=== PATIENT | female | born 1945 | race Caucasian/White ===

== ENCOUNTER → 2020-05-21 09:54 | Outpatient (REF) | payer MEDICARE, OTHER, SELFPAY ==
--- NOTE | 2020-05-21 10:00 | ECG_ITS ---
Hook-up date: 2020-05-21 10:37:00 Duration: 47:59:00 Test Indications: PALPITATIONS, PVC'S Medications: [id number] QRS complexes 182 Ventricular ectopics which represent <1 % of total QRS comp. 8 Supraventricular ectopics which represent <1 % of total QRS comp. * Paced QRS complexs which represent % of total QRS comp. VENTRICULAR ECTOPY 182 Isolated 0 Bigeminal Cycles 0 Couplets 0 Runs 0 Beats in Runs * Beats LONGEST at * BPM at :: -- * Beats FASTEST at * BPM at :: -- SUPRAVENTRICULAR ECTOPY 8 Isolated 0 Couplets 0 Runs 0 Beats in Runs * Beats LONGEST at * BPM at :: -- * Beats FASTEST at * BPM at :: -- HEART RATES 50 MIN at 02:17:39 2020-05-22 71 AVG 99 MAX at 13:52:23 2020-05-22 LONGEST RR 1.3600 secs at 01:26:09 2020-05-22 S-T LEVELS Channel 1 - 128 mm at 10:37:00 2020-05-21 - 128 mm at 10:37:00 2020-05-21 Channel 2 - 128 mm at 10:37:00 2020-05-21 - 128 mm at 10:37:00 2020-05-21 Channel 3 - 128 mm at 02:95:61 -- - 128 mm at 02:95:61 Basic rhythm Normal sinus rhythm No long pause or profound bradycardia Occasional Premature ventricular complexes One of the patient reported symptom of skipping correlated with isolated PVC Referred By: Hernan Barbosa Overread By: SAUL DAVISON MD
== END ==
LOC: HO.CARD 09:54
DX: I49.9 Cardiac arrhythmia, unspecified (principal); I10 Essential (primary) hypertension; I49.3 Ventricular premature depolarization
CPT/HCPCS: 93225; 93226

== ENCOUNTER 2020-06-05 08:57 | Outpatient (REF) | payer MEDICARE, OTHER, SELFPAY ==
[2020-06-05 10:10] LABS: Hematocrit 41.2 % (37-47); Hemoglobin 13.6 g/dl (12.0-16.0); Mean Corpuscular Hemoglobin 31.9 pg (27.0-33.0); Mean Corpuscular Volume 96.7 fL (80-98); Mean Platelet Volume 10.7 fL (9.4-12.3); Platelet Count 235 X10*3/uL (160-400); Red Blood Count 4.26 X10*6/uL (4.20-5.50); Red Cell Distribution Width 12.5 % (11.0-16.0); White Blood Count 7.2 X10*3/uL (4.8-10.8)
[2020-06-05 10:13] LABS: Estimated Average Glucose 97 mg/dL
[2020-06-05 10:46] LABS: Alanine Aminotransferase 18 U/L (0-31); Albumin Level 3.9 g/dL (3.5-5.0); Alkaline Phosphatase 93 U/L (39-117); Anion Gap 13 (12-20); Aspartate Amino Transferase 25 U/L (5-31); Bilirubin Direct 0.2 mg/dL (0.0-0.5); Bilirubin Total 0.4 mg/dL (0.0-1.0); Blood Urea Nitrogen 11 mg/dL (9-16); Calcium 8.9 mg/dL (8.4-10.2); Carbon Dioxide 29 mmol/L (22-29); Chloride 105 mmol/L (96-108); Cholesterol 146 mg/dL; Estimated Glomerular Filt Rate > 60; Glucose Fasting 100 mg/dL (60-99); HDL Cholesterol 50 mg/dL; LDL Cholesterol Calculated 73 mg/dl; Potassium 4.8 mmol/l (3.3-5.1); Sodium 142 mmol/L (135-145); Triglycerides 115 mg/dL
== END 2020-06-05 08:58 | disposition home or self-care (01) ==
LOC: HO.LAB 08:57
DX: I10 Essential (primary) hypertension (principal); E78.5 Hyperlipidemia, unspecified; R53.83 Other fatigue
CPT/HCPCS: 36415; 80053; 80061; 80076; 82248; 83036; 85027

== ENCOUNTER 2020-08-17 09:39 | Outpatient (REF) | payer MEDICARE, OTHER, SELFPAY ==
--- NOTE | 2020-08-17 09:48 | MM_ITS ---
EXAMINATION: MM SCREENING DIGITAL BREAST TOMOSYNTHESIS, BILATERAL CLINICAL INFORMATION: Screening. Asymptomatic. The lifetime risk of breast cancer based on the Tyrer-Cuzick Model is 1%. COMPARISON: Mammography: 08/12/2019, 09/27/2017, 07/28/2016 TECHNIQUE: Digital breast tomosynthesis is performed in both the craniocaudal and mediolateral oblique views along with computer-aided detection (CAD). Synthesized 2D images are generated from the tomosynthesis. FINDINGS: The breasts are almost entirely fatty (ACR BI-RADS breast composition Category a). There are no significant masses, abnormal calcifications, or other abnormalities. Background stromal densities are stable. There are bilateral vascular calcifications. The axilla and skin contours are unremarkable. No significant changes. MM/MM tomosynthesis screening BI IMPRESSION: No mammographic evidence of malignancy. ASSESSMENT: BI-RADS 1: Negative RECOMMENDATION: Routine annual mammography screening. This patient's information was entered into a reminder system with a target due date for their next mammogram.
== END 2020-08-17 09:40 | disposition home or self-care (01) ==
LOC: HO.MAMMO 09:39
DX: Z12.31 Encounter for screening mammogram for malignant neoplasm of breast (principal)
CPT/HCPCS: 77063; 77067

== ENCOUNTER 2020-09-09 08:14 | Outpatient (REF) | payer MEDICARE, OTHER, SELFPAY | END 2020-09-09 08:15 | disposition home or self-care (01) | LOC: HO.LAB 08:14 | PROVIDERS: Visit Provider Internal Medicine | DX: Z20.822 Contact with and (suspected) exposure to COVID-19 (principal) | CPT/HCPCS: 36415; C9803; U0003 ==

== ENCOUNTER 2020-10-06 10:21 | Outpatient (REF) | payer MEDICARE, OTHER, SELFPAY | END 2020-10-06 10:22 | disposition home or self-care (01) | LOC: HO.LAB 10:21 | PROVIDERS: Visit Provider Internal Medicine | DX: Z20.822 Contact with and (suspected) exposure to COVID-19 (principal) | CPT/HCPCS: 36415; C9803; U0003 ==

== ENCOUNTER 2020-10-06 11:04 | Outpatient (REF) | payer MEDICARE, OTHER, SELFPAY ==
[2020-10-06 12:28] LABS: Alanine Aminotransferase 11 U/L (0-31); Anion Gap 11 (12-20); Blood Urea Nitrogen 16 mg/dL (9-16); Carbon Dioxide 29 mmol/L (22-29); Chloride 106 mmol/L (96-108); Estimated Glomerular Filt Rate > 60; Potassium 4.7 mmol/L (3.3-5.1); Sodium 141 mmol/L (135-145)
== END 2020-10-06 11:05 | disposition home or self-care (01) ==
LOC: HO.LAB 11:04
PROVIDERS: PCP Family Medicine; Visit Provider Family Medicine
DX: I10 Essential (primary) hypertension (principal); E78.00 Pure hypercholesterolemia, unspecified; Z20.822 Contact with and (suspected) exposure to COVID-19; Z79.899 Other long term (current) drug therapy
CPT/HCPCS: 36415; 80051; 82550; 82565; 84460; 84520; C9803; U0003

== ENCOUNTER 2020-10-11 10:52 | Outpatient (REF) | payer MEDICARE, OTHER, SELFPAY | END 2020-10-11 10:53 | disposition home or self-care (01) | LOC: HO.LAB 10:52 | PROVIDERS: Visit Provider Internal Medicine | DX: Z20.822 Contact with and (suspected) exposure to COVID-19 (principal) | CPT/HCPCS: 36415; C9803; U0003; U0005 ==

== ENCOUNTER 2021-01-27 13:11 | Emergency (ER) | payer MEDICARE, OTHER, SELFPAY ==
--- NOTE | ~2021-01-27 | CT_ITS ---
EXAMINATION: CT HEAD AND CT CERVICAL SPINE WITHOUT CONTRAST CLINICAL INFORMATION: Status post fall with head injury. No LOC COMPARISON: None TECHNIQUE: 5 mm thin axial and reformatted 2 mm thin sagittal and coronal images of brain were obtained. Axial 3 mm thin and reformatted 2 mm thin sagittal and coronal images of cervical spine were obtained. DLP [id number]. FINDINGS: Brain: There is no acute intra-axial, extra-axial bleed, collection, mass or midline shift. No acute infarct in evolution. The lateral ventricles are symmetrical in size and configuration without enlargement. The valdovinos to white matter differentiation is maintained normal. The bone windows reveal no calvarial abnormality. Bilateral pattern nasal sinuses and mastoid air cells are well-aerated. There is moderate deviation nasal septum to the right Cervical spine: There is mild straightening of cervical lordosis. 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 Rest the vertebral alignment and vertebral heights are preserved. There is loss of C3-C4, C5-C6 disc heights with posterior spondylosis. The craniovertebral junction and the C2-C3 alignment is normal. There is no visible acute fracture, dislocation or subluxation seen. There is mild bilateral C3-C4 facet joint hypertrophy and arthropathy. Mild bilateral uncovertebral hypertrophic changes narrowing of neural foramina C5-C6 disc levels is noted. There is bilateral apical parenchymal and pleural thickening and scarring. The no abnormal neck mass or lymphadenopathy seen. Central tracheal airway is widely patent. The thyroid lobes are symmetrical and normal. Bilateral TM joints are intact. CT/CT cervical spine wo con IMPRESSION: No acute intracranial process seen. Mild straightening of cervical lordosis with congenital fusion C4 and C5 vertebra. There are degenerative disc changes C3-C4 and C4-C5 disc levels with ventral and posterior spondylosis. No acute fracture or dislocation seen. Mild degenerative changes.
--- NOTE | ~2021-01-27 | XR_ITS ---
EXAMINATION: CHEST, RIGHT HIP WITH PELVIS AND LUMBAR SPINE. CLINICAL INFORMATION: Status post fall with head injury. COMPARISON: None TECHNIQUE: Chest 2 views. AP pelvis and right hip 3 views. Lumbar spine 3 views. FINDINGS: CHEST: Both lungs are fairly well-expanded and clear. Heart size and pulmonary vascularity is normal. No gross bony abnormality seen. AP PELVIS AND RIGHT HIP: There is normal symmetry of bilateral SI joints and hip joints. No visible acute fracture, dislocation seen. There is no bony erosive changes. The soft tissues are normal. LUMBAR SPINE: There is normal lumbar lordosis. The vertebral heights and alignment is normal. There is loss of L4-L5 and L5-S1 disc heights there is moderate moderate ventral spondylosis seen on the right at L3-L4 and L5-S1 and on the left at L4-L5 disc levels. SI joints are normal. No visible acute fracture or lytic process seen. XR/XR chest 2V IMPRESSION: Unremarkable chest exam. Unremarkable AP pelvis and right hip exam. No acute fracture or dislocation lumbar spine. There is spondylosis throughout lumbar spine most prominent on the right at L3-L4 and L5-S1 and on the left at L4-L5 disc levels.
--- NOTE | ~2021-01-27 | XR_ITS ---
EXAMINATION: CHEST, RIGHT HIP WITH PELVIS AND LUMBAR SPINE. CLINICAL INFORMATION: Status post fall with head injury. COMPARISON: None TECHNIQUE: Chest 2 views. AP pelvis and right hip 3 views. Lumbar spine 3 views. FINDINGS: CHEST: Both lungs are fairly well-expanded and clear. Heart size and pulmonary vascularity is normal. No gross bony abnormality seen. AP PELVIS AND RIGHT HIP: There is normal symmetry of bilateral SI joints and hip joints. No visible acute fracture, dislocation seen. There is no bony erosive changes. The soft tissues are normal. LUMBAR SPINE: There is normal lumbar lordosis. The vertebral heights and alignment is normal. There is loss of L4-L5 and L5-S1 disc heights there is moderate moderate ventral spondylosis seen on the right at L3-L4 and L5-S1 and on the left at L4-L5 disc levels. SI joints are normal. No visible acute fracture or lytic process seen. XR/XR hip RT w PEL1V IMPRESSION: Unremarkable chest exam. Unremarkable AP pelvis and right hip exam. No acute fracture or dislocation lumbar spine. There is spondylosis throughout lumbar spine most prominent on the right at L3-L4 and L5-S1 and on the left at L4-L5 disc levels.
--- NOTE | ~2021-01-27 | XR_ITS ---
EXAMINATION: CHEST, RIGHT HIP WITH PELVIS AND LUMBAR SPINE. CLINICAL INFORMATION: Status post fall with head injury. COMPARISON: None TECHNIQUE: Chest 2 views. AP pelvis and right hip 3 views. Lumbar spine 3 views. FINDINGS: CHEST: Both lungs are fairly well-expanded and clear. Heart size and pulmonary vascularity is normal. No gross bony abnormality seen. AP PELVIS AND RIGHT HIP: There is normal symmetry of bilateral SI joints and hip joints. No visible acute fracture, dislocation seen. There is no bony erosive changes. The soft tissues are normal. LUMBAR SPINE: There is normal lumbar lordosis. The vertebral heights and alignment is normal. There is loss of L4-L5 and L5-S1 disc heights there is moderate moderate ventral spondylosis seen on the right at L3-L4 and L5-S1 and on the left at L4-L5 disc levels. SI joints are normal. No visible acute fracture or lytic process seen. XR/XR lumbar spine 4V min IMPRESSION: Unremarkable chest exam. Unremarkable AP pelvis and right hip exam. No acute fracture or dislocation lumbar spine. There is spondylosis throughout lumbar spine most prominent on the right at L3-L4 and L5-S1 and on the left at L4-L5 disc levels.
[2021-01-27 13:17] VITALS: BP 197/80; PULSE 66; RESP 20; TEMP 36.6; O2SAT 99; BMI 29.6
--- NOTE | 2021-01-27 13:22 | ECG_ITS ---
Test Reason : FALL Blood Pressure : / mmHG Vent. Rate : 059 BPM Atrial Rate : 059 BPM P-R Int : 194 ms QRS Dur : 100 ms QT Int : 414 ms P-R-T Axes : 068 019 053 degrees QTc Int : 409 ms Sinus bradycardia Otherwise normal ECG When compared with ECG of 17-MAY-2019 13:28, Premature ventricular complexes are no longer Present Referred By: Xuan Webb Electronically Signed By:GENESIS UGALDE
[2021-01-27 13:56] LABS: MANUAL DIFF FLAG NO
[2021-01-27 13:58] LABS: Basophils Percent Auto 0.5 % (0-2); Eosinophils Absolute Auto 0.1 X10*3/uL (0.0-0.4); Eosinophils Percent Auto 0.8 % (0-4); Hematocrit 35.7 % (37-47); Imm Gran Abs Auto 0.02 X10*3/uL (0.00-0.03); Imm Gran Pct Auto 0.3 % (0.0-0.4); Lymphocytes Absolute Auto 2.8 X10*3/uL (1.2-4.9); Lymphocytes Percent Auto 44.7 % (20-40); Mean Corpuscular HGB Conc 33.6 g/dl (31.0-35.0); Mean Corpuscular Hemoglobin 32.1 pg (27.0-33.0); Mean Corpuscular Volume 95.5 fL (80-98); Mean Platelet Volume 10.1 fL (9.4-12.3); Monocytes Absolute Auto 0.6 X10*3/uL (0.1-1.2); Monocytes Percent Auto 9.6 % (2-11); Neutrophils Absolute Auto 2.8 X10*3/uL (2.0-8.3); Neutrophils Percent Auto 44.1 % (45-73); Platelet Count 170 X10*3/uL (160-400); Red Blood Count 3.74 X10*6/uL (4.20-5.50); Red Cell Distribution Width 12.4 % (11.0-16.0); White Blood Count 6.3 X10*3/uL (4.8-10.8)
[2021-01-27 14:05] LABS: INTERNATIONAL NORM RATIO 1.1 (0.9-1.1); Prothrombin Time 12.9 SEC (10.8-13.0)
[2021-01-27 14:34] LABS: B Type Natriuretic Peptide 69 pg/mL (<100); Troponin-I High Sensitivity < 3.5 ng/L (<3.5-17.0)
--- NOTE | 2021-01-27 14:46 | ED_ITS ---
HPI - Fall General Chief Complaint: Fall Stated Complaint: FALL FROM STANDING,R HIP PAIN,HIT HEAD,NO THINNERS Time Seen by Provider: 01/27/21 13:22 Source: patient, family ( at bedside) and EMS Mode of arrival: EMS Limitations: no limitations History of Present Illness HPI Narrative: 75-year-old female with a past medical history of coronary artery disease, hypertension, hyperlipidemia and GERD presenting to the ED via EMS after mechanical fall with her at bedside. Patient and report that the patient went to get the phone around the table they had in the living room and she tripped on the leg of the table that they have in the living room and fell backwards hit her head although did not lose consciousness. It was witnessed by her . He explained to her that he could not help her up and that she should not try to get up on her own and that he would call EMS. At this time patient is complaining of Right sided head/forehead pain, neck pain, lower back and right hip pain. Denies any symptoms prior to the fall. Denies any other symptoms at this time complaints or concerns or injuries. MD complaint: fall Onset (ago): minute(s) ([employer]) Fall from: standing Fall witnessed: yes, by family Place fall occurred: home Loss of consciousness: none Prolonged down time: no Symptoms prior to fall: none Context: tripped/slipped Location of injury: head, neck and back Location of injury - extremities: right: lower leg (Right hip) Severity: mild Quality: aching Associated symptoms (after fall): denies Related Data Home Medications Medication Instructions Recorded Confirmed lorazepam 0.5 mg tablet 0.5 mg PO BID PRN 09/06/20 Previous Rx's Medication Instructions Recorded acetaminophen [Tylenol Extra 1,000 mg PO QID PRN #14 tab 01/27/21 Strength] tramadol 50 mg PO BID PRN #14 tab 01/27/21 Allergies Allergy/AdvReac Type Severity Reaction Status Date / Time penicillin G [Penicillin G] Allergy Mild RASH Verified 10/11/20 06:54 penicillin V Allergy Unknown RASH Verified 10/11/20 06:54 meperidine [From Demerol] AdvReac Mild ABDOMINAL Verified 10/11/20 06:54 CRAMPS Review of Systems Review of Systems: Constitutional : No changes in activity, No lethargy, No recent prior head injury, No agitation, No increased fussiness ENT/Mouth : No Ear Pain, No Nasal discharge/drainage Eyes: No Eye Pain, No Swelling, No Redness, No Foreign Body, No Vision Changes Cardiovascular : No Chest Pain, No SOB Respiratory : No Cough Gastrointestinal : No Nausea, No Vomiting, No abdominal Pain Genitourinary : No Dysuria, No Urinary Frequency, No Urinary Incontinence, No Urgency, No Flank Pain Musculoskeletal : Positive joint pain, positive neck pain/back pain/right hip pain, No neck stiffness Skin : No lacerations Neuro : No unsteady gait, No Paresthesias, No Loss of Consciousness, No altered mental status, No Headache Yes all other systems are reviewed and are negative [facility] Past Medical History Attestation statement: The following information was validated with the patient. Medical History Coronary artery disease GERD (gastroesophageal reflux disease) Hypercholesterolemia Hypertension Surgical History History of bladder suspension procedure History of section History of hysterectomy Hx of cholecystectomy Family History Family History Father Aneurysm Stroke Mother No problems noted. Maternal Aunt Ovarian cancer Maternal Aunt Uterine cancer Son Brain aneurysm Daughter In good health Social History Social History Advance Directives: Yes Advance Directives Information Provided: Yes Advance Directives on File: No Physical Exam Vital Signs: Vital Signs: Last Vital Signs Temp 97.9 F 01/27/21 13:17 Pulse 61 01/27/21 16:35 Resp 16 01/27/21 16:35 BP 175/55 H 01/27/21 16:35 Pulse Ox 100 01/27/21 16:35 Body Mass Index 29.6 Vital signs have been reviewed as normal and appeared to be correct. Blood pressure hypertensive at 197/80. Heart rate normal. Respiration rate normal. Temperature normal. Oxygen saturation normal. Appearance: Alert. Oriented X3. No acute distress. Head: Normal external exam. Normocephalic. Atraumatic. Able to rotate head bilaterally. Eyes: PERRLA. EOMI. No nystagmus noted. Conjunctiva and sclera normal. Eyelids normal. Corneal reflex normal. ENT: EAC normal. TM's Normal. Hearing normal. Pharynx normal. Uvula midline. tongue midline. Moist mucous membranes. No trismus noted. No drooling noted. No muffled voice noted. No nystagmus noted. Neck: Normal inspection. Neck supple. No adenopathy. Trachea midline. Thyroid Normal. No meningeal signs. No neck mass noted. C-collar is in place and patient does have mid cervical and bilateral para cervical musculature pain therefore unable to remove C-collar at this time. Although no obvious signs of trauma step-offs or deformities noted. No signs of infection. CVS: Normal heart rate and rhythm. Heart sound normal. No murmurs noted. Pulses normal throughout. Respiratory: No respiratory distress. Painless inspiration. Breath sounds normal. No wheezes/rales/rhonchi noted. Chest nontender. No accessory muscle usage noted or decreased air movement noted. Abdomen: Soft and nontender. Bowel sounds normal in all 4 quadrants. No distention noted. No organomegaly noted. No visible injury noted. Back: Patient with mild tenderness to palpation to right lower back/right hip in the posterior aspect. Patient has full range of motion of the right hip and of the lumbar spine. No obvious deformity or step-off noted. No signs of infection. No abrasions/lacerations. No CVA tenderness. Full range of motion noted. Patient is neuro intact bilateral and dyspnea on all 4 extremities. Reflexes intact bilateral and distant in all 4 extremities. Skin: Skin warm and dry. Normal skin color. Normal skin turgor. No rashes/lesions/lacerations noted. Extremities: No lower extremity edema. Extremities exhibit normal range of motion. Extremities nontender. Able to shrug shoulders bilaterally and keep up against resistance. Neuro: Oriented X 3. No motor deficit. No sensory deficit. Reflexes normal. Moving all extremities. No focal motor deficits. Cranial nerves II-XI intact bilaterally. Facial strength normal. Normal cognition. Speech normal. Strength 5/5 throughout. No pronator drift. No tremor noted. No fasciculations noted. No rigidity noted. Muscle tone normal throughout. No asterixis noted. Ruqlun-[id number]-[id number] test normal. Heel to nevarez test normal. Hand drop from overhead Misses face. NIHSS score 0. Course Course Course Narrative: 13:25pm - 75-year-old female presenting to the ED via EMS after mechanical fall with her at bedside. She tripped on the leg of her table in the living room hit her head although did not lose consciousness. No symptoms prior to the fall or after the fall. No pro down long time. Not on any blood thinners. Complaining of neck/back and right hip pain. On exam patient is alert and oriented x3. Not in any acute distress. No focal deficits are noted. NIHSS score 0. Patient mildly hypertensive at 197/80 otherwise all other vitals are within normal limits. Mild tenderness to palpation to mid cervical and bilateral paracervical musculature although no step-offs or deformities noted. Unable to remove C-collar at this time. Lungs clear to auscultation. CV RRR. Abdomen is soft nontender. Mild tenderness to palpation to right lower back/right hip on the posterior aspect. No signs of deformity or step-off noted. No signs of infection. Plan: Labs, EKG, CT scan of brain/cervical spine, chest x-ray, right hip and lumbar spine x-ray then re-evaluate. Reevaluation(s) Reevaluation #1: - CT scan of brain/cervical spine/chest x-ray/spine x-ray/right hip and pelvis x-ray all negative for any acute processes only revealed chronic changes. - EKG was within normal limits. - labs within normal limits no processes are noted. COVID/RSV/flu negative. - therefore at this time will DC home with symptomatic treatment instructions return if any new or worsening symptoms to follow up with primary care provider. Patient and at bedside understand and agree with this plan. Time: 16:49 MDM - Fall Medical Records Attestation: I reviewed the patient's medical records. Lab Data Attestation: I reviewed the patient's lab results. Result diagrams: 01/27/21 13:46 01/27/21 14:30 Labs: Lab Results 01/27/21 01/27/21 01/27/21 Range/Units 13:46 13:46 13:46 WBC 6.3 (4.8-10.8) X10*3/uL RBC 3.74 L (4.20-5.50) X10*6/uL Hgb 12.0 (12.0-16.0) g/dl Hct 35.7 L (37-47) % MCV 95.5 (80-98) fL MCH 32.1 (27.0-33.0) pg MCHC 33.6 (31.0-35.0) g/dl RDW 12.4 (11.0-16.0) % Plt Count 170 D (160-400) X10*3/uL MPV 10.1 (9.4-12.3) fL Immature Gran % (Auto) 0.3 (0.0-0.4) % Neut % (Auto) 44.1 L (45-73) % Lymph % (Auto) 44.7 H (20-40) % [place] % (Auto) 9.6 (2-11) % Eos % (Auto) 0.8 (0-4) % Baso % (Auto) 0.5 (0-2) % Lymph # (Auto) 2.8 (1.2-4.9) X10*3/uL [place] # (Auto) 0.6 (0.1-1.2) X10*3/uL Eos # (Auto) 0.1 (0.0-0.4) X10*3/uL Baso # (Auto) 0.0 (0.0-0.2) X10*3/uL Abs Immat Gran (auto) 0.02 (0.00-0.03) X10*3/uL Absolute Neuts (auto) 2.8 (2.0-8.3) X10*3/uL Absolute Nucleated RBC 0.000 (0.0-0.012) X10*3/uL Nucleated RBC % (auto) 0.0 (0.0-0.2) /100WBC PT 12.9 (10.8-13.0) SEC INR 1.1 (0.9-1.1) Sodium (135-145) mmol/L Potassium (3.3-5.1) mmol/L Chloride (96-108) mmol/L Carbon Dioxide (22-29) mmol/L Anion Gap (12-20) BUN (9-16) mg/dL Creatinine (0.5-1.4) mg/dL Estim Creat Clear Calc Estimated GFR Random Glucose (60-115) mg/dL Calcium (8.4-10.2) mg/dL Magnesium (1.6-2.6) mg/dL Total Bilirubin (0.0-1.0) mg/dL AST (5-31) U/L ALT (0-31) U/L Alkaline Phosphatase (39-117) U/L Troponin I High Sens < 3.5 (<3.5-17.0) ng/L B-Natriuretic Peptide 69 (<100) pg/mL Total Protein (6.5-8.0) g/dL Albumin (3.5-5.0) g/dL Coronavirus (PCR) (Negative) Influenza Type A (PCR) (Negative) Influenza Type B (PCR) (Negative) RSV RNA Qual (PCR) (Negative) 01/27/21 01/27/21 01/27/21 Range/Units 13:46 14:29 14:30 WBC (4.8-10.8) X10*3/uL RBC (4.20-5.50) X10*6/uL Hgb (12.0-16.0) g/dl Hct (37-47) % MCV (80-98) fL MCH (27.0-33.0) pg MCHC (31.0-35.0) g/dl RDW (11.0-16.0) % Plt Count (160-400) X10*3/uL MPV (9.4-12.3) fL Immature Gran % (Auto) (0.0-0.4) % Neut % (Auto) (45-73) % Lymph % (Auto) (20-40) % [place] % (Auto) (2-11) % Eos % (Auto) (0-4) % Baso % (Auto) (0-2) % Lymph # (Auto) (1.2-4.9) X10*3/uL [place] # (Auto) (0.1-1.2) X10*3/uL Eos # (Auto) (0.0-0.4) X10*3/uL Baso # (Auto) (0.0-0.2) X10*3/uL Abs Immat Gran (auto) (0.00-0.03) X10*3/uL Absolute Neuts (auto) (2.0-8.3) X10*3/uL Absolute Nucleated RBC (0.0-0.012) X10*3/uL Nucleated RBC % (auto) (0.0-0.2) /100WBC PT (10.8-13.0) SEC INR (0.9-1.1) Sodium 141 (135-145) mmol/L Potassium 4.1 (3.3-5.1) mmol/L Chloride 110 H (96-108) mmol/L Carbon Dioxide 23 (22-29) mmol/L Anion Gap 12 (12-20) BUN 11 (9-16) mg/dL Creatinine 0.74 (0.5-1.4) mg/dL Estim Creat Clear Calc 57.4 Estimated GFR > 60 Random Glucose 135 H (60-115) mg/dL Calcium 8.4 (8.4-10.2) mg/dL Magnesium 2.0 (1.6-2.6) mg/dL Total Bilirubin 0.3 (0.0-1.0) mg/dL AST 25 (5-31) U/L ALT 19 (0-31) U/L Alkaline Phosphatase 110 (39-117) U/L Troponin I High Sens (<3.5-17.0) ng/L B-Natriuretic Peptide Cancelled (<100) pg/mL Total Protein 6.3 L (6.5-8.0) g/dL Albumin 3.5 (3.5-5.0) g/dL Coronavirus (PCR) NEGATIVE (Negative) Influenza Type A (PCR) NEGATIVE (Negative) Influenza Type B (PCR) NEGATIVE (Negative) RSV RNA Qual (PCR) NEGATIVE (Negative) Imaging Data CT scan of brain/cervical spine: Attestation: I personally reviewed and interpreted this imaging study as follows: Radiologist's impression: FINDINGS: Brain: There is no acute intra-axial, extra-axial bleed, collection, mass or midline shift. No acute infarct in evolution. The lateral ventricles are symmetrical in size and configuration without enlargement. The valdovinos to white matter differentiation is maintained normal. The bone windows reveal no calvarial abnormality. Bilateral pattern nasal sinuses and mastoid air cells are well-aerated. There is moderate deviation nasal septum to the right Cervical spine: There is mild straightening of cervical lordosis. 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 Rest the vertebral alignment and vertebral heights are preserved. There is loss of C3-C4, C5-C6 disc heights with posterior spondylosis. The craniovertebral junction and the C2-C3 alignment is normal. There is no visible acute fracture, dislocation or subluxation seen. There is mild bilateral C3-C4 facet joint hypertrophy and arthropathy. Mild bilateral uncovertebral hypertrophic changes narrowing of neural foramina C5-C6 disc levels is noted. There is bilateral apical parenchymal and pleural thickening and scarring. The no abnormal neck mass or lymphadenopathy seen. Central tracheal airway is widely patent. The thyroid lobes are symmetrical and normal. Bilateral TM joints are intact. CT/CT cervical spine wo con IMPRESSION: No acute intracranial process seen. Mild straightening of cervical lordosis with congenital fusion C4 and C5 vertebra. There are degenerative disc changes C3-C4 and C4-C5 disc levels with ventral and posterior spondylosis. No acute fracture or dislocation seen. Mild degenerative changes. Chest x-ray/spine x-ray/right hip and pelvis x-ray: Attestation: I personally reviewed and interpreted this imaging study as follows: Radiologist's impression: FINDINGS: CHEST: Both lungs are fairly well-expanded and clear. Heart size and pulmonary vascularity is normal. No gross bony abnormality seen. AP PELVIS AND RIGHT HIP: There is normal symmetry of bilateral SI joints and hip joints. No visible acute fracture, dislocation seen. There is no bony erosive changes. The soft tissues are normal. LUMBAR SPINE: There is normal lumbar lordosis. The vertebral heights and alignment is normal. There is loss of L4-L5 and L5-S1 disc heights there is moderate moderate ventral spondylosis seen on the right at L3-L4 and L5-S1 and on the left at L4-L5 disc levels. SI joints are normal. No visible acute fracture or lytic process seen. XR/XR hip RT w PEL1V IMPRESSION: Unremarkable chest exam. Unremarkable AP pelvis and right hip exam. No acute fracture or dislocation lumbar spine. There is spondylosis throughout lumbar spine most prominent on the right at L3-L4 and L5-S1 and on the left at L4-L5 disc levels. ECG Data Attestation: I personally reviewed and interpreted this ECG as follows: ECG interpretation date: 01/27/21 ECG interpretation time: 14:13 Interpretation: Sinus bradycardia with ventricular rate of [address] interval normal QRS duration and a QT/QTC interval. No acute ischemic changes are noted. Similar when compared to prior EKG on 05/17/2019 Discharge Plan Discharge Clinical Impression: Fall, Head injury, Lumbar strain, Strain of right hip Patient Disposition: Home, Self-Care Instructions: Fall Prevention for Older Adults (ED), Head Injury (ED), Low Back Strain (ED) Prescriptions: New acetaminophen [Tylenol Extra Strength] 500 mg tablet 1,000 mg PO QID PRN (Reason: fever or pain) Qty: 14 RF: 0 tramadol 50 mg tablet 50 mg PO BID PRN (Reason: pain) Qty: 14 RF: 0 Referrals: Physician,Unknown [Primary Care Provider] - 2 days (your pcp) Print Language: Khmer
[2021-01-27 15:05] LABS: Alanine Aminotransferase 19 U/L (0-31); Albumin Level 3.5 g/dL (3.5-5.0); Alkaline Phosphatase 110 U/L (39-117); Anion Gap 12 (12-20); Aspartate Amino Transferase 25 U/L (5-31); Bilirubin Total 0.3 mg/dL (0.0-1.0); Blood Urea Nitrogen 11 mg/dL (9-16); Calcium 8.4 mg/dL (8.4-10.2); Carbon Dioxide 23 mmol/L (22-29); Chloride 110 mmol/L (96-108); Creatinine Clr Calc Pharmacy 57.4; Estimated Glomerular Filt Rate > 60; Glucose Random 135 mg/dL (60-115); Potassium 4.1 mmol/L (3.3-5.1); Sodium 141 mmol/L (135-145); Total Protein 6.3 g/dL (6.5-8.0)
[2021-01-27] MEDS: 0.9 % Sodium Chloride 1,000 ML 999 ML IVCONT (15:14)
[2021-01-27 15:15] LABS: Influenza A PCR NEGATIVE (Negative); Influenza B PCR NEGATIVE (Negative); Resp Syncy Virus RNA Qual PCR NEGATIVE (Negative); SARS COV2 PCR INHOUSE NEGATIVE (Negative)
[2021-01-27 16:35] VITALS: BP 175/55; PULSE 61; RESP 16; O2SAT 100
[2021-01-27 17:01] LABS: Glucose Urine UA NEG (NEG); Leukocyte Esterase Urine NEG (NEG); Nitrite Urine NEG (NEG); PH 6.5 (5.0-8.0); Specific Gravity - Urine <= 1.005 (1.005-1.025); Urine Blood NEG (NEG); Urine Ketones NEG (NEG); Urine Protein NEG (NEG-TRACE)
[2021-01-27 17:04] LABS: Appearance Urine HAZY; Color Urine YELLOW
== END 2021-01-27 17:55 | disposition home or self-care (01) ==
PROVIDERS: Physician Assistant Medical; Emergency Provider Emergency Medicine
DX: S39.012A Strain of muscle, fascia and tendon of lower back, initial encounter (principal); S76.011A Strain of muscle, fascia and tendon of right hip, initial encounter; S09.90XA Unspecified injury of head, initial encounter; I10 Essential (primary) hypertension; W01.0XXA Fall on same level from slipping, tripping and stumbling without subsequent striking against object, initial encounter; Y93.9 Activity, unspecified; Y92.008 Other place in unspecified non-institutional (private) residence as the place of occurrence of the external cause; Y99.9 Unspecified external cause status; Z20.822 Contact with and (suspected) exposure to COVID-19
CPT/HCPCS: 0241U; 36415; 70450; 71046; 72110; 72125; 73502; 80053; 81003; 83735; 83880; 84484; 85025; 85610; 93005; 96360; 99283; 99284

== ENCOUNTER 2021-03-25 10:23 | Outpatient (REF) | payer MEDICARE, OTHER, SELFPAY ==
[2021-03-25 11:23] LABS: Alanine Aminotransferase 21 U/L (0-31); Anion Gap 14 (12-20); Blood Urea Nitrogen 11 mg/dL (9-16); Carbon Dioxide 26 mmol/L (22-29); Chloride 107 mmol/L (96-108); Estimated Glomerular Filt Rate > 60; Potassium 4.8 mmol/L (3.3-5.1); Sodium 142 mmol/L (135-145)
== END 2021-03-25 10:24 | disposition home or self-care (01) ==
LOC: HO.LAB 10:23
PROVIDERS: PCP Family Medicine; Visit Provider Family Medicine
DX: I10 Essential (primary) hypertension (principal); E78.00 Pure hypercholesterolemia, unspecified; Z79.899 Other long term (current) drug therapy
CPT/HCPCS: 36415; 80051; 82550; 82565; 84460; 84520

== ENCOUNTER 2021-06-10 14:46 | Outpatient (REF) | payer MEDICARE, OTHER, SELFPAY ==
[2021-06-10 16:34] LABS: Appearance Urine CLEAR; Color Urine STRAW; Glucose Urine UA NEG (NEG); Leukocyte Esterase Urine NEG (NEG); Nitrite Urine NEG (NEG); Specific Gravity - Urine <= 1.005 (1.005-1.025); Urine Blood NEG (NEG); Urine Ketones NEG (NEG); Urine Protein NEG (NEG-TRACE)
== END 2021-06-10 14:47 | disposition home or self-care (01) ==
LOC: HO.LAB 14:46
PROVIDERS: PCP Family Medicine; Visit Provider Family Medicine
DX: N39.0 Urinary tract infection, site not specified (principal); R35.0 Frequency of micturition
CPT/HCPCS: 81003; 87086

== ENCOUNTER 2021-06-22 15:17 | Outpatient (REF) | payer MEDICARE, OTHER, SELFPAY | END 2021-06-22 15:18 | disposition home or self-care (01) | LOC: HO.LAB 15:17 | PROVIDERS: Visit Provider Internal Medicine | DX: Z20.822 Contact with and (suspected) exposure to COVID-19 (principal) | CPT/HCPCS: C9803; U0003; U0005 ==

== ENCOUNTER 2021-07-13 13:24 | Outpatient (REF) | payer MEDICARE, OTHER, SELFPAY ==
[2021-07-13 14:51] LABS: Anion Gap 9 (12-20); Blood Urea Nitrogen 9 mg/dL (9-16); Carbon Dioxide 30 mmol/L (22-29); Chloride 103 mmol/L (96-108); Estimated Glomerular Filt Rate > 60; Potassium 4.5 mmol/L (3.3-5.1); Sodium 137 mmol/L (135-145)
== END 2021-07-13 13:25 | disposition home or self-care (01) ==
LOC: HO.LAB 13:24
PROVIDERS: PCP Family Medicine; Visit Provider Family Medicine
DX: I10 Essential (primary) hypertension (principal)
CPT/HCPCS: 36415; 80051; 82565; 84520

== ENCOUNTER 2021-12-09 11:25 | Outpatient (REF) | payer MEDICARE, OTHER, SELFPAY ==
--- NOTE | ~2021-12-09 | MM_ITS ---
EXAMINATION: MM SCREENING DIGITAL BREAST TOMOSYNTHESIS, BILATERAL CLINICAL INFORMATION: Screening. Asymptomatic. The lifetime risk of breast cancer based on the Tyrer-Cuzick Model is 1%. COMPARISON: Mammography: 08/17/2020, 08/12/2019, 07/27/2018 TECHNIQUE: Digital breast tomosynthesis is performed in both the craniocaudal and mediolateral oblique views along with computer-aided detection (CAD). Synthesized 2D images are generated from the tomosynthesis. FINDINGS: There are scattered areas of fibroglandular density (ACR BI-RADS breast composition Category b). There are no significant masses, abnormal calcifications, or other abnormalities. Parenchymal pattern is similar to prior studies. No significant changes. MM/MM tomosynthesis screening BI IMPRESSION: No mammographic evidence of malignancy. ASSESSMENT: BI-RADS 1: Negative RECOMMENDATION: Routine annual mammography screening. This patient's information was entered into a reminder system with a target due date for their next mammogram.
== END 2021-12-09 11:26 | disposition home or self-care (01) ==
LOC: HO.MAMMO 11:25
PROVIDERS: PCP Family Medicine; Visit Provider Family Medicine
DX: Z12.31 Encounter for screening mammogram for malignant neoplasm of breast (principal)
CPT/HCPCS: 77063; 77067

== ENCOUNTER 2022-01-02 12:56 | Inpatient (IN) | payer MEDICARE, OTHER, SELFPAY ==
[2022-01-02] VITALS (10 sets, daily range): BP systolic 113–221; BP diastolic 46–104; PULSE 59–80; RESP 11–17; TEMP 36.6–36.8; O2SAT 95–99; BMI 32.1
--- NOTE | ~2022-01-02 | US_ITS ---
EXAMINATION: ULTRASOUND RENAL WITH DOPPLER CLINICAL INFORMATION: Resistant hypertension COMPARISON: CT abdomen pelvis on 03/26/2020 TECHNIQUE: Real-time grayscale, color Doppler, and duplex Doppler evaluation of the kidneys and renal vasculature was performed. FINDINGS: RENAL MEASUREMENTS: Right: 7.8 x 3.8 x 4.4 cm (Sag x AP x TV) Left: 10.1 x 4.9 x 4.3 cm (Sag x AP x TV) The renal parenchyma appears normal. No hydronephrosis or nephrolithiasis. DOPPLER INTERROGATION: Aorta: 87.1 cm/sec Right Main Renal Artery: Proximal: 181 cm/sec Mid: 294 cm/sec Distal: 80.5 cm/sec Left Main Renal Artery: Not visualized Renal-Aortic Ratio (RAR): Right: 3.4 Left: N/A US/US renal doppler IMPRESSION: 1. Elevated velocities in the right mid renal artery suggesting stenosis. 2. Left renal artery was not visualized. Recommend MRA of the abdomen for further evaluation.
--- NOTE | ~2022-01-02 | MR_ITS ---
EXAMINATION: MR ANGIOGRAPHY ABDOMEN WITHOUT AND WITH CONTRAST CLINICAL INFORMATION: Renal artery stenosis COMPARISON: Ultrasound 01/04/2022, CT abdomen and pelvis 10/25/2019 TECHNIQUE: Multiplanar multisequence MR angiography of the abdomen for prior to and following the uneventful intravenous administration of 20 mL Gadavist. FINDINGS: Lung bases are unremarkable. Partially visualized heart is normal in signal. The liver is normal in size and overall signal characteristics on limited sequences. There is intrahepatic duct dilation as well as prominent dilation of the common duct up to 2 cm in diameter which is similar to the previous studies. The gallbladder is surgically absent. The spleen is unremarkable. The pancreas is normal signal characteristics and there is no pancreatic duct dilation. The adrenal glands are unremarkable. There are small bilateral simple renal cysts with high signal intensity on T2-weighted images. The aorta is normal in caliber and the visualized bowel is normal in overall signal. No intraperitoneal fluid is identified. Muscular skeletal structures are normal in signal. On angiographic images, the aorta is normal in caliber. There is no abnormal wall thickening. No evidence of dissection or other acute aortic syndrome. 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 The superior mesenteric artery is patent from its origin. There is a single renal artery to each kidney. The right renal artery is slightly diminutive. On oblique reformatted images, there is possible moderate stenosis of the midportion of the vessel (see river image). There is no evidence of stenosis of the left renal artery. There is normal postcontrast enhancement of the renal veins. MR/MR angio abdomen wo/w con IMPRESSION: There is at least a probable moderate stenosis at the midportion of the right renal artery. Catheter-based angiography could be considered if clinically warranted. Simple renal cysts. Redemonstration of dilated common duct and central intrahepatic ducts.
--- NOTE | ~2022-01-02 | CT_ITS ---
EXAMINATION: CT HEAD WITHOUT CONTRAST CLINICAL INFORMATION: Hypertensive crisis COMPARISON: 01/27/2021 TECHNIQUE: Contiguous axial imaging was performed from the skull base to vertex without intravenous administration of contrast. This CT examination was performed using dose optimization techniques as appropriate, variously including the following: *Automated exposure control *Adjustment of mA and/or kV according to patient size (this includes techniques or standardized protocols for targeted exams where dose is matched to indication/reason for exam; i.e. extremities or head) *Use of iterative reconstruction technique DLP: 629 mGy-cm FINDINGS: Sulci and ventricles unremarkable. No intra or extra-axial fluid collection or hemorrhage, mass or mass effect. Small punctate dural calcifications are noted. Calvarium intact. CT/CT head/brain wo con IMPRESSION: No acute intracranial pathology.
--- NOTE | 2022-01-02 13:22 | ECG_ITS ---
Test Reason : HYPERTENSION Blood Pressure : / mmHG Vent. Rate : 066 BPM Atrial Rate : 066 BPM P-R Int : 174 ms QRS Dur : 098 ms QT Int : 386 ms P-R-T Axes : 051 018 056 degrees QTc Int : 404 ms Normal sinus rhythm Cannot rule out Anterior infarct , age undetermined Abnormal ECG When compared with ECG of 27-JAN-2021 14:13, No significant change was found Referred By: Luiz Hawthorne Electronically Signed By:Abhishek Castro
[2022-01-02] MEDS: cloNIDine HCL 0.2 MG TABLET PO (13:35)
[2022-01-02 13:52] LABS: MANUAL DIFF FLAG NO
[2022-01-02 13:54] LABS: Basophils Percent Auto 0.3 % (0-2); Eosinophils Absolute Auto 0.1 X10*3/uL (0.0-0.4); Eosinophils Percent Auto 0.9 % (0-4); Hematocrit 38.8 % (37.0-47.0); Hemoglobin 13.2 g/dl (12.0-16.0); Imm Gran Abs Auto 0.01 X10*3/uL (0.00-0.03); Imm Gran Pct Auto 0.1 % (0.0-0.4); Lymphocytes Absolute Auto 2.5 X10*3/uL (1.2-4.9); Lymphocytes Percent Auto 36.2 % (20-40); Mean Corpuscular Volume 94.2 fL (80.0-98.0); Mean Platelet Volume 9.3 fL (9.4-12.3); Monocytes Absolute Auto 0.9 X10*3/uL (0.1-1.2); Monocytes Percent Auto 13.3 % (2-11); Neutrophils Absolute Auto 3.4 x10*3/uL (2.0-8.3); Neutrophils Percent Auto 49.2 % (45-73); Platelet Count 217 X10*3/uL (160-400); Red Blood Count 4.12 X10*6/uL (4.20-5.50); White Blood Count 6.9 X10*3/uL (4.8-10.8)
[2022-01-02 14:02] LABS: Prothrombin Time 11.1 SEC (9.9-13.0)
[2022-01-02 14:12] LABS: B Type Natriuretic Peptide 80 pg/mL (<100); Troponin-I High Sensitivity 3.8 ng/L (<3.5-17.0)
[2022-01-02 14:16] LABS: Alanine Aminotransferase 18 U/L (0-31); Albumin Level 3.9 g/dL (3.5-5.0); Alkaline Phosphatase 87 U/L (39-117); Anion Gap 13 (12-20); Aspartate Amino Transferase 24 U/L (5-31); Bilirubin Total 0.3 mg/dL (0.0-1.0); Blood Urea Nitrogen 10 mg/dL (9-16); Calcium 8.8 mg/dL (8.4-10.2); Carbon Dioxide 24 mmol/L (22-29); Chloride 98 mmol/L (96-108); Creatinine Clr Calc Pharmacy 50.1; Estimated Glomerular Filt Rate > 60; Glucose Random 121 mg/dL (60-115); Potassium 4.6 mmol/L (3.3-5.1); Sodium 130 mmol/L (135-145); Total Protein 7.2 g/dL (6.5-8.0)
--- NOTE | 2022-01-02 15:06 | ED_ITS ---
HPI - General Adult General Chief complaint: General Medical Stated complaint: DIZZY,HIGH BP 192/99 PER EMS Time Seen by Provider: 01/02/22 14:05 Source: patient Mode of arrival: ambulatory Limitations: no limitations History of Present Illness HPI narrative: 76-year-old female brought with past medical history of high blood pressure, coronary artery disease, GERD, and high cholesterol presents to ED for dizziness and elevated blood pressure. Patient states since 08:00 having dizziness described as weakness. patient denies slurred speech, facial droop, loss of vision, or paralysis of extremities. Patient states he thinks he is compliant with her blood pressure medication. EMS found patient's blood pressure to be elevated.. Related Data Home Medications Medication Instructions Recorded Confirmed lorazepam 0.5 mg tablet 0.5 mg PO BID PRN 09/06/20 Previous Rx's Medication Instructions Recorded acetaminophen 500 mg tablet 1,000 mg PO QID PRN #14 tab 01/27/21 (Tylenol Extra Strength) tramadol 50 mg tablet 50 mg PO BID PRN #14 tab 01/27/21 Allergies Allergy/AdvReac Type Severity Reaction Status Date / Time penicillin G [Penicillin G] Allergy Mild RASH Verified 10/11/20 06:54 penicillin V Allergy Unknown RASH Verified 10/11/20 06:54 meperidine [From Demerol] AdvReac Mild ABDOMINAL Verified 10/11/20 06:54 CRAMPS Review of Systems Review of Systems: Dizziness. Elevated blood pressure Yes all other systems are reviewed and are negative [facility] Past Medical History Medical History Coronary artery disease GERD (gastroesophageal reflux disease) Hypercholesterolemia Hypertension Surgical History History of bladder suspension procedure History of section History of hysterectomy Hx of cholecystectomy Family History Family History Father Aneurysm Stroke Mother No problems noted. Maternal Aunt Ovarian cancer Maternal Aunt Uterine cancer Son Brain aneurysm Daughter In good health Social History Social History Alcohol intake: never Patient Tobacco Use Status: Never used Tobacco Use of substances other than those prescribed or required for medical reasons: No Advance Directives: Yes Advance Directives Information Provided: No Advance Directives on File: No Physical Exam ED Vital Signs: Vital Signs - 24 hr 01/02/22 13:14 01/02/22 14:54 01/02/22 15:29 Temperature 98 F 98.3 F Pulse Rate 73 72 Respiratory Rate 17 16 Blood Pressure 221/85 H 178/76 H 152/46 H Pulse Oximetry 95 97 01/02/22 16:37 01/02/22 18:16 Temperature 98.2 F Pulse Rate 63 59 Respiratory Rate 14 15 Blood Pressure 113/47 L 149/54 H Pulse Oximetry 97 BMI result Body Mass Index 32.1 Const General: cooperative, healthy appearing, comfortable, no acute distress, well developed, alert, awake and Physically active Orientation/consciousness: patient oriented x3 HENMT Head: Yes normal to inspection, Yes No palpable skull fracture present, Yes normocephalic, Yes atraumatic and No abrasion Eyes General: appearance normal, both eyes and all related structures Neck Neck: Yes normal visual inspection, Yes full ROM, Yes no lymphadenopathy, Yes no meningeal signs, Yes trachea midline, Yes supple, No anterior neck swelling and No tender Chest Chest palpation & inspection: normal inspection of the chest and normal palpation of entire chest wall Resp Effort & Inspection: normal respiratory effort and able to speak in complete sentences Auscultation: clear to auscultation bilaterally Cardio Jugular venous distension: no JVD Heart sounds: S1 normal heart sound present and S2 normal heart sound present GI Inspection: Yes normal to inspection and No abdominal wall ecchymosis Palpation (GI): Soft to palpation, not firm, nontender, no guarding and not rigid General: No CVA tenderness and Yes no CVA tenderness Back/Spine/Pelvis Back: no CVA tenderness, No CVA tenderness and No back tenderness Skin General skin exam: no rashes or lesions noted and elasticity normal Neuro General: patient oriented x3, gait normal, no meningeal signs and CN's II-XI intact bilaterally Cranial nerves: Yes CN's II-XII intact bilaterally Extrem General: Yes normal to inspection and Yes full ROM Psych Appearance: grossly normal, well kempt and not disheveled NIH Stroke Scale Internal: Initial- Upon Arrival Level of Consciousness: Alert Level of Consciousness Questions: Answers both questions correctly Level of Consciousness Commands: Performs both tasks correctly Best Gaze: Normal Visual: No visual loss Facial Palsy: Normal Motor Arm (Right): No drift Motor Arm (Left): No drift Motor Leg (Right): No drift Motor Leg (Left): No drift Limb Ataxia: Absent Sensory: Normal Best Language: No aphasia Dysarthia: Normal Extinction and Inattention: No abnormality Score: 0 Course Course Course Narrative: patient hypertensive. Negative for any neuro deficits. Will check EKG and cardiac enzymes to make sure there is no cardiac attack due to high blood pressure. Will check chemistry for kidney function. Will also check for head CT scan to make sure there is no brain bleed or stroke. NIH score 0. came to bedside and states maybe patient missed some doses of her high blood pressure medication which has happened before in the past. Reevaluation(s) Reevaluation #1: patient negative for any neuro deficits. Patient walked to the bathroom with aid of medical staff. Negative for any abnormal gait. Head CT scan normal. Cervical spine CT scan normal. Initial EKG negative for STEMI. waiting for repeat troponin. Blood pressure improving with clonidine. Time: 13:43 Reevaluation #2: 2nd troponin came back elevated and positive. Repeat EKG shows no new changes. Case discussed with Dr. Castro with cardiology who states patient does not need heparin and is not ACS. He recommends patient should observed with repeat tropoins and control blood pressures. Patient to be admitted for Hypertensive emergency Time: 18:54 Medical Decision Making [facility] Narrative Medical decision making narrative: hypertensive emergency Lab Data Result diagrams: 01/02/22 13:43 01/02/22 13:43 Labs: Lab Results 01/02/22 01/02/22 01/02/22 Range/Units 13:43 13:43 13:43 WBC 6.9 (4.8-10.8) X10*3/uL RBC 4.12 L (4.20-5.50) X10*6/uL Hgb 13.2 (12.0-16.0) g/dl Hct 38.8 (37.0-47.0) % MCV 94.2 (80.0-98.0) fL MCH 32.0 (27.0-33.0) pg MCHC 34.0 (31.0-35.0) g/dl RDW 12.0 (11.0-16.0) % Plt Count 217 (160-400) X10*3/uL MPV 9.3 L (9.4-12.3) fL Immature Gran % (Auto) 0.1 (0.0-0.4) % Neut % (Auto) 49.2 (45-73) % Lymph % (Auto) 36.2 (20-40) % [place] % (Auto) 13.3 H (2-11) % Eos % (Auto) 0.9 (0-4) % Baso % (Auto) 0.3 (0-2) % Lymph # (Auto) 2.5 (1.2-4.9) X10*3/uL [place] # (Auto) 0.9 (0.1-1.2) X10*3/uL Eos # (Auto) 0.1 (0.0-0.4) X10*3/uL Baso # (Auto) 0.0 (0.0-0.2) X10*3/uL Abs Immat Gran (auto) 0.01 (0.00-0.03) X10*3/uL Absolute Neuts (auto) 3.4 (2.0-8.3) x10*3/uL Absolute Nucleated RBC 0.000 (0.0-0.012) X10*3/uL Nucleated RBC % (auto) 0.0 (0.0-0.2) /100WBC PT (9.9-13.0) SEC INR (0.9-1.1) APTT (24.1-38.0) SEC Sodium 130 L (135-145) mmol/L Potassium 4.6 (3.3-5.1) mmol/L Chloride 98 (96-108) mmol/L Carbon Dioxide 24 (22-29) mmol/L Anion Gap 13 (12-20) BUN 10 (9-16) mg/dL Creatinine 0.87 (0.5-1.4) mg/dL Estim Creat Clear Calc 50.1 Estimated GFR > 60 Random Glucose 121 H (60-115) mg/dL Calcium 8.8 (8.4-10.2) mg/dL Total Bilirubin 0.3 (0.0-1.0) mg/dL AST 24 (5-31) U/L ALT 18 (0-31) U/L Alkaline Phosphatase 87 D (39-117) U/L Troponin I High Sens 3.8 (<3.5-17.0) ng/L B-Natriuretic Peptide 80 (<100) pg/mL Total Protein 7.2 (6.5-8.0) g/dL Albumin 3.9 (3.5-5.0) g/dL 01/02/22 01/02/22 Range/Units 13:43 16:46 WBC (4.8-10.8) X10*3/uL RBC (4.20-5.50) X10*6/uL Hgb (12.0-16.0) g/dl Hct (37.0-47.0) % MCV (80.0-98.0) fL MCH (27.0-33.0) pg MCHC (31.0-35.0) g/dl RDW (11.0-16.0) % Plt Count (160-400) X10*3/uL MPV (9.4-12.3) fL Immature Gran % (Auto) (0.0-0.4) % Neut % (Auto) (45-73) % Lymph % (Auto) (20-40) % [place] % (Auto) (2-11) % Eos % (Auto) (0-4) % Baso % (Auto) (0-2) % Lymph # (Auto) (1.2-4.9) X10*3/uL [place] # (Auto) (0.1-1.2) X10*3/uL Eos # (Auto) (0.0-0.4) X10*3/uL Baso # (Auto) (0.0-0.2) X10*3/uL Abs Immat Gran (auto) (0.00-0.03) X10*3/uL Absolute Neuts (auto) (2.0-8.3) x10*3/uL Absolute Nucleated RBC (0.0-0.012) X10*3/uL Nucleated RBC % (auto) (0.0-0.2) /100WBC PT 11.1 (9.9-13.0) SEC INR 1.0 (0.9-1.1) APTT 32.0 (24.1-38.0) SEC Sodium (135-145) mmol/L Potassium (3.3-5.1) mmol/L Chloride (96-108) mmol/L Carbon Dioxide (22-29) mmol/L Anion Gap (12-20) BUN (9-16) mg/dL Creatinine (0.5-1.4) mg/dL Estim Creat Clear Calc Estimated GFR Random Glucose (60-115) mg/dL Calcium (8.4-10.2) mg/dL Total Bilirubin (0.0-1.0) mg/dL AST (5-31) U/L ALT (0-31) U/L Alkaline Phosphatase (39-117) U/L Troponin I High Sens 26.3 H D (<3.5-17.0) ng/L B-Natriuretic Peptide (<100) pg/mL Total Protein (6.5-8.0) g/dL Albumin (3.5-5.0) g/dL ECG Data Interpretation: EK normal sinus rhythm. Ventricular rate 66. Peer interval 174 pr QRS 98. QTC 404. Negative STEMI EKG 2: normal sinus rhythm. Ventricular rate 60. Pr interval 190. QRS 92 pr QTC 404. Negative STEMI Discharge Plan Discharge Clinical Impression: Hypertensive emergency Patient Disposition: Admitted As Inpatient
--- NOTE | 2022-01-02 16:42 | PC.NURSE ---
Luiz CASPER made aware of patients blood pressure trends.
[2022-01-02 17:14] LABS: Troponin-I High Sensitivity 26.3 ng/L (<3.5-17.0)
--- NOTE | 2022-01-02 17:52 | ECG_ITS ---
Test Reason : WEAKNESS Blood Pressure : / mmHG Vent. Rate : 060 BPM Atrial Rate : 060 BPM P-R Int : 190 ms QRS Dur : 092 ms QT Int : 404 ms P-R-T Axes : 045 013 041 degrees QTc Int : 404 ms Normal sinus rhythm Cannot rule out Anterior infarct (cited on or before 02-JAN-2022) Abnormal ECG When compared with ECG of 02-JAN-2022 13:40, No significant change was found Referred By: Luiz Hawthorne Electronically Signed By:Abhishek Castro
--- NOTE | 2022-01-02 19:08 | PM.IMHP ---
History of Present Illness Date of Service: 01/02/22 Chief Complaint: Dizziness 76-year-old female with a past medical history of hypertension, hyperlipidemia, CAD, GERD, trigeminal neurology presented to the hospital with a chief complaint of dizziness. Patient reports that she has been feeling generally weak all day and later noted to have dizzy/ lightheaded; denies any falls or trauma. Denies any room spinning. Denies any chest pain or palpitations. Subsequently called in EMS; when EMS arrived patient was noted to have elevated blood pressure; Denies any GI symptoms. Denies any recent travel or sick contacts. Review of all other systems is negative except mentioned above ER course: Per ER team patient on presentation noted to have nonfocal neurological examination; NIH stroke scale was 0; CT head showed no acute findings; EKG was nonischemic; initial troponin was 3 follow-up troponin elevated to 26; discussed with cardiology who suggested admission to the hospital for observation; did not recommend heparin drip. Patient received clonidine with blood pressure improved from 10/02 systolic to 113 followed by blood pressure elevated to 149 systolic. [facility] Medical History Coronary artery disease GERD (gastroesophageal reflux disease) Hypercholesterolemia Hypertension Family History Father Aneurysm Stroke Mother No problems noted. Maternal Aunt Ovarian cancer Maternal Aunt Uterine cancer Son Brain aneurysm Daughter In good health Surgical History History of bladder suspension procedure History of section History of hysterectomy Hx of cholecystectomy Social History Alcohol intake: never Patient Tobacco Use Status: Never used Tobacco Use of substances other than those prescribed or required for medical reasons: No Advance Directives: Yes Advance Directives Information Provided: No Advance Directives on File: No Meds Allergies Allergy/AdvReac Type Severity Reaction Status Date / Time penicillin G [Penicillin G] Allergy Mild RASH Verified 10/11/20 06:54 penicillin V Allergy Unknown RASH Verified 10/11/20 06:54 meperidine [From Demerol] AdvReac Mild ABDOMINAL Verified 10/11/20 06:54 CRAMPS Home Medications Medication Instructions Recorded Confirmed Last Taken Type lorazepam 0.5 mg tablet 0.5 mg PO BID PRN 09/06/20 Unknown History carbamazepine 200 mg tablet 1 tab PO BID 01/02/22 01/02/22 Unknown History cetirizine 10 mg tablet 1 tab PO DAILY 01/02/22 01/02/22 Unknown History citalopram 10 mg tablet 1 tab PO DAILY 01/02/22 01/02/22 Unknown History cyclobenzaprine 10 mg tablet 1 tab PO DAILY PRN 01/02/22 Unknown History ergocalciferol (vitamin D2) 1,250 1 cap PO QWEEK 01/02/22 Unknown History mcg (50,000 unit) capsule fluticasone propionate 50 INTRANASAL 01/02/22 Unknown History mcg/actuation nasal spray,suspension latanoprost 0.005 % eye drops 1 drp OPHTHALMIC (EYE) QPM 01/02/22 Unknown History lisinopril 20 mg tablet 1 tab PO DAILY 01/02/22 Unknown History metoprolol succinate 50 mg 1 tab PO DAILY 01/02/22 Unknown History tablet,extended release 24 hr omeprazole 20 mg capsule,delayed 1 cap PO DAILY 01/02/22 Unknown History release oxybutynin chloride 10 mg 1 tab PO DAILY 01/02/22 Unknown History tablet,extended release 24 hr rosuvastatin 40 mg tablet 1 tab PO BEDTIME 01/02/22 Unknown History spironolactone 50 mg tablet 1 tab PO DAILY 01/02/22 Unknown History Physical Exam Vital Signs and Narrative: Vital Signs: Last Vital Signs Temp 98.2 F 01/02/22 18:16 Pulse 59 01/02/22 18:16 Resp 15 01/02/22 18:16 BP 149/54 H 01/02/22 18:16 Pulse Ox 97 01/02/22 16:37 BMI result Body Mass Index 32.1 Gen: Appears be in no acute distress HEENT: NCAT, Moist mucosa. Pulmonary: Vesicular breath sounds, fair air entry CVS: Normal S1-S2 Abdomen: BS+, Soft, Nontender Extremities: Warm well perfused Neuro: Alert and awake. grossly nonfocal Results Labs CBC and Chem 7: 01/02/22 13:43 01/02/22 13:43 Labs: Laboratory Results - last 24 hr 01/02/22 01/02/22 01/02/22 13:43 13:43 13:43 MCV 94.2 MCH 32.0 MCHC 34.0 RDW 12.0 Plt Count 217 MPV 9.3 L Immature Gran % (Auto) 0.1 Neut % (Auto) 49.2 Lymph % (Auto) 36.2 [place] % (Auto) 13.3 H Eos % (Auto) 0.9 Baso % (Auto) 0.3 Lymph # (Auto) 2.5 [place] # (Auto) 0.9 Eos # (Auto) 0.1 Baso # (Auto) 0.0 Abs Immat Gran (auto) 0.01 Absolute Neuts (auto) 3.4 Absolute Nucleated RBC 0.000 Nucleated RBC % (auto) 0.0 PT INR APTT Anion Gap 13 Estim Creat Clear Calc 50.1 Estimated GFR > 60 Random Glucose 121 H Calcium 8.8 Total Bilirubin 0.3 AST 24 ALT 18 Alkaline Phosphatase 87 D Troponin I High Sens 3.8 B-Natriuretic Peptide 80 Total Protein 7.2 Albumin 3.9 01/02/22 01/02/22 13:43 16:46 MCV MCH MCHC RDW Plt Count MPV Immature Gran % (Auto) Neut % (Auto) Lymph % (Auto) [place] % (Auto) Eos % (Auto) Baso % (Auto) Lymph # (Auto) [place] # (Auto) Eos # (Auto) Baso # (Auto) Abs Immat Gran (auto) Absolute Neuts (auto) Absolute Nucleated RBC Nucleated RBC % (auto) PT 11.1 INR 1.0 APTT 32.0 Anion Gap Estim Creat Clear Calc Estimated GFR Random Glucose Calcium Total Bilirubin AST ALT Alkaline Phosphatase Troponin I High Sens 26.3 H D B-Natriuretic Peptide Total Protein Albumin Imaging Radiologist's Impressions: Impressions Head CT 01/02/22 14:30 IMPRESSION: No acute intracranial pathology. Assessment and Plan Plan 76-year-old female with a past medical history of hypertension, hyperlipidemia, CAD, GERD presented to the hospital with a chief complaint of dizziness. Dizziness: CT head showed no acute findings. Grossly nonfocal examination. Fall precautions. PT /OT eventually. Elevated troponins: Patient denies any chest pain. EKG nonischemic. Monitor telemetry. patient does report that she has some cardiac dysrhythmia but not sure of the type -current EKG is normal sinus . Cardiology notified - no heparin drip recommended. Echocardiogram. will give the patient on aspirin. 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
[2022-01-02 20:00] LABS: Influenza A Negative (Negative); Influenza B2 Negative (Negative)
[2022-01-02 20:03] LABS: COVID-19 Test Negative (Negative); IDNOW Serial# 55D5AD1C
[2022-01-02] MEDS: 0.9 % Sodium Chloride 1,000 ML 50 ML IVCONT (20:06)
[2022-01-02] MEDS: Heparin Sodium,Porcine 5,000 UNIT/ML VIAL 5000 UNIT SUBCUT (20:08)
--- NOTE | 2022-01-02 20:09 | PHA.MEDREC ---
Pharmacy Consult ? Medication Reconciliation Pharmacy has completed the medication reconciliation. Pt recently went to neurologist and had carbamazepine increased from 200mg bid to 200mg qam, and 400mg qpm. Because she cannot afford the medication, she has been doing 1 qam and 1.5 qpm. No longer on oxybutynin Thanks Kane
[2022-01-02] MEDS: Labetalol HCL 100 MG/20 ML VIAL 10 MG IVPUSH (21:18)
[2022-01-03] VITALS (8 sets, daily range): BP systolic 154–227; BP diastolic 56–81; PULSE 53–75; RESP 12–18; TEMP 36.2–36.7; O2SAT 95–99
[2022-01-03] MEDS: carBAMazepine 200 MG TABLET 300 MG PO ×2 (03:18→20:36)
[2022-01-03] MEDS: Heparin Sodium,Porcine 5,000 UNIT/ML VIAL 5000 UNIT SUBCUT ×3 (03:22→20:32)
[2022-01-03 05:06] LABS: Basophils Percent Auto 0.3 % (0-2); Eosinophils Percent Auto 0.3 % (0-4); Hematocrit 37.1 % (37.0-47.0); Hemoglobin 12.4 g/dl (12.0-16.0); Imm Gran Abs Auto 0.03 X10*3/uL (0.00-0.03); Imm Gran Pct Auto 0.3 % (0.0-0.4); Lymphocytes Absolute Auto 2.1 X10*3/uL (1.2-4.9); Lymphocytes Percent Auto 24.1 % (20-40); MANUAL DIFF FLAG NO; Mean Corpuscular HGB Conc 33.4 g/dl (31.0-35.0); Mean Corpuscular Hemoglobin 31.4 pg (27.0-33.0); Mean Corpuscular Volume 93.9 fL (80.0-98.0); Mean Platelet Volume 9.7 fL (9.4-12.3); Monocytes Percent Auto 11.4 % (2-11); Neutrophils Absolute Auto 5.6 x10*3/uL (2.0-8.3); Neutrophils Percent Auto 63.6 % (45-73); Platelet Count 205 X10*3/uL (160-400); Red Blood Count 3.95 X10*6/uL (4.20-5.50); Red Cell Distribution Width 11.9 % (11.0-16.0); White Blood Count 8.8 X10*3/uL (4.8-10.8)
[2022-01-03 05:36] LABS: Anion Gap 12 (12-20); Blood Urea Nitrogen 8 mg/dL (9-16); Calcium 8.9 mg/dL (8.4-10.2); Carbon Dioxide 25 mmol/L (22-29); Chloride 100 mmol/L (96-108); Creatinine Clr Calc Pharmacy 55.1; Estimated Glomerular Filt Rate > 60; Glucose Random 109 mg/dL (60-115); Potassium 5.1 mmol/L (3.3-5.1); Sodium 132 mmol/L (135-145)
[2022-01-03] MEDS: Omeprazole 20 MG CAPSULE.DR PO (06:07)
--- NOTE | 2022-01-03 07:00 | CA_ITS ---
Transthoracic Echocardiogram Patient (Last, First, Middle): Tia Adair R Gender: Female Date of : 1945 Age: 76 Procedure Date: 01/03/2022 Procedure Type: Transthoracic Echocardiogram Location: ER Height: 154.94 cm Weight: 77.11 kg BSA: 1.76 m2 Heart Rate: bpm BP: 206 / 81 mmHg [employer] Supervisor: VH/TO Referring MD: Steve Barrios MD Symptoms: high troponins Study Quality: Fair Conclusions: - Normal left ventricular size and systolic function. There is mildly increased left ventricular wall thickness. The visually estimated ejection fraction is between 65-70%. - Normal right ventricular cavity size and systolic function. Findings Left Ventricle Normal left ventricular size and systolic function. There is mildly increased left ventricular wall thickness. The visually estimated ejection fraction is between 65-70%. There is no evidence of regional wall motion abnormalities. Diastolic function is indeterminate on the basis of available data. Spectral Doppler is indicative of an impaired relaxation filling pattern. E/E prime ratio is between 8 and 15 consistent with indeterminate filling pressures. Right Ventricle Normal right ventricular cavity size and systolic function. Atria Both atria are normal in size. Aortic Valve Normal aortic valve structure and function. There is no aortic valve stenosis. There is trace (trivial) aortic valve regurgitation. Mitral Valve Normal mitral valve structure and function. There is no mitral valve regurgitation. There is no mitral valve stenosis. Pulmonic Valve The pulmonic valve is likely normal. Tricuspid Valve Normal tricuspid valve structure and function. There is no tricuspid valve regurgitation. Tricuspid regurgitation envelope is inadequate for calculation of right ventricular systolic pressure. Normal right atrial pressure. Great Vessels All visible segments of the aorta are normal in size. The visualized portions of the pulmonary artery and branches are normal. Venous The inferior vena cava is normal in size and collapses greater than 50% with inspiration. Pericardium/Pleural There is no evidence of pericardial effusion. Measurements 2D Linear Measurements IVSd: 1.05 0.6-0.9/0.6-1.0 cm LVIDd: 4.26 3.9-5.3/4.2-5.9 cm LVIDd Index: 2.42 2.4-3.2/2.2-3.1 cm/m2 LVIDs: 2.89 2.0-3.6 cm LVPWd: 1.02 0.7-1.1 cm LA Diam: 3.20 2.7-3.8/3.0-4.0 cm LAIDs Index: 1.82 1.5-2.3 cm/m2 LV Mass: 183.38 67-162/88-224 g LV Mass Index: 104.19 43-95/49-115 g/m2 LVOT Diam: 2.10 3.0+(-)1.3 cm 2D Systolic Function EF 4C: 61.80 >55% EF 2C: 64.20 >55% EF BiP: 63.10 >55% Mitral Valve MV Pk E: 0.73 MV PK A: 0.83 MV Decel Time: 183.00 E/A: 0.90 E'Lateral: 8.38 E'Medial: 7.40 E/E' Med: 9.90 E/E' Lat: 8.70 PHT: 54.00 MVA PHT: 4.07 Decel [place]: 4.00 Aortic Valve AoV Pk Raghav: 1.40 AoV Mn Raghav: 0.92 AoV VTI: 0.34 AoV Pk Grad: 8.00 Aov Mn Grad: 4.00 SUSHANT Cont.VTI: 2.29 LVOT LVOT Pk Raghav: 0.95 LVOT Mn Raghav: 0.60 LVOT VTI: 0.22 LVOT Pk Grad: 4.00 LVOT Mn Grad: 2.00 LVOT Diam: 2.10 LVOT Area: 3.46 Diastolic Function MV Pk E: 0.73 MV Pk A: 0.83 E/A: 0.90 E'Medial: 7.40 E/E' Med: 9.90 E' Laterial: 8.38 E/E' Lat: 8.70 Right Ventricle TAPSE (mm): 25.60 TVS' Raghav: 10.90 Great Vessels Aorta Sinus of Valsalva: 3.16 2.0-3.5 cm Ao Asc: 2.60 2.1-3.4 cm Updated in Other Vendor System with Status of Final Abhishek Castro MD electronically signed on 01/03/2022 4:14:17 PM with status of Final
[2022-01-03] MEDS: Aspirin Enteric Coated 81 MG TABLET.DR PO (08:53)
[2022-01-03] MEDS: Metoprolol Succinate ER 50 MG TAB.ER.24H PO (08:53)
[2022-01-03] MEDS: Spironolactone 25 MG TABLET 50 MG PO (08:54)
--- NOTE | 2022-01-03 10:01 | MHC.CM.PN ---
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 Home no services is the goal for dc and CM has initiated and will follow for dc planning. HENRI addressed verbally with Patient and the original will be given to Patient and a copy has been placed on the chart.Patient's Llvkelpi-hn-Cbo/Prerna is the HCP. Patient received Covid vax x3and PCP is Dr. Rich Deng.
[2022-01-03] MEDS: carBAMazepine 200 MG TABLET PO (10:41)
[2022-01-03] MEDS: Escitalopram Oxalate 5 MG TABLET PO (10:44)
--- NOTE | 2022-01-03 12:16 | PC.NURSE ---
Pt is A&Ox4, LCA, denies any dizziness at this time. NSR on monitor. Ambulates with stand by assist and is steady. Pt states she does have a mild R sided eye and brain pain which she has been seeing a neurologist for, pt states she was given a new DX for it, but cannot remember the name at this time. Per family, Bakari marshall appears puffy to them, made aware. Pt medicated as per [facility] orders, awaiting bed assignment. Call villatoro within reach, will continue to monitor.
--- NOTE | 2022-01-03 14:13 | HO.PM.IMPN ---
Subjective Subjective Date of Service: 01/03/22 Interval History: Patient feeling better complaining of mild lightheadedness and weakness, had 1 loose stool this am, ambulated to bathroom , denies dizziness, no chest pain, no shortness of breath, no URI symptoms, no cough, no shortness of breath, and no new medications, except for baby aspirin recently started. Review of Systems [employer] no headache, no dizziness CVS no chest pain respiratory no cough, no URI sxs Review of Systems: Yes all other systems are reviewed and are negative Physical Exam Vital Signs: Vital Signs: Last Vital Signs Temp 98.0 F 01/03/22 12:33 Pulse 61 01/03/22 12:33 Resp 12 01/03/22 12:33 BP 199/69 H 01/03/22 12:33 Pulse Ox 97 01/03/22 12:33 BMI result Body Mass Index 32.1 Const: Other: General awake alert x3,no acute distress. Neck supple no JVD. CVS regular rate rhythm, Respiratory lungs clear to auscultation, no respiratory distress, no wheeze, no rhonchi. Gastrointestinal abdomen soft, nontender, bowel sounds audible Extremities no edema. Neuro nonfocal Skin no rash psych appropriate affect Objective Data Active Medications Acetaminophen (Acetaminophen 325 Mg Tablet) 650 mg PO Q6H PRN PRN Reason: Pain, Mild (Pain Scale 1-3) Artificial Tears (Artificial Tears 15 Ml Drops) 1 drop EYE-BOTH TID PRN PRN Reason: Dry Eyes Aspirin (Aspirin Enteric Coated 81 Mg Tablet.) 81 mg PO DAILY [facility] Last Admin: 01/03/22 08:53 Dose: 81 mg Documented by: DINO Atorvastatin Calcium (Atorvastatin Calcium 80 Mg Tablet) 80 mg PO BEDTIME [facility] Carbamazepine (Carbamazepine 200 Mg Tablet) 200 mg PO DAILY [facility] Last Admin: 01/03/22 10:41 Dose: 200 mg Documented by: DINO Carbamazepine (Carbamazepine 200 Mg Tablet) 300 mg PO BEDTIME [facility] Last Admin: 01/03/22 03:18 Dose: 300 mg Documented by: DANIEL Cyclobenzaprine HCl (Cyclobenzaprine Hcl 10 Mg Tablet) 10 mg PO DAILY PRN PRN Reason: Spasms Ergocalciferol (Ergocalciferol (Vitamin D2) 1,250 Mcg Capsule) 1,250 mcg PO [facility] Escitalopram Oxalate (Escitalopram Oxalate 5 Mg Tablet) 5 mg PO DAILY@1200 [facility] Last Admin: 01/03/22 10:44 Dose: 5 mg Documented by: DINO Heparin Sodium (Porcine) (Heparin Sodium,Porcine 5,000 Unit/Ml Vial) 5,000 unit SUBCUT Q8H [facility] Last Admin: 01/03/22 10:41 Dose: 5,000 unit Documented by: DINO Latanoprost (Latanoprost 0.005 % Ophth Melanie 2.5 Ml Drops) 1 drop EYE-BOTH BEDTIME [facility] Lisinopril (Lisinopril 20 Mg Tablet) 20 mg PO BEDTIME [facility]; Protocol Loratadine (Loratadine 10 Mg Tablet) 10 mg PO DAILY PRN PRN Reason: Allergic Symptoms Lorazepam (Lorazepam 0.5 Mg Tablet) 0.5 mg PO BID PRN PRN Reason: Anxiety Melatonin (Melatonin 3 Mg Tablet) 6 mg PO BEDTIME PRN PRN Reason: Insomnia Metoprolol Succinate (Metoprolol Succinate Er 50 Mg Tab.Er.24h) 50 mg PO DAILY [facility]; Protocol Last Admin: 01/03/22 08:53 Dose: 50 mg Documented by: DINO Nitroglycerin (Nitroglycerin 0.4 Mg Tab.Subl) 0.4 mg SUBLINGUAL Q5MX3 PRN PRN Reason: Chest Pain Omeprazole (Omeprazole 20 Mg Capsule.Dr) 20 mg PO 0630 [facility] Last Admin: 01/03/22 06:07 Dose: 20 mg Documented by: DANIEL Senna (Sennosides 8.6 Mg Tablet) 17.2 mg PO BEDTIME PRN PRN Reason: Constipation Sodium Chloride (0.9 % Sodium Chloride Flush 3 Ml Syringe) 3 ml IVFLUSH QSHIFT [facility] Last Admin: 01/03/22 08:51 Dose: Not Given Documented by: DINO Non-Admin Reason: IV Running Spironolactone (Spironolactone 25 Mg Tablet) 50 mg PO DAILY [facility]; Protocol Last Admin: 01/03/22 08:54 Dose: 50 mg Documented by: DINO Labs CBC & Chem 7: 01/03/22 04:15 01/03/22 04:15 Labs: Laboratory Results - last 24 hr 05/01/02/22 01/02/22 13:43 16:46 19:38 MCV MCH MCHC RDW Plt Count MPV Immature Gran % (Auto) Neut % (Auto) Lymph % (Auto) [place] % (Auto) Eos % (Auto) Baso % (Auto) Lymph # (Auto) [place] # (Auto) Eos # (Auto) Baso # (Auto) Abs Immat Gran (auto) Absolute Neuts (auto) Absolute Nucleated RBC Nucleated RBC % (auto) Anion Gap 13 Estim Creat Clear Calc 50.1 Estimated GFR > 60 Random Glucose 121 H Calcium 8.8 Total Bilirubin 0.3 AST 24 ALT 18 Alkaline Phosphatase 87 D Troponin I High Sens 26.3 H D Total Protein 7.2 Albumin 3.9 COVID-19 (JAYE) COVID-19 [facility] Com Influenza Type A (JACK) Negative Influenza Type B (JACK) Negative Influenza A & B Note See Note 01/02/22 01/03/22 01/03/22 19:39 04:15 04:15 MCV 93.9 MCH 31.4 MCHC 33.4 RDW 11.9 Plt Count 205 MPV 9.7 Immature Gran % (Auto) 0.3 Neut % (Auto) 63.6 Lymph % (Auto) 24.1 [place] % (Auto) 11.4 H Eos % (Auto) 0.3 Baso % (Auto) 0.3 Lymph # (Auto) 2.1 [place] # (Auto) 1.0 Eos # (Auto) 0.0 Baso # (Auto) 0.0 Abs Immat Gran (auto) 0.03 Absolute Neuts (auto) 5.6 Absolute Nucleated RBC 0.000 Nucleated RBC % (auto) 0.0 Anion Gap 12 Estim Creat Clear Calc 55.1 Estimated GFR > 60 Random Glucose 109 Calcium 8.9 Total Bilirubin AST ALT Alkaline Phosphatase Troponin I High Sens Total Protein Albumin COVID-19 (JAYE) Negative COVID-19 Clin Com See Note Influenza Type A (JACK) Influenza Type B (JACK) Influenza A & B Note Assessment and Plan (1) Hypertensive emergency: Status: Acute (2) GERD (gastroesophageal reflux disease): Status: Acute (3) Hypercholesterolemia: Status: Acute (4) Hypertension: Status: Acute (5) Coronary artery disease: Status: Acute Plan 76-year-old female with a past medical history of hypertension, hyperlipidemia, CAD, GERD presented to the hospital with a chief complaint of dizziness.? hypertensive emergency with symptoms of lightheadedness blood pressure improved in the emergency room with use of labetalol, home medications including Toprol-XL 50 mg, Aldactone 50 mg and Zestril 20 mg continue ,patient noted to have high blood pressure this afternoon will add Norvasc [address] head showed no acute findings normal neuro examination, follow clinical course. Elevated troponins: Patient denies any chest pain.? EKG nonischemic. likely related to elevated blood pressure repeat troponin, continue aspirin statin and metoprolol, follow ? Echocardiogram.? await cardiology input Hyperlipidemia:? Continue statin ?history of trigeminal neurology: no acute pain on carbamazepine, will check Tegretol level due to hyponatremia and lightheadedness DVT prophylaxis:? Subcu heparin Code status:? Full code patient will need continued inpatient hospitalization due to persistent elevated blood pressure requiring medication adjustment, elevated troponin requiring further cardiac workup Quality Stroke Does the patient have a stroke diagnosis?: No VTE Prior VTE?: No VTE Risk Level:: Medical - moderate - high VTE Device Contraindication: Treatment Not Indicated VTE Drug Contraindication: N/A - Med Ordered
[2022-01-03 15:17] LABS: Troponin-I High Sensitivity 51.7 ng/L (<3.5-17.0)
--- NOTE | 2022-01-03 15:47 | PM.CNCAR ---
History of Present Illness History of Present Illness Date of Service: 01/03/22 Requesting physician: Karley Noble Chief complaint: Hypertensive urgency Narrative: 76-year-old female with background history of hypertension, hyperlipidemia, coronary artery disease, gastroesophageal reflux disease and trigeminal neuralgias presenting with dizziness and lightheadedness. She was noted to have significantly elevated blood pressure in the ER and was admitted for further care. Denies any chest discomfort or any other neurological issues. She was given amlodipine. She was also given a dose of clonidine and IV labetalol. High sensitivity troponin levels are 3, 26 and 52. EKG is not showing any specific changes. She currently has no complaints. She is obviously anxious that her blood pressure is elevated. She has an isolated systolic pattern of hypertension. [facility] Past Medical History Medical History Coronary artery disease GERD (gastroesophageal reflux disease) Hypercholesterolemia Hypertension Family History Family History Father Aneurysm Stroke Mother No problems noted. Maternal Aunt Ovarian cancer Maternal Aunt Uterine cancer Son Brain aneurysm Daughter In good health Surgical History Surgical History History of bladder suspension procedure History of section History of hysterectomy Hx of cholecystectomy Social History Social History Alcohol intake: never Patient Tobacco Use Status: Never used Tobacco Use of substances other than those prescribed or required for medical reasons: No Advance Directives: Yes Advance Directives Information Provided: No Advance Directives on File: No service: No Current occupational status: retired [employer] Allergies Allergy/AdvReac Type Severity Reaction Status Date / Time penicillin G [Penicillin G] Allergy Mild RASH Verified 10/11/20 06:54 penicillin V Allergy Unknown RASH Verified 10/11/20 06:54 meperidine [From Demerol] AdvReac Mild ABDOMINAL Verified 10/11/20 06:54 CRAMPS Active Medications: Current Medications Acetaminophen (Acetaminophen 325 Mg Tablet) 650 mg PO Q6H PRN PRN Reason: Pain, Mild (Pain Scale 1-3) Amlodipine Besylate (Amlodipine Besylate 5 Mg Tablet) 5 mg PO DAILY [facility]; Protocol Artificial Tears (Artificial Tears 15 Ml Drops) 1 drop EYE-BOTH TID PRN PRN Reason: Dry Eyes Aspirin (Aspirin Enteric Coated 81 Mg Tablet.) 81 mg PO DAILY [facility] Last Admin: 01/03/22 08:53 Dose: 81 mg Documented by: Atorvastatin Calcium (Atorvastatin Calcium 80 Mg Tablet) 80 mg PO BEDTIME [facility] Carbamazepine (Carbamazepine 200 Mg Tablet) 200 mg PO DAILY [facility] Last Admin: 01/03/22 10:41 Dose: 200 mg Documented by: Carbamazepine (Carbamazepine 200 Mg Tablet) 300 mg PO BEDTIME [facility] Last Admin: 01/03/22 03:18 Dose: 300 mg Documented by: Cyclobenzaprine HCl (Cyclobenzaprine Hcl 10 Mg Tablet) 10 mg PO DAILY PRN PRN Reason: Spasms Ergocalciferol (Ergocalciferol (Vitamin D2) 1,250 Mcg Capsule) 1,250 mcg PO [place] [facility] Escitalopram Oxalate (Escitalopram Oxalate 5 Mg Tablet) 5 mg PO DAILY@1200 [facility] Last Admin: 01/03/22 10:44 Dose: 5 mg Documented by: Heparin Sodium (Porcine) (Heparin Sodium,Porcine 5,000 Unit/Ml Vial) 5,000 unit SUBCUT Q8H [facility] Last Admin: 01/03/22 10:41 Dose: 5,000 unit Documented by: Latanoprost (Latanoprost 0.005 % Ophth Melanie 2.5 Ml Drops) 1 drop EYE-BOTH BEDTIME [facility] Lisinopril (Lisinopril 20 Mg Tablet) 20 mg PO BEDTIME [facility]; Protocol Loratadine (Loratadine 10 Mg Tablet) 10 mg PO DAILY PRN PRN Reason: Allergic Symptoms Lorazepam (Lorazepam 0.5 Mg Tablet) 0.5 mg PO BID PRN PRN Reason: Anxiety Melatonin (Melatonin 3 Mg Tablet) 6 mg PO BEDTIME PRN PRN Reason: Insomnia Metoprolol Succinate (Metoprolol Succinate Er 50 Mg Tab.Er.24h) 50 mg PO DAILY [facility]; Protocol Last Admin: 01/03/22 08:53 Dose: 50 mg Documented by: Nitroglycerin (Nitroglycerin 0.4 Mg Tab.Subl) 0.4 mg SUBLINGUAL Q5MX3 PRN PRN Reason: Chest Pain Omeprazole (Omeprazole 20 Mg Capsule.) 20 mg PO 0630 [facility] Last Admin: 01/03/22 06:07 Dose: 20 mg Documented by: Senna (Sennosides 8.6 Mg Tablet) 17.2 mg PO BEDTIME PRN PRN Reason: Constipation Sodium Chloride (0.9 % Sodium Chloride Flush 3 Ml Syringe) 3 ml IVFLUSH QSHIFT [facility] Last Admin: 01/03/22 08:51 Dose: Not Given Documented by: Spironolactone (Spironolactone 25 Mg Tablet) 50 mg PO DAILY [facility]; Protocol Last Admin: 01/03/22 08:54 Dose: 50 mg Documented by: Home Medications Medication Instructions Recorded Confirmed Last Taken Type lorazepam 0.5 mg tablet 0.5 mg PO BID PRN 09/06/20 01/02/22 Unknown History carbamazepine 200 mg tablet 200 mg PO DAILY 01/02/22 01/02/22 01/02/22 History carbamazepine 200 mg tablet 300 mg PO BEDTIME 01/02/22 01/02/22 01/01/22 History cetirizine 10 mg tablet 1 tab PO DAILY PRN 01/02/22 01/02/22 Unknown History citalopram 10 mg tablet 1 tab PO DAILY@1200 01/02/22 01/02/22 01/02/22 History cyclobenzaprine 10 mg tablet 1 tab PO DAILY PRN 01/02/22 01/02/22 Unknown History ergocalciferol (vitamin D2) 1,250 1 cap PO [place] 01/02/22 01/02/22 01/01/22 History mcg (50,000 unit) capsule latanoprost 0.005 % eye drops 1 drp OPHTHALMIC (EYE) BEDTIME 01/02/22 01/02/22 01/01/22 History lisinopril 20 mg tablet 1 tab PO BEDTIME 01/02/22 01/02/22 01/01/22 History metoprolol succinate 50 mg 1 tab PO DAILY 01/02/22 01/02/22 01/02/22 History tablet,extended release 24 hr omeprazole 20 mg capsule,delayed 1 cap PO DAILY 01/02/22 01/02/22 01/02/22 History release polyvinyl alcohol 1.4 % eye drops 1 drp OPHTHALMIC (EYE) TID PRN 01/02/22 01/02/22 01/02/22 History (Artificial Tears (polyvinyl alcohol)) rosuvastatin 40 mg tablet 1 tab PO BEDTIME 01/02/22 01/02/22 01/01/22 History spironolactone 50 mg tablet 1 tab PO DAILY 01/02/22 01/02/22 01/02/22 History Physical Exam Vital Signs: Vital Signs: Last Vital Signs Temp 98.0 F 01/03/22 12:33 Pulse 61 01/03/22 12:33 Resp 12 01/03/22 12:33 BP 205/81 H 01/03/22 14:20 Pulse Ox 97 01/03/22 12:33 BMI result Body Mass Index 32.1 GENERAL APPEARANCE: in no acute distress, pleasant. NECK: no carotid bruit, no jugular venous distention. SKIN: no suspicious lesions, warm and dry. HEART: no murmurs, regular rate and rhythm. LUNGS: clear to auscultation bilaterally. ABDOMEN: soft, nontender. EXTREMITIES: no edema. PERIPHERAL PULSES: equal. NEUROLOGIC: No gross deficits, AAO X 3 Objective Labs and Meds Result diagrams: 01/03/22 04:15 01/03/22 04:15 Lab results: Laboratory Results - last 24 hr 01/02/22 01/02/22 01/02/22 16:46 19:38 19:39 WBC RBC Hgb Hct MCV MCH MCHC RDW Plt Count MPV Immature Gran % (Auto) Neut % (Auto) Lymph % (Auto) [place] % (Auto) Eos % (Auto) Baso % (Auto) Lymph # (Auto) [place] # (Auto) Eos # (Auto) Baso # (Auto) Abs Immat Gran (auto) Absolute Neuts (auto) Absolute Nucleated RBC Nucleated RBC % (auto) Sodium Potassium Chloride Carbon Dioxide Anion Gap BUN Creatinine Estim Creat Clear Calc Estimated GFR Random Glucose Calcium Troponin I High Sens 26.3 H D COVID-19 (JAYE) Negative COVID-19 Clin Com See Note Influenza Type A (JACK) Negative Influenza Type B (JACK) Negative Influenza A & B Note See Note 01/03/22 01/03/22 01/03/22 04:15 04:15 14:31 WBC 8.8 RBC 3.95 L Hgb 12.4 Hct 37.1 MCV 93.9 MCH 31.4 MCHC 33.4 RDW 11.9 Plt Count 205 MPV 9.7 Immature Gran % (Auto) 0.3 Neut % (Auto) 63.6 Lymph % (Auto) 24.1 [place] % (Auto) 11.4 H Eos % (Auto) 0.3 Baso % (Auto) 0.3 Lymph # (Auto) 2.1 [place] # (Auto) 1.0 Eos # (Auto) 0.0 Baso # (Auto) 0.0 Abs Immat Gran (auto) 0.03 Absolute Neuts (auto) 5.6 Absolute Nucleated RBC 0.000 Nucleated RBC % (auto) 0.0 Sodium 132 L Potassium 5.1 Chloride 100 Carbon Dioxide 25 Anion Gap 12 BUN 8 L Creatinine 0.79 Estim Creat Clear Calc 55.1 Estimated GFR > 60 Random Glucose 109 Calcium 8.9 Troponin I High Sens 51.7 H* D COVID-19 (JYAE) COVID-19 Clin Com Influenza Type A (JACK) Influenza Type B (JACK) Influenza A & B Note Assessment and Plan (1) Hypertension: Status: Acute (2) Elevated troponin: Status: Acute Plan 76-year-old female who is presenting with dizziness and lightheadedness. She is noted to have significant hypertension. She is denying chest discomfort shortness of breath. Clinically not in heart failure. Was given amlodipine 5 mg. I am adding hydrochlorothiazide 25 mg once a day. With isolated systolic hypertension thiazide diuretics work quite well. Continue same medications otherwise. She has mildly abnormal high sensory troponin levels. I think this is due to type 2 NV from significantly elevated blood pressures. We will review the echocardiogram for wall motion abnormality or any cardiomyopathy. No indication for heparin drip. Thank you for allowing me to participate in the care of your patient. Please feel free to contact me if you have any questions. Procedures Date of Service Date of Service: 01/03/22
[2022-01-03 15:57] LABS: Carbamazepine Tegretol 7.3 mcg/mL (5.0-12.0)
[2022-01-03] MEDS: amLODIPine Besylate 5 MG TABLET PO (16:03)
[2022-01-03] MEDS: hydroCHLOROthiazide 25 MG TABLET PO (17:41)
[2022-01-03] MEDS: lisinopriL 20 MG TABLET PO (20:35)
[2022-01-03] MEDS: Atorvastatin Calcium 80 MG TABLET PO (20:36)
[2022-01-03] MEDS: Melatonin 3 MG TABLET 6 MG PO (20:42)
[2022-01-04] MEDS: Omeprazole 20 MG CAPSULE.DR PO (05:24)
[2022-01-04] MEDS: Heparin Sodium,Porcine 5,000 UNIT/ML VIAL 5000 UNIT SUBCUT ×2 (05:25→20:02)
[2022-01-04 05:28] VITALS: BP 136/55; PULSE 71; O2SAT 95
[2022-01-04 08:26] VITALS: BP 146/60; PULSE 68; RESP 12; O2SAT 96
[2022-01-04] MEDS: Spironolactone 25 MG TABLET 50 MG PO (08:31)
[2022-01-04] MEDS: hydroCHLOROthiazide 25 MG TABLET PO (08:31)
[2022-01-04] MEDS: amLODIPine Besylate 5 MG TABLET PO (08:31)
[2022-01-04] MEDS: Aspirin Enteric Coated 81 MG TABLET.DR PO (08:31)
[2022-01-04] MEDS: Metoprolol Succinate ER 50 MG TAB.ER.24H PO (08:31)
[2022-01-04] MEDS: 0.9 % Sodium Chloride Flush 3 ML SYRINGE IVFLUSH (08:31)
[2022-01-04] MEDS: carBAMazepine 200 MG TABLET PO (08:31)
--- NOTE | 2022-01-04 10:24 | PM.PNCARD ---
Subjective Subjective Date of Service: 01/04/22 Interval history: Complaining of ear ache and right sided facial discomfort. Has h/o sinus issues. BP improving somewhat. Physical Exam Vital Signs: Last Vital Signs Temp 98.1 F 01/03/22 20:35 Pulse 68 01/04/22 08:26 Resp 12 01/04/22 08:26 BP 146/60 H 01/04/22 08:26 Pulse Ox 96 01/04/22 08:26 BMI result Body Mass Index 32.1 GENERAL APPEARANCE: in no acute distress, pleasant. NECK: no carotid bruit, no jugular venous distention. SKIN: no suspicious lesions, warm and dry. HEART: no murmurs, regular rate and rhythm. LUNGS: clear to auscultation bilaterally. ABDOMEN: soft, nontender. EXTREMITIES: no edema. PERIPHERAL PULSES: equal. NEUROLOGIC: No gross deficits, AAO X 3 Objective Labs and Meds Result diagrams: 01/03/22 04:15 01/03/22 04:15 Lab results: Laboratory Results - last 24 hr 01/03/22 01/03/22 14:31 14:31 Troponin I High Sens 51.7 H* D Carbamazepine 7.3 Progress Note: A&P Assessment and plan (1) Hypertension: Status: Acute Plan 76 female with hypertension and dizziness. BP is improving. Would continue same meds today. If BP elevated then would titrate the amlodipine. No richards in bringing BP down as she has no signs of hypertensive emergency. Echo reviewed and discussed with patient. We will follow along. Time Spent With Patient Time: Total time spent is greater than 50% in coordination of care (as documented) at patient's floor/unit and/or counseling patient: Progress Note: Quality Stroke Does the patient have a stroke diagnosis?: No Procedures Date of Service Date of Service: 01/04/22
[2022-01-04] MEDS: ondansetron HCL 4 MG/2 ML VIAL IVPUSH (11:36)
[2022-01-04] MEDS: Escitalopram Oxalate 5 MG TABLET PO (11:36)
[2022-01-04] MEDS: Azithromycin 500 MG in 0.9 % Sodium Chloride 250 ML 125 MG IV (11:36)
[2022-01-04 11:46] VITALS: BP 168/60; PULSE 68; RESP 12; O2SAT 95
--- NOTE | 2022-01-04 13:30 | P.PNIM_ITS ---
Subjective Subjective Date of Service: 01/04/22 Interval History: Vomited after breakfast complaining of lightheadedness mostly with ambulation also complaining of indigestion, right-sided facial and ear pressure, admit it feels like sinus infection, denies fever chills blood pressure improved this morning, denies chest pain, no palpitation, no headache, no weakness. Review of Systems GI no nausea no vomiting skin no rash no urinary urgency/no frequency Review of Systems: Yes all other systems are reviewed and are negative Physical Exam Vital Signs: Vital Signs: Last Vital Signs Temp 98.1 F 01/03/22 20:35 Pulse 68 01/04/22 11:46 Resp 12 01/04/22 11:46 BP 168/60 H 01/04/22 11:46 Pulse Ox 95 01/04/22 11:46 BMI result Body Mass Index 32.1 Const: Other: General? awake alert x3,no acute distress.? Face mild right facial swelling and tenderness to palpation over right maxillary sinus Neck supple no JVD. CVS? regular rate rhythm, Respiratory lungs clear to auscultation, no respiratory distress, no wheeze, no rhonchi. Gastrointestinal abdomen soft, nontender, bowel sounds audible Extremities no edema. Neuro nonfocal ?psych appropriate affect Objective Data Active Medications Acetaminophen (Acetaminophen 325 Mg Tablet) 650 mg PO Q6H PRN PRN Reason: Pain, Mild (Pain Scale 1-3) Amlodipine Besylate (Amlodipine Besylate 5 Mg Tablet) 5 mg PO DAILY [facility]; Protocol Last Admin: 01/04/22 08:31 Dose: 5 mg Documented by: DINO Artificial Tears (Artificial Tears 15 Ml Drops) 1 drop EYE-BOTH TID PRN PRN Reason: Dry Eyes Aspirin (Aspirin Enteric Coated 81 Mg Tablet.) 81 mg PO DAILY [facility] Last Admin: 01/04/22 08:31 Dose: 81 mg Documented by: DINO Atorvastatin Calcium (Atorvastatin Calcium 80 Mg Tablet) 80 mg PO BEDTIME [facility] Last Admin: 01/03/22 20:36 Dose: 80 mg Documented by: CARLOS ALBERTO Carbamazepine (Carbamazepine 200 Mg Tablet) 200 mg PO DAILY [facility] Last Admin: 01/04/22 08:31 Dose: 200 mg Documented by: DINO Carbamazepine (Carbamazepine 200 Mg Tablet) 300 mg PO BEDTIME [facility] Last Admin: 01/03/22 20:36 Dose: 300 mg Documented by: CARLOS ALBERTO Cyclobenzaprine HCl (Cyclobenzaprine Hcl 10 Mg Tablet) 10 mg PO DAILY PRN PRN Reason: Spasms Ergocalciferol (Ergocalciferol (Vitamin D2) 1,250 Mcg Capsule) 1,250 mcg PO [place] [facility] Escitalopram Oxalate (Escitalopram Oxalate 5 Mg Tablet) 5 mg PO DAILY@1200 [facility] Last Admin: 01/04/22 11:36 Dose: 5 mg Documented by: DINO Heparin Sodium (Porcine) (Heparin Sodium,Porcine 5,000 Unit/Ml Vial) 5,000 unit SUBCUT Q8H [facility] Last Admin: 01/04/22 05:25 Dose: 5,000 unit Documented by: CARLOS ALBERTO Hydrochlorothiazide (Hydrochlorothiazide 25 Mg Tablet) 25 mg PO DAILY [facility]; Protocol Last Admin: 01/04/22 08:31 Dose: 25 mg Documented by: DINO Azithromycin 500 mg/ Sodium (Chloride) 250 mls @ 125 mls/hr IV ONCE ONE Stop: 01/04/22 13:59 Last Admin: 01/04/22 11:36 Dose: 125 mls/hr Documented by: DINO Latanoprost (Latanoprost 0.005 % Ophth Melanie 2.5 Ml Drops) 1 drop EYE-BOTH BEDTIME [facility] Last Admin: 01/03/22 23:42 Dose: Not Given Documented by: CARLOS ALBERTO Non-Admin Reason: Patient Refused Lisinopril (Lisinopril 20 Mg Tablet) 20 mg PO BEDTIME [facility]; Protocol Last Admin: 01/03/22 20:35 Dose: 20 mg Documented by: CARLOS ALBERTO Loratadine (Loratadine 10 Mg Tablet) 10 mg PO DAILY PRN PRN Reason: Allergic Symptoms Lorazepam (Lorazepam 0.5 Mg Tablet) 0.5 mg PO BID PRN PRN Reason: Anxiety Melatonin (Melatonin 3 Mg Tablet) 6 mg PO BEDTIME PRN PRN Reason: Insomnia Last Admin: 01/03/22 20:42 Dose: 6 mg Documented by: CARLOS ALBERTO Metoprolol Succinate (Metoprolol Succinate Er 50 Mg Tab.Er.24h) 50 mg PO DAILY [facility]; Protocol Last Admin: 01/04/22 08:31 Dose: 50 mg Documented by: DINO Nitroglycerin (Nitroglycerin 0.4 Mg Tab.Subl) 0.4 mg SUBLINGUAL Q5MX3 PRN PRN Reason: Chest Pain Omeprazole (Omeprazole 20 Mg Capsule.Dr) 20 mg PO 0630 [facility] Last Admin: 01/04/22 05:24 Dose: 20 mg Documented by: CARLOS ALBERTO Ondansetron HCl (Ondansetron Hcl 4 Mg/2 Ml Vial) 4 mg IVPUSH Q8H PRN PRN Reason: Nausea Last Admin: 01/04/22 11:36 Dose: 4 mg Documented by: DINO Senna (Sennosides 8.6 Mg Tablet) 17.2 mg PO BEDTIME PRN PRN Reason: Constipation Sodium Chloride (0.9 % Sodium Chloride Flush 3 Ml Syringe) 3 ml IVFLUSH QSHIFT [facility] Last Admin: 01/04/22 08:31 Dose: 3 ml Documented by: DINO Spironolactone (Spironolactone 25 Mg Tablet) 50 mg PO DAILY [facility]; Protocol Last Admin: 01/04/22 08:31 Dose: 50 mg Documented by: DINO Labs CBC & Chem 7: 01/03/22 04:15 01/03/22 04:15 Labs: Laboratory Results - last 24 hr 01/03/22 01/03/22 14:31 14:31 Troponin I High Sens 51.7 H* D Carbamazepine 7.3 Assessment and Plan (1) Hypertensive emergency: Status: Acute (2) GERD (gastroesophageal reflux disease): Status: Acute (3) Hypercholesterolemia: Status: Acute (4) Hypertension: Status: Acute (5) Coronary artery disease: Status: Acute Plan 76-year-old female with a past medical history of hypertension, hyperlipidemia, CAD, GERD presented to the hospital with a chief complaint of dizziness.? hypertensive emergency with symptoms of lightheadedness Blood pressure improved this morning with addition of Norvasc 5 mg and hydrochlorothiazide 25 mg and has been continued on home medications including Toprol-XL 50 mg, Aldactone 50 mg and Zestril 20 mg BP trending up again this afternoon, case discussed Cardiology they recommend to continue current treatment and follow BP closely Will obtain renal Doppler study to rule out renal artery stenosis due to r esistant blood pressure CT head showed no acute findings normal neuro examination, follow clinical course. Elevated troponins: Patient denies any chest pain.? EKG nonischemic. likely related to elevated blood pressure Echo showed normal EF 65-70% and no regional wall motion abnormality, continue aspirin statin and metoprolol, seen by Cardiology no acute coronary syndrome Hyperlipidemia:? Continue statin ?history of trigeminal neurology: no acute pain on carbamazepine, normal Tegretol level Acute maxillary sinusitis will place on IV antibiotic due to nausea and vomiting transition to by mouth antibiotic DVT prophylaxis:? Subcu heparin Code status:? Full code patient will need continued inpatient hospitalization due to persistent elevated blood pressure with associated nausea lightheadedness requiring 4 workup for cause of resistant hypertension and medication adjustment, Quality Stroke Does the patient have a stroke diagnosis?: No VTE Prior VTE?: No VTE Risk Level:: Medical - moderate - high VTE Device Contraindication: Treatment Not Indicated VTE Drug Contraindication: N/A - Med Ordered
[2022-01-04 16:00] VITALS: BP 147/72; PULSE 69; RESP 17; TEMP 36.9; O2SAT 94
[2022-01-04 20:00] VITALS: BP 139/89; PULSE 87; RESP 18; TEMP 36.9; O2SAT 96
[2022-01-04] MEDS: Artificial Tears 15 ML DROPS 1 DROP EYE-BOTH (20:01)
[2022-01-04] MEDS: Atorvastatin Calcium 80 MG TABLET PO (20:02)
[2022-01-04] MEDS: lisinopriL 20 MG TABLET PO (20:02)
[2022-01-04] MEDS: Latanoprost 0.005 % Ophth Sol 2.5 ML DROPS 1 DROP EYE-BOTH (20:02)
[2022-01-04] MEDS: carBAMazepine 200 MG TABLET 300 MG PO (20:02)
--- NOTE | 2022-01-04 21:40 | PC.NURSE ---
Addendum entered by Sherin Kennedy 01/05/22 00:30: report given to CHITO Lopez Original Note: report received from CHITO Penny. pt is alert and oriented. resting in bed. no signs of acute distress notice. breathing equally unlabored
[2022-01-05] VITALS (7 sets, daily range): BP systolic 120–175; BP diastolic 58–77; PULSE 69–73; RESP 16–20; TEMP 36.2–36.8; O2SAT 94–100; BMI 31.4
[2022-01-05] MEDS: Heparin Sodium,Porcine 5,000 UNIT/ML VIAL 5000 UNIT SUBCUT ×3 (03:58→20:48)
[2022-01-05] MEDS: LORazepam 0.5 MG TABLET PO (06:43)
[2022-01-05] MEDS: Omeprazole 20 MG CAPSULE.DR PO (06:43)
[2022-01-05] MEDS: hydroCHLOROthiazide 25 MG TABLET PO (08:19)
[2022-01-05] MEDS: Spironolactone 25 MG TABLET 50 MG PO (08:19)
[2022-01-05] MEDS: Aspirin Enteric Coated 81 MG TABLET.DR PO (08:20)
[2022-01-05] MEDS: carBAMazepine 200 MG TABLET PO (08:20)
[2022-01-05] MEDS: Metoprolol Succinate ER 50 MG TAB.ER.24H PO (08:20)
[2022-01-05] MEDS: amLODIPine Besylate 5 MG TABLET PO (08:20)
[2022-01-05] MEDS: 0.9 % Sodium Chloride Flush 3 ML SYRINGE IVFLUSH ×3 (08:21→20:49)
[2022-01-05] MEDS: Escitalopram Oxalate 5 MG TABLET PO (12:31)
--- NOTE | 2022-01-05 14:50 | P.PNIM_ITS ---
Subjective Subjective Date of Service: 01/05/22 Interval History: Offers no acute complaints denies headache, no dizziness, denies chest pain, no palpitation, blood pressure better controlled in last is 2 days, with few high blood pressure readings. Review of Systems Review of Systems: Yes all other systems are reviewed and are negative Physical Exam Vital Signs: Vital Signs: Last Vital Signs Temp 97.2 F 01/05/22 11:05 Pulse 71 01/05/22 11:05 Resp 17 01/05/22 11:05 BP 120/58 L 01/05/22 11:05 Pulse Ox 98 01/05/22 11:05 BMI result Body Mass Index 31.4 Const: Other: General? awake alert x3,no acute distress.? Face right facial swelling and tenderness resolved Neck supple no JVD. CVS? regular rate rhythm, Respiratory lungs clear to auscultation, no respiratory distress, no wheeze, no rhonchi. Gastrointestinal abdomen soft, nontender, bowel sounds audible Extremities no edema. Neuro nonfocal psych appropriate affect Objective Data Active Medications Acetaminophen (Acetaminophen 325 Mg Tablet) 650 mg PO Q6H PRN PRN Reason: Pain, Mild (Pain Scale 1-3) Amlodipine Besylate (Amlodipine Besylate 5 Mg Tablet) 5 mg PO DAILY [facility]; Protoc ol Last Admin: 01/05/22 08:20 Dose: 5 mg Documented by: JOSE M Artificial Tears (Artificial Tears 15 Ml Drops) 1 drop EYE-BOTH TID PRN PRN Reason: Dry Eyes Last Admin: 01/04/22 20:01 Dose: 1 drop Documented by: CARLOS ALBERTO Aspirin (Aspirin Enteric Coated 81 Mg Tablet.) 81 mg PO DAILY [facility] Last Admin: 01/05/22 08:20 Dose: 81 mg Documented by: JOSE M Atorvastatin Calcium (Atorvastatin Calcium 80 Mg Tablet) 80 mg PO BEDTIME [facility] Last Admin: 01/04/22 20:02 Dose: 80 mg Documented by: CARLOS ALBERTO Carbamazepine (Carbamazepine 200 Mg Tablet) 200 mg PO DAILY [facility] Last Admin: 01/05/22 08:20 Dose: 200 mg Documented by: JOSE M Carbamazepine (Carbamazepine 200 Mg Tablet) 300 mg PO BEDTIME [facility] Last Admin: 01/04/22 20:02 Dose: 300 mg Documented by: CARLOS ALBERTO Cyclobenzaprine HCl (Cyclobenzaprine Hcl 10 Mg Tablet) 10 mg PO DAILY PRN PRN Reason: Spasms Ergocalciferol (Ergocalciferol (Vitamin D2) 1,250 Mcg Capsule) 1,250 mcg PO [place] [facility] Escitalopram Oxalate (Escitalopram Oxalate 5 Mg Tablet) 5 mg PO DAILY@1200 [facility] Last Admin: 01/05/22 12:31 Dose: 5 mg Documented by: JOSE M Fluticasone Propionate (Fluticasone Propionate Nasal 16 Gm [place]) 1 spray NOSTRIL-B DAILY [facility] Last Admin: 01/05/22 08:23 Dose: Not Given Documented by: JOSE M Non-Admin Reason: Med Not Available Heparin Sodium (Porcine) (Heparin Sodium,Porcine 5,000 Unit/Ml Vial) 5,000 unit SUBCUT Q8H [facility] Last Admin: 01/05/22 12:31 Dose: 5,000 unit Documented by: JOSE M Hydrochlorothiazide (Hydrochlorothiazide 25 Mg Tablet) 25 mg PO DAILY [facility]; Protocol Last Admin: 01/05/22 08:19 Dose: 25 mg Documented by: JOSE M Latanoprost (Latanoprost 0.005 % Ophth Melanie 2.5 Ml Drops) 1 drop EYE-BOTH BEDTIME [facility] Last Admin: 01/04/22 20:02 Dose: 1 drop Documented by: CARLOS ALBERTO Lisinopril (Lisinopril 20 Mg Tablet) 20 mg PO BEDTIME [facility]; Protocol Last Admin: 01/04/22 20:02 Dose: 20 mg Documented by: CARLOS ALBERTO Loratadine (Loratadine 10 Mg Tablet) 10 mg PO DAILY PRN PRN Reason: Allergic Symptoms Lorazepam (Lorazepam 0.5 Mg Tablet) 0.5 mg PO BID PRN PRN Reason: Anxiety Last Admin: 01/05/22 06:43 Dose: 0.5 mg Documented by: JADE Melatonin (Melatonin 3 Mg Tablet) 6 mg PO BEDTIME PRN PRN Reason: Insomnia Last Admin: 01/03/22 20:42 Dose: 6 mg Documented by: CARLOS ALBERTO Metoprolol Succinate (Metoprolol Succinate Er 50 Mg Tab.Er.24h) 50 mg PO DAILY [facility]; Protocol Last Admin: 01/05/22 08:20 Dose: 50 mg Documented by: JOSE M Nitroglycerin (Nitroglycerin 0.4 Mg Tab.Subl) 0.4 mg SUBLINGUAL Q5MX3 PRN PRN Reason: Chest Pain Omeprazole (Omeprazole 20 Mg Edvin.) 20 mg PO 0630 [facility] Last Admin: 01/05/22 06:43 Dose: 20 mg Documented by: JADE Ondansetron HCl (Ondansetron Hcl 4 Mg/2 Ml Vial) 4 mg IVPUSH Q8H PRN PRN Reason: Nausea Last Admin: 01/04/22 11:36 Dose: 4 mg Documented by: LOVELY-ANISH Senna (Sennosides 8.6 Mg Tablet) 17.2 mg PO BEDTIME PRN PRN Reason: Constipation Sodium Chloride (0.9 % Sodium Chloride Flush 3 Ml Syringe) 3 ml IVFLUSH QSHIFT [facility] Last Admin: 01/05/22 08:21 Dose: 3 ml Documented by: JOSE M Spironolactone (Spironolactone 25 Mg Tablet) 50 mg PO DAILY [facility]; Protocol Last Admin: 01/05/22 08:19 Dose: 50 mg Documented by: JOSE M Labs CBC & Chem 7: 01/03/22 04:15 01/03/22 04:15 Assessment and Plan (1) Hypertensive emergency: Status: Acute (2) GERD (gastroesophageal reflux disease): Status: Acute (3) Hypercholesterolemia: Status: Acute (4) Hypertension: Status: Acute (5) Coronary artery disease: Status: Acute Plan 76-year-old female with a past medical history of hypertension, hyperlipidemia, CAD, GERD presented to the hospital with a chief complaint of dizziness.? hypertensive emergency with symptoms of lightheadedness/nausea Blood pressure improved , few high blood pressure reading this morning, lightheadedness resolved, no further bout of nausea vomiting On 5 blood pressure medications Norvasc 5 mg and hydrochlorothiazide 25 mg added to home medications Toprol-XL 50 mg, Aldactone 50 mg and Zestril 20 mg suggestive of resistant hypertension renal Doppler study showed right mid renal artery stenosis and non visualization of left renal artery Obtained vascular surgery evaluation Dr. Sutherland recommended MRA abdomen Continue current antihypertensive follow MRI abdomen report Elevated troponins: Patient denies any chest pain.? EKG nonischemic. likely related to elevated blood pressure Echo showed normal EF 65-70% and no regional wall motion abnormality, continue aspirin statin and metoprolol, seen by Cardiology no acute coronary syndrome Hyperlipidemia:? Continue statin ?history of trigeminal neurology: no acute pain on carbamazepine, normal Tegretol level Acute maxillary sinusitis on iv antibiotic, facial swelling redness improved , transition to by mouth antibiotics since nausea vomiting resolved. DVT prophylaxis:? Subcu heparin Code status:? Full code patient will need continued inpatient hospitalization due to resistant blood pressure diagnosed to have renal artery stenosis need further imaging studies awaiting MRA abdomen and vascular surgery evaluation. Quality Stroke Does the patient have a stroke diagnosis?: No VTE Prior VTE?: No VTE Risk Level:: Medical - moderate - high VTE Device Contraindication: Treatment Not Indicated VTE Drug Contraindication: N/A - Med Ordered
--- NOTE | 2022-01-05 15:33 | P.PNCA_ITS ---
Subjective Subjective Date of Service: 01/05/22 Principal diagnosis: HTN Interval history: Seem at 1110. Today she reports feeling well. She denies any dizziness, li ghtheadedness, sob, chest pains, palptitations. Slept well. Sister and daughter at bedside. Echo report reviewed with them. BP elevated at 150/69 this am. Review of Systems Review of Systems as above Yes all other systems are reviewed and are negative Physical Exam Vital Signs: Last Vital Signs Temp 97.9 F 01/05/22 15:05 Pulse 72 01/05/22 15:05 Resp 16 01/05/22 15:05 BP 136/64 01/05/22 15:05 Pulse Ox 100 01/05/22 15:05 BMI result Body Mass Index 31.4 Const General: cooperative, no acute distress, alert and awake Orientation/consciousness: patient oriented x3 Neck Neck: Yes normal visual inspection Resp Effort & Inspection: normal respiratory effort, able to speak in complete sentences and not labored Auscultation: clear to auscultation bilaterally, no rhonchi and no wheezes Cardio Rate: regular rate Rhythm: regular rhythm Heart sounds: S1 normal heart sound present and S2 normal heart sound present Peripheral pulses: Peripheral pulses 2+ throughout GI Inspection: Yes normal to inspection Neuro General: patient oriented x3 Extrem General: Yes normal to inspection and No edema Objective Labs and Meds Result diagrams: 01/03/22 04:15 01/03/22 04:15 Imaging Radiologist's impression: Impressions Renal Ultrasound 01/04/22 18:26 IMPRESSION: 1. Elevated velocities in the right mid renal artery suggesting stenosis. 2. Left renal artery was not visualized. Recommend MRA of the abdomen for further evaluation. Progress Note: A&P Assessment and plan (1) Hypertension: Status: Acute Assessment and Plan: hx of HTN. Admit with dizziness and lightheadedness. Found to have elevated BP and mild rise in troponins. BP this admit up to 203/82. She was started on hydrochlorothiazide 25 mg daily and amlodipine 5 mg daily. She was continued on her usual metoprolol XL, Aldactone, lisinopril. Her blood pressure has improved during the admission however is elevated at times, this a.m. 150/69, this afternoon 136/64. Renal artery ultrasound was done showing elevated velocities in the right mid renal artery suggesting stenosis, left renal artery not visualized. Hospitalist has placed consult for Vascular surgery. She is on aspirin and high-dose rosuvastatin. Last known LDL was 73. If blood pressure becomes elevated again can increase amlodipine up to 10 mg daily. Continue other meds. Labs done 01/03/2022 show potassium 5.1, creatinine 0.79. We will sign off currently and follow if recalled. On discharge we can arrange for outpatient cardiology follow-up if warranted. (2) Elevated troponin: Status: Acute Assessment and Plan: Mild rise in troponins early this admission up to a high of 51.7. No reports of chest discomfort. EKG showed sinus rhythm with no ischemia. Echocardiogram done 01/02 shows EF 65-70%, no regional wall motion abnormality. Elevated troponins felt to be related to demand from hypertension. Reviewed this with her and she states understanding. Time Spent With Patient Time: Total time spent is greater than 50% in coordination of care (as documented) at patient's floor/unit and/or counseling patient: 22 Progress Note: Quality Stroke Does the patient have a stroke diagnosis?: No Procedures Date of Service Date of Service: 01/05/22
[2022-01-05] MEDS: Azithromycin 250 MG TABLET PO (17:20)
[2022-01-05] MEDS: carBAMazepine 200 MG TABLET 300 MG PO (20:48)
[2022-01-05] MEDS: Atorvastatin Calcium 80 MG TABLET PO (20:48)
[2022-01-05] MEDS: lisinopriL 20 MG TABLET PO (20:48)
[2022-01-05] MEDS: polyethylene glycoL 3350 17 GM POWD.PACK PO (20:49)
[2022-01-06 03:13] VITALS: BP 128/68; PULSE 61; RESP 20; TEMP 36.8; O2SAT 96
[2022-01-06] MEDS: Heparin Sodium,Porcine 5,000 UNIT/ML VIAL 5000 UNIT SUBCUT ×3 (03:26→21:37)
[2022-01-06] MEDS: Omeprazole 20 MG CAPSULE.DR PO (05:57)
[2022-01-06 07:30] VITALS: BP 170/62; PULSE 63; RESP 17; TEMP 36.4; O2SAT 96
[2022-01-06] MEDS: Aspirin Enteric Coated 81 MG TABLET.DR PO (10:45)
[2022-01-06] MEDS: carBAMazepine 200 MG TABLET PO (10:45)
[2022-01-06] MEDS: hydroCHLOROthiazide 25 MG TABLET PO (10:45)
[2022-01-06] MEDS: Spironolactone 25 MG TABLET 50 MG PO (10:46)
[2022-01-06] MEDS: amLODIPine Besylate 5 MG TABLET PO (10:46)
[2022-01-06] MEDS: Metoprolol Succinate ER 50 MG TAB.ER.24H PO (10:46)
--- NOTE | 2022-01-06 10:51 | PM.CNGS ---
History of Present Illness Consult details Consult date: 01/06/22 Reason for consult: other ( renal artery stenosis) Narrative: 76-year-old female who presented to the emergency room with uncontrolled hypertension. She knee Tatmu presented with dizziness. Upon workup she was found to have labile blood pressure and has been requiring 5 antihypertensive medications. Subsequent workup on renal artery ultrasound demonstrated renal artery stenosis and unclear findings. She now presents to us for vascular evaluation. Review of Systems Review of Systems: Yes all other systems are reviewed and are negative Constitutional: Constitutional: Reports no additional constitutional complaints ENT: Reports Normal hearing present Cardiovascular: Cardiovascular: Denies chest pain, Denies chest pain at rest, Denies chest pain with activity and Denies pedal edema Respiratory: Respiratory: Denies cough Gastrointestinal: Gastrointestinal: Denies abdominal pain Musculoskeletal: Musculoskeletal: Denies abnormal gait, Denies muscle cramps and Denies radiating pain into limb Integumentary/Breasts: Skin/Breast: Denies skin ulcer and Denies wounds Neurologic: Reports Normal hearing present and Denies abnormal gait Psychiatric: Psychiatric: Reports no additional psychiatric complaints [facility] Past Medical History Medical History Coronary artery disease GERD (gastroesophageal reflux disease) Hypercholesterolemia Hypertension Family History Family History Father Aneurysm Stroke Mother No problems noted. Maternal Aunt Ovarian cancer Maternal Aunt Uterine cancer Son Brain aneurysm Daughter In good health Surgical History Surgical History History of bladder suspension procedure History of section History of hysterectomy Hx of cholecystectomy Social History Social History Household Members: None Housing: House Do you presently have visiting nurse or other home services: No Alcohol intake: never Patient Tobacco Use Status: Never used Tobacco service: No Current occupational status: retired [employer] Allergies Allergy/AdvReac Type Severity Reaction Status Date / Time penicillin G [Penicillin G] Allergy Mild RASH Verified 10/11/20 06:54 penicillin V Allergy Unknown RASH Verified 10/11/20 06:54 meperidine [From Demerol] AdvReac Mild ABDOMINAL Verified 10/11/20 06:54 CRAMPS Active Medications: Current Medications Acetaminophen (Acetaminophen 325 Mg Tablet) 650 mg PO Q6H PRN PRN Reason: Pain, Mild (Pain Scale 1-3) Amlodipine Besylate (Amlodipine Besylate 5 Mg Tablet) 5 mg PO DAILY [facility]; Protocol Last Admin: 01/05/22 08:20 Dose: 5 mg Documented by: Artificial Tears (Artificial Tears 15 Ml Drops) 1 drop EYE-BOTH TID PRN PRN Reason: Dry Eyes Last Admin: 01/04/22 20:01 Dose: 1 drop Documented by: Aspirin (Aspirin Enteric Coated 81 Mg Tablet.Dr) 81 mg PO DAILY [facility] Last Admin: 01/05/22 08:20 Dose: 81 mg Documented by: Atorvastatin Calcium (Atorvastatin Calcium 80 Mg Tablet) 80 mg PO BEDTIME [facility] Last Admin: 01/05/22 20:48 Dose: 80 mg Documented by: Azithromycin (Azithromycin 250 Mg Tablet) 250 mg PO Q24H [facility] Last Admin: 01/05/22 17:20 Dose: 250 mg Documented by: Carbamazepine (Carbamazepine 200 Mg Tablet) 200 mg PO DAILY [facility] Last Admin: 01/05/22 08:20 Dose: 200 mg Documented by: Carbamazepine (Carbamazepine 200 Mg Tablet) 300 mg PO BEDTIME [facility] Last Admin: 01/05/22 20:48 Dose: 300 mg Documented by: Cyclobenzaprine HCl (Cyclobenzaprine Hcl 10 Mg Tablet) 10 mg PO DAILY PRN PRN Reason: Spasms Ergocalciferol (Ergocalciferol (Vitamin D2) 1,250 Mcg Capsule) 1,250 mcg PO [place] [facility] Escitalopram Oxalate (Escitalopram Oxalate 5 Mg Tablet) 5 mg PO DAILY@1200 [facility] Last Admin: 01/05/22 12:31 Dose: 5 mg Documented by: Fluticasone Propionate (Fluticasone Propionate Nasal 16 Gm [place]) 1 spray NOSTRIL-B DAILY [facility] Last Admin: 01/05/22 08:23 Dose: Not Given Documented by: Heparin Sodium (Porcine) (Heparin Sodium,Porcine 5,000 Unit/Ml Vial) 5,000 unit SUBCUT Q8H [facility] Last Admin: 01/06/22 03:26 Dose: 5,000 unit Documented by: Hydrochlorothiazide (Hydrochlorothiazide 25 Mg Tablet) 25 mg PO DAILY [facility]; Protocol Last Admin: 01/05/22 08:19 Dose: 25 mg Documented by: Latanoprost (Latanoprost 0.005 % Ophth Melanie 2.5 Ml Drops) 1 drop EYE-BOTH BEDTIME [facility] Last Admin: 01/05/22 21:00 Dose: Not Given Documented by: Lisinopril (Lisinopril 20 Mg Tablet) 20 mg PO BEDTIME [facility]; Protocol Last Admin: 01/05/22 20:48 Dose: 20 mg Documented by: Loratadine (Loratadine 10 Mg Tablet) 10 mg PO DAILY PRN PRN Reason: Allergic Symptoms Lorazepam (Lorazepam 0.5 Mg Tablet) 0.5 mg PO BID PRN PRN Reason: Anxiety Last Admin: 01/05/22 06:43 Dose: 0.5 mg Documented by: Melatonin (Melatonin 3 Mg Tablet) 6 mg PO BEDTIME PRN PRN Reason: Insomnia Last Admin: 01/03/22 20:42 Dose: 6 mg Documented by: Metoprolol Succinate (Metoprolol Succinate Er 50 Mg Tab.Er.24h) 50 mg PO DAILY [facility]; Protocol Last Admin: 01/05/22 08:20 Dose: 50 mg Documented by: Nitroglycerin (Nitroglycerin 0.4 Mg Tab.Subl) 0.4 mg SUBLINGUAL Q5MX3 PRN PRN Reason: Chest Pain Omeprazole (Omeprazole 20 Mg Capsule.Dr) 20 mg PO 0630 [facility] Last Admin: 01/06/22 05:57 Dose: 20 mg Documented by: Ondansetron HCl (Ondansetron Hcl 4 Mg/2 Ml Vial) 4 mg IVPUSH Q8H PRN PRN Reason: Nausea Last Admin: 01/04/22 11:36 Dose: 4 mg Documented by: Polyethylene Glycol (Polyethylene Glycol 3350 17 Gm Powd.Pack) 17 gm PO BEDTIME [facility] Last Admin: 01/05/22 20:49 Dose: 17 gm Documented by: Senna (Sennosides 8.6 Mg Tablet) 17.2 mg PO BEDTIME PRN PRN Reason: Constipation Sodium Chloride (0.9 % Sodium Chloride Flush 3 Ml Syringe) 3 ml IVFLUSH QSHIFT [facility] Last Admin: 01/05/22 20:49 Dose: 3 ml Documented by: Spironolactone (Spironolactone 25 Mg Tablet) 50 mg PO DAILY [facility]; Protocol Last Admin: 01/05/22 08:19 Dose: 50 mg Documented by: Home Medications Medication Instructions Recorded Confirmed Last Taken Type lorazepam 0.5 mg tablet 0.5 mg PO BID PRN 09/06/20 01/02/22 Unknown History carbamazepine 200 mg tablet 200 mg PO DAILY 01/02/22 01/02/22 01/02/22 History carbamazepine 200 mg tablet 300 mg PO BEDTIME 01/02/22 01/02/22 01/01/22 History cetirizine 10 mg tablet 1 tab PO DAILY PRN 01/02/22 01/02/22 Unknown History citalopram 10 mg tablet 1 tab PO DAILY@1200 01/02/22 01/02/22 01/02/22 History cyclobenzaprine 10 mg tablet 1 tab PO DAILY PRN 01/02/22 01/02/22 Unknown History ergocalciferol (vitamin D2) 1,250 1 cap PO [place] 01/02/22 01/02/22 01/01/22 History mcg (50,000 unit) capsule latanoprost 0.005 % eye drops 1 drp OPHTHALMIC (EYE) BEDTIME 01/02/22 01/02/22 01/01/22 History lisinopril 20 mg tablet 1 tab PO BEDTIME 01/02/22 01/02/22 01/01/22 History metoprolol succinate 50 mg 1 tab PO DAILY 01/02/22 01/02/22 01/02/22 History tablet,extended release 24 hr omeprazole 20 mg capsule,delayed 1 cap PO DAILY 01/02/22 01/02/22 01/02/22 History release polyvinyl alcohol 1.4 % eye drops 1 drp OPHTHALMIC (EYE) TID PRN 01/02/22 01/02/22 01/02/22 History (Artificial Tears (polyvinyl alcohol)) rosuvastatin 40 mg tablet 1 tab PO BEDTIME 01/02/22 01/02/22 01/01/22 History spironolactone 50 mg tablet 1 tab PO DAILY 01/02/22 01/02/22 01/02/22 History Physical Exam Vital Signs: Vital Signs: Last Vital Signs Temp 97.6 F 01/06/22 07:30 Pulse 63 01/06/22 07:30 Resp 17 01/06/22 07:30 BP 170/62 H 01/06/22 07:30 Pulse Ox 96 01/06/22 07:30 BMI result Body Mass Index 31.4 Const: General: cooperative, healthy appearing and comfortable Orientation/consciousness: oriented to person, oriented to place and oriented to time HEENT: Head: Yes normal to inspection Neck: Neck: Yes normal visual inspection Carotids: no bruits Chest: Chest palpation & inspection: normal inspection of the chest Resp: Effort & Inspection: normal respiratory effort and able to speak in complete sentences Auscultation: clear to auscultation bilaterally, no crackles, no rales, no rhonchi and no wheezes Cardio: Rate: regular rate Rhythm: regular rhythm Heart sounds: S1 normal heart sound present and S2 normal heart sound present Bruits: no carotid bruits Peripheral pulses: Peripheral pulses 2+ throughout GI: Inspection: Yes normal to inspection Skin: Wounds: no wounds Hair: normal Neuro: General: oriented to person, oriented to place and oriented to time Cranial nerves: Yes CN's II-XII intact bilaterally and Yes Normal hearing present Cognition (Neuro): normal cognition Motor exam (neuro): 5/5 motor strength present throughout Extrem: Other: venous exam: No significant superficial varicosities or spider telangiectasias, minimal edema General: No clubbing, No cyanosis and No edema Psych: Appearance: grossly normal Mental Status: mental status grossly normal Speech and movement: Normal speech and movement present Results Labs Result diagrams: 01/03/22 04:15 01/03/22 04:15 Labs: All other labs normal. Imaging Additional studies: Renal artery ultrasound written report and images were reviewed. Assessment and Plan (1) Renal artery stenosis: Status: Acute Plan in short patient has renal artery stenosis. It is unclear the degree of stenosis and there is nonvisualization of 1 vessel on ultrasound. Ideally we would like to get a CTA but due to the contrast shortage we have elected to obtain an MRA. Once we obtain results of that she may be a candidate for endovascular intervention as she is currently being maintained on Norvasc, metoprolol, Zestril and Aldactone. we will await results of MRA and follow the patient with you. I did discuss this with the patient and the pathophysiology of this with the patient as well. I did leave a business card for the patient. Procedures Date of Service Date of Service: 01/06/22
[2022-01-06 11:45] VITALS: BP 126/64; PULSE 67; RESP 20; TEMP 36.7; O2SAT 100
--- NOTE | 2022-01-06 12:59 | MHC.CM.PN ---
Home no services is the goal and CM will follow for possible need to adjust the dc plan.
[2022-01-06] MEDS: Escitalopram Oxalate 5 MG TABLET PO (13:28)
--- NOTE | 2022-01-06 15:22 | HO.PM.IMPN ---
Subjective Subjective Date of Service: 01/06/22 Interval History: Is anxious about diagnosis of renal artery stenosis and upcoming imaging studies including abdominal MRA, otherwise denies headache lightheadedness or dizziness, no acute overnight events, few high blood pressure reading otherwise mostly in normal range. Review of Systems [employer] no headache no dizziness CVS no chest pain, no palpitation Respiratory no cough, no shortness of breath Review of Systems: Yes all other systems are reviewed and are negative Physical Exam Vital Signs: Vital Signs: Last Vital Signs Temp 98.0 F 01/06/22 11:45 Pulse 67 01/06/22 11:45 Resp 20 01/06/22 11:45 BP 126/64 01/06/22 11:45 Pulse Ox 100 01/06/22 11:45 BMI result Body Mass Index 31.4 Const: Other: General? awake vance rt x3,no acute dis tress.? Neck suppl e no JVD. CVS? reg ular rate rhythm, Respiratory lungs clear to auscultat ion, no respirator y distress, no whe usman, no rhonchi. G astrointestinal ab domen soft, nonten jemal, bowel sounds audible Extremitie s no edema. Neuro nonfocal psych garrett ropriate affect Objective Data Active Medications Acetaminophen (Acetaminophen 325 Mg Tablet) 650 mg PO Q6H PRN PRN Reason: Pain, Mild (Pain Scale 1-3) Amlodipine Besylate (Amlodipine Besylate 5 Mg Tablet) 5 mg PO DAILY [facility]; Protocol Last Admin: 01/06/22 10:46 Dose: 5 mg Documented by: WANG Artificial Tears (Artificial Tears 15 Ml Drops) 1 drop EYE-BOTH TID PRN PRN Reason: Dry Eyes Last Admin: 01/04/22 20:01 Dose: 1 drop Documented by: CARLOS ALBERTO Aspirin (Aspirin Enteric Coated 81 Mg Tablet.) 81 mg PO DAILY [facility] Last Admin: 01/06/22 10:45 Dose: 81 mg Documented by: WANG Atorvastatin Calcium (Atorvastatin Calcium 80 Mg Tablet) 80 mg PO BEDTIME [facility] Last Admin: 01/05/22 20:48 Dose: 80 mg Documented by: BRIANEN Azithromycin (Azithromycin 250 Mg Tablet) 250 mg PO Q24H [facility] Last Admin: 01/05/22 17:20 Dose: 250 mg Documented by: SALUD Carbamazepine (Carbamazepine 200 Mg Tablet) 200 mg PO DAILY [facility] Last Admin: 01/06/22 10:45 Dose: 200 mg Documented by: WANG Carbamazepine (Carbamazepine 200 Mg Tablet) 300 mg PO BEDTIME [facility] Last Admin: 01/05/22 20:48 Dose: 300 mg Documented by: BRIANNE Cyclobenzaprine HCl (Cyclobenzaprine Hcl 10 Mg Tablet) 10 mg PO DAILY PRN PRN Reason: Spasms Ergocalciferol (Ergocalciferol (Vitamin D2) 1,250 Mcg Capsule) 1,250 mcg PO [place] [facility] Escitalopram Oxalate (Escitalopram Oxalate 5 Mg Tablet) 5 mg PO DAILY@1200 [facility] Last Admin: 01/06/22 13:28 Dose: 5 mg Documented by: WANG Fluticasone Propionate (Fluticasone Propionate Nasal 16 Gm [place]) 1 spray NOSTRIL-B DAILY [facility] Last Admin: 01/06/22 13:05 Dose: Not Given Documented by: WANG Non-Admin Reason: pt refused Heparin Sodium (Porcine) (Heparin Sodium,Porcine 5,000 Unit/Ml Vial) 5,000 unit SUBCUT Q8H [facility] Last Admin: 01/06/22 10:46 Dose: 5,000 unit Documented by: WANG Hydrochlorothiazide (Hydrochlorothiazide 25 Mg Tablet) 25 mg PO DAILY [facility]; Protocol Last Admin: 01/06/22 10:45 Dose: 25 mg Documented by: WANG Latanoprost (Latanoprost 0.005 % Ophth Melanie 2.5 Ml Drops) 1 drop EYE-BOTH BEDTIME [facility] Last Admin: 01/05/22 21:00 Dose: Not Given Documented by: BRIANNE Non-Admin Reason: Med Not Available Lisinopril (Lisinopril 20 Mg Tablet) 20 mg PO BEDTIME [facility]; Protocol Last Admin: 01/05/22 20:48 Dose: 20 mg Documented by: BRIANNE Loratadine (Loratadine 10 Mg Tablet) 10 mg PO DAILY PRN PRN Reason: Allergic Symptoms Lorazepam (Lorazepam 0.5 Mg Tablet) 0.5 mg PO BID PRN PRN Reason: Anxiety Last Admin: 01/05/22 06:43 Dose: 0.5 mg Documented by: JADE Melatonin (Melatonin 3 Mg Tablet) 6 mg PO BEDTIME PRN PRN Reason: Insomnia Last Admin: 01/03/22 20:42 Dose: 6 mg Documented by: CARLOS ALBERTO Metoprolol Succinate (Metoprolol Succinate Er 50 Mg Tab.Er.24h) 50 mg PO DAILY [facility]; Protocol Last Admin: 01/06/22 10:46 Dose: 50 mg Documented by: WANG Nitroglycerin (Nitroglycerin 0.4 Mg Tab.Subl) 0.4 mg SUBLINGUAL Q5MX3 PRN PRN Reason: Chest Pain Omeprazole (Omeprazole 20 Mg Capsule.Dr) 20 mg PO 0630 [facility] Last Admin: 01/06/22 05:57 Dose: 20 mg Documented by: COLTON Ondansetron HCl (Ondansetron Hcl 4 Mg/2 Ml Vial) 4 mg IVPUSH Q8H PRN PRN Reason: Nausea Last Admin: 01/04/22 11:36 Dose: 4 mg Documented by: DINO Polyethylene Glycol (Polyethylene Glycol 3350 17 Gm Powd.Pack) 17 gm PO BEDTIME [facility] Last Admin: 01/05/22 20:49 Dose: 17 gm Documented by: AWAUMOC Senna (Sennosides 8.6 Mg Tablet) 17.2 mg PO BEDTIME PRN PRN Reason: Constipation Sodium Chloride (0.9 % Sodium Chloride Flush 3 Ml Syringe) 3 ml IVFLUSH QSHIFT [facility] Last Admin: 01/06/22 13:04 Dose: Not Given Documented by: WANG Non-Admin Reason: assessed Spironolactone (Spironolactone 25 Mg Tablet) 50 mg PO DAILY [facility]; Protocol Last Admin: 01/06/22 10:46 Dose: 50 mg Documented by: WANG Labs CBC & Chem 7: 01/03/22 04:15 01/03/22 04:15 Assessment and Plan (1) Hypertensive emergency: Status: Acute (2) GERD (gastroesophageal reflux disease): Status: Acute (3) Hypercholesterolemia: Status: Acute (4) Hypertension: Status: Acute (5) Coronary artery disease: Status: Acute Plan 76-year-old female with a past medical history of hypertension, hyperlipidemia, CAD, GERD presented to the hospital with a chief complaint of dizziness.? Hypertensive emergency lightheadedness/nausea resolved Blood pressure improved , few high blood pressure reading On 5 blood pressure medications Norvasc 5 mg and hydrochlorothiazide 25 mg added to home medications Toprol-XL 50 mg, Aldactone 50 mg and Zestril 20 mg suggestive of resistant hypertension renal Doppler study showed right mid renal artery stenosis and non visualization of left renal artery Spoke with Dr. Sutherland , MRA abdomen pending he will review the films and will provide further recommendation Continue current antihypertensive Elevated troponins: Patient denies any chest pain.? EKG nonischemic. likely related to elevated blood pressure Echo showed normal EF 65-70% and no regional wall motion abnormality, continue aspirin, statin and metoprolol, seen by Cardiology no acute coronary syndrome Hyperlipidemia:? Continue statin ?history of trigeminal neurology: no acute pain on carbamazepine, normal Tegretol level Acute maxillary sinusitis on iv antibiotic, facial swelling redness improved , continue oral antibiotics DVT prophylaxis:? Subcu heparin Code status:? Full code patient will need continued inpatient hospitalization due to resistant blood pressure diagnosed to have renal artery stenosis need further imaging studies awaiting MRA abdomen and vascular surgery evaluation. Quality Stroke Does the patient have a stroke diagnosis?: No VTE Prior VTE?: No VTE Risk Level:: Medical - moderate - high VTE Device Contraindication: Treatment Not Indicated VTE Drug Contraindication: N/A - Med Ordered
[2022-01-06 15:29] VITALS: BP 132/61; PULSE 63; RESP 18; TEMP 36.7; O2SAT 96
[2022-01-06] MEDS: Azithromycin 250 MG TABLET PO (16:11)
[2022-01-06] MEDS: 0.9 % Sodium Chloride Flush 3 ML SYRINGE IVFLUSH ×2 (16:17→21:37)
--- NOTE | 2022-01-06 17:41 | PC.NURSE ---
no acute complications this shift. MRI completed. pt has visitors at bedside. safety and fall precautions maintained. call villatoro within reach. pt repo'd in bed.
[2022-01-06 19:20] VITALS: BP 159/66; PULSE 69; RESP 18; TEMP 36.7; O2SAT 95
[2022-01-06] MEDS: Atorvastatin Calcium 80 MG TABLET PO (21:36)
[2022-01-06] MEDS: lisinopriL 20 MG TABLET PO (21:36)
[2022-01-06] MEDS: carBAMazepine 200 MG TABLET 300 MG PO (21:36)
[2022-01-06] MEDS: Latanoprost 0.005 % Ophth Sol 2.5 ML DROPS 1 DROP EYE-BOTH (21:37)
[2022-01-06] MEDS: polyethylene glycoL 3350 17 GM POWD.PACK PO (21:39)
[2022-01-06 23:18] VITALS: BP 171/59; PULSE 56; RESP 18; TEMP 37.1; O2SAT 96
[2022-01-07 03:48] VITALS: BP 147/62; PULSE 58; RESP 16; TEMP 36.4; O2SAT 98
[2022-01-07] MEDS: Heparin Sodium,Porcine 5,000 UNIT/ML VIAL 5000 UNIT SUBCUT ×3 (03:51→21:37)
[2022-01-07] MEDS: Omeprazole 20 MG CAPSULE.DR PO (06:20)
[2022-01-07 07:34] VITALS: BP 125/72; PULSE 60; RESP 16; TEMP 36.4; O2SAT 96
[2022-01-07] MEDS: 0.9 % Sodium Chloride Flush 3 ML SYRINGE IVFLUSH ×2 (09:16→15:48)
[2022-01-07] MEDS: Metoprolol Succinate ER 50 MG TAB.ER.24H PO (09:18)
[2022-01-07] MEDS: Aspirin Enteric Coated 81 MG TABLET.DR PO (09:18)
[2022-01-07] MEDS: Spironolactone 25 MG TABLET 50 MG PO (09:18)
[2022-01-07] MEDS: amLODIPine Besylate 5 MG TABLET PO (09:18)
[2022-01-07] MEDS: carBAMazepine 200 MG TABLET PO (09:18)
[2022-01-07] MEDS: Fluticasone Propionate Nasal 16 GM SPRAY 1 SPRAY NOSTRIL-B (09:18)
[2022-01-07] MEDS: hydroCHLOROthiazide 25 MG TABLET PO (09:18)
[2022-01-07 12:00] VITALS: BP 131/63; PULSE 67; RESP 16; TEMP 36.6; O2SAT 95
[2022-01-07] MEDS: Escitalopram Oxalate 5 MG TABLET PO (12:10)
[2022-01-07 15:01] VITALS: BP 120/57; PULSE 65; RESP 17; TEMP 36.7; O2SAT 96
--- NOTE | 2022-01-07 15:42 | HO.PM.IMPN ---
Subjective Subjective Date of Service: 01/07/22 Interval History: Being followed for right renal artery stenosis and uncontrolled blood pressure, offers no acute complaints, no chest pain, no palpitation no headache, no dizziness no GI symptoms, no acute events overnight. Review of Systems Review of Systems: Yes all other systems are reviewed and are negative Physical Exam Vital Signs: Vital Signs: Last Vital Signs Temp 98.1 F 01/07/22 15:01 Pulse 65 01/07/22 15:01 Resp 17 01/07/22 15:01 BP 120/57 L 01/07/22 15:01 Pulse Ox 96 01/07/22 15:01 BMI result Body Mass Index 31.4 Const: Other: General? awake alert x3,no acute distress.? Neck supple no JVD. CVS? regular rate rhythm, Respiratory lungs clear to auscultation, no respiratory distress, no wheeze, no rhonchi. Gastrointestinal abdomen soft, nontender, bowel sounds audible Extremities no edema. Neuro nonfocal psych appropriate affect Objective Data Active Medications Acetaminophen (Acetaminophen 325 Mg Tablet) 650 mg PO Q6H PRN PRN Reason: Pain, Mild (Pain Scale 1-3) Amlodipine Besylate (Amlodipine Besylate 5 Mg Tablet) 5 mg PO DAILY [facility]; Protocol Last Admin: 01/07/22 09:18 Dose: 5 mg Documented by: KERMIT Artificial Tears (Artificial Tears 15 Ml Drops) 1 drop EYE-BOTH TID PRN PRN Reason: Dry Eyes Last Admin: 01/04/22 20:01 Dose: 1 drop Documented by: CARLOS ALBERTO Aspirin (Aspirin Enteric Coated 81 Mg Tablet.) 81 mg PO DAILY [facility] Last Admin: 01/07/22 09:18 Dose: 81 mg Documented by: KERMIT Atorvastatin Calcium (Atorvastatin Calcium 80 Mg Tablet) 80 mg PO BEDTIME [facility] Last Admin: 01/06/22 21:36 Dose: 80 mg Documented by: BRIANNE Azithromycin (Azithromycin 250 Mg Tablet) 250 mg PO Q24H [facility] Last Admin: 01/06/22 16:11 Dose: 250 mg Documented by: ZAY Carbamazepine (Carbamazepine 200 Mg Tablet) 200 mg PO DAILY [facility] Last Admin: 01/07/22 09:18 Dose: 200 mg Documented by: KERMIT Carbamazepine (Carbamazepine 200 Mg Tablet) 300 mg PO BEDTIME [facility] Last Admin: 01/06/22 21:36 Dose: 300 mg Documented by: BRIANNE Cyclobenzaprine HCl (Cyclobenzaprine Hcl 10 Mg Tablet) 10 mg PO DAILY PRN PRN Reason: Spasms Ergocalciferol (Ergocalciferol (Vitamin D2) 1,250 Mcg Capsule) 1,250 mcg PO IRELAND [facility] Escitalopram Oxalate (Escitalopram Oxalate 5 Mg Tablet) 5 mg PO DAILY@1200 [facility] Last Admin: 01/07/22 12:10 Dose: 5 mg Documented by: KERMIT Fluticasone Propionate (Fluticasone Propionate Nasal 16 Gm [place]) 1 spray NOSTRIL-B DAILY [facility] Last Admin: 01/07/22 09:18 Dose: 1 spray Documented by: KERMIT Heparin Sodium (Porcine) (Heparin Sodium,Porcine 5,000 Unit/Ml Vial) 5,000 unit SUBCUT Q8H [facility] Last Admin: 01/07/22 12:10 Dose: 5,000 unit Documented by: KERMIT Hydrochlorothiazide (Hydrochlorothiazide 25 Mg Tablet) 25 mg PO DAILY [facility]; Protocol Last Admin: 01/07/22 09:18 Dose: 25 mg Documented by: KERMIT Latanoprost (Latanoprost 0.005 % Ophth Melanie 2.5 Ml Drops) 1 drop EYE-BOTH BEDTIME [facility] Last Admin: 01/06/22 21:37 Dose: 1 drop Documented by: BRIANNE Lisinopril (Lisinopril 20 Mg Tablet) 20 mg PO BEDTIME [facility]; Protocol Last Admin: 01/06/22 21:36 Dose: 20 mg Documented by: BRIANNE Loratadine (Loratadine 10 Mg Tablet) 10 mg PO DAILY PRN PRN Reason: Allergic Symptoms Lorazepam (Lorazepam 0.5 Mg Tablet) 0.5 mg PO BID PRN PRN Reason: Anxiety Last Admin: 01/05/22 06:43 Dose: 0.5 mg Documented by: JADE Melatonin (Melatonin 3 Mg Tablet) 6 mg PO BEDTIME PRN PRN Reason: Insomnia Last Admin: 01/03/22 20:42 Dose: 6 mg Documented by: CARLOS ALBERTO Metoprolol Succinate (Metoprolol Succinate Er 50 Mg Tab.Er.24h) 50 mg PO DAILY [facility]; Protocol Last Admin: 01/07/22 09:18 Dose: 50 mg Documented by: KERMIT Nitroglycerin (Nitroglycerin 0.4 Mg Tab.Subl) 0.4 mg SUBLINGUAL Q5MX3 PRN PRN Reason: Chest Pain Omeprazole (Omeprazole 20 Mg Capsule.Dr) 20 mg PO 0630 [facility] Last Admin: 01/07/22 06:20 Dose: 20 mg Documented by: BRIANNE Ondansetron HCl (Ondansetron Hcl 4 Mg/2 Ml Vial) 4 mg IVPUSH Q8H PRN PRN Reason: Nausea Last Admin: 01/04/22 11:36 Dose: 4 mg Documented by: LOVELY-RAMOANH Polyethylene Glycol (Polyethylene Glycol 3350 17 Gm Powd.Pack) 17 gm PO BEDTIME [facility] Last Admin: 01/06/22 21:39 Dose: 17 gm Documented by: BRIANNE Senna (Sennosides 8.6 Mg Tablet) 17.2 mg PO BEDTIME PRN PRN Reason: Constipation Sodium Chloride (0.9 % Sodium Chloride Flush 3 Ml Syringe) 3 ml IVFLUSH QSHIFT [facility] Last Admin: 01/07/22 09:16 Dose: 3 ml Documented by: KERMIT Spironolactone (Spironolactone 25 Mg Tablet) 50 mg PO DAILY [facility]; Protocol Last Admin: 01/07/22 09:18 Dose: 50 mg Documented by: KERMIT Labs CBC & Chem 7: 01/03/22 04:15 01/03/22 04:15 Assessment and Plan (1) Hypertensive emergency: Status: Acute (2) GERD (gastroesophageal reflux disease): Status: Acute (3) Hypercholesterolemia: Status: Acute (4) Hypertension: Status: Acute (5) Coronary artery disease: Status: Acute Plan 76-year-old female with a past medical history of hypertension, hyperlipidemia, CAD, GERD presented to the hospital with a chief complaint of dizziness.? Hypertensive emergency No recurrent symptoms of lightheadedness/nausea no, no headache Blood pressure improved , few high blood pressure reading On 5 blood pressure medications Norvasc 5 mg and hydrochlorothiazide 25 mg added to home medications Toprol-XL 50 mg, Aldactone 50 mg and Zestril 20 mg suggestive of resistant hypertension renal Doppler study showed right mid renal artery stenosis and non visualization of left renal artery MRA abdomen showed probable moderate stenosis at the midportion of the right renal artery. Catheter-based angiography could be considered if clinically warranted, normal left renal artery. Await input from Dr. Sutherland. Elevated troponins: Patient denies any chest pain.? EKG nonischemic. likely related to elevated blood pressure Echo showed normal EF 65-70% and no regional wall motion abnormality, continue aspirin, statin and metoprolol, seen by Cardiology no acute coronary syndrome Hyperlipidemia:? Continue statin ?history of trigeminal neurology: no acute pain on carbamazepine, normal Tegretol level Acute maxillary sinusitis facial swelling redness improved , continue oral antibiotics DVT prophylaxis:? Subcu heparin Code status:? Full code patient will need continued inpatient hospitalization due to resistant blood pressure diagnosed to have right renal artery stenosis , waiting for vascular surgery input. Quality Stroke Does the patient have a stroke diagnosis?: No VTE Prior VTE?: No VTE Risk Level:: Medical - moderate - high VTE Device Contraindication: Treatment Not Indicated VTE Drug Contraindication: N/A - Med Ordered
[2022-01-07] MEDS: Azithromycin 250 MG TABLET PO (15:46)
[2022-01-07] MEDS: ondansetron HCL 4 MG/2 ML VIAL IVPUSH (17:56)
[2022-01-07 18:45] VITALS: BP 149/67; PULSE 72; RESP 17; TEMP 37; O2SAT 95
[2022-01-07] MEDS: Atorvastatin Calcium 80 MG TABLET PO (21:35)
[2022-01-07] MEDS: carBAMazepine 200 MG TABLET 300 MG PO (21:35)
[2022-01-07] MEDS: lisinopriL 20 MG TABLET PO (21:35)
[2022-01-07] MEDS: polyethylene glycoL 3350 17 GM POWD.PACK PO (21:36)
[2022-01-07] MEDS: Latanoprost 0.005 % Ophth Sol 2.5 ML DROPS 1 DROP EYE-BOTH (21:37)
[2022-01-07 23:35] VITALS: BP 133/64; PULSE 57; RESP 20; TEMP 36.5; O2SAT 93
[2022-01-08] MEDS: 0.9 % Sodium Chloride Flush 3 ML SYRINGE IVFLUSH
[2022-01-08 03:27] VITALS: BP 141/63; PULSE 58; RESP 18; TEMP 35.9; O2SAT 96
[2022-01-08] MEDS: Heparin Sodium,Porcine 5,000 UNIT/ML VIAL 5000 UNIT SUBCUT (03:40)
[2022-01-08] MEDS: Omeprazole 20 MG CAPSULE.DR PO (06:16)
[2022-01-08 07:20] VITALS: BP 149/63; PULSE 59; RESP 16; TEMP 36.4; O2SAT 98
[2022-01-08] MEDS: Spironolactone 25 MG TABLET 50 MG PO (08:06)
[2022-01-08] MEDS: Ergocalciferol (Vitamin D2) 1,250 MCG CAPSULE 1250 MCG PO (08:06)
[2022-01-08] MEDS: carBAMazepine 200 MG TABLET PO (08:06)
[2022-01-08] MEDS: hydroCHLOROthiazide 25 MG TABLET PO (08:06)
[2022-01-08] MEDS: Aspirin Enteric Coated 81 MG TABLET.DR PO (08:06)
[2022-01-08] MEDS: amLODIPine Besylate 5 MG TABLET PO (08:07)
--- NOTE | 2022-01-08 11:16 | P.DS_ITS ---
DS: Providers Provider Date of Service: 01/08/22 Date of admission: 01/02/22 19:06 Primary care physician: Rich Deng MD Consults: 01/02/22 19:21 Consult to Cardiology Routine Consulting Provider: Abhishek Castro Reason for consultation: high troponins 01/05/22 14:39 Consult to Vascular Surgery Routine Consulting Provider: Everton Sutherland Reason for consultation: Right renal artery stenosis Has provider been notified: No DS: Diagnosis Discharge Diagnosis (1) Hypertensive emergency: Status: Acute (2) GERD (gastroesophageal reflux disease): Status: Acute (3) Hypercholesterolemia: Status: Acute (4) Hypertension: Status: Acute (5) Coronary artery disease: Status: Acute DS: Summary Hospital Course Hospital Course: History of presenting illness Chief Complaint: ? Dizziness 76-year-old female with a past medical history of hypertension, hyperlipidemia, CAD, GERD, trigeminal neurology presented to the hospital with a chief complaint of dizziness.? Patient reports that she has been feeling generally weak all day and later noted to have dizzy/ lightheaded; denies any falls or trauma.? Denies any room spinning.? Denies any chest pain or palpitations.? Subsequently called in EMS; when EMS arrived patient was noted to have elevated blood pressure; Denies any GI symptoms.? Denies any recent travel or sick contacts.? Review of all other systems is negative except mentioned above ER course: Per ER team patient on presentation noted to have nonfocal neurological examination; NIH stroke scale was 0; CT head showed no acute findings; EKG was nonischemic; initial troponin was 3 follow-up troponin elevated to 26; discussed with cardiology who suggested admission to the hospital for observation; did not recommend heparin drip.? Patient received clonidine with blood pressure improved from 10/02 systolic to 113 followed by blood pressure elevated to 149 systolic. Hospital course 76-year-old female with a past medical history of hypertension, hyperlipidemia, CAD, GERD presented to the hospital with a chief complaint of dizziness diagnosed to have significantly elevated blood pressures admitted with a diagnosis of hypertensive emergency. ?Hypertensive emergency?patient noted to have lightheadedness dizziness nausea and vomiting she was continued on her home medications Toprol-XL 50 mg, Aldactone 50 mg and Zestril 20 mg and started on Norvasc 5 mg and hydrochlorothiazide 25 mg with better blood pressure control still with intermittent high blood pressure reading, due to resistant blood pressure renal Doppler study was obtained that showed right mid renal artery stenosis and non visualization of left renal artery, therefore vascular surgical consult was obtained Dr. Sutherland recommended MRA abdomen that showed right mid renal artery stenosis and normal left renal artery, Dr. Sutherland recommend outpatient follow-up, patient was also evaluated by Dr. Castro from Cardiology he recommend to continue current antihypertensive medications and he will follow patient for further medication adjustment, at present patient is asymptomatic with no recurrent episodes of lightheadedness dizziness nausea or vomiting, she is tolerating diet therefore being discharged home with VNA services. ? ?Elevated troponins: Patient on admission noted to have elevated troponin likely related to elevated blood pressure EKG was nonischemic.?Echo showed normal EF 65-70% and no regional wall motion abnormality, continue aspirin, statin and metoprolol, seen by Cardiology no acute coronary syndrome ?Hyperlipidemia:? Continue? statin ?history of trigeminal neurology: no acute pain on carbamazepine, normal Tegret ol level ?Acute maxillary sinusitis? facial swelling redness improved , finish course of azithromycin . ? Time Spent with Patient Time attestation: Total time spent providing and/or coordinating discharge services: Discharge coordination time: Greater than 30 minutes Quality: Safe Use of Opioids Does Pt have an Active Cancer Diagnosis on the Problem List?: No Quality: Stroke Does the patient have a stroke diagnosis?: No Physical Exam Vital Signs: Vital Signs: Last Vital Signs Temp 97.6 F 01/08/22 07:20 Pulse 59 01/08/22 07:20 Resp 16 01/08/22 07:20 BP 149/63 H 01/08/22 07:20 Pulse Ox 98 01/08/22 07:20 BMI result Body Mass Index 31.4 Const: Other: General? awake alert x3,no acute distress.? Neck supple no JVD. CVS? regular rate rhythm, Respiratory lungs clear to auscultation, no respiratory distress, no wheeze, no rhonchi. Gastrointestinal abdomen soft, nontender, bowel sounds audible Extremities no edema. Neuro nonfocal psych appropriate affect Discharge Plan Discharge Patient Disposition: Home Health Service Discharge Diagnosis: Hypertensive emergency Renal artery stenosis Elevated troponin Maxillary sinusitis Referrals: Rich Deng MD [Primary Care Provider] - 1 Week Discharge Medications: New amlodipine 5 mg Tablet 5 mg PO DAILY Qty: 30 0RF Protocol: Hold for SBP< HOLD for SBP < : 90 hydrochlorothiazide 25 mg Tablet 25 mg PO DAILY Qty: 30 0RF Protocol: Hold for SBP< HOLD for SBP < : 90 Continued lorazepam 0.5 mg tablet 0.5 mg PO BID PRN (Reason: Anxiety) 0RF cyclobenzaprine 10 mg tablet 1 tab PO DAILY PRN (Reason: Spasms) 0RF latanoprost 0.005 % drops 1 drp ophthalmic (eye) BEDTIME 0RF cetirizine 10 mg tablet 1 tab PO DAILY PRN (Reason: Allergic Symptoms) 0RF metoprolol succinate 50 mg tablet extended release 24 hr 1 tab PO DAILY 0RF citalopram 10 mg tablet 1 tab PO DAILY@1200 0RF lisinopril 20 mg tablet 1 tab PO BEDTIME 0RF carbamazepine 200 mg tablet 300 mg PO BEDTIME 0RF omeprazole 20 mg capsule,delayed release(DR/EC) 1 cap PO DAILY 0RF ergocalciferol (vitamin D2) 1,250 mcg (50,000 unit) capsule 1 cap PO IRELAND 0RF spironolactone 50 mg tablet 1 tab PO DAILY 0RF rosuvastatin 40 mg tablet 1 tab PO BEDTIME 0RF polyvinyl alcohol [Artificial Tears (polyvin alc)] 1.4 % Drops 1 drp OPHTHALMIC (EYE) TID PRN (Reason: Dry Eyes) 0RF carbamazepine 200 mg tablet 200 mg PO DAILY 0RF Discharge Orders: Discharge Order (Routine); Ordered 01/08/22 Ordered By: Karley Noble Diet: low fat, low cholesterol Activity on Discharge: As tolerated Stand Alone Forms: Patient Portal Discharge page Care Plan Goals: Elevated blood pressures, you have been started on 2 new medication Norvasc 5 mg daily and hydrochlorothiazide 25 mg daily continue all home medication as before You finished course of antibiotic for sinusitis Health Concerns: Take all home medications as before Plan of Treatment: Outpatient follow-up with Dr. Everton Sutherland from vascular surgery next week for renal artery stenosis call doctor if do not hear from him in next few days Outpatient follow-up with Dr. Castro from Cardiology for blood pressure medication adjustment in next 1-2 weeks call doctor to make appointment Assessment: As per discharge summary Patient Instructions: Hypertensive Crisis (ED)
--- NOTE | 2022-01-09 14:22 | MHC.CM.PN ---
POST DC NOTE: PT DISCHARGED YESTERDAY WITH ORDERS FOR NEW [facility] HAS ACCEPTED REFERRAL AND WILL INITIATE SERVICES ON 01/11/22 PT HAS BEEN INFORMED VIA T/C
== END 2022-01-08 12:30 | disposition home health service (06) | DRG 305 ==
LOC: HO.ED 22:21 → HO.EDOVER 01-03 07:14 → HO.IMC 01-07 14:03
PROVIDERS: Physician Assistant; Admitting Provider Hospitalist; Emergency Provider Emergency Medicine; PCP Family Medicine; Visit Provider Hospitalist
DX: I16.1 Hypertensive emergency (principal); E87.1 Hypo-osmolality and hyponatremia; K21.9 Gastro-esophageal reflux disease without esophagitis; I10 Essential (primary) hypertension; J01.00 Acute maxillary sinusitis, unspecified; I70.1 Atherosclerosis of renal artery; E78.5 Hyperlipidemia, unspecified; I25.10 Atherosclerotic heart disease of native coronary artery without angina pectoris; Z20.822 Contact with and (suspected) exposure to COVID-19; Z88.0 Allergy status to penicillin; Z88.8 Allergy status to other drugs, medicaments and biological substances; Z79.51 Long term (current) use of inhaled steroids; Z79.899 Other long term (current) drug therapy
CPT/HCPCS: 36415; 70450; 74185; 80048; 80053; 80156; 83880; 84484; 85025; 85610; 85730; 87502; 87635; 93005; 93306; 93975; 96374; 99219; 99283; 99284; 99285; A9585; J0456; J2405

== ENCOUNTER → 2022-01-10 09:35 | Outpatient (BNVA) | payer MEDICARE, OTHER, SELFPAY | PROVIDERS: PCP Family Medicine; Visit Provider Surgery Vascular Surgery | DX: Z13.89 Encounter for screening for other disorder (principal) ==

== ENCOUNTER 2022-01-11 07:35 | Day surgery (SDC) | payer MEDICARE, OTHER, SELFPAY ==
[2022-01-11] VITALS (9 sets, daily range): BP systolic 127–156; BP diastolic 52–77; PULSE 60–72; RESP 16–18; TEMP 36.3–36.5; O2SAT 96–99; BMI 32.1
--- NOTE | 2022-01-11 08:53 | PC.NURSE ---
md wongu of patients high sensitivity trop result.
--- NOTE | 2022-01-11 10:26 | P.OP_ITS ---
Operative Note Operative Note Date of Service: 01/11/22 Narrative: Angiogram report from [facility] Preoperative diagnosis: Renal artery stenosis Postoperative diagnosis: Same Procedure: 1. Ultrasound-guided rightcommon femoral access 2. Aortogram 3. Selective right renal artery angiogram 4. Selective left renal artery angiogram Surgeon:Everton Sutherland M.D., FACS, RPVI Benefits Coordinator:None Anesthesia: Local with moderate conscious sedation. Total intraservice moderate sedation time was 25 minutes. I monitored the patient's level of consciousness and physiologic status continuously throughout the procedure. Specimens:none Drains:none Estimated blood loss: Less than 10 ml Implant: None Indications: Pleasant 76-year-old female who was seen in the hospital with uncontrolled hypertension. She is being maintained on 5 antihypertensive medications at the current time. She had ultrasound and MRA which was concerning for renal artery stenosis. She now presents for endovascular intervention The patient has signed the informed consent after reviewing risks, complications, benefits, and alternatives previously discussed with the patient. The patient was given the opportunity to ask any additional questions or voice any concerns. All questions were answered to the patient's satisfaction. Procedure in detail: Patient was brought to the angiography suite prior to which a time-out was called for patient identification and site verification. Bilateral groins were prepped and draped in the standard surgical fashion. Under ultrasound guidance rightcommon femoral was punctured with micro puncture needle and wire. Subsequently a precision 5 [place] sheath was then placed. Bentson wire was advanced to the level of the aorta. 5 [place] Flush catheter was brought up and parked at the level of the renal arteries. Aortogram was then undertaken. We then used the Flush catheter with a Glidewire to select out the right renal artery. We did the similar on the left side and we selected out the left renal artery as well. Her directed angiograms were undertaken. No focal stenosis was noted. Catheter wire sheath was removed. Direct pressure was held for 10 minutes. Patient tolerated the procedure well. Interpretation of films: 1. Ultrasound demonstrates appropriate femoral puncture. Image of which was saved. 2. Aortogram demonstrates appropriate caliber aorta. Minimal disease. 3. Iliac images demonstrate no significant disease 4. Right renal artery single artery with no significant disease 5. Left renal artery single artery with no significant disease Conclusion: 1. Successful diagnostic angiogram with no significant renal disease noted. 2. Anticoagulation status: Continue current regiment of medications with no changes This note is constructed using voice recognition software. While every effort has been made to ensure accuracy, registered dietetic technician errors may have been included. Thank you for allowing me to participate in the care of your patient. Yours sincerely, Everton Sutherland MD, FACS, R.P.V.I.
== END 2022-01-11 14:16 | disposition home or self-care (01) ==
PROVIDERS: PCP Family Medicine; Visit Provider Surgery Vascular Surgery
DX: I70.1 Atherosclerosis of renal artery (principal); I10 Essential (primary) hypertension; I25.10 Atherosclerotic heart disease of native coronary artery without angina pectoris; E78.00 Pure hypercholesterolemia, unspecified; K21.9 Gastro-esophageal reflux disease without esophagitis; Z88.0 Allergy status to penicillin; Z79.82 Long term (current) use of aspirin; Z79.899 Other long term (current) drug therapy
CPT/HCPCS: 36252; 76937; 99152; 99153; C1725; C1760; C1769; C1887; C1894; J2250; J3010; Q9967

== ENCOUNTER → 2022-01-19 10:09 | Outpatient (BNVA) | payer MEDICARE, OTHER, SELFPAY | PROVIDERS: Visit Provider Internal Medicine Cardiovascular Disease | DX: R06.00 Dyspnea, unspecified (principal); I10 Essential (primary) hypertension | CPT/HCPCS: 99212 ==

== ENCOUNTER → 2022-01-31 10:25 | Outpatient (BNVA) | payer MEDICARE, OTHER, SELFPAY | PROVIDERS: PCP Family Medicine; Visit Provider Surgery Vascular Surgery | DX: I10 Essential (primary) hypertension (principal) | CPT/HCPCS: 99212 ==

== ENCOUNTER 2022-02-02 11:39 | Emergency (ER) | payer MEDICARE, OTHER, SELFPAY ==
[2022-02-02] VITALS (10 sets, daily range): BP systolic 147–200; BP diastolic 57–82; PULSE 63–110; RESP 12–63; TEMP 36.7; O2SAT 98–99; BMI 32.3
--- NOTE | ~2022-02-02 | XR_ITS ---
EXAMINATION: XR CHEST CLINICAL INFORMATION: Hypertension and cough COMPARISON: 01/27/2021 TECHNIQUE: Frontal view of the chest was obtained. FINDINGS: No significant abnormality is noted involving the heart, lungs, mediastinum, bony thorax or soft tissues. XR/XR chest 1V IMPRESSION: Unremarkable examination.
--- NOTE | 2022-02-02 12:24 | ECG_ITS ---
Test Reason : cp Blood Pressure : / mmHG Vent. Rate : 064 BPM Atrial Rate : 064 BPM P-R Int : 190 ms QRS Dur : 094 ms QT Int : 386 ms P-R-T Axes : 063 021 048 degrees QTc Int : 398 ms Normal sinus rhythm Normal ECG When compared with ECG of 02-JAN-2022 18:02, No significant change was found Referred By: Kathleen Zuñiga Electronically Signed By:SAUL DAVISON MD
--- NOTE | 2022-02-02 13:00 | ED.CHESTPAIN ---
HPI - Chest Pain General Chief Complaint: Chest Pain Stated Complaint: CP SINCE LAST SUNDAY, HIGH BP TODAY PER [facility] Time Seen by Provider: 02/02/22 12:24 Source: patient Mode of arrival: EMS History of Present Illness HPI narrative: 76-year-old female with increasing stress at home states that she has been having intermittent problems with blood pressure control the been associated with chest pressure, but denies any diaphoresis/nausea/shortness of breath and states that this morning the pain radiated from her left arm into her chest and she is currently asymptomatic. She states that she has taken all her medications today. Related Data Home Medications Medication Instructions Recorded Confirmed lorazepam 0.5 mg tablet 0.5 mg PO BID PRN Anxiety 09/06/20 01/19/22 latanoprost 0.005 % eye drops 1 drp ophthalmic (eye) BEDTIME 01/02/22 01/19/22 polyvinyl alcohol 1.4 % eye drops 1 drp ophthalmic (eye) TID PRN Dry 01/02/22 01/19/22 (Artificial Tears (polyvinyl Eyes alcohol)) carbamazepine 200 mg tablet See Rx Instructions PO BEDTIME 01/19/22 01/19/22 cetirizine 10 mg tablet 10 mg PO DAILY PRN Allergic 01/19/22 01/19/22 Symptoms citalopram 10 mg tablet 10 mg PO DAILY@1200 01/19/22 01/19/22 cyclobenzaprine 10 mg tablet 10 mg PO DAILY PRN Spasms 01/19/22 01/19/22 ergocalciferol (vitamin D2) 1,250 1,250 mcg PO IRELAND 01/19/22 01/19/22 mcg (50,000 unit) capsule fluticasone propionate 50 1 spray intranasal DAILY PRN 01/19/22 01/19/22 mcg/actuation nasal spray,suspension lisinopril 20 mg tablet 20 mg PO BEDTIME 01/19/22 01/19/22 metoprolol succinate 50 mg 50 mg PO DAILY 01/19/22 01/19/22 tablet,extended release 24 hr omeprazole 20 mg capsule,delayed 20 mg PO DAILY 01/19/22 01/19/22 release rosuvastatin 40 mg tablet 40 mg PO BEDTIME 01/19/22 01/19/22 spironolactone 50 mg tablet 50 mg PO DAILY 01/19/22 01/19/22 Previous Rx's Medication Instructions Recorded blood pressure monitor #1 ea 01/19/22 Allergies Allergy/AdvReac Type Severity Reaction Status Date / Time penicillin G [Penicillin G] Allergy Mild RASH Verified 01/31/22 10:31 penicillin V Allergy Unknown RASH Verified 01/31/22 10:31 meperidine [From Demerol] AdvReac Mild ABDOMINAL Verified 01/31/22 10:31 CRAMPS Review of Systems Review of Systems: Pertinent positives and negatives as stated in HPI 10 point review of systems is otherwise negative. PMFSH Past Medical History Source: nursing notes reviewed Medical History Coronary artery disease GERD (gastroesophageal reflux disease) Hypercholesterolemia Hypertension Surgical History History of bladder suspension procedure History of section History of hysterectomy Hx of cholecystectomy Family History Family History Father Aneurysm Stroke Mother No problems noted. Maternal Aunt Ovarian cancer Maternal Aunt Uterine cancer Son Brain aneurysm Daughter In good health Social History Social History Household Members: None Housing: House Do you presently have visiting nurse or other home services: No Alcohol intake: current Alcohol intake frequency: holidays/special occasions only Alcohol type: wine Patient Tobacco Use Status: Never used Tobacco Use of substances other than those prescribed or required for medical reasons: No Advance Directives: No Advance Directives Information Provided: No service: No Current occupational status: retired Physical Exam Vital Signs: Vital Signs: Last Vital Signs Temp 98.1 F 02/02/22 12:17 Pulse 68 02/02/22 16:38 Resp 18 02/02/22 14:40 BP 193/68 H 02/02/22 16:38 Pulse Ox 98 02/02/22 14:01 O2 Del Method 02/02/22 14:01 BMI result Body Mass Index 32.3 VITAL SIGNS: Reviewed. GENERAL: Well developed, well nourished, in no acute distress. HEAD: Normocephalic/atraumatic EYES: PERRLA, EOMI, patient has noted exotropia at baseline EARS: Ext canals without abnormality OROPHARYNX: no oral lesions noted, posterior pharynx clear LUNGS: Normal breath sounds. No adventitious sounds or accessory muscle use. SpO2<98> CARDIOVASCULAR: Regular rate and rhythm without noted murmurs, no JVD or lower extremity edema. ABDOMEN: Soft, non-tender, non-distended with bowel sounds. MUSCULOSKELETAL: No tenderness, deformities, or effusions noted on gross inspection. EXTREMITIES: No cyanosis, clubbing or edema. SKIN: Inspection of the skin reveals no rashes NEUROLOGIC: Alert and oriented x 4. Course Course Course Narrative: 76-year-old female with history and clinical presentation likely associated with patient's underlying stress but will rule out infection, cardiopulmonary etiology. Review of all investigations otherwise negative for acute findings, blood pressure has improved after receiving supplemental dose labetalol, repeating the troponin to ensure incremental rise but otherwise patient has been chest pain free. Suspect that this is primarily secondary to patient's home stressors. I did provide the patient with an additional dose Norvasc 10 mg and she needs fall with primary care provider for further management of her blood pressure. MDM - Chest Pain Lab Data Result diagrams: 02/02/22 13:56 02/02/22 13:57 Labs: Lab Results 02/02/22 02/02/22 02/02/22 Range/Units 13:56 13:56 13:57 WBC 8.1 (4.8-10.8) X10*3/uL RBC 4.03 L (4.20-5.50) X10*6/uL Hgb 12.9 (12.0-16.0) g/dl Hct 37.7 (37.0-47.0) % MCV 93.5 (80.0-98.0) fL MCH 32.0 (27.0-33.0) pg MCHC 34.2 (31.0-35.0) g/dl RDW 12.1 (11.0-16.0) % Plt Count 206 (160-400) X10*3/uL MPV 8.9 L (9.4-12.3) fL Immature Gran % (Auto) 0.5 H (0.0-0.4) % Neut % (Auto) 58.4 (45-73) % Lymph % (Auto) 28.3 (20-40) % [place] % (Auto) 11.8 H (2-11) % Eos % (Auto) 0.6 (0-4) % Baso % (Auto) 0.4 (0-2) % Lymph # (Auto) 2.3 (1.2-4.9) X10*3/uL [place] # (Auto) 1.0 (0.1-1.2) X10*3/uL Eos # (Auto) 0.1 (0.0-0.4) X10*3/uL Baso # (Auto) 0.0 (0.0-0.2) X10*3/uL Abs Immat Gran (auto) 0.04 H (0.00-0.03) X10*3/uL Absolute Neuts (auto) 4.7 (2.0-8.3) x10*3/uL Absolute Nucleated RBC 0.000 (0.0-0.012) X10*3/uL Nucleated RBC % (auto) 0.0 (0.0-0.2) /100WBC PT 11.5 (9.9-13.0) SEC INR 1.0 (0.9-1.1) Sodium (135-145) mmol/L Potassium (3.3-5.1) mmol/L Chloride (96-108) mmol/L Carbon Dioxide (22-29) mmol/L Anion Gap (12-20) BUN (9-16) mg/dL Creatinine (0.5-1.4) mg/dL Estim Creat Clear Calc Estimated GFR Random Glucose (60-115) mg/dL Calcium (8.4-10.2) mg/dL Total Bilirubin (0.0-1.0) mg/dL AST (5-31) U/L ALT (0-31) U/L Alkaline Phosphatase (39-117) U/L Troponin I High Sens < 3.5 D (<3.5-17.0) ng/L B-Natriuretic Peptide (<100) pg/mL Total Protein (6.5-8.0) g/dL Albumin (3.5-5.0) g/dL Urine Color Urine Appearance Urine pH (5.0-8.0) Ur Specific [place] (1.005-1.025) Urine Protein (NEG-TRACE) MG/DL Urine Glucose (UA) (NEG) MG/DL Urine Ketones (NEG) MG/DL Urine Blood (NEG) Urine Nitrite (NEG) Ur Leukocyte Esterase (NEG) 02/02/22 02/02/22 02/02/22 Range/Units 13:57 13:57 14:39 WBC (4.8-10.8) X10*3/uL RBC (4.20-5.50) X10*6/uL Hgb (12.0-16.0) g/dl Hct (37.0-47.0) % MCV (80.0-98.0) fL MCH (27.0-33.0) pg MCHC (31.0-35.0) g/dl RDW (11.0-16.0) % Plt Count (160-400) X10*3/uL MPV (9.4-12.3) fL Immature Gran % (Auto) (0.0-0.4) % Neut % (Auto) (45-73) % Lymph % (Auto) (20-40) % [place] % (Auto) (2-11) % Eos % (Auto) (0-4) % Baso % (Auto) (0-2) % Lymph # (Auto) (1.2-4.9) X10*3/uL [place] # (Auto) (0.1-1.2) X10*3/uL Eos # (Auto) (0.0-0.4) X10*3/uL Baso # (Auto) (0.0-0.2) X10*3/uL Abs Immat Gran (auto) (0.00-0.03) X10*3/uL Absolute Neuts (auto) (2.0-8.3) x10*3/uL Absolute Nucleated RBC (0.0-0.012) X10*3/uL Nucleated RBC % (auto) (0.0-0.2) /100WBC PT (9.9-13.0) SEC INR (0.9-1.1) Sodium 134 L (135-145) mmol/L Potassium 5.0 (3.3-5.1) mmol/L Chloride 99 (96-108) mmol/L Carbon Dioxide 28 (22-29) mmol/L Anion Gap 12 (12-20) BUN 13 D (9-16) mg/dL Creatinine 0.82 (0.5-1.4) mg/dL Estim Creat Clear Calc 53.3 Estimated GFR > 60 Random Glucose 99 (60-115) mg/dL Calcium 9.0 (8.4-10.2) mg/dL Total Bilirubin 0.3 (0.0-1.0) mg/dL AST 22 (5-31) U/L ALT 18 (0-31) U/L Alkaline Phosphatase 88 (39-117) U/L Troponin I High Sens (<3.5-17.0) ng/L B-Natriuretic Peptide 63 (<100) pg/mL Total Protein 7.3 (6.5-8.0) g/dL Albumin 4.1 (3.5-5.0) g/dL Urine Color YELLOW Urine Appearance CLEAR Urine pH 6.5 (5.0-8.0) Ur Specific [place] 1.010 (1.005-1.025) Urine Protein NEG (NEG-TRACE) MG/DL Urine Glucose (UA) NEG (NEG) MG/DL Urine Ketones NEG (NEG) MG/DL Urine Blood NEG (NEG) Urine Nitrite NEG (NEG) Ur Leukocyte Esterase NEG (NEG) ECG Data ECG #1: Attestation: I personally reviewed and interpreted this ECG as follows: Prior ECG tracings: available for review Interpretation: Normal sinus rhythm, HR-64, no STEMI, NH/QRS/QTC is within normal limits. Discharge Plan Discharge Clinical Impression: Atypical chest pain, Hypertension Patient Disposition: Home, Self-Care Instructions: Hypertension (ED), DASH Eating Plan (ED) Additional Instructions: 1. Resume all home medications as prescribed. 2. Recommend that you follow-up with your primary care provider for re-evaluation of your blood pressure and adjustment your medications. Return to the ER for worsening symptoms. Prescriptions: No Action lorazepam 0.5 mg tablet 0.5 mg PO BID PRN (Reason: Anxiety) (DME) blood pressure monitor Kit See Rx Instructions .Route Qty: 1 0RF Rx Instructions: As directed latanoprost 0.005 % drops 1 drp ophthalmic (eye) BEDTIME polyvinyl alcohol [Artificial Tears (polyvin alc)] 1.4 % Drops 1 drp OPHTHALMIC (EYE) TID PRN (Reason: Dry Eyes) carbamazepine 200 mg tablet See Rx Instructions PO BEDTIME Rx Instructions: TAKE 1 TABLET IN THE AM, 1 1/2 TABLETS AT BEDTIME cetirizine 10 mg tablet 10 mg PO DAILY PRN (Reason: Allergic Symptoms) citalopram 10 mg tablet 10 mg PO DAILY@1200 cyclobenzaprine 10 mg tablet 10 mg PO DAILY PRN (Reason: Spasms) ergocalciferol (vitamin D2) 1,250 mcg (50,000 unit) capsule 1,250 mcg PO IRELAND lisinopril 20 mg tablet 20 mg PO BEDTIME metoprolol succinate 50 mg tablet extended release 24 hr 50 mg PO DAILY omeprazole 20 mg capsule,delayed release(DR/EC) 20 mg PO DAILY rosuvastatin 40 mg tablet 40 mg PO BEDTIME spironolactone 50 mg tablet 50 mg PO DAILY fluticasone propionate 50 mcg/actuation spray,suspension 1 spray intranasal DAILY PRN Referrals: Rich Deng MD [Primary Care Provider] -
[2022-02-02 14:02] LABS: MANUAL DIFF FLAG NO
[2022-02-02 14:10] LABS: Basophils Percent Auto 0.4 % (0-2); Eosinophils Absolute Auto 0.1 X10*3/uL (0.0-0.4); Eosinophils Percent Auto 0.6 % (0-4); Hematocrit 37.7 % (37.0-47.0); Hemoglobin 12.9 g/dl (12.0-16.0); Imm Gran Abs Auto 0.04 X10*3/uL (0.00-0.03); Imm Gran Pct Auto 0.5 % (0.0-0.4); Lymphocytes Absolute Auto 2.3 X10*3/uL (1.2-4.9); Lymphocytes Percent Auto 28.3 % (20-40); Mean Corpuscular HGB Conc 34.2 g/dl (31.0-35.0); Mean Corpuscular Volume 93.5 fL (80.0-98.0); Mean Platelet Volume 8.9 fL (9.4-12.3); Monocytes Percent Auto 11.8 % (2-11); Neutrophils Absolute Auto 4.7 x10*3/uL (2.0-8.3); Neutrophils Percent Auto 58.4 % (45-73); Platelet Count 206 X10*3/uL (160-400); Red Blood Count 4.03 X10*6/uL (4.20-5.50); Red Cell Distribution Width 12.1 % (11.0-16.0); White Blood Count 8.1 X10*3/uL (4.8-10.8)
[2022-02-02 14:11] LABS: Prothrombin Time 11.5 SEC (9.9-13.0)
[2022-02-02 14:20] LABS: Alanine Aminotransferase 18 U/L (0-31); Albumin Level 4.1 g/dL (3.5-5.0); Alkaline Phosphatase 88 U/L (39-117); Anion Gap 12 (12-20); Aspartate Amino Transferase 22 U/L (5-31); Bilirubin Total 0.3 mg/dL (0.0-1.0); Blood Urea Nitrogen 13 mg/dL (9-16); Carbon Dioxide 28 mmol/L (22-29); Chloride 99 mmol/L (96-108); Creatinine Clr Calc Pharmacy 53.3; Estimated Glomerular Filt Rate > 60; Glucose Random 99 mg/dL (60-115); Sodium 134 mmol/L (135-145); Total Protein 7.3 g/dL (6.5-8.0)
[2022-02-02 14:23] LABS: Troponin-I High Sensitivity < 3.5 ng/L (<3.5-17.0)
[2022-02-02 14:23] LABS: B Type Natriuretic Peptide 63 pg/mL (<100)
[2022-02-02 14:48] LABS: Appearance Urine CLEAR; Color Urine YELLOW; Glucose Urine UA NEG (NEG); Leukocyte Esterase Urine NEG (NEG); Nitrite Urine NEG (NEG); PH 6.5 (5.0-8.0); Urine Blood NEG (NEG); Urine Ketones NEG (NEG); Urine Protein NEG (NEG-TRACE)
[2022-02-02] MEDS: amLODIPine Besylate 10 MG TABLET PO (17:02)
[2022-02-02 17:07] LABS: Troponin-I High Sensitivity 3.8 ng/L (<3.5-17.0)
== END 2022-02-02 18:20 | disposition home or self-care (01) ==
PROVIDERS: Student in an Organized Health Care Education/Training Program; Emergency Provider Emergency Medicine; PCP Family Medicine
DX: R07.89 Other chest pain (principal); I10 Essential (primary) hypertension
CPT/HCPCS: 36415; 71045; 80053; 81003; 83880; 84484; 85025; 85610; 93005; 96374; 99285

== ENCOUNTER → 2022-02-14 08:04 | Outpatient (REF) | payer MEDICARE, OTHER, SELFPAY ==
--- NOTE | ~2022-02-14 | NM_ITS ---
Lexiscan Myocardial perfusion study Indication: Shortness of breath, hypertension, assess for coronary disease and ischemia Technique: The patient was brought in for a Lexiscan perfusion study on 02/15/2022 and was injected 0.4 mg of Lexiscan intravenously. Within a minute of this injection 30 mCi of sestamibi was given intravenously. Images were obtained using the SPECT gamma camera interlaced with the gating device. Images were obtained in supine position. Resting perfusion study was performed on 02/14/2022. Patient was administered 30 mCi of sestamibi intravenously at rest. Images were then obtained in supine position. Images were processed with the software and compared side to side in short axis, horizontal long axis and vertical long axis views. Total DLP 162mGy-cm. Findings: Raw acquisition reviewed. Arms by the patient's side. The stress perfusion study showed diminished tracer uptake in the distal part of lateral as well as the inferolateral wall. There is improvement with CT attenuation correction and hence suggestive of diaphragmatic attenuation artifact. The gated study shows normal LV systolic function with calculated LVEF of 70%. LV cavity is normal in size. The gated study shows normal wall thickening and contraction of segments. Resting study shows diminished tracer uptake in the distal part of inferolateral wall. There is improvement with CT attenuation correction suggestive of diaphragmatic attenuation artifact. Gating at rest reveals normal wall motion with ejection fraction at 63%. The findings are consistent with no reversible defects. Fixed inferolateral defect likely from diaphragmatic attenuation artifact. NM/NM cardiolite stress test Impression: 1. Myocardial perfusion imaging study shows no clear evidence of any ischemia or infarction. Likely normal myocardial perfusion. 2. Gated LVEF is 70% during stress and 60% during rest. 3. Transient ischemic dilatation not present. EKG component of the test reported separately.
--- NOTE | 2022-02-14 08:10 | CA_ITS ---
Acquisition Time: 2022-02-15 08:04:48 Total Exercise Time: 00:05:35 Test Indications: Dyspnea ELEVATED TROP Medications: SEE H Protocol: TANI Max HR: 116 BPM 81% of Pred: 142 BPM Max BP: 188/048 mmHG Max Work Load: 4.9 METS Exercise stress test with exercise 5 min 35 sec of Tani stage 1, achieving 81% of MPHR, with report of fatigue, mild sob and request to stop. She was assisted back to the recliner and once breathing improved, testing changed to pharmacological stress test with Lexiscan injection, without anginal symptoms, with isolated PVC, with normotensive response to injection, with nondiagnostic EKG for ischemia. In recovery she reported lightheadedness and was treated with Aminophylline 75 mg IVP to reverse Lexiscan with resolution of symptom. Nuclear images pending. Test reviewed with Dr Castro. Referred By: Abhishek Castro Overread By: ESTELA PADILLA
== END ==
LOC: HO.CARD 08:04
PROVIDERS: Visit Provider Internal Medicine Cardiovascular Disease
DX: R06.00 Dyspnea, unspecified (principal); R77.8 Other specified abnormalities of plasma proteins
CPT/HCPCS: 78452; 93017; A9500; J0280; J2785

== ENCOUNTER → 2022-04-24 10:23 | Outpatient (BNVA) | payer MEDICARE, OTHER, SELFPAY | PROVIDERS: PCP Family Medicine; Referring Provider Family Medicine; Visit Provider Internal Medicine Cardiovascular Disease | DX: R06.00 Dyspnea, unspecified (principal); I10 Essential (primary) hypertension | CPT/HCPCS: 99212 ==

== ENCOUNTER 2022-05-10 19:44 | Emergency (ER) | payer MEDICARE, OTHER, SELFPAY ==
--- NOTE | ~2022-05-10 | XR_ITS ---
EXAMINATION: XR CHEST CLINICAL INFORMATION: Palpitations and hypertension COMPARISON: None TECHNIQUE: Frontal view of the chest was obtained. FINDINGS: No significant abnormality is noted involving the heart, lungs, mediastinum, bony thorax or soft tissues. Some right midlung atelectasis is present. XR/XR chest 1V IMPRESSION: Unremarkable examination.
--- NOTE | 2022-05-10 20:17 | ECG_ITS ---
Test Reason : HYPERTENTION Blood Pressure : / mmHG Vent. Rate : 059 BPM Atrial Rate : 059 BPM P-R Int : 172 ms QRS Dur : 096 ms QT Int : 412 ms P-R-T Axes : 049 013 039 degrees QTc Int : 407 ms Sinus bradycardia Otherwise normal ECG When compared with ECG of 02-FEB-2022 12:41, No significant change was found Referred By: Generic ED Physician Electronically Signed By:GET DERAS
[2022-05-10 20:18] VITALS: BP 174/71; PULSE 59; RESP 14; TEMP 36.6; O2SAT 97
[2022-05-10 20:22] VITALS: BP 174/71; BP 210/90; PULSE 60; RESP 18; TEMP 37; O2SAT 97; BMI 29.7
--- NOTE | 2022-05-10 20:24 | ED.CHESTPAIN ---
HPI - Chest Pain General Chief Complaint: Chest Pain Stated Complaint: cp/hypertension Time Seen by Provider: 05/10/22 20:24 Source: patient Mode of arrival: EMS Limitations: no limitations History of Present Illness HPI narrative: Patient history of hypertension, TRIPLETT negative stress test in 01/19/2022 blood via EMS for anxiety and midsternal chest pain. Patient was at home with other family are going patient was stressed out and started having anxiety with midsternal chest tightness feeling symptom that in the past. Patient has a nuclear stress test on 02/01 which was negative denies any significant shortness of breath. Patient check her blood pressure at that time was 02:20 systolic got more worried about it that is why came to the ER on arrival patient's blood pressure 174/70 pulse rate 59 beats per minute Related Data Home Medications Medication Instructions Recorded Confirmed lorazepam 0.5 mg tablet 0.5 mg PO BID PRN Anxiety 09/06/20 01/19/22 latanoprost 0.005 % eye drops 1 drp ophthalmic (eye) BEDTIME 01/02/22 01/19/22 polyvinyl alcohol 1.4 % eye drops 1 drp ophthalmic (eye) TID PRN Dry 01/02/22 01/19/22 (Artificial Tears (polyvinyl Eyes alcohol)) carbamazepine 200 mg tablet See Rx Instructions PO BEDTIME 01/19/22 04/24/22 cetirizine 10 mg tablet 10 mg PO DAILY PRN Allergic 01/19/22 04/24/22 Symptoms cyclobenzaprine 10 mg tablet 10 mg PO DAILY PRN Spasms 01/19/22 04/24/22 ergocalciferol (vitamin D2) 1,250 1,250 mcg PO IRELAND 01/19/22 01/19/22 mcg (50,000 unit) capsule fluticasone propionate 50 1 spray intranasal DAILY PRN 01/19/22 01/19/22 mcg/actuation nasal spray,suspension lisinopril 20 mg tablet 20 mg PO BEDTIME 01/19/22 01/19/22 metoprolol succinate 50 mg 50 mg PO DAILY 01/19/22 01/19/22 tablet,extended release 24 hr omeprazole 20 mg capsule,delayed 20 mg PO DAILY 01/19/22 01/19/22 release rosuvastatin 40 mg tablet 40 mg PO BEDTIME 01/19/22 01/19/22 spironolactone 50 mg tablet 50 mg PO DAILY 01/19/22 01/19/22 citalopram 10 mg tablet 20 mg PO DAILY@1200 04/24/22 04/24/22 hydrochlorothiazide 25 mg tablet 25 mg PO DAILY 04/24/22 04/24/22 Previous Rx's Medication Instructions Recorded blood pressure monitor #1 ea 01/19/22 Allergies Allergy/AdvReac Type Severity Reaction Status Date / Time penicillin G [Penicillin G] Allergy Mild RASH Verified 04/24/22 10:25 penicillin V Allergy Unknown RASH Verified 04/24/22 10:25 hydromorphone [From Dilaudid] Allergy Unknown Verified 05/10/22 20:25 meperidine [From Demerol] AdvReac Mild ABDOMINAL Verified 04/24/22 10:25 CRAMPS Review of Systems Review of Systems: Yes all other systems are reviewed and are negative [facility] Past Medical History Medical History Coronary artery disease GERD (gastroesophageal reflux disease) Hypercholesterolemia Hypertension Surgical History History of bladder suspension procedure History of section History of hysterectomy Hx of cholecystectomy Family History Family History Father Aneurysm Stroke Mother No problems noted. Maternal Aunt Ovarian cancer Maternal Aunt Uterine cancer Son Brain aneurysm Daughter In good health Social History Social History Household Members: None Housing: House Do you presently have visiting nurse or other home services: No Alcohol intake: current Alcohol intake frequency: holidays/special occasions only Alcohol type: wine Patient Tobacco Use Status: Never used Tobacco Advance Directives: Yes Advance Directives Information Provided: No Advance Directives on File: No service: No Current occupational status: retired Physical Exam Vital Signs: Vital Signs: Last Vital Signs Temp 97.9 F 05/10/22 22:36 Pulse 57 05/10/22 23:00 Resp 14 05/10/22 22:36 BP 148/69 H 05/10/22 23:00 Pulse Ox 97 05/10/22 22:36 O2 Del Method 05/10/22 22:36 BMI result Body Mass Index 29.7 Appearance: Alert. Oriented X3. No acute distress. Anxious Eyes: PERRLA, No Nystagmus ENT: Pharynx normal. Oral Mucosa moist Neck: Normal inspection. Neck supple. CVS: Normal heart rate and rhythm. Pulses normal. Respiratory: No respiratory distress. Equal air entry bilateral, no wheezing/rales/rhonchi. midsternal tender to touch Abdomen: Soft and nontender. Bowel sounds are present, no mass palpable, no CVA tenderness Skin: Skin warm and dry. Normal skin color. Normal skin turgor. Extremities: No lower extremity edema. No calf tenderness Neuro: Oriented X 3. No motor deficit. No sensory deficit. MDM - Chest Pain MDM Narrative Medical decision making narrative: Atypical chest pain recent nuclear stress test negative EKG without any ischemic changes high sensitive troponin negative discharge patient home at this time patient denied any chest pain Medical Records Data Attestation: I reviewed the patient's medical records. Lab Data Attestation: I reviewed the patient's lab results. Result diagrams: 05/10/22 20:35 05/10/22 20:35 Labs: Lab Results 05/10/22 05/10/22 05/10/22 Range/Units 20:35 20:35 20:35 WBC 9.2 (4.8-10.8) X10*3/uL RBC 3.67 L (4.20-5.50) X10*6/uL Hgb 11.9 L (12.0-16.0) g/dl Hct 34.7 L (37.0-47.0) % MCV 94.6 (80.0-98.0) fL MCH 32.4 (27.0-33.0) pg MCHC 34.3 (31.0-35.0) g/dl RDW 12.5 (11.0-16.0) % Plt Count 198 (160-400) X10*3/uL MPV 9.4 (9.4-12.3) fL Immature Gran % (Auto) 0.3 (0.0-0.4) % Neut % (Auto) 59.7 (45-73) % Lymph % (Auto) 26.5 (20-40) % [place] % (Auto) 12.4 H (2-11) % Eos % (Auto) 0.8 (0-4) % Baso % (Auto) 0.3 (0-2) % Lymph # (Auto) 2.4 (1.2-4.9) X10*3/uL [place] # (Auto) 1.1 (0.1-1.2) X10*3/uL Eos # (Auto) 0.1 (0.0-0.4) X10*3/uL Baso # (Auto) 0.0 (0.0-0.2) X10*3/uL Abs Immat Gran (auto) 0.03 (0.00-0.03) X10*3/uL Absolute Neuts (auto) 5.5 (2.0-8.3) x10*3/uL Absolute Nucleated RBC 0.000 (0.0-0.012) X10*3/uL Nucleated RBC % (auto) 0.0 (0.0-0.2) /100WBC Sodium 133 L (135-145) mmol/L Potassium 4.5 (3.3-5.1) mmol/L Chloride 100 (96-108) mmol/L Carbon Dioxide 21 L (22-29) mmol/L Anion Gap 17 (12-20) BUN 14 (9-16) mg/dL Creatinine 0.78 (0.5-1.4) mg/dL Estim Creat Clear Calc 57.1 Estimated GFR > 60 Random Glucose 94 (60-115) mg/dL Calcium 8.5 (8.4-10.2) mg/dL Troponin I High Sens < 3.5 (<3.5-17.0) ng/L COVID-19 (JAYE) (Negative) COVID-19 Clin Com 05/10/22 Range/Units 20:36 WBC (4.8-10.8) X10*3/uL RBC (4.20-5.50) X10*6/uL Hgb (12.0-16.0) g/dl Hct (37.0-47.0) % MCV (80.0-98.0) fL MCH (27.0-33.0) pg MCHC (31.0-35.0) g/dl RDW (11.0-16.0) % Plt Count (160-400) X10*3/uL MPV (9.4-12.3) fL Immature Gran % (Auto) (0.0-0.4) % Neut % (Auto) (45-73) % Lymph % (Auto) (20-40) % [place] % (Auto) (2-11) % Eos % (Auto) (0-4) % Baso % (Auto) (0-2) % Lymph # (Auto) (1.2-4.9) X10*3/uL [place] # (Auto) (0.1-1.2) X10*3/uL Eos # (Auto) (0.0-0.4) X10*3/uL Baso # (Auto) (0.0-0.2) X10*3/uL Abs Immat Gran (auto) (0.00-0.03) X10*3/uL Absolute Neuts (auto) (2.0-8.3) x10*3/uL Absolute Nucleated RBC (0.0-0.012) X10*3/uL Nucleated RBC % (auto) (0.0-0.2) /100WBC Sodium (135-145) mmol/L Potassium (3.3-5.1) mmol/L Chloride (96-108) mmol/L Carbon Dioxide (22-29) mmol/L Anion Gap (12-20) BUN (9-16) mg/dL Creatinine (0.5-1.4) mg/dL Estim Creat Clear Calc Estimated GFR Random Glucose (60-115) mg/dL Calcium (8.4-10.2) mg/dL Troponin I High Sens (<3.5-17.0) ng/L COVID-19 (JAYE) Negative (Negative) COVID-19 Clin Com See Note ECG Data ECG #1: Attestation: I personally reviewed and interpreted this ECG as follows: Interpretation: Sinus bradycardia heart rate 59 beats per minute normal interval normal axis no acute ST-T no acute ischemia Discharge Plan Discharge Clinical Impression: Essential hypertension, Chest pain, Anxiety Patient Disposition: Home, Self-Care Instructions: Chest Pain (DC), Generalized Anxiety Disorder (ED), Hypertension (ED) Additional Instructions: Rest at home Continue medications Follow-up with your PCP/fiscal assistant Prescriptions: No Action lorazepam 0.5 mg tablet 0.5 mg PO BID PRN (Reason: Anxiety) (DME) blood pressure monitor Kit See Rx Instructions .Route Qty: 1 0RF Rx Instructions: As directed latanoprost 0.005 % drops 1 drp ophthalmic (eye) BEDTIME polyvinyl alcohol [Artificial Tears (polyvin alc)] 1.4 % Drops 1 drp OPHTHALMIC (EYE) TID PRN (Reason: Dry Eyes) carbamazepine 200 mg tablet See Rx Instructions PO BEDTIME Rx Instructions: TAKE 1 TABLET IN THE AM, 1 1/2 TABLETS AT BEDTIME cetirizine 10 mg tablet 10 mg PO DAILY PRN (Reason: Allergic Symptoms) cyclobenzaprine 10 mg tablet 10 mg PO DAILY PRN (Reason: Spasms) ergocalciferol (vitamin D2) 1,250 mcg (50,000 unit) capsule 1,250 mcg PO IRELAND lisinopril 20 mg tablet 20 mg PO BEDTIME metoprolol succinate 50 mg tablet extended release 24 hr 50 mg PO DAILY omeprazole 20 mg capsule,delayed release(DR/EC) 20 mg PO DAILY rosuvastatin 40 mg tablet 40 mg PO BEDTIME spironolactone 50 mg tablet 50 mg PO DAILY citalopram 10 mg tablet 20 mg PO DAILY@1200 hydrochlorothiazide 25 mg tablet 25 mg PO DAILY fluticasone propionate 50 mcg/actuation spray,suspension 1 spray intranasal DAILY PRN Interventions: ED Discharge Assessment Last Done: 05/11/22 00:25 Discharge Date/Time: 05/11/22 00:26
--- OUTSIDE RECORDS SUMMARY | 2022-05-10 20:33 | XMS_ITS | Continuity of Care Document ---
:1945 Author Organization [facility] Address [address] [place] [phone]- Care Team Providers Name Role Phone Hernan Barbosa MD Primary Care Physician Encounter [facility] Date(s): 06/16/20 - 10/13/20 [facility] [address] [place] [phone]- Attending Physician: Jey Jean MD Admitting Physician: Jey Jean MD Referring Physician: Hernan Barbosa MD Allergies, Adverse Reactions, Alerts Substance Reaction Severity Status ciprofloxacin Active penicillins Active Demerol Dust allergy Active Seasonal allergy Ciprofloxacin Dust Active Demerol HCl Active Medications aspirin 81 mg oral tablet 1 tablet = 81 mg, By Mouth, Daily, # 30 tablet, 0 Refills, Maintenance, Tablet Start Date: 08/27/13 Status: Orderedcarbamazepine 200 mg oral capsule, extended release 1 capsule = 200 mg, By Mouth, 2 times a day, # 60 capsule, 0 Refills, Maintenance, 09/27/20 9:26:00 EST, CR Capsule, Partial fill upon patient request if the prescription is for a schedule II opioid drug. Start Date: 09/27/20 Status: Orderedcetirizine 10 mg oral tablet 1 tablet = 10 mg, By Mouth, Daily, # 30 tablet, 0 Refills, Maintenance, 09/27/20 9:30:00 EST, Tablet, Partial fill upon patient request if the prescription is for a schedule II opioid drug. Start Date: 09/27/20 Status: Orderedcyclobenzaprine 10 mg oral tablet 10 mg, 1, tablet, By Mouth, 3 times a day, Refills 0, Maintenance, 09/27/20 9:30:00 EST, Partial fill upon patient request if the prescription is for a schedule II opioid drug. Start Date: 09/27/20 Status: OrderedEstrace Vaginal Cream 0.01 mg/g See Instructions, Vaginally Daily at bedtime, # 42 Gm, 11 Refills, Maintenance, 10/04/15 15:28:56, Vaginally Daily at bedtime Start Date: 10/04/15 Status: Orderedestradiol 1 mg oral tablet 1 tablet = 1 mg, By Mouth, Daily, # 30 tablet, 9 Refills, Maintenance, 10/04/15 15:29:08, 1 tablet By Mouth Daily Start Date: 10/04/15 Status: Orderedlatanoprost 0.005% ophthalmic solution 1 drops, Eyes, Both, Daily at bedtime, # 3 mL, 0 Refills, Maintenance, 09/27/20 9:28:00 EST, Ophth Solution, Partial fill upon patient request if the prescription is for a schedule II opioid drug. Start Date: 09/27/20 Status: Orderedlisinopril 20 mg oral tablet 20 mg, 1, tablet, By Mouth, Daily, # 30 tablet, Refills 0, Maintenance, 09/27/20 9:27:00 EST, Partial fill upon patient request if the prescription is for a schedule II opioid drug. Start Date: 09/27/20 Status: Orderedlorazepam 0.5 mg oral tablet 1 tablet = 0.5 mg, By Mouth, Daily at bedtime, 0 Refills, Maintenance, Tablet Start Date: 08/27/13 Status: Orderedmetoprolol 50 mg oral tablet, extended release 50 mg, 1, tablet, By Mouth, Daily, # 90 tablet, Refills 3, Tot. Refills 3, Maintenance, 09/27/20 12:10:00 EST, Route to Pharmacy Electronically, [facility]/pharmacy #[id number], 155.4, cm, 09/27/20 9:25:00 EST, Height Start Date: 09/27/20 Status: OrderedNitrostat 0.4 mg sublingual tablet 1 tablet = 0.4 mg, Sublingual, Every 5 minutes, PRN for chest pain, # 100 tablet, 0 Refills, Maintenance, Tablet Start Date: 08/27/13 Status: Orderedomeprazole 20 mg oral delayed release tablet 1 tablet = 20 mg, By Mouth, 2 times a day, # 120 tablet, 0 Refills, Maintenance, EC Tablet Start Date: 08/27/13 Status: OrderedPravastatin By Mouth, Daily at bedtime, 0 Refills, Maintenance, 07/01/14 16:23:07 Start Date: 07/01/14 Status: Orderedrosuvastatin 40 mg oral capsule 1 capsule = 40 mg, By Mouth, Daily, # 30 capsule, 0 Refills, Maintenance, 09/27/20 9:29:00 EST, Capsule, Partial fill upon patient request if the prescription is for a schedule II opioid drug. Start Date: 09/27/20 Status: Orderedspironolactone 50 mg oral tablet 1 tablet = 50 mg, By Mouth, Daily, # 30 tablet, 0 Refills, Maintenance, 09/27/20 9:27:00 EST, Tablet, Partial fill upon patient request if the prescription is for a schedule II opioid drug. Start Date: 09/27/20 Status: OrderedSystane 10 mL, Eyes, Both, Daily, 0 Refills, Maintenance, 09/27/20 9:31:00 EST, Partial fill upon patient request if the prescription is for a schedule II opioid drug. Start Date: 09/27/20 Status: OrderedVitamin D 03708 iu oral capsule 1, capsule, By Mouth, Every week, # 4 capsule, Refills 0, Maintenance, 09/27/20 9:29:00 EST, Partialfill upon patient request if the prescription is for a schedule II opioid drug. Start Date: 09/27/20 Status: Ordered Social History Social History Type Response Smoking Status Former smoker; Tobacco user in household: Yes entered on: 10/04/15 Sex
--- OUTSIDE RECORDS SUMMARY | 2022-05-10 20:33 | XMS_ITS | Continuity of Care Document ---
:1945 Author Organization [facility] Address [address] [place] [address], [address] [place] [id number]- Care Team Providers Name Role Phone Rich Deng MD Primary Care Physician Encounter [facility] [place] [facility] Date(s): 10/21/21 - 11/20/21 [facility] [address] [place] [address], [address] [place] [address] Attending Physician: Lawrence Bishop Admitting Physician: AdmtrLawrence Referring Physician: Admtr, Ar8 Allergies, Adverse Reactions, Alerts Substance Reaction Severity Status ciprofloxacin Active penicillins Active Alphagan Active Demerol Dust allergy Active Seasonal allergy Ciprofloxacin Demerol HCl Active Dust Active Medications aspirin 81 mg oral tablet [...] 09/27/20 12:10:00 EST, Route to Pharmacy Electronically, [facility]/pharmacy #[id number], 155.4, cm, 09/27/20 9:25:00 EST, Height Start Date: 09/27/20 Status: OrderedMetoprolol Succinate ER 50 mg oral tablet, extended release 1 tablet, By Mouth, Daily, # 90 tablet, 3 Refills, [facility] ST[facility] [id number], 155.4, cm, 07/20/21 8:18:00 EST,Height, 73.5, kg, 07/20/21 8:18:00 EST, Dry Weight Start Date: 08/26/21 Status: OrderedNitrostat 0.4 mg sublingual tablet 1 tablet = 0.4 mg, Sublingual, Every 5 minutes, PRN for chest pain, # 100 tablet, 0 Refills, Maintenance, Tablet Start Date: 08/27/13 Status: Orderedomeprazole 20 mg oral delayed release tablet 1 tablet = 20 mg, By Mouth, 2 times a day, # 120 tablet, 0 Refills, Maintenance, EC Tablet Start Date: 08/27/13 Status: Orderedoxybutynin 10 mg/24 hr oral tablet, extended release 1 tablet = 10 mg, By Mouth, Daily, # 30 tablet, 4 Refills, Maintenance, 09/21/21 10:29:00 EST, ER Tablet, [facility]/pharmacy #[id number], Partial fill upon patient request if the prescription is for a schedule II opioid drug., 155.4, cm, 07/20/21 8:18:00 EST, Hei... Start Date: 09/21/21 Status: OrderedPravastatin By Mouth, Daily at bedtime, [...] drug. Start Date: 09/27/20 Status: OrderedVitamin D 26884 iu oral capsule 1, capsule, By Mouth, Every week, # 4 capsule, Refills 0, Maintenance, 09/27/20 9:29:00 EST, Partialfill upon patient request if the prescription is for a schedule II opioid drug. Start Date: 09/27/20 Status: Ordered Problem List Condition Effective Dates Status Health Status Informant Anxiety(Confirmed) Active CKD (chronic kidney disease) stage 3, Active GFR 30-59 ml/min(Confirmed) Headaches, cluster(Confirmed) Active Ovarian cyst(Confirmed) Active Depression(Confirmed) Active GERD (gastroesophageal reflux Active disease)(Confirmed) Hyperlipidemia(Confirmed) Active Hypertension(Confirmed) Active Near syncope(Confirmed) Active Obese class I(Confirmed) Active PTSD (post-traumatic stress Active disorder)(Confirmed) Social History Social History Type Response Smoking Status Former smoker; Tobacco user in household: Yes entered on: 10/04/15 Sex
--- OUTSIDE RECORDS SUMMARY | 2022-05-10 20:33 | XMS_ITS | Continuity of Care Document ---
:1945 Author Organization [facility] Address [address] [place] [address], [address] [place] [phone]- Care Team Providers Name Role Phone Ish ABDI, Rich Leon Primary Care Physician [id number] Date(s): 07/20/21 - 10/19/21 [facility] [address] [place] [address], [address] [place] [id number] Attending Physician: Carole Colon MD Admitting Physician: Carole Colon MD Referring Physician: Rich Deng MD Allergies, Adverse Reactions, Alerts Substance Reaction [...] 09/27/20 12:10:00 EST, Route to Pharmacy Electronically, [facility]/pharmacy #[id number], 155.4, cm, 09/27/20 9:25:00 EST, Height Start Date: 09/27/20 Status: OrderedMetoprolol Succinate ER 50 mg oral tablet, extended release 1 tablet, By Mouth, Daily, # 90 tablet, 3 Refills, [facility] [id number], 155.4, cm, 07/20/21 8:18:00 EST,Height, 73.5, kg, [...] Refills, Maintenance, 09/21/21 10:29:00 EST, ER Tablet, [facility]/pharmacy #[id number], Partial fill upon patient request if [...] drug. Start Date: 09/27/20 Status: OrderedVitamin D 60381 iu oral capsule 1, capsule, By Mouth, [...]
--- OUTSIDE RECORDS SUMMARY | 2022-05-10 20:33 | XMS_ITS | Continuity of Care Document ---
:1945 Author Organization [facility] Address [address] [place] [address]- Care Team Providers Name Role Phone Hernan Barbosa MD Primary Care Physician Encounter [facility] [place] Date(s): 09/27/20 - 10/27/20 [facility] [address] [place] [phone]- Attending Physician: Lawrence Bishop Admitting Physician: Lawrence Bishop Referring Physician: Lawrence Bishop Referring Physician: Marielena Melton Allergies, Adverse Reactions, Alerts Substance Reaction Severity [...] 09/27/20 12:10:00 EST, Route to Pharmacy Electronically, [facility]/pharmacy #[id number], 155.4, cm, 09/27/20 9:25:00 EST, [...] drug. Start Date: 09/27/20 Status: OrderedVitamin D 30355 iu oral capsule 1, capsule, By Mouth, Every week, # 4 capsule, Refills 0, Maintenance, 09/27/20 9:29:00 EST, Partialfill upon patient request if the prescription is for a schedule II opioid drug. Start Date: 09/27/20 Status: Ordered Social History Social History Type Response Smoking Status Former smoker; Tobacco user in household: Yes entered on: 10/04/15 Sex
[2022-05-10 20:41] LABS: MANUAL DIFF FLAG NO
[2022-05-10 20:45] LABS: Basophils Percent Auto 0.3 % (0-2); Eosinophils Absolute Auto 0.1 X10*3/uL (0.0-0.4); Eosinophils Percent Auto 0.8 % (0-4); Hematocrit 34.7 % (37.0-47.0); Hemoglobin 11.9 g/dl (12.0-16.0); Imm Gran Abs Auto 0.03 X10*3/uL (0.00-0.03); Imm Gran Pct Auto 0.3 % (0.0-0.4); Lymphocytes Absolute Auto 2.4 X10*3/uL (1.2-4.9); Lymphocytes Percent Auto 26.5 % (20-40); Mean Corpuscular HGB Conc 34.3 g/dl (31.0-35.0); Mean Corpuscular Hemoglobin 32.4 pg (27.0-33.0); Mean Corpuscular Volume 94.6 fL (80.0-98.0); Mean Platelet Volume 9.4 fL (9.4-12.3); Monocytes Absolute Auto 1.1 X10*3/uL (0.1-1.2); Monocytes Percent Auto 12.4 % (2-11); Neutrophils Absolute Auto 5.5 x10*3/uL (2.0-8.3); Neutrophils Percent Auto 59.7 % (45-73); Platelet Count 198 X10*3/uL (160-400); Red Blood Count 3.67 X10*6/uL (4.20-5.50); Red Cell Distribution Width 12.5 % (11.0-16.0); White Blood Count 9.2 X10*3/uL (4.8-10.8)
[2022-05-10 20:57] LABS: Anion Gap 17 (12-20); Blood Urea Nitrogen 14 mg/dL (9-16); Calcium 8.5 mg/dL (8.4-10.2); Carbon Dioxide 21 mmol/L (22-29); Chloride 100 mmol/L (96-108); Creatinine Clr Calc Pharmacy 57.1; Estimated Glomerular Filt Rate > 60; Glucose Random 94 mg/dL (60-115); Potassium 4.5 mmol/L (3.3-5.1); Sodium 133 mmol/L (135-145)
[2022-05-10 21:00] LABS: COVID-19 Test Negative (Negative)
[2022-05-10] MEDS: lisinopriL 20 MG TABLET PO (21:02)
[2022-05-10] MEDS: LORazepam 1 MG TABLET PO (21:02)
[2022-05-10 21:03] VITALS: BP 148/55; PULSE 63
[2022-05-10 21:04] LABS: Troponin-I High Sensitivity < 3.5 ng/L (<3.5-17.0)
[2022-05-10 22:36] VITALS: BP 171/64; PULSE 52; RESP 14; TEMP 36.6; O2SAT 97
[2022-05-10 23:00] VITALS: BP 148/69; PULSE 57
== END 2022-05-11 00:26 | disposition home or self-care (01) ==
PROVIDERS: Emergency Provider Internal Medicine; PCP Family Medicine
DX: R07.9 Chest pain, unspecified (principal); I10 Essential (primary) hypertension; F41.9 Anxiety disorder, unspecified; Z20.822 Contact with and (suspected) exposure to COVID-19; E78.00 Pure hypercholesterolemia, unspecified; Z79.899 Other long term (current) drug therapy; Z79.02 Long term (current) use of antithrombotics/antiplatelets
CPT/HCPCS: 71045; 80048; 84484; 85025; 87635; 93005; 99283

== ENCOUNTER 2022-06-18 12:55 | Emergency (ER) | payer MEDICARE, OTHER, SELFPAY ==
--- NOTE | ~2022-06-18 | XR_ITS ---
EXAMINATION: XR CHEST CLINICAL INFORMATION: Shortness of breath COMPARISON: Chest x-ray 05/10/2022 TECHNIQUE: 2 views of the chest were obtained. FINDINGS: No airspace consolidation. No pleural effusion or pneumothorax. Normal cardiomediastinal silhouette. No evidence of pulmonary edema. No acute osseous injury. XR/XR chest 2V IMPRESSION: No acute pulmonary process.
[2022-06-18 13:18] VITALS: BP 122/78; BP 172/65; PULSE 59; PULSE 64; RESP 12; TEMP 36.8; O2SAT 95; O2SAT 98; BMI 33.0
--- NOTE | 2022-06-18 13:40 | ECG_ITS ---
Test Reason : Shortness of breath Blood Pressure : / mmHG Vent. Rate : 056 BPM Atrial Rate : 056 BPM P-R Int : 208 ms QRS Dur : 096 ms QT Int : 426 ms P-R-T Axes : 056 008 034 degrees QTc Int : 411 ms Sinus bradycardia Nonspecific ST abnormality Septal leads Left axis deviation Abnormal ECG When compared with ECG of 10-MAY-2022 20:22, No significant change was found Referred By: Susie Adams Electronically Signed By:ESTEPHANIE BIRCH MD
--- NOTE | 2022-06-18 13:40 | ED.GENADULT ---
HPI - General Adult General Chief complaint: Dyspnea Stated complaint: SOB 95% RA,DIZZY PER EMS Time Seen by Provider: 06/18/22 13:34 Source: patient and family () Mode of arrival: ambulatory Limitations: no limitations History of Present Illness HPI narrative: Patient is a 77 year old assigned female at with a history of hypertension presenting to the emergency department today with sinus pain and cough. Patient states that for months she has had a slight cough and green snot coming out of her nose with sinus pain. Patient denies any current dizziness, lightheadedness, abdominal pain, nausea, vomiting, fever, chills, blurry vision, double vision, loss of vision, chest pain, difficulty breathing, shortness of breath, back pain, night sweats, pain with urination, increased urinary frequency, increased urinary urgency, blood in her urine or stool, syncope or a near syncopal episode, recent trauma or falls, bowel incontinence, bladder incontinence, bowel retention, bladder retention, or any other complaints at this time. Onset (ago): month(s) Radiation: non-radiation Severity: mild Severity scale (1-10): 3 Relieving factors: none Exacerbating factors: none Associated symptoms: cough Treatments prior to arrival: none Related Data Home Medications Medication Instructions Recorded Confirmed lorazepam 0.5 mg tablet 0.5 mg PO BID PRN Anxiety 09/06/20 01/19/22 latanoprost 0.005 % eye drops 1 drp ophthalmic (eye) BEDTIME 01/02/22 01/19/22 polyvinyl alcohol 1.4 % eye drops 1 drp ophthalmic (eye) TID PRN Dry 01/02/22 01/19/22 (Artificial Tears (polyvinyl Eyes alcohol)) carbamazepine 200 mg tablet See Rx Instructions PO BEDTIME 01/19/22 04/24/22 cetirizine 10 mg tablet 10 mg PO DAILY PRN Allergic 01/19/22 04/24/22 Symptoms cyclobenzaprine 10 mg tablet 10 mg PO DAILY PRN Spasms 01/19/22 04/24/22 ergocalciferol (vitamin D2) 1,250 1,250 mcg PO IRELAND 01/19/22 01/19/22 mcg (50,000 unit) capsule fluticasone propionate 50 1 spray intranasal DAILY PRN 01/19/22 01/19/22 mcg/actuation nasal spray,suspension lisinopril 20 mg tablet 20 mg PO BEDTIME 01/19/22 01/19/22 metoprolol succinate 50 mg 50 mg PO DAILY 01/19/22 01/19/22 tablet,extended release 24 hr omeprazole 20 mg capsule,delayed 20 mg PO DAILY 01/19/22 01/19/22 release rosuvastatin 40 mg tablet 40 mg PO BEDTIME 01/19/22 01/19/22 spironolactone 50 mg tablet 50 mg PO DAILY 01/19/22 01/19/22 citalopram 10 mg tablet 20 mg PO DAILY@1200 04/24/22 04/24/22 hydrochlorothiazide 25 mg tablet 25 mg PO DAILY 04/24/22 04/24/22 Previous Rx's Medication Instructions Recorded blood pressure monitor #1 ea 01/19/22 doxycycline hyclate 100 mg tablet 100 mg PO BID 7 days #14 tabs 06/18/22 prednisone 20 mg tablet 20 mg PO DAILY 12 days #26 tabs 06/18/22 Allergies Allergy/AdvReac Type Severity Reaction Status Date / Time penicillin G [Penicillin G] Allergy Mild RASH Verified 04/24/22 10:25 penicillin V Allergy Unknown RASH Verified 04/24/22 10:25 hydromorphone [From Dilaudid] Allergy Unknown Verified 05/10/22 20:25 meperidine [From Demerol] AdvReac Mild ABDOMINAL Verified 04/24/22 10:25 CRAMPS Review of Systems Constitutional: Constitutional: Reports no additional constitutional complaints, Denies chills, Denies fever(s) and Denies night sweats Eyes: Eyes: Reports no additional eye complaints, Denies blurry vision, Denies change in vision, Denies diplopia, Denies eye discharge, Denies loss of vision and Denies eye pain ENT: Denies dizziness and Reports sinus pressure Cardiovascular: Cardiovascular: Reports no additional cardiovascular complaints, Denies chest pain, Denies lightheadedness, Denies Loss of Consciousness and Denies dyspnea Respiratory: Respiratory: Reports no additional respiratory complaints, Reports cough and Denies dyspnea Gastrointestinal: Gastrointestinal: Reports no additional gastrointestinal complaints, Denies abdominal pain, Denies melena, Denies hematochezia, Denies change in bowel habits and Denies change in stool character Genitourinary: Genitourinary: Denies hematuria, Denies urinary frequency, Denies dysuria, Denies urinary incontinence, Denies urinary hesitancy and Denies urinary urgency Musculoskeletal: Musculoskeletal: Reports no additional musculoskeletal complaints, Denies numbness and Denies tingling Neurologic: Denies dizziness, Denies loss of vision, Denies numbness and Denies tingling Psychiatric: Psychiatric: Reports no additional psychiatric complaints Endocrine: Endocrine: Reports no additional endocrine complaints Hematologic/Lymphatic: Hematologic/Lymphatic: Reports no additional hematologic/lymphatic complaints Allergic/Immunologic: Allergic/Immunologic: Reports no additional allergic/immunologic complaints PMFSH Past Medical History Attestation statement: The following information was validated with the patient. Source: old records reviewed Medical History Coronary artery disease GERD (gastroesophageal reflux disease) Hypercholesterolemia Hypertension Surgical History History of bladder suspension procedure History of section History of hysterectomy Hx of cholecystectomy Family History Family History Father Aneurysm Stroke Mother No problems noted. Maternal Aunt Ovarian cancer Maternal Aunt Uterine cancer Son Brain aneurysm Daughter In good health Social History Social History Household Members: None Housing: House Do you presently have visiting nurse or other home services: No Alcohol intake: current Alcohol intake frequency: a few times a month Alcohol type: wine Patient Tobacco Use Status: Never used Tobacco Smoked in Last 30 Days: No Use of substances other than those prescribed or required for medical reasons: No Advance Directives: Yes Advance Directives Information Provided: Yes Advance Directives on File: No service: No Current occupational status: retired Physical Exam ED Vital Signs: Vital Signs - 24 hr 06/18/22 13:18 06/18/22 14:14 06/18/22 16:00 Temperature 98.3 F 98.2 F Pulse Rate 59 61 57 Respiratory Rate 12 18 16 Blood Pressure 172/65 H 146/60 H 151/56 H Pulse Oximetry 98 97 98 Oxygen Delivery Method Room Air Room Air Room Air BMI result Body Mass Index 33.0 Const General: cooperative, no acute distress, alert and awake Nutritional Appearance: well nourished Orientation/consciousness: patient oriented x3 Limitations: no limitations HENMT Head: Yes normal to inspection and Yes atraumatic Ears: hearing grossly normal bilaterally and external ears normal General nose exam: Normal external nose present, no nasal discharge noted and no epistaxis Face and sinus: Yes normal facial exam, No abrasion, No laceration and Yes sinus tenderness Mouth: Normal oral and palatal mucosa present, no drooling and no muffled voice Eyes General: appearance normal, both eyes and all related structures Periorbital: periorbital findings normal Eyelids: Yes eyelids normal Conjunctivae: conjunctivae normal Pupils: Equal, round and reactive pupils present EOM: EOMs intact bilaterally Neck Neck: Yes normal visual inspection, Yes full ROM and Yes no lymphadenopathy Chest Chest palpation & inspection: normal inspection of the chest Resp Effort & Inspection: normal respiratory effort and able to speak in complete sentences Auscultation: clear to auscultation bilaterally Cardio Rate: regular rate Rhythm: regular rhythm GI Inspection: Yes normal to inspection Neuro General: patient oriented x3 and moves all extremities Cranial nerves: Yes Equal, round and reactive pupils present Cognition (Neuro): normal cognition Motor exam (neuro): 5/5 motor strength present throughout Sensory Exam: Normal double simultaneous stimulation for sensation Coordination: [id number] test normal Extrem General: Yes normal to inspection, Yes full ROM and Yes capillary refill normal Psych Appearance: grossly normal Mental Status: mental status grossly normal Affect: normal affect Attitude: cooperative Thought process: Normal thought process present Thought content: Normal thought content present Insight: Good insight present (Psych) Medical Decision Making MDM Narrative Medical decision making narrative: Patient is a 77 year old assigned female at with a history of hypertension presenting to the emergency department today with a cough and sinus pressure. Patient's physical exam showed sinus pain but was otherwise unremarkable. Patient's blood work showed decreased sodium but was otherwise unremarkable. Patient's EKG was unremarkable. Patient's chest x-ray showed no acute process. Patient's clinical presentation is most consistent with mild hyponatremia and acute sinusitis. I explained my physical exam findings as well as all test results to the patient and the patient's . I answered all questions asked by the patient and the patient's . Patient received 1L of NS while in the department. I stressed the importance of the patient taking her medication as prescribed. I stressed the importance of the patient following up with her primary care provider. I stressed the importance of the patient returning to the emergency department immediately if her symptoms were to worsen or if she were to develop any dizziness, shortness of breath, difficulty breathing, chest pain, blurry vision, loss of vision, nausea, vomiting, abdominal pain, fever, chills, back pain, or any other complaints. Patient and the patient's verbalized agreement and understanding with this treatment plan and discharge. Medical Records Medical records reviewed: Yes I reviewed the patient's medical records. Lab Data Lab results reviewed: Yes I reviewed the patient's lab results. Result diagrams: 06/18/22 14:29 06/18/22 14:07 Labs: Lab Results 06/18/22 06/18/22 06/18/22 Range/Units 14:07 14:07 14:07 WBC (4.8-10.8) X10*3/uL RBC (4.20-5.50) X10*6/uL Hgb (12.0-16.0) g/dl Hct (37.0-47.0) % MCV (80.0-98.0) fL MCH (27.0-33.0) pg MCHC (31.0-35.0) g/dl RDW (11.0-16.0) % Plt Count (160-400) X10*3/uL MPV (9.4-12.3) fL Immature Gran % (Auto) (0.0-0.4) % Neut % (Auto) (45-73) % Lymph % (Auto) (20-40) % [place] % (Auto) (2-11) % Eos % (Auto) (0-4) % Baso % (Auto) (0-2) % Lymph # (Auto) (1.2-4.9) X10*3/uL [place] # (Auto) (0.1-1.2) X10*3/uL Eos # (Auto) (0.0-0.4) X10*3/uL Baso # (Auto) (0.0-0.2) X10*3/uL Abs Immat Gran (auto) (0.00-0.03) X10*3/uL Absolute Neuts (auto) (2.0-8.3) x10*3/uL Absolute Nucleated RBC (0.0-0.012) X10*3/uL Nucleated RBC % (auto) (0.0-0.2) /100WBC Sodium 127 L (135-145) mmol/L Potassium 5.0 (3.3-5.1) mmol/L Chloride 94 L (96-108) mmol/L Carbon Dioxide 22 (22-29) mmol/L Anion Gap 16 (12-20) BUN 9 (9-16) mg/dL Creatinine 0.80 (0.5-1.4) mg/dL Estim Creat Clear Calc 54.3 Estimated GFR > 60 Random Glucose 94 (60-115) mg/dL Calcium 8.8 (8.4-10.2) mg/dL Magnesium 2.0 (1.6-2.6) mg/dL Total Bilirubin 0.4 (0.0-1.0) mg/dL AST 23 (5-31) U/L ALT 16 (0-31) U/L Alkaline Phosphatase 80 (39-117) U/L Troponin I High Sens < 3.5 (<3.5-17.0) ng/L Total Protein 7.1 (6.5-8.0) g/dL Albumin 3.9 (3.5-5.0) g/dL Urine Color Urine Appearance Urine pH (5.0-9.0) Ur Specific [place] (1.005-1.025) Urine Protein (Neg-Trace) mg/dL Urine Glucose (UA) (Negative) mg/dL Urine Ketones (Negative) mg/dL Urine Blood (Negative) Urine Nitrite (Negative) Ur Leukocyte Esterase (Negative) Urine RBC (0-2) /HPF Urine WBC (0-5) /HPF Ur Squamous Epith Cells (0-2) /HPF Urine Bacteria (None Seen) Hyaline Casts (0-2) /LPF Influenza Type A (PCR) NEGATIVE (Negative) Influenza Type B (PCR) NEGATIVE (Negative) RSV RNA Qual (PCR) NEGATIVE (Negative) SARS-CoV-2 RNA (RT-PCR) NEGATIVE (Negative) 06/18/22 06/18/22 Range/Units 14:29 15:13 WBC 10.3 (4.8-10.8) X10*3/uL RBC 3.81 L (4.20-5.50) X10*6/uL Hgb 12.2 (12.0-16.0) g/dl Hct 35.6 L (37.0-47.0) % MCV 93.4 (80.0-98.0) fL MCH 32.0 (27.0-33.0) pg MCHC 34.3 (31.0-35.0) g/dl RDW 12.0 (11.0-16.0) % Plt Count 197 (160-400) X10*3/uL MPV 9.1 L (9.4-12.3) fL Immature Gran % (Auto) 0.5 H (0.0-0.4) % Neut % (Auto) 66.9 (45-73) % Lymph % (Auto) 21.5 (20-40) % [place] % (Auto) 10.5 (2-11) % Eos % (Auto) 0.3 (0-4) % Baso % (Auto) 0.3 (0-2) % Lymph # (Auto) 2.2 (1.2-4.9) X10*3/uL [place] # (Auto) 1.1 (0.1-1.2) X10*3/uL Eos # (Auto) 0.0 (0.0-0.4) X10*3/uL Baso # (Auto) 0.0 (0.0-0.2) X10*3/uL Abs Immat Gran (auto) 0.05 H (0.00-0.03) X10*3/uL Absolute Neuts (auto) 6.9 (2.0-8.3) x10*3/uL Absolute Nucleated RBC 0.000 (0.0-0.012) X10*3/uL Nucleated RBC % (auto) 0.0 (0.0-0.2) /100WBC Sodium (135-145) mmol/L Potassium (3.3-5.1) mmol/L Chloride (96-108) mmol/L Carbon Dioxide (22-29) mmol/L Anion Gap (12-20) BUN (9-16) mg/dL Creatinine (0.5-1.4) mg/dL Estim Creat Clear Calc Estimated GFR Random Glucose (60-115) mg/dL Calcium (8.4-10.2) mg/dL Magnesium (1.6-2.6) mg/dL Total Bilirubin (0.0-1.0) mg/dL AST (5-31) U/L ALT (0-31) U/L Alkaline Phosphatase (39-117) U/L Troponin I High Sens (<3.5-17.0) ng/L Total Protein (6.5-8.0) g/dL Albumin (3.5-5.0) g/dL Urine Color Yellow Urine Appearance Clear Urine pH 7.5 (5.0-9.0) Ur Specific [place] 1.010 (1.005-1.025) Urine Protein Negative (Neg-Trace) mg/dL Urine Glucose (UA) Negative (Negative) mg/dL Urine Ketones Negative (Negative) mg/dL Urine Blood Negative (Negative) Urine Nitrite Negative (Negative) Ur Leukocyte Esterase Trace H (Negative) Urine RBC 0-2 (0-2) /HPF Urine WBC 0-5 (0-5) /HPF Ur Squamous Epith Cells 0-2 (0-2) /HPF Urine Bacteria None Seen (None Seen) Hyaline Casts 0-2 (0-2) /LPF Influenza Type A (PCR) (Negative) Influenza Type B (PCR) (Negative) RSV RNA Qual (PCR) (Negative) SARS-CoV-2 RNA (RT-PCR) (Negative) Imaging Data Chest x-ray: Attestation: I personally reviewed and interpreted this imaging study as follows: My impression: No acute process. Radiologist's impression: EXAMINATION: XR CHEST CLINICAL INFORMATION: Shortness of breath COMPARISON: Chest x-ray 05/10/2022 TECHNIQUE: 2 views of the chest were obtained. FINDINGS: No airspace consolidation. No pleural effusion or pneumothorax. Normal cardiomediastinal silhouette. No evidence of pulmonary edema. No acute osseous injury. XR/XR chest 2V IMPRESSION: No acute pulmonary process. Dictated By: Jose Crandall Signed By: Electronically signed by Jose?Raz 06/18/22 3104 ECG Data Attestation: I personally reviewed and interpreted this ECG as follows: Prior ECG tracings: available for review Interpretation: Vent. Rate: 056 BPM ? ? Atrial Rate: 056 BPM P-R Int: 208 ms? QRS Dur: 096 ms QT Int: 426 ms ? ? ? P-R-T Axes: 056 008 034 degrees QTc Int: 411 ms ? Sinus bradycardia Otherwise normal ECG When compared with ECG of 10-MAY-2022 20:22, No significant change was found DD/ 1412 Discharge Plan Discharge Clinical Impression: Acute hyponatremia, Sinusitis Patient Disposition: Home, Self-Care Instructions: Sinusitis (ED), Hyponatremia (ED) Additional Instructions: Follow up with your primary care provider. Return to the emergency department immediately if your symptoms worsen or if you develop any dizziness, shortness of breath, difficulty breathing, chest pain, blurry vision, loss of vision, nausea, vomiting, abdominal pain, fever, chills, back pain, or any other complaints. Prescriptions: New prednisone 20 mg tablet 20 mg PO DAILY 12 Days Qty: 26 0RF Rx Instructions: Take 3 tablets for 5 days THEN; Take 2 tablets for 4 days THEN; Take 1 tablet for 3 days doxycycline hyclate 100 mg tablet 100 mg PO BID 7 Days Qty: 14 0RF No Action lorazepam 0.5 mg tablet 0.5 mg PO BID PRN (Reason: Anxiety) (DME) blood pressure monitor Kit See Rx Instructions .Route Qty: 1 0RF Rx Instructions: As directed latanoprost 0.005 % drops 1 drp ophthalmic (eye) BEDTIME polyvinyl alcohol [Artificial Tears (polyvin alc)] 1.4 % Drops 1 drp OPHTHALMIC (EYE) TID PRN (Reason: Dry Eyes) carbamazepine 200 mg tablet See Rx Instructions PO BEDTIME Rx Instructions: TAKE 1 TABLET IN THE AM, 1 1/2 TABLETS AT BEDTIME cetirizine 10 mg tablet 10 mg PO DAILY PRN (Reason: Allergic Symptoms) cyclobenzaprine 10 mg tablet 10 mg PO DAILY PRN (Reason: Spasms) ergocalciferol (vitamin D2) 1,250 mcg (50,000 unit) capsule 1,250 mcg PO IRELAND lisinopril 20 mg tablet 20 mg PO BEDTIME metoprolol succinate 50 mg tablet extended release 24 hr 50 mg PO DAILY omeprazole 20 mg capsule,delayed release(DR/EC) 20 mg PO DAILY rosuvastatin 40 mg tablet 40 mg PO BEDTIME spironolactone 50 mg tablet 50 mg PO DAILY citalopram 10 mg tablet 20 mg PO DAILY@1200 hydrochlorothiazide 25 mg tablet 25 mg PO DAILY fluticasone propionate 50 mcg/actuation spray,suspension 1 spray intranasal DAILY PRN Referrals: Rich Deng MD [Primary Care Provider] - Interventions: ED Discharge Assessment Last Done: 06/18/22 18:28 Discharge Date/Time: 06/18/22 18:35 Print Language: Serbian
[2022-06-18 14:14] VITALS: BP 146/60; PULSE 61; RESP 18; O2SAT 97
[2022-06-18 14:34] LABS: Basophils Percent Auto 0.3 % (0-2); Eosinophils Percent Auto 0.3 % (0-4); Hematocrit 35.6 % (37.0-47.0); Hemoglobin 12.2 g/dl (12.0-16.0); Imm Gran Abs Auto 0.05 X10*3/uL (0.00-0.03); Imm Gran Pct Auto 0.5 % (0.0-0.4); Lymphocytes Absolute Auto 2.2 X10*3/uL (1.2-4.9); Lymphocytes Percent Auto 21.5 % (20-40); Mean Corpuscular HGB Conc 34.3 g/dl (31.0-35.0); Mean Corpuscular Volume 93.4 fL (80.0-98.0); Mean Platelet Volume 9.1 fL (9.4-12.3); Monocytes Absolute Auto 1.1 X10*3/uL (0.1-1.2); Monocytes Percent Auto 10.5 % (2-11); Neutrophils Absolute Auto 6.9 x10*3/uL (2.0-8.3); Neutrophils Percent Auto 66.9 % (45-73); Platelet Count 197 X10*3/uL (160-400); Red Blood Count 3.81 X10*6/uL (4.20-5.50); White Blood Count 10.3 X10*3/uL (4.8-10.8)
[2022-06-18 14:37] LABS: Alanine Aminotransferase 16 U/L (0-31); Albumin Level 3.9 g/dL (3.5-5.0); Alkaline Phosphatase 80 U/L (39-117); Anion Gap 16 (12-20); Aspartate Amino Transferase 23 U/L (5-31); Bilirubin Total 0.4 mg/dL (0.0-1.0); Blood Urea Nitrogen 9 mg/dL (9-16); Calcium 8.8 mg/dL (8.4-10.2); Carbon Dioxide 22 mmol/L (22-29); Chloride 94 mmol/L (96-108); Creatinine Clr Calc Pharmacy 54.3; Estimated Glomerular Filt Rate > 60; Glucose Random 94 mg/dL (60-115); Sodium 127 mmol/L (135-145); Total Protein 7.1 g/dL (6.5-8.0); Troponin-I High Sensitivity < 3.5 ng/L (<3.5-17.0)
[2022-06-18 14:50] LABS: Influenza A PCR NEGATIVE (Negative); Influenza B PCR NEGATIVE (Negative); Resp Syncy Virus RNA Qual PCR NEGATIVE (Negative); SARS COV2 PCR INHOUSE NEGATIVE (Negative)
[2022-06-18 15:20] LABS: Appearance Urine Clear; Color Urine Yellow; Glucose Urine UA Negative (Negative); Leukocyte Esterase Urine Trace (Negative); Nitrite Urine Negative (Negative); PH 7.5 (5.0-9.0); UMIC TRIGGER UACC YES; Urine Blood Negative (Negative); Urine Ketones Negative (Negative); Urine Protein Negative (Neg-Trace)
[2022-06-18 15:50] LABS: Bacteria Urine None Seen (None Seen); Hyaline Casts Urine 0-2 /LPF (0-2); RBC Urine 0-2 /HPF (0-2); Squamous Epithelial Cell Urine 0-2 /HPF (0-2); WBC Urine 0-5 /HPF (0-5)
[2022-06-18 16:00] VITALS: BP 151/56; PULSE 57; RESP 16; TEMP 36.8; O2SAT 98
[2022-06-18] MEDS: 0.9 % Sodium Chloride 1,000 ML 999 ML IV (16:04)
== END 2022-06-18 18:35 | disposition home or self-care (01) ==
PROVIDERS: Physician Assistant Medical; Emergency Provider Emergency Medicine; PCP Family Medicine
DX: E87.1 Hypo-osmolality and hyponatremia (principal); R06.02 Shortness of breath; R42 Dizziness and giddiness; J01.90 Acute sinusitis, unspecified; Z20.822 Contact with and (suspected) exposure to COVID-19; Z79.899 Other long term (current) drug therapy
CPT/HCPCS: 0241U; 36415; 71046; 80053; 81001; 83735; 84484; 85025; 93005; 99285

== ENCOUNTER 2022-10-17 10:32 | Outpatient (REF) | payer MEDICARE, OTHER, SELFPAY ==
--- NOTE | ~2022-10-17 | XR_ITS ---
EXAMINATION: XR CHEST CLINICAL INFORMATION: Bronchitis, cough and wheezing. COMPARISON: 06/18/2022 chest radiographs. TECHNIQUE: 2 views of the chest were obtained. FINDINGS: No significant abnormality is noted involving the heart, lungs, mediastinum, bony thorax or soft tissues. XR/XR chest 2V IMPRESSION: No acute cardiopulmonary process.
== END 2022-10-17 10:33 | disposition home or self-care (01) ==
LOC: HO.XRAY 10:32
PROVIDERS: PCP Family Medicine; Visit Provider Family Medicine
DX: J40 Bronchitis, not specified as acute or chronic (principal); R05.9 Cough, unspecified; R06.2 Wheezing
CPT/HCPCS: 71046

== ENCOUNTER 2022-11-16 15:21 | Outpatient (REF) | payer MEDICARE, OTHER, SELFPAY ==
[2022-11-16 16:13] LABS: Alanine Aminotransferase 12 U/L (0-31); Anion Gap 13 (12-20); Aspartate Amino Transferase 21 U/L (5-31); Blood Urea Nitrogen 11 mg/dL (9-16); Carbon Dioxide 27 mmol/L (22-29); Chloride 104 mmol/L (96-108); Estimated Glomerular Filt Rate > 60; Potassium 4.6 mmol/L (3.3-5.1); Sodium 139 mmol/L (135-145)
[2022-11-16 16:20] LABS: Carbamazepine Tegretol 10.3 mcg/mL (5.0-12.0)
== END 2022-11-16 15:22 | disposition home or self-care (01) ==
LOC: HO.LAB 15:21
PROVIDERS: PCP Family Medicine; Visit Provider Family Medicine
DX: I10 Essential (primary) hypertension (principal); E78.00 Pure hypercholesterolemia, unspecified; Z79.899 Other long term (current) drug therapy
CPT/HCPCS: 36415; 80051; 80156; 82550; 82565; 84450; 84460; 84520

== ENCOUNTER 2023-04-09 14:24 | Outpatient (REF) | payer MEDICARE, OTHER, SELFPAY ==
--- NOTE | ~2023-04-09 | MM_ITS ---
EXAMINATION: MM SCREENING DIGITAL BREAST TOMOSYNTHESIS, BILATERAL CLINICAL INFORMATION: Screening. Asymptomatic. COMPARISON: Mammography: 12/09/2021, 08/17/2020, 08/12/2019, 07/27/2018 TECHNIQUE: Digital breast tomosynthesis is performed in both the craniocaudal and mediolateral oblique views along with computer-aided detection (CAD). Synthesized 2D images are generated from the tomosynthesis. FINDINGS: There are scattered areas of fibroglandular density (ACR BI-RADS breast composition Category b). There are benign vascular calcifications bilaterally. There are no suspicious masses, suspicious grouped calcifications, or areas of architectural distortion. The parenchymal pattern is stable from prior exams. Stable skin lesion inferior left breast. MM/MM tomosynthesis screening BI IMPRESSION: No mammographic evidence of malignancy. No changes from prior exams. ASSESSMENT: BI-RADS BI-RADS 2 - Benign Findings RECOMMENDATION: Routine annual mammography screening. 1 year F/U This examination should not preclude the clinical evaluation of a suspicious palpable abnormality. This patient's information was entered into a reminder system with a target due date for their next mammogram.
== END 2023-04-09 14:25 | disposition home or self-care (01) ==
LOC: HO.MAMMO 14:24
PROVIDERS: PCP Family Medicine; Visit Provider Family Medicine
DX: Z12.31 Encounter for screening mammogram for malignant neoplasm of breast (principal)
CPT/HCPCS: 77063; 77067

== ENCOUNTER → 2023-04-09 14:30 | Outpatient (BNV) | payer MEDICARE, OTHER, SELFPAY | PROVIDERS: PCP Family Medicine; Visit Provider Radiology Diagnostic Radiology | DX: Z12.31 Encounter for screening mammogram for malignant neoplasm of breast (principal) | CPT/HCPCS: 77063; 77067 ==

== ENCOUNTER 2023-05-01 09:56 | Outpatient (REF) | payer MEDICARE, OTHER, SELFPAY ==
[2023-05-01 11:05] LABS: Appearance Urine Clear; Color Urine Yellow; Glucose Urine UA Negative (Negative); Leukocyte Esterase Urine Negative (Negative); Nitrite Urine Negative (Negative); Urine Blood Negative (Negative); Urine Ketones Negative (Negative); Urine Protein Negative (Neg-Trace)
== END 2023-05-01 09:57 | disposition home or self-care (01) ==
LOC: HO.LAB 09:56
PROVIDERS: PCP Family Medicine; Visit Provider Family Medicine
DX: R30.0 Dysuria (principal)
CPT/HCPCS: 81003; 87086

== ENCOUNTER 2023-06-20 15:10 | Outpatient (REF) | payer MEDICARE, OTHER, SELFPAY ==
[2023-06-20 16:48] LABS: Alanine Aminotransferase 9 U/L (0-31); Anion Gap 9 (12-20); Aspartate Amino Transferase 18 U/L (5-31); Blood Urea Nitrogen 11 mg/dL (9-16); Carbon Dioxide 28 mmol/L (22-29); Chloride 108 mmol/L (96-108); Estimated Glomerular Filt Rate > 60; Potassium 4.6 mmol/L (3.3-5.1); Sodium 140 mmol/L (135-145)
[2023-06-20 16:56] LABS: Appearance Urine Clear; Color Urine Yellow; Glucose Urine UA Negative (Negative); Leukocyte Esterase Urine Negative (Negative); Nitrite Urine Negative (Negative); Urine Blood Negative (Negative); Urine Ketones Negative (Negative); Urine Protein Negative (Neg-Trace)
[2023-06-20 16:56] LABS: Carbamazepine Tegretol 9.8 mcg/mL (5.0-12.0)
== END 2023-06-20 15:11 | disposition home or self-care (01) ==
LOC: HO.LAB 15:10
PROVIDERS: PCP Family Medicine; Visit Provider Family Medicine
DX: I10 Essential (primary) hypertension (principal); E78.00 Pure hypercholesterolemia, unspecified; Z79.899 Other long term (current) drug therapy
CPT/HCPCS: 36415; 80051; 80156; 81003; 82550; 82565; 84450; 84460; 84520; 87086

== ENCOUNTER 2023-11-14 10:58 | Outpatient (AMB) | payer MEDICARE, OTHER, SELFPAY ==
[2023-11-14 11:07] VITALS: BP 130/60; PULSE 65; BMI 32.6
--- NOTE | 2023-11-14 11:07 | A.OFFVIS_ITS ---
Intake Vital Signs 11/14/23 11:07 Height 5 ft 1 in Weight 172 lb 6.424 oz BMI 32.6 BP 130/60 Blood Pressure Location Lt brachial Position Sitting Pulse 65 Intake Visit Reasons: FU last seen 01/19/22 Intake Note: pt states that she its doing fine, shes also a little stress from coming to the office today. 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 Accompanied by: Significant Other Allergies penicillin G [Penicillin G] Allergy (Mild, Verified 04/24/22 10:25) RASH penicillin V Allergy (Unknown, Verified 04/24/22 10:25) RASH hydromorphone [From Dilaudid] Allergy (Verified 05/10/22 20:25) Unknown meperidine [From Demerol] Adverse Reaction (Mild, Verified 04/24/22 10:25) ABDOMINAL CRAMPS Medication List - Last Reconciled 11/14/23 by Abhishek Castro MD blood pressure monitor As directed carbamazepine TAKE 1 TABLET IN THE AM, 1 1/2 TABLETS AT BEDTIME cetirizine 10 mg PO DAILY PRN citalopram 20 mg PO DAILY@1200 cyclobenzaprine 10 mg PO DAILY PRN doxycycline hyclate 100 mg PO BID 7 days ergocalciferol (vitamin D2) 1,250 mcg PO IRELAND fluticasone propionate 50 mcg/actuation 1 spray intranasal DAILY PRN hydrochlorothiazide 25 mg PO DAILY latanoprost 0.005% 1 drp ophthalmic (eye) BEDTIME lisinopril 20 mg PO BEDTIME lorazepam 0.5 mg PO BID PRN metoprolol succinate ER 50 mg PO DAILY omeprazole 20 mg PO DAILY polyvinyl alcohol 1.4% (Artificial Tears (polyvinyl alcohol)) 1 drp ophthalmic (eye) TID PRN rosuvastatin 40 mg PO BEDTIME spironolactone 50 mg PO DAILY HPI HPI Comments History of Present Illness Details 78-year-old female who is here for follo w-up. She was seen in the hospital which presented with elevated blood pressures and dizziness. She also had mildly abnormal troponin levels. She was thought to have type 2 injury due to high blood pressure. Her blood pressure medications were adjusted. Because she was on multiple medications she had a renal ultrasound which raise concern for renal artery stenosis. She was referred to Dr. Sutherland with vascular surgery underwent angiography which did not show any significant renal artery stenosis. She underwent Lexiscan which did not show any perfusion defects. She is back for follow-up. Her blood pressure has been high when she comes in the office. She was given a blood pressure monitor and she brought blood pressure readings from home which are normal. She is saying she is quite a nxious when she comes for doctor visits and maybe that is why her blood pressure is elevated in the office. She is denying any other issues right now. No chest pain or shortness of breath. 11/14/23: She returns for follow-up. Blo od pressure is well controlled. She has been experiencing some tingling and numbness in her thumb index finger and middle finger on the left hand. She has been dropping things out of this had also. She said she has been using this hand more frequently because the right hand had injury and she was recovering from that and had to do dishes etc. from left hand. [facility] Medical History Coronary artery disease GERD (gastroesophageal reflux disease) Hypercholesterolemia Hypertension Surgical History History of hysterectomy Hx of cholecystectomy History of bladder suspension procedure History of section Family History Father Aneurysm Stroke Mother No problems noted. Maternal Aunt Ovarian cancer Maternal Aunt Uterine cancer Son Brain aneurysm Daughter In good health Social History Household Members: None Housing: House Do you presently have visiting nurse or other home services: No Alcohol intake: current Alcohol intake frequency: a few times a month Alcohol type: wine Patient Tobacco Use Status: Never used Tobacco service: No Current occupational status: retired Review of Systems Const Denies chills, Denies fatigue, Denies fever(s), Denies frequent falls, Denies weakness, Denies weight gain and Denies weight loss ENT Denies dizziness Card Denies chest pain, Denies leg edema, Denies lightheadedness, Denies palpitations, Denies dyspnea and Denies dyspnea on exertion Resp Denies cough, Denies dyspnea and Denies dyspnea on exertion GI Denies hematochezia Musc Denies abnormal gait, Denies muscle weakness, Denies numbness, Denies radiating pain into limb and Denies tingling Neuro Denies abnormal gait, Denies dizziness, Denies frequent falls, Denies numbness, Denies tingling and Denies weakness Endo Denies fatigue and Denies palpitations Physical Exam Vital Signs: Last Vital Signs Pulse 65 11/14/23 11:07 BP 130/60 11/14/23 11:07 BMI result Body Mass Index 32.6 GENERAL APPEARANCE: in no acute distress, pleasant. NECK: no carotid bruit, no jugular venous distention. SKIN: no suspicious lesions, warm and dry. HEART: no murmurs, regular rate and rhythm. LUNGS: clear to auscultation bilaterally. ABDOMEN: soft, nontender. EXTREMITIES: no edema. PERIPHERAL PULSES: equal. NEUROLOGIC: No gross deficits, AAO X 3 Office Procedures EKG Details: Sinus rhythm 65 beats per minute, normal axis, low voltage, poor R-wave progression, QTC 413 milliseconds. [id number], Complete Assessment & Plan Assessment & Plan (1) Essential hypertension: Comment: 01/11/2022 - renal artery angiogram negative Code(s): I10 - Essential (primary) hypertension Plan Very pleasant 78-year-old female who is here for follow-up. She has background history of hypertension. Blood pressure is well controlled currently. She had a Lexiscan in the past which was normal. She is complaining of some tingling and numbness in her left hand thumb index and middle finger. Symptoms are suggestive of carpal tunnel syndrome. I have advised her to wear a wrist brace and discuss with her hand surgeon who she has seen before at [facility]. Follow-up with us in 1 year. Thank you for allowing me to participate in the care of your patient. Please feel free to contact me if you have any questions. Coding Level of Care Code Est Pt Level 4 (26210) Diagnoses Essential hypertension I10 CPT Codes EKG - CPT: 50498-[id number], Complete ([id number])
== END 2023-11-14 13:46 | disposition home or self-care (01) ==
PROVIDERS: PCP Family Medicine; Visit Provider Internal Medicine Cardiovascular Disease
DX: I10 Essential (primary) hypertension (principal)
CPT/HCPCS: 93010; 99214

== ENCOUNTER → 2023-11-14 10:58 | Outpatient (BNVA) | payer MEDICARE, OTHER, SELFPAY | PROVIDERS: PCP Family Medicine; Visit Provider Internal Medicine Cardiovascular Disease | DX: I10 Essential (primary) hypertension (principal) | CPT/HCPCS: 93005; 99212 ==

== ENCOUNTER 2023-12-14 14:19 | Outpatient (REF) | payer MEDICARE, OTHER, SELFPAY ==
--- NOTE | 2023-12-14 14:24 | EMG_ITS ---
Chief complaint: Left 1st to 3rd digits numbness Reason for referral: Evaluate for Carpal Tunnel Syndrome Referred by: Dr. Deng Procedure done: Left upper extremity NCS/EMG Precautions and/or limitations: None The limb temperature was monitored continuously and remained between 32-36 degrees C during the performance of the NCS. Nerve Conduction Studies Anti Sensory Summary Table ?Stim Site NR Onset (ms) Norm Onset (ms) Peak (ms) Norm Peak (ms) O-P Amp (?V) Norm O-P Amp Site1 Site2 Delta-0 (ms) Dist (cm) Raghav (m/s) Norm Raghav (m/s) Left Median Anti Sensory (2nd Digit) Wrist NR <3.6 >10 Wrist 2nd Digit 14.0 Left Radial Anti Sensory (Thumb) Forearm ? 2.0 2.4 <3.1 3.9 Forearm Thumb 2.0 0.0 Left Ulnar Anti Sensory (5th Digit) Wrist ? 2.4 3.2 <3.7 18.1 >15.0 Wrist 5th Digit 2.4 14.0 58 Motor Summary Table ?Stim Site NR Onset (ms) Norm Onset (ms) O-P Amp (mV) Norm O-P Amp iAmp (mV) Amp (1st) (%) Site1 Site2 Delta-0 (ms) Dist (cm) Raghav (m/s) Norm Raghav (m/s) Left Median Motor (Abd Poll Brev) Wrist NR <3.9 >4.5 Elbow Wrist 0.0 >45 Elbow NR Left Ulnar Motor (Abd Dig Minimi) Wrist ? 2.7 <3.0 6.2 >5 7.1 100.0 B Elbow Wrist 3.1 17.0 55 >45 B Elbow ? 5.8 6.6 7.6 106.5 A Elbow B Elbow 1.3 10.0 77 >45 A Elbow ? 7.1 5.2 6.1 83.9 EMG ?Side Muscle Nerve Root Ins Act Fibs Psw Amp Dur Poly Recrt Int Pat Comment Left 1stDorInt Ulnar C8-T1 Nml Nml Nml Nml Nml 0 Nml Complete Left FlexCarRad Median C6-7 Nml Nml Nml Nml Nml 0 Nml Complete Left Biceps Musculocut C5-6 Nml Nml Nml Nml Nml 0 Nml Complete Left Triceps Radial C6-7-8 Nml Nml Nml Nml Nml 0 Nml Complete Left Deltoid Axillary C5-6 Nml Nml Nml Nml Nml 0 Nml Complete FINDINGS: Left median motor nerve showed no response. Left median sensory nerve showed no response. All other nerves tested were within normal. Concentric needle EMG was performed in selected muscles of the left upper extremity. Study delete did not reveal signs of electric abnormalities as shown in the table below. IMPRESSION: 1. This is an abnormal study. 2. There is electrodiagnostic evidence for left severe median neuropathy at the wrist, consistent with carpal tunnel syndrome. 3. There is no electrodiagnostic evidence for ulnar neuropathy, brachial plexopathy, or cervical radiculopathy. Thank you for your kind referral. Zeenat Teixeira MD, MAKENZIE Board Certified, [place] [employer] and Rehabilitation (ABPMR) Board Certified, [place] Board of Electrodiagnostic Medicine (ABEM) CODIN [address] MTDD
== END 2023-12-14 14:20 | disposition home or self-care (01) ==
LOC: HO.NEURO 14:19
PROVIDERS: PCP Family Medicine; Visit Provider Family Medicine
DX: R20.2 Paresthesia of skin (principal)
CPT/HCPCS: 95886; 95909

== ENCOUNTER → 2023-12-14 14:24 | Outpatient (BNV) | payer MEDICARE, OTHER, SELFPAY | PROVIDERS: PCP Family Medicine; Visit Provider Physical Medicine & Rehabilitation | DX: G56.02 Carpal tunnel syndrome, left upper limb (principal) | CPT/HCPCS: 95886; 95909 ==

== ENCOUNTER 2024-01-26 10:18 | Outpatient (REF) | payer MEDICARE, OTHER, SELFPAY ==
[2024-01-26 11:25] LABS: Carbamazepine Tegretol 9.2 mcg/mL (5.0-12.0)
[2024-01-26 11:28] LABS: Alanine Aminotransferase 12 U/L (0-31); Anion Gap 12 (12-20); Aspartate Amino Transferase 19 U/L (5-31); Blood Urea Nitrogen 11 mg/dL (9-16); Carbon Dioxide 24 mmol/L (22-29); Chloride 110 mmol/L (96-108); Cholesterol 141 mg/dL (<200); Estimated Glomerular Filt Rate > 60; Glucose Fasting 103 mg/dL (60-99); HDL Cholesterol 55 mg/dL (>40); LDL Cholesterol Calculated 70 mg/dL (<100); Potassium 4.5 mmol/L (3.3-5.1); Sodium 141 mmol/L (135-145); Triglycerides 81 mg/dL (<150)
== END 2024-01-26 10:19 | disposition home or self-care (01) ==
LOC: HO.LAB 10:18
PROVIDERS: PCP Family Medicine; Visit Provider Family Medicine
DX: I10 Essential (primary) hypertension (principal); E78.00 Pure hypercholesterolemia, unspecified
CPT/HCPCS: 36415; 80051; 80061; 80156; 82550; 82565; 82947; 84450; 84460; 84520

== ENCOUNTER 2024-02-29 10:06 | Emergency (ER) | payer MEDICARE, OTHER, SELFPAY ==
[2024-02-29 10:17] VITALS: BP 163/51; PULSE 57; RESP 17; TEMP 36.9; O2SAT 96; BMI 31.2
[2024-02-29 10:23] VITALS: BP 204/65; PULSE 63; RESP 20; TEMP 36.8; O2SAT 96
[2024-02-29 10:37] LABS: MANUAL DIFF FLAG NO
[2024-02-29 10:38] LABS: Basophils Percent Auto 0.4 % (0-2); Eosinophils Percent Auto 0.6 % (0-4); Hematocrit 37.1 % (37.0-47.0); Hemoglobin 13.1 g/dl (12.0-16.0); Imm Gran Abs Auto 0.01 X10*3/uL (0.00-0.03); Imm Gran Pct Auto 0.1 % (0.0-0.4); Lymphocytes Absolute Auto 2.1 X10*3/uL (1.2-4.9); Lymphocytes Percent Auto 29.9 % (20-40); Mean Corpuscular HGB Conc 35.3 g/dl (31.0-35.0); Mean Corpuscular Hemoglobin 33.8 pg (27.0-33.0); Mean Corpuscular Volume 95.6 fL (80.0-98.0); Mean Platelet Volume 9.8 fL (9.4-12.3); Monocytes Absolute Auto 0.8 X10*3/uL (0.1-1.2); Monocytes Percent Auto 11.6 % (2-11); Neutrophils Absolute Auto 4.1 x10*3/uL (2.0-8.3); Neutrophils Percent Auto 57.4 % (45-73); Platelet Count 171 X10*3/uL (160-400); Red Blood Count 3.88 X10*6/uL (4.20-5.50); Red Cell Distribution Width 12.6 % (11.0-16.0); White Blood Count 7.1 X10*3/uL (4.8-10.8)
--- NOTE | 2024-02-29 10:38 | ED.PSYCH ---
HPI - Psych General Chief Complaint: Psychiatric Symptoms Stated Complaint: SI WITH PLAN Time Seen by Provider: 02/29/24 10:17 Source: patient Mode of arrival: EMS History of Present Illness ED Provider: Dr Zuñiga HPI Narrative: 78-year-old female who is brought in by EMS and states that she does not want to live anymore, she just wants to , she is very sad because of all the fighting by her family, she said that they are very upset with her because she is allowing her grandkids to stay with her. She is very tearful during this discussion. She feels that everyone is trying to throw her away. She does have a significant other that she is concerned will leave her now that she has been feeling like this and is coming into the emergency room. Related Data Home Medications ?Medication ?Instructions ?Recorded ?Confirmed lorazepam 0.5 mg tablet 0.5 mg PO BID PRN Anxiety 09/06/20 11/14/23 latanoprost 0.005 % eye drops 1 drp ophthalmic (eye) BEDTIME 01/02/22 11/14/23 polyvinyl alcohol 1.4 % eye drops 1 drp ophthalmic (eye) TID PRN Dry 01/02/22 11/14/23 (Artificial Tears (polyvinyl Eyes alcohol)) carbamazepine 200 mg tablet See Rx Instructions PO BEDTIME 01/19/22 11/14/23 cetirizine 10 mg tablet 10 mg PO DAILY PRN Allergic 01/19/22 11/14/23 Symptoms cyclobenzaprine 10 mg tablet 10 mg PO DAILY PRN Spasms 01/19/22 11/14/23 ergocalciferol (vitamin D2) 1,250 1,250 mcg PO IRELAND 01/19/22 11/14/23 mcg (50,000 unit) capsule fluticasone propionate 50 1 spray intranasal DAILY PRN 01/19/22 11/14/23 mcg/actuation nasal spray,suspension lisinopril 20 mg tablet 20 mg PO BEDTIME 01/19/22 11/14/23 metoprolol succinate 50 mg 50 mg PO DAILY 01/19/22 11/14/23 tablet,extended release 24 hr omeprazole 20 mg capsule,delayed 20 mg PO DAILY 01/19/22 11/14/23 release rosuvastatin 40 mg tablet 40 mg PO BEDTIME 01/19/22 11/14/23 spironolactone 50 mg tablet 50 mg PO DAILY 01/19/22 11/14/23 citalopram 10 mg tablet 20 mg PO DAILY@1200 04/24/22 11/14/23 hydrochlorothiazide 25 mg tablet 25 mg PO DAILY 04/24/22 11/14/23 Previous Rx's ?Medication ?Instructions ?Recorded blood pressure monitor #1 ea 01/19/22 doxycycline hyclate 100 mg tablet 100 mg PO BID 7 days #14 tabs 06/18/22 Allergies Allergy/AdvReac Type Severity Reaction Status Date / Time penicillin G [Penicillin G] Allergy Mild RASH Verified 02/29/24 11:01 penicillin V Allergy Unknown RASH Verified 02/29/24 11:01 hydromorphone [From Dilaudid] Allergy Unknown Verified 02/29/24 11:01 meperidine [From Demerol] AdvReac Mild ABDOMINAL Verified 02/29/24 11:01 CRAMPS Review of Systems Review of Systems: Pertinent positives and negatives as stated in [place] Past Medical History Source: nursing notes reviewed Medical History GERD (gastroesophageal reflux disease) Hypercholesterolemia Hypertension Coronary artery disease Surgical History History of hysterectomy Hx of cholecystectomy History of bladder suspension procedure History of section Family History Family History Father Aneurysm Stroke Mother No problems noted. Maternal Aunt Ovarian cancer Maternal Aunt Uterine cancer Son Brain aneurysm Daughter In good health Social History Social History Household Members: None Housing: House Do you presently have visiting nurse or other home services: No Unable to assess alcohol history related to: Unknown Alcohol intake: current Alcohol intake frequency: a few times a month Alcohol type: wine Patient Tobacco Use Status: Never used Tobacco Smoked in Last 30 Days: No Use of substances other than those prescribed or required for medical reasons: No Advance Directives: No Advance Directives Information Provided: No Do you have a plan to hurt others: No Plan service: No Current occupational status: retired Physical Exam Vital Signs: Vital Signs: Last Vital Signs Temp 98.2 F 02/29/24 10:23 Pulse 63 02/29/24 10:23 Resp 20 02/29/24 10:23 BP 204/65 H 02/29/24 10:23 Pulse Ox 96 02/29/24 10:23 O2 Del Method Room Air 02/29/24 10:23 BMI result Body Mass Index 31.2 VITAL SIGNS: Reviewed. GENERAL: Well developed, well nourished, in no acute distress. HEAD: Normocephalic/atraumatic EYES: PERRLA, EOMI EARS: Ext canals without abnormality NOSE: Nares patent bilateral OROPHARYNX: no oral lesions noted, posterior pharynx clear NECK: Supple, no adenopathy LUNGS: Normal breath sounds. No adventitious sounds or accessory muscle use. SpO2<96> CARDIOVASCULAR: Regular rate and rhythm without noted murmurs, no JVD or lower extremity edema. ABDOMEN: Soft, non-tender, non-distended with bowel sounds. MUSCULOSKELETAL: No tenderness, deformities, or effusions noted on gross inspection. EXTREMITIES: No cyanosis, clubbing or edema. SKIN: Inspection of the skin reveals no rashes NEUROLOGIC: Alert and oriented x 4. Strength and sensation to light touch were grossly intact x 4, cranial nerves 2-12 are grossly intact. PSYCH: Depressed affect, tearful Medical Decision Making Medical Decision Making [facility] Narrative: 78-year-old female with history and clinical presentation consistent with depression, SI will medically clear and then ask crisis team to evaluate. I reviewed interpreted all investigations and hematologic indices are negative for leukocytosis/anemia/thrombocytopenia. Chemistry indices are negative for LAINEY/electrolyte or liver enzyme derangements. Urinalysis is negative for UTI or hematuria and toxicology is negative for salicylate/acetaminophen/alcohol or any other illicit substance this. Patient is otherwise cleared for further evaluation by the crisis team. Patient placed in physician observation because the patient needed more time for evaluation by crisis. At the time observation was started the patient's vital signs were stable, patient is alert and oriented, neuro: Nonfocal, CV RRR, lungs clear Differential Diagnosis Differential Diagnoses: The differential diagnosis associated with the presentation includes Please see the discussion above Admission/Observation Consideration of admission/observation: Escalation of care including admission/observation considered Please see the discussion above Consult Healthcare Provider Management of the patient was discussed with: Instructional Design Technologist Please see the discussion above Lab Data [facility] Lab Attestation statement: I reviewed the patient's lab results. Please see the discussion above 02/29/24 10:33 02/29/24 10:33 Labs: Lab Results 02/29/24 02/29/24 Range/Units 10:33 11:21 WBC 7.1 (4.8-10.8) X10*3/uL RBC 3.88 L (4.20-5.50) X10*6/uL Hgb 13.1 (12.0-16.0) g/dl Hct 37.1 (37.0-47.0) % MCV 95.6 (80.0-98.0) fL MCH 33.8 H (27.0-33.0) pg MCHC 35.3 H (31.0-35.0) g/dl RDW 12.6 (11.0-16.0) % Plt Count 171 (160-400) X10*3/uL MPV 9.8 (9.4-12.3) fL Immature Gran % (Auto) 0.1 (0.0-0.4) % Neut % (Auto) 57.4 (45-73) % Lymph % (Auto) 29.9 (20-40) % [place] % (Auto) 11.6 H (2-11) % Eos % (Auto) 0.6 (0-4) % Baso % (Auto) 0.4 (0-2) % Lymph # (Auto) 2.1 (1.2-4.9) X10*3/uL [place] # (Auto) 0.8 (0.1-1.2) X10*3/uL Eos # (Auto) 0.0 (0.0-0.4) X10*3/uL Baso # (Auto) 0.0 (0.0-0.2) X10*3/uL Abs Immat Gran (auto) 0.01 (0.00-0.03) X10*3/uL Absolute Neuts (auto) 4.1 (2.0-8.3) x10*3/uL Absolute Nucleated RBC 0.000 (0.0-0.012) X10*3/uL Nucleated RBC % (auto) 0.0 (0.0-0.2) /100WBC Sodium 138 (135-145) mmol/L Potassium 4.3 (3.3-5.1) mmol/L Chloride 105 (96-108) mmol/L Carbon Dioxide 21 L (22-29) mmol/L Anion Gap 16 (12-20) BUN 9 (9-16) mg/dL Creatinine 0.89 (0.5-1.4) mg/dL Estim Creat Clear Calc 46.6 Estimated GFR > 60 Random Glucose 106 (60-115) mg/dL Calcium 9.3 (8.4-10.2) mg/dL Total Bilirubin 0.5 (0.0-1.0) mg/dL AST 22 (5-31) U/L ALT 11 (0-31) U/L Alkaline Phosphatase 78 (39-117) U/L Total Protein 7.3 (6.5-8.0) g/dL Albumin 4.1 (3.5-5.0) g/dL Urine Color Yellow Urine Appearance Clear Urine pH 7.0 (5.0-9.0) Ur Specific [place] 1.010 (1.005-1.025) Urine Protein Negative (Neg-Trace) mg/dL Urine Glucose (UA) Negative (Negative) mg/dL Urine Ketones Negative (Negative) mg/dL Urine Blood Negative (Negative) Urine Nitrite Negative (Negative) Ur Leukocyte Esterase Negative (Negative) Salicylates < 5.0 L (15-30) mg/dL Urine Opiates Screen Not Detected (Not Detect) Ur Buprenorphine Scrn Not Detected (Not Detect) ng/mL Ur Oxycodone Screen Not Detected (Not Detect) ng/mL Urine Methadone Screen Not Detected (Not Detect) ng/mL Urine Fentanyl Screen Not Detected (Not Detect) Acetaminophen < 3 (<30) mcg/mL Ur Barbiturates Screen Not Detected (Not Detect) Ur Phencyclidine Scrn Not Detected (Not Detect) Ur Amphetamines Screen Not Detected (Not Detect) U Benzodiazepines Scrn Not Detected (Not Detect) Urine Cocaine Screen Not Detected (Not Detect) U Marijuana (THC) Screen Not Detected (Not Detect) Ethyl Alcohol < 10 mg/dL External Record Review External record reviewed: Outpatient record and Prior outpatient labs Chronic Conditions Patient?s care impacted by: Hypertension Critical Care Time Critical Care Time Critical Care Time: Yes Total Critical Care Time: 30 Attestation: I personally attest to this time spent taking care of the patient. Discharge Plan Discharge Clinical Impression: Suicidal ideation Patient Disposition: Still a Patient Prescriptions: No Action lorazepam 0.5 mg tablet 0.5 mg PO BID PRN (Reason: Anxiety) (DME) blood pressure monitor Kit See Rx Instructions .Route Qty: 1 0RF Rx Instructions: As directed latanoprost 0.005 % drops 1 drp ophthalmic (eye) BEDTIME polyvinyl alcohol [Artificial Tears (polyvin alc)] 1.4 % Drops 1 drp OPHTHALMIC (EYE) TID PRN (Reason: Dry Eyes) carbamazepine 200 mg tablet See Rx Instructions PO BEDTIME Rx Instructions: TAKE 1 TABLET IN THE AM, 1 1/2 TABLETS AT BEDTIME cetirizine 10 mg tablet 10 mg PO DAILY PRN (Reason: Allergic Symptoms) cyclobenzaprine 10 mg tablet 10 mg PO DAILY PRN (Reason: Spasms) ergocalciferol (vitamin D2) 1,250 mcg (50,000 unit) capsule 1,250 mcg PO IRELAND lisinopril 20 mg tablet 20 mg PO BEDTIME metoprolol succinate 50 mg tablet extended release 24 hr 50 mg PO DAILY omeprazole 20 mg capsule,delayed release(DR/EC) 20 mg PO DAILY rosuvastatin 40 mg tablet 40 mg PO BEDTIME spironolactone 50 mg tablet 50 mg PO DAILY citalopram 10 mg tablet 20 mg PO DAILY@1200 doxycycline hyclate 100 mg tablet 100 mg PO BID 7 Days Qty: 14 0RF hydrochlorothiazide 25 mg tablet 25 mg PO DAILY fluticasone propionate 50 mcg/actuation spray,suspension 1 spray intranasal DAILY PRN Interventions: [place]-Suicide Risk Severity Scale Last Done: 02/29/24 10:23 Print Language: Nigerian
[2024-02-29 11:23] LABS: Acetaminophen LAB < 3 mcg/mL (<30); Salicylate < 5.0 mg/dL (15-30)
[2024-02-29 11:26] LABS: Anion Gap 16 (12-20); Blood Urea Nitrogen 9 mg/dL (9-16); Carbon Dioxide 21 mmol/L (22-29); Chloride 105 mmol/L (96-108); Creatinine Clr Calc Pharmacy 46.6; Estimated Glomerular Filt Rate > 60; Potassium 4.3 mmol/L (3.3-5.1); Sodium 138 mmol/L (135-145)
[2024-02-29 11:27] LABS: Appearance Urine Clear; Color Urine Yellow; Glucose Urine UA Negative (Negative); Leukocyte Esterase Urine Negative (Negative); Nitrite Urine Negative (Negative); Urine Blood Negative (Negative); Urine Ketones Negative (Negative); Urine Protein Negative (Neg-Trace)
[2024-02-29 11:27] LABS: Alanine Aminotransferase 11 U/L (0-31); Albumin Level 4.1 g/dL (3.5-5.0); Alkaline Phosphatase 78 U/L (39-117); Aspartate Amino Transferase 22 U/L (5-31); Bilirubin Total 0.5 mg/dL (0.0-1.0); Calcium 9.3 mg/dL (8.4-10.2); Ethanol < 10 mg/dL; Glucose Random 106 mg/dL (60-115); Total Protein 7.3 g/dL (6.5-8.0)
[2024-02-29 11:47] LABS: Amphetamine Screen Urine Not Detected (Not Detect); Barbiturates, Urine Not Detected (Not Detect); Benzodiazepines Screen Urine Not Detected (Not Detect); Buprenorphine Scr Not Detected (Not Detect); Cannabinoid Screen Urine Not Detected (Not Detect); Cocaine Screen Urine Not Detected (Not Detect); Fentanyl, urine Not Detected (Not Detect); Methadone Screen, Urine Not Detected (Not Detect); Opiate Screen Urine Not Detected (Not Detect); Oxycodone Screen Urine Not Detected (Not Detect); Phencyclidine Screen Urine Not Detected (Not Detect)
--- NOTE | 2024-02-29 12:58 | PC.NURSE ---
Tia comes to the ED from home today, very tearful, reporting that she wants to go back home. she reports that she feels as though her family does not love her and she does not feel there is a reason to live. She was initially reporting SI but currently denies any SI/HI. Patient is calm and cooperative, her Kerwin is at bedside, as well as inpatient care manager rn Jaison
--- NOTE | 2024-02-29 13:58 | ECG_ITS ---
Test Reason : PROLONG QT Blood Pressure : / mmHG Vent. Rate : 049 BPM Atrial Rate : 049 BPM P-R Int : 200 ms QRS Dur : 096 ms QT Int : 430 ms P-R-T Axes : 065 018 043 degrees QTc Int : 388 ms Sinus bradycardia Otherwise normal ECG When compared with ECG of 18-JUN-2022 14:12, No significant change was found Referred By: Kathleen Zuñiga Electronically Signed By:SAUL DAVISON MD
[2024-02-29 14:51] VITALS: BP 159/56; PULSE 51; RESP 17; TEMP 36.3; O2SAT 99
--- NOTE | 2024-02-29 19:05 | PC.NURSE ---
patient appears to remain resting periodically oob ad antoinette, appears in no acute distress.
[2024-02-29 20:25] VITALS: BP 142/60; PULSE 55; RESP 16; TEMP 36.4; O2SAT 98
[2024-02-29] MEDS: carBAMazepine 200 MG TABLET PO (20:29)
[2024-02-29] MEDS: amLODIPine Besylate 5 MG TABLET PO (20:29)
[2024-02-29] MEDS: Atorvastatin Calcium 80 MG TABLET PO (20:29)
[2024-02-29] MEDS: lisinopriL 20 MG TABLET PO (20:29)
--- NOTE | 2024-02-29 20:44 | MHC.CARE ---
RAD Team conducted a [place] bed search for this pt. No beds were available and bed search is exhausted for tonight. Assessment was faxed to [facility].
[2024-03-01 06:06] VITALS: BP 140/57; PULSE 61; RESP 16; TEMP 36.3; O2SAT 96
--- NOTE | 2024-03-01 07:00 | PC.NURSE ---
Assumed care of patient at 0645. Patient is laying quietly in their bed. No signs of distress, breathing is even and unlabored.
[2024-03-01] MEDS: Spironolactone 25 MG TABLET 50 MG PO (08:56)
[2024-03-01] MEDS: Metoprolol Succinate ER 50 MG TAB.ER.24H PO (08:56)
[2024-03-01] MEDS: carBAMazepine 200 MG TABLET PO ×2 (08:56→15:17)
[2024-03-01] MEDS: Escitalopram Oxalate 20 MG TABLET PO (13:12)
[2024-03-01 15:33] VITALS: BP 140/57; PULSE 61; RESP 16; TEMP 36.3; O2SAT 96
--- NOTE | 2024-03-01 18:27 | MHC.CARE ---
Referred pt to [facility] for [facility] services- confirmed referral. Elder at risk report filed against granddaughter
== END 2024-03-01 15:44 | disposition home or self-care (01) ==
PROVIDERS: Emergency Provider Student in an Organized Health Care Education/Training Program; PCP Family Medicine
DX: R45.851 Suicidal ideations (principal); I10 Essential (primary) hypertension; E78.00 Pure hypercholesterolemia, unspecified; Z79.899 Other long term (current) drug therapy; Z79.01 Long term (current) use of anticoagulants
CPT/HCPCS: 36415; 80053; 80143; 80179; 80307; 81003; 85025; 93005; 99285; S9485

== ENCOUNTER → 2024-02-29 13:58 | Outpatient (BNV) | payer MEDICARE, OTHER, SELFPAY | PROVIDERS: Emergency Provider Student in an Organized Health Care Education/Training Program; PCP Family Medicine; Visit Provider Internal Medicine Cardiovascular Disease | DX: R00.1 Bradycardia, unspecified (principal) | CPT/HCPCS: 93010 ==

== ENCOUNTER 2024-04-10 14:18 | Outpatient (REF) | payer MEDICARE, OTHER, SELFPAY ==
--- NOTE | ~2024-04-10 | MM_ITS ---
EXAMINATION: MM SCREENING DIGITAL BREAST TOMOSYNTHESIS, BILATERAL CLINICAL INFORMATION: Screening. Asymptomatic. COMPARISON: Mammography: Comparison is made with available priors TECHNIQUE: Digital breast tomosynthesis is performed in both the craniocaudal and mediolateral oblique views along with computer-aided detection (CAD). Synthesized 2D images are generated from the tomosynthesis. FINDINGS: There are scattered areas of fibroglandular density (ACR BI-RADS breast composition Category b). There are no significant masses, abnormal calcifications, or other abnormalities. MM/MM tomosynthesis screening BI IMPRESSION: No mammographic evidence of malignancy. ASSESSMENT: BI-RADS BI-RADS 1 - Negative RECOMMENDATION: Routine annual mammography screening. 1 year F/U This examination should not preclude the clinical evaluation of a suspicious palpable abnormality. This patient's information was entered into a reminder system with a target due date for their next mammogram. Electronically signed by: Meera Walker DO 05/02/2024 09:52 PM EDT
== END 2024-04-10 14:19 | disposition home or self-care (01) ==
LOC: HO.MAMMO 14:18
PROVIDERS: PCP Family Medicine; Visit Provider Family Medicine
DX: Z12.31 Encounter for screening mammogram for malignant neoplasm of breast (principal)
CPT/HCPCS: 77063; 77067

== ENCOUNTER → 2024-04-10 14:45 | Outpatient (BNV) | payer MEDICARE, OTHER, SELFPAY | PROVIDERS: PCP Family Medicine; Visit Provider Internal Medicine | DX: Z12.31 Encounter for screening mammogram for malignant neoplasm of breast (principal) | CPT/HCPCS: 77063; 77067 ==

== ENCOUNTER 2024-05-23 11:41 | Outpatient (REF) | payer MEDICARE, OTHER, SELFPAY ==
[2024-05-23 13:37] LABS: Appearance Urine Clear; Color Urine Yellow; Glucose Urine UA Negative (Negative); Leukocyte Esterase Urine Negative (Negative); Nitrite Urine Negative (Negative); PH 6.5 (5.0-9.0); Urine Blood Negative (Negative); Urine Ketones Negative (Negative); Urine Protein Negative (Neg-Trace)
== END 2024-05-23 11:42 | disposition home or self-care (01) ==
LOC: HO.LAB 11:41
PROVIDERS: Visit Provider Family Medicine
DX: R30.0 Dysuria (principal)
CPT/HCPCS: 81003; 87086

== ENCOUNTER 2024-08-26 21:57 | Emergency (ER) | payer MEDICARE, OTHER, SELFPAY ==
[2024-08-26 22:18] VITALS: BP 113/74; BP 177/65; PULSE 69; PULSE 70; RESP 17; TEMP 36.6; O2SAT 97; BMI 30.5
--- NOTE | 2024-08-26 22:47 | ED_ITS ---
HPI - General Adult General Chief complaint: General Medical Stated complaint: High blood pressure Time Seen by Provider: 08/26/24 22:23 Source: patient Mode of arrival: ambulatory Limitations: no limitations History of Present Illness ED Provider: HPI narrative: Patient's history of hypertension/anxiety gets anxious whenever her son comes to her house today had increased anxiety and stress blood pressure was elevated fluctuating between 199 to 177/65 year asymptomatic as such on arrival patient's blood pressure was 177/65 patient did not take her evening medication yet which include amlodipine and lisinopril no chest pain no shortness a breath Related Data Home Medications ?Medication ?Instructions ?Recorded ?Confirmed carbamazepine 200 mg tablet 200 mg PO TID 01/19/22 02/29/24 lisinopril 20 mg tablet 20 mg PO BEDTIME 01/19/22 02/29/24 metoprolol succinate 50 mg 50 mg PO DAILY 01/19/22 02/29/24 tablet,extended release 24 hr rosuvastatin 40 mg tablet 40 mg PO BEDTIME 01/19/22 02/29/24 spironolactone 50 mg tablet 50 mg PO DAILY 01/19/22 02/29/24 amlodipine 5 mg tablet 5 mg PO BEDTIME 02/29/24 02/29/24 citalopram 40 mg tablet 40 mg PO DAILY@1200 02/29/24 02/29/24 Allergies Allergy/AdvReac Type Severity Reaction Status Date / Time penicillin G [Penicillin G] Allergy Mild RASH Verified 08/26/24 22:23 penicillin V Allergy Unknown RASH Verified 08/26/24 22:23 hydromorphone [From Dilaudid] Allergy Unknown Verified 08/26/24 22:23 meperidine [From Demerol] AdvReac Mild ABDOMINAL Verified 08/26/24 22:23 CRAMPS Review of Systems Review of Systems: Yes all other systems are reviewed and are negative [facility] Past Medical History Medical History GERD (gastroesophageal reflux disease) Hypercholesterolemia Hypertension Coronary artery disease Surgical History History of hysterectomy Hx of cholecystectomy History of bladder suspension procedure History of section Family History Family History Father Aneurysm Stroke Mother No problems noted. Maternal Aunt Ovarian cancer Maternal Aunt Uterine cancer Son Brain aneurysm Daughter In good health Social History Social History Household Members: None Housing: House Do you presently have visiting nurse or other home services: No Unable to assess alcohol history related to: Unknown Alcohol intake: current Alcohol intake frequency: holidays/special occasions only Alcohol type: wine Patient Tobacco Use Status: Never used Tobacco Smoked in Last 30 Days: No Use of substances other than those prescribed or required for medical reasons: No Advance Directives: No Advance Directives Information Provided: No Do you have a plan to hurt others: No Plan service: No Current occupational status: retired Physical Exam ED Vital Signs: Vital Signs - 24 hr 08/26/24 22:18 08/26/24 23:19 08/26/24 23:20 Temperature 97.8 F Pulse Rate 69 Respiratory Rate 17 Blood Pressure 177/65 H 195/69 H 195/69 H Pulse Oximetry 97 Oxygen Delivery Method Room Air 08/26/24 23:58 08/27/24 00:41 08/27/24 00:42 Temperature 98.0 F Pulse Rate 57 66 66 Respiratory Rate 16 16 Blood Pressure 176/57 H 178/71 H 178/71 H Pulse Oximetry 97 97 97 Oxygen Delivery Method Room Air Room Air Room Air BMI result Body Mass Index 30.5 Appearance: Alert. Oriented X3. No acute distress anxious. Eyes: PERRLA, No Nystagmus ENT: Pharynx normal. Oral Mucosa moist Neck: Normal inspection. Neck supple. CVS: Normal heart rate and rhythm. Pulses normal. Respiratory: No respiratory distress. Equal air entry bilateral, no wheezing/rales/rhonchi Abdomen: Soft and nontender. Bowel sounds are present, no mass palpable, no CVA tenderness Skin: Skin warm and dry. Normal skin color. Normal skin turgor. Extremities: No lower extremity edema. No calf tenderness Neuro: Oriented X 3. No motor deficit. No sensory deficit.No cerebellar signs , cranial nerves II-XII intact Medications Administered Discontinued Medications Generic Name Dose Route Start Last Admin Trade Name Freq PRN Reason Stop Dose Admin Amlodipine Besylate 5 mg 08/26/24 23:08 08/26/24 23:19 Amlodipine Besylate 5 Mg Tablet PO 08/26/24 23:09 5 mg ONCE ONE Administration Protocol Lisinopril 20 mg 08/26/24 23:08 08/26/24 23:20 Lisinopril 20 Mg Tablet PO 08/26/24 23:09 20 mg ONCE ONE Administration Protocol Medical Decision Making Medical Decision Making [facility] Narrative: Patient with transient elevated blood pressure with increased anxiety improved during stay in the ER patient's p.m. medication were given which include amlodipine 5 mg and lisinopril 20 mg patient advised to follow up with PCP Discharge Plan Discharge Clinical Impression: Essential hypertension Patient Disposition: Home, Self-Care Instructions: Chronic Hypertension (DC) Additional Instructions: Take medication as prescribed for your high blood pressure and follow with your PCP Likely have cause of your elevated blood pressure is from anxiety and stress Prescriptions: No Action carbamazepine 200 mg tablet 200 mg PO TID lisinopril 20 mg tablet 20 mg PO BEDTIME metoprolol succinate 50 mg tablet extended release 24 hr 50 mg PO DAILY rosuvastatin 40 mg tablet 40 mg PO BEDTIME spironolactone 50 mg tablet 50 mg PO DAILY amlodipine 5 mg tablet 5 mg PO BEDTIME citalopram 40 mg Tablet 40 mg PO DAILY@1200 Interventions: ED Discharge Assessment Last Done: 08/27/24 00:42 Discharge Date/Time: 08/27/24 00:58 Print Language: Bengali
[2024-08-26 23:19] VITALS: BP 195/69
[2024-08-26] MEDS: amLODIPine Besylate 5 MG TABLET PO (23:19)
[2024-08-26 23:20] VITALS: BP 195/69
[2024-08-26] MEDS: lisinopriL 20 MG TABLET PO (23:20)
[2024-08-26 23:58] VITALS: BP 176/57; PULSE 57; O2SAT 97
[2024-08-27 00:41] VITALS: BP 178/71; PULSE 66; RESP 16; O2SAT 97
[2024-08-27 00:42] VITALS: BP 178/71; PULSE 66; RESP 16; TEMP 36.7; O2SAT 97
== END 2024-08-27 00:58 | disposition home or self-care (01) ==
PROVIDERS: Emergency Provider Internal Medicine; PCP Internal Medicine
DX: I10 Essential (primary) hypertension (principal); F41.9 Anxiety disorder, unspecified; E78.00 Pure hypercholesterolemia, unspecified
CPT/HCPCS: 99283; 99284

== ENCOUNTER 2024-09-15 13:37 | Outpatient (AMB) | payer MEDICARE, OTHER, SELFPAY ==
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
[2024-09-15 13:46] VITALS: BP 128/72; PULSE 78; O2SAT 97; BMI 31.2
--- OUTSIDE RECORDS SUMMARY | 2024-09-15 15:04 | XMS_ITS | Data Portability ---
Author Organization [facility], [address] Address [address] [place] [address] Assessment No assessment recorded. Plan of Treatment Reminders Order Date Submit Date Provider Last Modified By Organization Details Last Modified Time Details Appointments None recorded. Lab rapid flu (A+B) 2022 [email or web address], [address] [place] [address], [phone], 10:14:57 Referral None recorded. Procedures None recorded. Surgeries None recorded. Imaging XR, wrist, 3 or more view 2022 023 [facility], [address] [place], [address], 18:02:17 Medication Orders doxycycline monohydrate 100 mg capsule 2022 023 Coferon [facility] #[id number], [address] [place], [address], 10:14:01 Patient TargetsNo targets recorded. Patient Instructions Encounter Date Encounter Id Patient Instructions Last Modified By Organization Details Last Modified Time 09/05/2022 [id number] Acute Sinusitis: Care Instructions Not available 09/05/2022 10:14:57 bronchitis: care instructions Not available 09/05/2022 10:15:36 10/22/2022 [id number] Your Care Instructions Your wrist hurts because you have stretched or torn ligaments, which connect the bones in your wrist. Wrist sprains usually take from 2 to 10 weeks to heal, but some take longer. Usually, the more pain you have, the more severe your wrist sprain is and the longer it will take to heal. You can heal faster and regain strength in your wrist with good home treatment. Follow-up care is a river part of your treatment and safety. Be sure to make and go to all appointments, and call your doctor or nurse advice line (910 in most provinces and territories) if you are having problems. It's also a good idea to know your test results and keep a list of the medicines you take. How can you care for yourself at home? Prop up your arm on a pillow when you ice it or anytime you sit or lie down for the next 3 days. Try to keep your wrist above the level of your heart. This will help reduce swelling. Put ice or cold packs on your wrist for 10 to 20 minutes at a time. Try to do this every 1 to 2 hours for the next 3 days (when you are awake) or until the swelling goes down. Put a thin cloth between the ice pack and your skin. After 2 or 3 days, if your swelling is gone, apply a heating pad set on low or a warm cloth to your wrist. This helps keep your wrist flexible. Some doctors suggest that you go back and forth between hot and cold. If you have an elastic bandage, keep it on for the next 24 to 36 hours. The bandage should be snug but not so tight that it causes numbness or tingling. To rewrap the wrist, wrap the bandage around the hand a few times, beginning at the fingers. Then wrap it around the hand between the thumb and index finger, ending by circling the wrist several times. If your doctor gave you a splint or brace, wear it as directed to protect your wrist until it has healed. Take pain medicines exactly as directed. If the doctor gave you a prescription medicine for pain, take it as prescribed. If you are not taking a prescription pain medicine, ask your doctor if you can take an poej-mld-[id number] medicine. Try not to use your injured wrist and hand. When should you call for help? Call your doctor or nurse advice line now or seek immediate medical care if: Your hand or fingers are cool or pale or change colour. Watch closely for changes in your health, and be sure to contact your doctor or nurse advice line if: Your pain gets worse. Your wrist has not improved after 1 week. [email or web address] Not available 10/22/2022 17:00:39 Reason for Referral None Reported. Results Created Date Observation Date Name Description Value Unit Range Abnormal Flag Note LastModifiedBy Organization Detail LastModifiedTime 09/05/1909/05/2022 rapid flu (A+B) Unknown Analyte Normal = Negati ve Not Available [address] [place], [address], 09/05/2022 09:36:52 09/05/19 23 09/05/2022 rapid flu (A+B) Unknown Analyte Normal = Negati ve Not Available [address] [place], [address], 09/05/2022 09:36:52 09/05/19 23 09/05/2022 rapid flu (A+B) Unknown Analyte negati ve Not Available [address] [place] [address] [place], [address], 09/05/2022 09:36:52 09/05/1909/05/2022 rapid flu (A+B) Unknown Analyte negati ve Not Available [address] [place] [address] [place], [address], 09/05/2022 09:36:52 10/23/19 23 10/22/2022 XR, wrist , 3 or more view No observ ation record ed. [email or web address] [facility] [address] [facility] [place], [address], 10/25/2022 21:00:36 Result Notes None recorded. Problems Name Problem SNOMED Code Status Onset Date Resolution Date Notes Provider Name and Address Organization Details Recorded Time Hypertensive disorder 28398480 Active 2022 BRITNEY lopez PA - [facility] 3 09:35:03 Depressive disorder 10094826 Active 2022 BRITNEY lopez PA - [facility] 3 09:35:17 Gastroesophage al reflux disease 836305495 Active 2022 BRITNEY lopez, PA - [facility] 3 09:35:27 Problem Notes None recorded. Procedures Surgical History Date Name Laterality Status Provider Name and Address Organization Details Recorded Time 10/23/19 23 WRIST SPLINT completed Jose Centeno NP [address] [facility] [place], [place], [address], PA - [facility] 10/22/2022 17:16:55 10/23/19 23 Gautam Bandage completed Jose Centeno NP [address] [place], [place], [address], PA - [facility] 10/22/2022 17:16:34 cholecystectomy completed BRITNEY Munroe A - [facility] 09/05/2022 09:36:24 section completed BRITNEY ZAPATA PA - [facility] 09/05/2022 09:36:40 Imaging Results Imaging Date Name Status LastModified by Organiz ation Details LastModified Time 10/22/2022 XR, wrist, 3 or more view completed [place] [id number] [facility] [address] [place], [address], 10/25/2022 21:00:36 Procedure Notes None recorded. Medical Equipment None Reported. Allergies Allergen ID Allergen Name Allergen Category Reaction Reaction Severity Criticality Documentation Date Start Date Code Code System Note Provider Name and Address Organization Details Recorded Time 587068 Product containin g penicilli n and antibioti c (product) medicatio n rash Not available Not available 09/05/2022 15234 05 SNOMED BRITNEY lopez, PA - [facility] 3 09:30:22 024146 Demerol medicatio n nausea Not available Not available 09/05/2022 80185 1 RxNorm BRITNEY lopez, PA - [facility] 3 09:31:16 Medications Name Sig Start Date Stop Date Status Note LastModified by Organization Details LastModified Time cyclobenzap rine 10 mg tablet TAKE 1 TABLET BY MOUTH EVERY DAY NEEDED active Not Available Not Available No t Available latanoprost 0.005 % eye drops INSTILL 1 DROP INTO BOTH EYES EVERY DAY AT NIGHT active Not Available Not Available No t Available cetirizine 10 mg tablet TAKE 1 TABLET BY MOUTH EVERY DAY active Not Available Not Available No t Available oxybutynin chloride ER 10 mg tablet,exte nded release 24 hr TAKE 1 TABLET BY MOUTH EVERY DAY 09/05 completed Not Available Not Available Not Available metoprolol succinate ER 50 mg tablet,exte nded release 24 hr TAKE 1 TABLET BY MOUTH EVERY DAY active Not Available Not Available No t Available citalopram 10 mg tablet TAKE 1 TABLET BY MOUTH EVERY DAY IN THE MORNING active Not Available Not Available No t Available lisinopril 20 mg tablet TAKE 1 TABLET BY MOUTH EVERYDAY AT BEDTIME active Not Available Not Available No t Available prednisone 20 mg tablet TAKE 3 TABLETS FOR 5 DAYS THEN TAKE 2 TABLETS FOR 4 DAYS THEN TAKE 1 TABLET FOR 3 DAYS 09/05 completed Not Available Not Available Not Available amlodipine 5 mg tablet TAKE 1 TABLET BY MOUTH EVERYDAY AT BEDTIME active Not Available Not Available No t Available carbamazepi ne 200 mg tablet TAKE 1 TABLET BY MOUTH TWICE A DAY active Not Available Not Available No t Available citalopram 20 mg tablet TAKE 1 TABLET BY MOUTH EVERY DAY IN THE MORNING active Not Available Not Available No t Available lorazepam 0.5 mg tablet TAKE 1 TABLET BY MOUTH EVERY 12 HOURS NEEDED active Not Available Not Available No t Available doxycycline monohydrate 100 mg capsule Take 1 capsule twice a day by oral route for 10 days. 2022 active Not Available Not Available Not Avai lable omeprazole 20 mg capsule,del ayed release TAKE 1 CAPSULE BY MOUTH EVERY DAY active Not Available Not Available No t Available hydrochloro thiazide 25 mg tablet TAKE 1 TABLET BY MOUTH EVERY DAY 09/05 completed Not Available Not Available Not Available ergocalcife rol (vitamin D2) 1,250 mcg (50,000 unit) capsule TAKE 1 CAPSULE BY MOUTH ONE TIME PER WEEK active Not Available Not Available No t Available fluticasone propionate 50 mcg/actuati on nasal spray,suspe nsion USE 1 SPRAY TWICE A DAY IN RIGHT NOSTRIL ONLY X 2 WEEKS, THEN NEEDED active Not Available Not Available No t Available doxycycline hyclate 100 mg tablet TAKE 1 TABLET BY MOUTH TWICE A DAY FOR 7 DAYS 09/05 completed Not Available Not Available Not Available spironolact one 50 mg tablet TAKE 1 TABLET BY MOUTH EVERY DAY active Not Available Not Available No t Available rosuvastati n 40 mg tablet TAKE 1 TABLET BY MOUTH EVERYDAY AT BEDTIME active Not Available Not Available No t Available omeprazole active Not Available Not Av ailable Not Available metoprolol succinate active Not Available Not Available No t Available Vitals Date Recorded Body height Body mass index (BMI) Body weight Body temperature Respiratory rate Oxygen saturation Oxygen saturation in Arterial blood by Pulse oximetry Heart rate Systolic blood pressure Diastolic blood pressure Provider Name and Address Organization Details Last Updated DateTime 3 156.21 cm 32 kg/m2 19359.8 9 g 97 [degF] 18 /min 98 % 98 % 60 /min 154 mm[Hg] 73 mm[Hg] ANN MORRIS [place] [facility] 3 16:26:51 Date Recorded Body height Body mass index (BMI) Body weight Pain severity - 0-10 verbal numeric rating [Score] - Reported Respiratory rate Oxygen saturation Oxygen saturation in Arterial blood by Pulse oximetry Heart rate Body temperature Systolic blood pressure Diastolic blood pressure Provider Name and Address Organization Details Last Updated DateTime 3 156.21 cm 32 kg/m2 10996.8 9 g 8 18 /min 97 % 97 % 66 /min 97.9 [degF] 130 mm[Hg] 63 mm[Hg] BRITNEY ZAPATA [facility] 3 09:38:25 Social History Question Answer Notes LastModified by Organizat ion Details LastModified Time Tobacco Smoking Status Former Smoker BRITNEY lopez [facility] 09/05/2022 09:36:05 What Is Your Level Of Alcohol Consumption? Occasional [email or web address] Information not available 09/05/2022 How Many Times Per Week Do You Consume Alcohol? 1-2 Times Per Week [email or web address] Information not available 09/05/2022 Do You Use Any Illicit Or Recreational Drugs? No [email or web address] Information not available 09/05/2022 Have You Recently Traveled Abroad? No Information not available 09/05/2022 Do You Or Have You Ever Used Any Other Forms Of Tobacco Or Nicotine? No [email or web address] Information not available 09/05/2022 Sex: Unknown Functional Status None recorded. Mental Status None recorded. Family History Relationship Description Onset Age of this Age Resolved Age Notes LastModified by Organization Details LastModified Time Father No current problems or disability Not available 09/05 09:35:31 Mother No current problems or disability Not available 09/05 09:35:31 Medical History No medical history recorded. Gynecological HistoryNo gynecological history recorded. Obstetrics History GPAL:G 0 P 0 0 0 0 Past Encounters Encounter ID Performer Location Encounter Start Date Encounter Closed Date Diagnosis/Indication Diagnosis SNOMED-CT Code Diagnosis ICD10 Code Diagnosis Note [id number] [facility] [address] [place] [address] 05/13/2020 16:59:51 05/13/2020 18:09:52 [id number] [facility] [address] [place] [address] 05/10/2017 17:34:20 05/10/2017 18:36:40 [id number] [facility] [address] [place] [address] 09/30/2016 11:59:08 09/30/2016 12:29:05 [id number] [address] [facility] [place] [address] 07/08/2018 11:34:17 07/08/2018 13:05:47 [id number] [address] [facility] [address] [place] [address] 02/14/2017 16:38:02 02/14/2017 17:10:37 [id number] Deep Griffin MD [address] [facility] [address] [place] [address] 09/05/2022 09:11:09 09/05/2022 10:16:25 Acute sinusitis 63221859 J01.90 Please follow up with PCP or Urgent Care in 3-5 days if no improvemen t or if any new symptoms occur that are concerning .Call 911 or go to nearest ER if you develop any shortness of breath, chest pain, severe headache, dizziness, or other concerning symptoms Acute bronchitis 5949013 2 J20.9 [id number] Jose Centeno, PEDIATRIC ASSISTANT [address] [facility] [address] [place] [address] 10/22/2022 13:00:56 10/22/2022 17:17:22 Fall on same level from slipping, tripping or stumbling [id number] W01.0XXA Pain of right wrist 3169 040455 88830 M25.531 Health Concerns Section Related Observation LastModified by Organization Detai ls LastModified Time None Recorded Concern Status LastModified by Organization Details LastModified Time None Recorded Advance Directives Directive None Recorded Payers Encounter Date Sequence Insurance Name Policy Number Policy Portillo Covered Member ID Portillo Member ID Guarantor Name 05/13/2020 1 [place] [employer] Conway Bakari Adair [id number] [facility] 05/13/2020 2 [facility] 1 (MEDICARE SUPPLEMENT) [id number] Conway Bakari Adair [id number] [facility] 09/05/2022 1 [place] [employer] [employer] Conway Bakari Adair [id number] [facility] 09/05/2022 2 [facility] 1 (MEDICARE SUPPLEMENT) [id number] 1 Conway Bakari Adair [id number] [facility] 10/22/2022 1 [place] [employer] Conway Bakari Adair [id number] [facility] 10/22/2022 2 [facility] 1 (MEDICARE SUPPLEMENT) [id number] 1 [facility] [id number] [facility] Notes Date Note Type Note Provider Name and Address Organization Details Recorded Time 3 text/html CoughReported bypatient.Associated Symptoms:no fever; no chills; no nausea; no vomiting Deep Griffin MD [address] [place], [address], [place] - [facility] 09/05/2022 10:16:27 3 text/html FallReported bypatient.source of patient informationInformation obtained from patient; Patient arrived at Urgent Care ambulatory; learning styles: auditory Location of injuries:face; wrist right; knee right Quality:dull; aching Severity:pain scale : 6 Duration:constant Onset/Timing: Onset PTA6 hours Context:fell from standing position; tripped; unknown Aggravating factors:walking; bending Alleviating factors:nothing gives relief Associated Symptoms:no dizziness Location where injury occurred:home reported medicationsnot currently taking a blood thinner Jose Centeno NP [address] [place], [address], [place] - [facility] 10/22/2022 17:17:37 OBGyn Episode No OBEpisode recorded.
== END 2024-09-15 14:54 | disposition home or self-care (01) ==
PROVIDERS: PCP Family Medicine; Visit Provider Internal Medicine
DX: I10 Essential (primary) hypertension (principal); E78.00 Pure hypercholesterolemia, unspecified; I25.10 Atherosclerotic heart disease of native coronary artery without angina pectoris; K21.9 Gastro-esophageal reflux disease without esophagitis; F41.1 Generalized anxiety disorder; G50.0 Trigeminal neuralgia; K27.9 Peptic ulcer, site unspecified, unspecified as acute or chronic, without hemorrhage or perforation; M81.0 Age-related osteoporosis without current pathological fracture

== ENCOUNTER → 2024-09-15 13:37 | Outpatient (BNVA) | payer MEDICARE, OTHER, SELFPAY | PROVIDERS: PCP Family Medicine; Visit Provider Internal Medicine | DX: I10 Essential (primary) hypertension (principal); E78.00 Pure hypercholesterolemia, unspecified; I25.10 Atherosclerotic heart disease of native coronary artery without angina pectoris; K21.9 Gastro-esophageal reflux disease without esophagitis; F41.1 Generalized anxiety disorder; G50.0 Trigeminal neuralgia; K27.9 Peptic ulcer, site unspecified, unspecified as acute or chronic, without hemorrhage or perforation; M81.0 Age-related osteoporosis without current pathological fracture | CPT/HCPCS: 99202 ==

== ENCOUNTER 2024-09-16 08:49 | Outpatient (REF) | payer MEDICARE, OTHER, SELFPAY ==
[2024-09-16 09:05] LABS: MANUAL DIFF FLAG NO
[2024-09-16 09:11] LABS: Basophils Absolute Auto 0.1 X10*3/uL (0.0-0.2); Basophils Percent Auto 0.7 % (0-2); Eosinophils Absolute Auto 0.1 X10*3/uL (0.0-0.4); Eosinophils Percent Auto 1.5 % (0-4); Hematocrit 39.3 % (37.0-47.0); Hemoglobin 13.1 g/dl (12.0-16.0); Imm Gran Abs Auto 0.03 X10*3/uL (0.00-0.03); Imm Gran Pct Auto 0.4 % (0.0-0.4); Lymphocytes Absolute Auto 2.8 X10*3/uL (1.2-4.9); Lymphocytes Percent Auto 37.3 % (20-40); Mean Corpuscular HGB Conc 33.3 g/dl (31.0-35.0); Mean Corpuscular Hemoglobin 32.2 pg (27.0-33.0); Mean Corpuscular Volume 96.6 fL (80.0-98.0); Mean Platelet Volume 9.8 fL (9.4-12.3); Monocytes Absolute Auto 0.8 X10*3/uL (0.1-1.2); Monocytes Percent Auto 11.1 % (2-11); Neutrophils Absolute Auto 3.6 x10*3/uL (2.0-8.3); Platelet Count 202 X10*3/uL (160-400); Red Blood Count 4.07 X10*6/uL (4.20-5.50); Red Cell Distribution Width 12.6 % (11.0-16.0); White Blood Count 7.4 X10*3/uL (4.8-10.8)
[2024-09-16 09:31] LABS: Estimated Average Glucose 108 mg/dL; Hemoglobin A1C 150.8559 umol/L; Hemoglobin A1c % 5.4 % (<6.0); Total Hemoglobin (HGBA1C) 4311.2608 umol/L
[2024-09-16 09:52] LABS: Alanine Aminotransferase 11 U/L (0-31); Albumin Level 3.9 g/dL (3.5-5.0); Alkaline Phosphatase 75 U/L (39-117); Anion Gap 18 (12-20); Aspartate Amino Transferase 23 U/L (5-31); Bilirubin Total 0.5 mg/dL (0.0-1.0); Blood Urea Nitrogen 8 mg/dL (9-16); Calcium 9.1 mg/dL (8.4-10.2); Carbon Dioxide 25 mmol/L (22-29); Chloride 102 mmol/L (96-108); Cholesterol 150 mg/dL (<200); Estimated Glomerular Filt Rate > 60; Glucose Random 92 mg/dL (60-115); HDL Cholesterol 61 mg/dL (>40); LDL Cholesterol Calculated 72 mg/dL (<100); Potassium 4.8 mmol/L (3.3-5.1); Sodium 140 mmol/L (135-145); Total Protein 7.4 g/dL (6.5-8.0); Triglycerides 86 mg/dL (<150)
[2024-09-16 10:12] LABS: Free T4 (Free Thyroxine) 0.63 ng/dL (0.71-1.85); Thyroid Stimulating Hormone 3.69 uIU/mL (0.32-4.0); Vitamin D 25-OH Total 40.5 ng/mL (>30)
[2024-09-16 10:12] LABS: Appearance Urine Clear; Color Urine Yellow; Glucose Urine UA Negative (Negative); Leukocyte Esterase Urine Trace (Negative); Nitrite Urine Negative (Negative); UMIC TRIGGER UACC YES; Urine Blood Negative (Negative); Urine Ketones Negative (Negative); Urine Protein Negative (Neg-Trace)
[2024-09-16 10:18] LABS: Bacteria Urine 1+ (None Seen); Hyaline Casts Urine 0-2 /LPF (0-2); RBC Urine 0-2 /HPF (0-2); Squamous Epithelial Cell Urine >20 /HPF (0-2); UACC Culture Trigger YES
[2024-09-16 10:19] LABS: Folate 7.9 ng/mL (> or = 4.0); Vitamin B12 405 pg/mL (200-900)
== END 2024-09-16 08:50 | disposition home or self-care (01) ==
LOC: HO.LAB 08:49
PROVIDERS: Visit Provider Internal Medicine
DX: E78.00 Pure hypercholesterolemia, unspecified (principal); R30.0 Dysuria; Z13.1 Encounter for screening for diabetes mellitus
CPT/HCPCS: 36415; 80053; 80061; 81001; 81003; 82306; 82607; 82746; 83036; 84439; 84443; 85025; 87086

== ENCOUNTER 2024-10-01 14:58 | Outpatient (AMB) | payer MEDICARE, OTHER, SELFPAY ==
--- OUTSIDE RECORDS SUMMARY | 2024-10-01 15:01 | XMS_ITS | Data Portability ---
Author Organization [facility], [address] Address [address] [place] [address] Assessment No assessment recorded. Plan of Treatment Reminders Order Date Submit Date Provider Last Modified By Organization Details Last Modified Time Details Appointments None recorded. Lab rapid flu (A+B) 2022 023 [email or web address] _[facility], [address] [place] [address], [address], 10:14:57 Referral None recorded. Procedures None recorded. Surgeries None recorded. Imaging XR, wrist, 3 or more view 2022 023 [facility], [address] [place], [address], 18:02:17 Medication Orders doxycycline monohydrate 100 mg capsule 2022 023 [facility] #[id number], [address] [place], [address], 3 10:14:01 Patient TargetsNo targets recorded. Patient Instructions Encounter Date Encounter Id Patient Instructions Last Modified By Organization Details Last Modified Time 09/05/2022 [id number] Acute Sinusitis: Care Instructions Not available 09/05/2022 10:14:57 bronchitis: care instructions Not available 09/05/2022 10:15:36 10/22/2022 [id number] Your Care Instructions Your wrist hurts because [...] call your doctor or nurse advice line (789 in most provinces and territories) if you [...] your doctor if you can take an wzux-yst-uijsqft medicine. Try not to use your injured [...] Normal = Negati ve Not Available [id number] [address] [place], [address], 09/05/2022 09:36:52 09/05/19 23 09/05/2022 rapid flu (A+B) Unknown Analyte Normal = Negati ve Not Available [id number] [place], [address], 09/05/2022 09:36:52 09/05/19 23 09/05/2022 rapid flu (A+B) Unknown Analyte negati ve Not Available [address] [place] [address] [place], [address], 09/05/2022 09:36:52 09/05/1909/05/2022 rapid flu (A+B) Unknown Analyte negati ve Not Available [address] [place] [address] [place], [address], 09/05/2022 09:36:52 10/23/19 23 10/22/2022 XR, wrist , 3 or more view No observ ation record ed. [email or web address] [facility] [address] [facility] [place], [address], 10/25/2022 21:00:36 Result Notes None recorded. Problems Name Problem SNOMED Code Status Onset Date Resolution Date Notes Provider Name and Address Organization Details Recorded Time Hypertensive disorder 91106505 Active 2022 BRITNEY lopez PA - [facility] 3 09:35:03 Depressive disorder 99283808 Active 2022 BRITNEY lopez PA - [facility] 3 09:35:17 Gastroesophage al reflux disease 512949118 Active 2022 BRITNEY JODI lopez, PA - [facility] 3 09:35:27 Problem Notes None recorded. Procedures Surgical History Date Name Laterality Status Provider Name and Address Organization Details Recorded Time 10/23/19 23 WRIST SPLINT completed Jose Centeno NP [address], [place], [address], PA - [facility] 10/22/2022 17:16:55 10/23/19 23 Gautam Bandage completed Jose Centeno NP [address], [place], [address], PA - [facility] 10/22/2022 17:16:34 cholecystectomy completed BRITNEY Munroe A - [facility] 09/05/2022 09:36:24 section completed BRITNEY ZAPATA PA - [facility] 09/05/2022 09:36:40 Imaging Results Imaging Date Name Status LastModified by Organiz ation Details LastModified Time 10/22/2022 XR, wrist, 3 or more view completed [email or web address] [id number] [facility] [address] [place], [address], 10/25/2022 21:00:36 Procedure Notes None recorded. Medical Equipment None Reported. Allergies Allergen ID Allergen Name Allergen Category Reaction Reaction Severity Criticality Documentation Date Start Date Code Code System Note Provider Name and Address Organization Details Recorded Time 211548 Product containin g penicilli n (product) medicatio n rash Not available Not available 09/05/2022 43765 8001 SNOMED BRITNEY lopez, PA - [facility] 3 09:30:22 093419 Demerol medicatio n nausea Not available Not available 09/05/2022 55302 1 RxNorm BRITNEYBRYNN lopez, PA - [facility] 3 09:31:16 [...] Updated DateTime 3 156.21 cm 32 kg/m2 09492.8 9 g 97 [degF] 18 /min 98 % 98 % 60 /min 154 mm[Hg] 73 mm[Hg] ANN MORRIS [place] [facility] 3 16:26:51 Date Recorded Body height Body mass index (BMI) Body weight Pain severity - 0-10 verbal numeric rating [Score] - Reported Respiratory rate Oxygen saturation Oxygen saturation in Arterial blood by Pulse oximetry Heart rate Body temperature Systolic blood pressure Diastolic blood pressure Provider Name and Address Organization Details Last Updated DateTime 3 156.21 cm 32 kg/m2 07936.8 9 g 8 18 /min 97 % 97 % 66 /min 97.9 [degF] 130 mm[Hg] 63 mm[Hg] BRITNEY ZAPATA [place] [facility] 3 09:38:25 Social History Question Answer Notes LastModified by Organizat ion Details LastModified Time Tobacco Smoking Status Former Smoker BRITNEY lopez [employer] [facility] 09/05/2022 09:36:05 What Is Your Level Of Alcohol Consumption? Occasional Information not available 09/05/2022 How Many Times Per Week Do You Consume Alcohol? 1-2 Times Per Week [email or web address] Information not available 09/05/2022 Do You Use Any Illicit Or Recreational Drugs? No Information not available 09/05/2022 Have You Recently Traveled Abroad? No [email or web address] Information not available 09/05/2022 Do You Or Have You Ever Used Any Other Forms Of Tobacco Or Nicotine? No [email or web address] Information not available 09/05/2022 Sex: Unknown Functional Status None recorded. Mental Status None recorded. Family History Relationship Description Onset Age of this Age Resolved Age Notes LastModified by Organization Details LastModified Time Father No current problems or disability [email or web address] Not available 09/05 09:35:31 Mother No current problems or disability Not available 09/05 09:35:31 Medical History No medical history recorded. Gynecological HistoryNo gynecological history recorded. Obstetrics History GPAL:G 0 P 0 0 0 0 Past Encounters Encounter ID Performer Location Encounter Start Date Encounter Closed Date Diagnosis/Indication Diagnosis SNOMED-CT Code Diagnosis ICD10 Code Diagnosis Note [id number] [address] [place] [address] 05/13/2020 16:59:51 05/13/2020 18:09:52 [id number] [address] [place] [address] 05/10/2017 17:34:20 05/10/2017 18:36:40 [id number] [address] [place] [address] 09/30/2016 11:59:08 09/30/2016 12:29:05 [id number] [address] [place] [address] 07/08/2018 11:34:17 07/08/2018 13:05:47 [id number] [address] [place] [address] 02/14/2017 16:38:02 02/14/2017 17:10:37 [id number] Deep Griffin MD [address] [place] [address] 09/05/2022 09:11:09 09/05/2022 10:16:25 Acute sinusitis 14395737 J01.90 Please follow up with PCP or Urgent Care in 3-5 days if no improvemen t or if any new symptoms occur that are concerning .Call 911 or go to nearest ER if you develop any shortness of breath, chest pain, severe headache, dizziness, or other concerning symptoms Acute bronchitis 1770694 2 J20.9 [id number] Jose Moeaz, OBIE [address] [facility] [address] [place] [address] 10/22/2022 13:00:56 10/22/2022 17:17:22 Fall on same level from slipping, tripping or stumbling 855633071 W01.0XXA Pain of right wrist 3169 315436 96268 M25.531 Health Concerns Section Related Observation LastModified by Organization Detai ls LastModified Time None Recorded Concern Status LastModified by Organization Details LastModified Time None Recorded Advance Directives Directive None Recorded Payers Encounter Date Sequence Insurance Name Policy Number Policy Portillo Covered Member ID Portillo Member ID Guarantor Name 05/13/2020 1 [place] [employer] Orovada Bakari Adair [id number] [facility] 05/13/2020 2 [facility] 1 (MEDICARE SUPPLEMENT) [id number] 1 Orov[place] Bakari Adair [id number] [facility] 09/05/2022 1 [place] [employer] Orovada Bakari Adair [id number] [facility] 09/05/2022 2 [facility] 1 (MEDICARE SUPPLEMENT) [id number] 1 Orovada Bakari Adair [id number] [facility] 10/22/2022 1 [place] Orovada Bakari Adair [id number] [facility] 10/22/2022 2 [facility] 1 (MEDICARE SUPPLEMENT) [id number] 1 [facility] Giovany [id number] [facility] Notes Date Note Type Note Provider Name and Address Organization Details Recorded Time 3 text/html CoughReported bypatient.Associated Symptoms:no fever; no chills; no nausea; no vomiting Deep Griffin MD [address] [place], [address], PA - [facility] 09/05/2022 10:16:27 3 [...] Centeno NP [address] [place], [address], PA - [facility] 10/22/2022 17:17:37 OBGyn Episode No OBEpisode recorded.
--- NOTE | 2024-10-01 15:10 | HO.NEPHOV_ITS ---
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 She has a history of TIA. She has no H/O CAD, CHF, PAD, carotid disease or KIMBERLY. Her renal function is at baseline and has no significant CKD. She has been on Spironolactone and metoprolol in the morning and Amlodipine as well as lisinopril at night. She monitors her BP carefully but feels it had been fluctuant. She recently had a hospitalization during which her Spironolact one had been discontinued, reason for which is unclear( no H/O hyperkalemia or hypotension as per patient). She experiences symptoms related to anxiety and depression but reports she has not been actively involved in psychiatric care recently.She takes salty foods intermittently and takes salt when she thinks her BP is on the lower side. Her weight has been stable and has no edema. She had no other specific complaints at the time of this office visit. [facility] Medical History (Updated 10/02/24 @ 07:48 by Walter William MD) TRIPLETT (dyspnea on exertion) Elevated troponin GERD (gastroesophageal reflux disease) Hypercholesterolemia Hypertension Surgical History History of tonsillectomy History of appendectomy History of hysterectomy Hx of cholecystectomy History of bladder suspension procedure History of section Family History Father Aneurysm Stroke Mother No problems noted. Maternal Aunt Ovarian cancer Maternal Aunt Uterine cancer Son Brain aneurysm Mental health disorder Daughter In good health Social History Household Members: None Housing: House Do you presently have visiting nurse or other home services: No Unable to assess alcohol history related to: Unknown Alcohol intake: current Alcohol intake frequency: holidays/special occasions only Alcohol type: wine Comment: 2 drinks once a month Patient Tobacco Use Status: Former Tobacco user Tobacco use type: Cigarette Years Smoked: 4 x a year 2 cigarettes e-Cigarette/Vaping Use: Never Used Second Hand Smoke Exposure: No service: No Current occupational status: retired Cognitive needs: No Hearing needs: No Vision needs: Yes Review of Systems Const All systems reviewed & are unremarkable except as noted in HPI and below Physical Exam Vital Signs: Last Vital Signs Pulse 68 10/01/24 15:13 BP 154/80 H 10/01/24 15:13 Pulse Ox 99 10/01/24 15:13 Oxygen Delivery Method Room Air 10/01/24 15:13 BMI result Body Mass Index 31.4 Const General: comfortable and no acute distress Orientation/consciousness: patient oriented x3 HEENT Head: Yes normocephalic Mouth: Normal oral and palatal mucosa present Eyes EOM: EOMs intact bilaterally Neck Neck: Yes supple Resp Auscultation: clear to auscultation bilaterally Cardio Jugular venous distension: no JVD Rate: regular rate GI Palpation (GI): Soft to palpation Auscultation: normal bowel sounds General: Yes no CVA tenderness Back/Spine/Pelvis Back: no CVA tenderness Skin General skin exam: no rashes or lesions noted Neuro General: patient oriented x3 and moves all extremities Extrem General: Yes no pedal edema Results Reviewed Nephrology Results: Hgb 13.1 g/dl (12.0-16.0) 09/16/24 WBC 7.4 X10*3/uL (4.8-10.8) 09/16/24 Plt Count 202 X10*3/uL (160-400) 09/16/24 Sodium 140 mmol/L (135-145) 09/16/24 Potassium 4.8 mmol/L (3.3-5.1) 09/16/24 Chloride 102 mmol/L (96-108) 09/16/24 Carbon Dioxide 25 mmol/L (22-29) 09/16/24 BUN 8 mg/dL (9-16) L 09/16/24 Creatinine 0.80 mg/dL (0.5-1.4) 09/16/24 Calcium 9.1 mg/dL (8.4-10.2) 09/16/24 Urine Protein Negative mg/dL (Neg-Trace) 09/16/24 Assessment & Plan Assessment & Plan (1) Essential hypertension: Comment: 2021 MRA negative Code(s): I10 - Essential (primary) hypertension Category: Medical Plan Low sodium diet and increase activity if possible Switch Amlodipine and Lisinopril @ current dose to AM Switch Metoprolol to evening. Remain off Spironolactone for now Shall consider doing MRA renal arteries as well 24 hr BPM , if needed Renal function at baseline.No NSAID's. Maintain good hydration Time spent reviewing all her previous records, encounter, documentation 63 minutes Answered all questions. Follow up given. Coding Level of Care Code New Pt Level 5 (88577) Diagnoses Essential hypertension I10
[2024-10-01 15:13] VITALS: BP 154/80; PULSE 68; O2SAT 99; BMI 31.4
== END 2024-10-01 16:08 | disposition home or self-care (01) ==
PROVIDERS: PCP Family Medicine; Referring Provider Internal Medicine; Visit Provider Internal Medicine Nephrology
DX: I10 Essential (primary) hypertension (principal)
CPT/HCPCS: 99205

== ENCOUNTER → 2024-10-01 14:58 | Outpatient (BNVA) | payer MEDICARE, OTHER, SELFPAY | PROVIDERS: PCP Family Medicine; Referring Provider Internal Medicine; Visit Provider Internal Medicine Nephrology | DX: I10 Essential (primary) hypertension (principal); Z86.73 Personal history of transient ischemic attack (TIA), and cerebral infarction without residual deficits | CPT/HCPCS: 99202 ==

== ENCOUNTER 2024-10-24 09:50 | Outpatient (REF) | payer MEDICARE, OTHER, SELFPAY ==
--- NOTE | ~2024-10-24 | MM_ITS ---
EXAMINATION: DXA BONE DENSITY AXIAL HISTORY: Estrogen deficiency TECHNIQUE: BeLocal Dual energy absorptiometry (DEXA) of the lumbar spine, total left hip, and femoral neck was performed. COMPARISON: Comparison is made with the prior examination dated 05/30/2012. FINDINGS: The bone mineral density of the lumbar spine is 1.163 with a T-score of -0.1, and a Z-score of 1.3. This represents a BMD change of 3.8% compared to the prior exam. This is statistically significant. The bone mineral density of the left total hip is 0.832 with a T-score of -1.4, and a Z-score of 0.4. This represents a BMD change of -13.7% compared to the prior exam. This is statistically significant. The bone mineral density of the left femoral neck is 0.825 with a T-score of -1.5, and a Z-score of 0.4. This represents a BMD change of -5.4% compared to the prior exam. FRACTURE RISK: The FRAX index suggests a ten year probability of major osteoporotic fracture of 13.0%, and of hip fracture 3.2%. MM/XR DEXA axial skeleton IMPRESSION: Based on bone mineral density, and according to World Health Organization (WHO) criteria, the diagnosis is consistent with osteopenia. All bone density values are in grams per centimeter squared (g/cm2). Statistically, 68% of repeat scans fall within 1 SD (+/- 0.010 g/cm2 for AP spine L1-L4) and 1 SD (+/- 0.012 g/cm2 for femur total) FRAX is a trademark of the [employer]'s [place] for Metabolic Bone Disease, a World Health Organization (WHO) Collaborating Center. Electronically signed by: Delbert Deal MD 10/24/2024 11:20 AM EDT
--- OUTSIDE RECORDS SUMMARY | 2024-10-24 11:02 | XMS_ITS | Data Portability ---
Author Organization [facility], [address] Address [address] [place] [address] Assessment No assessment recorded. Plan of Treatment Reminders Order Date Submit Date Provider Last Modified By Organization Details Last Modified Time Details Appointments None recorded. Lab rapid flu (A+B) 2022 023 [email or web address] _[facility], [address] [place] [address], [address], 10:14:57 Referral None recorded. Procedures None recorded. Surgeries None recorded. Imaging XR, wrist, 3 or more view 2022 023 [facility], [address] [place], [address], 18:02:17 Medication Orders doxycycline monohydrate 100 mg capsule 2022 023 [facility]armacy #[id number], [address] [place], [address], 3 10:14:01 Patient TargetsNo targets recorded. Patient Instructions Encounter Date Encounter Id Patient Instructions Last Modified By Organization Details Last Modified Time 09/05/2022 [id number] Acute Sinusitis: Care Instructions Not available 09/05/2022 10:14:57 bronchitis: care instructions Not available 09/05/2022 10:15:36 10/22/2022 [id number] Your Care Instructions Your wrist hurts because [...] call your doctor or nurse advice line (765 in most provinces and territories) if you [...] your doctor if you can take an jign-geu-fnjyxnt medicine. Try not to use your injured [...] Normal = Negati ve Not Available [email or web address] [address] [place], [address], 09/05/2022 09:36:52 09/05/19 23 09/05/2022 rapid flu (A+B) Unknown Analyte Normal = Negati ve Not Available [id number] [place], [address], 09/05/2022 09:36:52 09/05/19 23 09/05/2022 rapid flu (A+B) Unknown Analyte negati ve Not Available [address] [place] [address] [place], [address], 09/05/2022 09:36:52 09/05/1909/05/2022 rapid flu (A+B) Unknown Analyte negati ve Not Available [address] [place] [address] [place], [address], 09/05/2022 09:36:52 10/23/19 23 10/22/2022 XR, wrist , 3 or more view No observ ation record ed. [facility] [address] [facility] [place], [address], 10/25/2022 21:00:36 Result Notes None recorded. Problems Name Problem SNOMED Code Status Onset Date Resolution Date Notes Provider Name and Address Organization Details Recorded Time Hypertensive disorder 78068497 Active 2022 BRITNEY lopez PA - [facility] 3 09:35:03 Depressive disorder 05202367 Active 2022 BRITNEY lopez PA - [facility] 3 09:35:17 Gastroesophage al reflux disease 857562118 Active 2022 BRITNEY JODI lopez, PA - [facility] 3 09:35:27 Problem Notes None recorded. Procedures Surgical History Date Name Laterality Status Provider Name and Address Organization Details Recorded Time 10/23/19 23 WRIST SPLINT completed Jose Centeno NP [address], [place], [address], PA - [facility] 10/22/2022 17:16:55 10/23/19 23 Gautam Bandage completed Jose Centeno NP [address], [place], [address], PA - [facility] 10/22/2022 17:16:34 cholecystectomy completed BRITNEY Munroe A - [facility] 09/05/2022 09:36:24 section completed BRITNEY ZAPATA PA - [facility] 09/05/2022 09:36:40 Imaging Results Imaging Date Name Status LastModified by Organiz ation Details LastModified Time 10/22/2022 XR, wrist, 3 or more view [place] [id number] [facility] [address] [place], [address], 10/25/2022 21:00:36 Procedure Notes None recorded. Medical Equipment None Reported. Allergies Allergen ID Allergen Name Allergen Category Reaction Reaction Severity Criticality Documentation Date Start Date Code Code System Note Provider Name and Address Organization Details Recorded Time 998521 Product containin g penicilli n (product) medicatio n rash Not available Not available 09/05/2022 22320 8001 SNOMED BRITNEY lopez, PA - [facility] 3 09:30:22 678430 Demerol medicatio n nausea Not available Not available 09/05/2022 45423 1 RxNorm BRITNEYBRYNN lopez, [facility] - [facility] [...] Updated DateTime 3 156.21 cm 32 kg/m2 22833.8 9 g 97 [degF] 18 /min 98 % 98 % 60 /min 154 mm[Hg] 73 mm[Hg] ANN MORRIS [place] [facility] 3 16:26:51 Date Recorded Body height Body mass index (BMI) Body weight Pain severity - 0-10 verbal numeric rating [Score] - Reported Respiratory rate Oxygen saturation Oxygen saturation in Arterial blood by Pulse oximetry Heart rate Body temperature Systolic blood pressure Diastolic blood pressure Provider Name and Address Organization Details Last Updated DateTime 3 156.21 cm 32 kg/m2 20501.8 9 g 8 18 /min 97 % 97 % 66 /min 97.9 [degF] 130 mm[Hg] 63 mm[Hg] BRITNEY ZAPATA [place] [facility] 3 09:38:25 Social History Question Answer Notes LastModified by Organizat ion Details LastModified Time Tobacco Smoking Status Former Smoker BRITNEY lopez [employer] [facility] 09/05/2022 09:36:05 What Is Your Level Of Alcohol Consumption? Occasional [email or web address] Information not available 09/05/2022 How Many Times Per Week Do You Consume Alcohol? 1-2 Times Per Week Information not available 09/05/2022 Do You Use Any Illicit Or Recreational Drugs? No [email or web address] Information not available 09/05/2022 Have You Recently Traveled Abroad? No Information not available 09/05/2022 Do You Or Have You Ever Used Any Other Forms Of Tobacco Or Nicotine? No [email or web address] Information not available 09/05/2022 Sex: Unknown Functional Status None recorded. Mental Status None recorded. Family History Relationship Description Onset Age of this Age Resolved Age Notes LastModified by Organization Details LastModified Time Father No current problems or disability [email or web address] Not available 09/05 09:35:31 Mother No current problems or disability Not available 09/05 09:35:31 Medical History No medical history recorded. Gynecological HistoryNo gynecological history recorded. Obstetrics History GPAL:G 0 P 0 0 0 0 Past Encounters Encounter ID Performer Location Encounter Start Date Encounter Closed Date Diagnosis/Indication Diagnosis SNOMED-CT Code Diagnosis ICD10 Code Diagnosis Note [id number] [address] [facility] [place] [address] 05/13/2020 16:59:51 05/13/2020 18:09:52 [id number] [address] [place] [address] 05/10/2017 17:34:20 05/10/2017 18:36:40 [id number] [address] [place] [address] 09/30/2016 11:59:08 09/30/2016 12:29:05 [id number] [address] [place] [address] 07/08/2018 11:34:17 07/08/2018 13:05:47 [id number] [address] [facility] [place] [address] 02/14/2017 16:38:02 02/14/2017 17:10:37 [id number] Deep Griffin MD [address] [place] [address] 09/05/2022 09:11:09 09/05/2022 10:16:25 Acute sinusitis 44881161 J01.90 Please follow up with PCP or Urgent Care in 3-5 days if no improvemen t or if any new symptoms occur that are concerning .Call 911 or go to nearest ER if you develop any shortness of breath, chest pain, severe headache, dizziness, or other concerning symptoms Acute bronchitis 2358369 2 J20.9 [id number] Jose Moeaz, OBIE [address] [facility] [address] [place] [address] 10/22/2022 13:00:56 10/22/2022 17:17:22 Fall on same level from slipping, tripping or stumbling 113924282 W01.0XXA Pain of right wrist 3169 905122 78501 M25.531 Health Concerns Section Related Observation LastModified by Organization Detai ls LastModified Time None Recorded Concern Status LastModified by Organization Details LastModified Time None Recorded Advance Directives Directive None Recorded Payers Encounter Date Sequence Insurance Name Policy Number Policy Portillo Covered Member ID Portillo Member ID Guarantor Name 05/13/2020 1 [place] Mineral Bakari Adair [id number] [facility] 05/13/2020 2 [facility] 1 (MEDICARE SUPPLEMENT) [id number] 1 Mineral Bakari Adair [id number] [facility] 09/05/2022 1 [place] [employer] Mineral Bakari Adair [id number] [facility] 09/05/2022 2 [facility] 1 (MEDICARE SUPPLEMENT) [id number] 1 Mineral Bakari Adair [id number] [facility] 10/22/2022 1 [place] [employer] Mineral Bakari Adair [id number] [facility] 10/22/2022 2 [facility] 1 (MEDICARE SUPPLEMENT) [id number] [address] [facility] Giovany [id number] [facility] Notes Date Note Type Note Provider Name and Address Organization Details Recorded Time 3 text/html CoughReported bypatient.Associated Symptoms:no fever; no chills; no nausea; no vomiting Deep Griffin MD [address] [place], [address], PA - [facility] 09/05/2022 10:16:27 3 [...] Centeno NP [address] [place], [address], PA - [facility] 10/22/2022 17:17:37 OBGyn Episode No OBEpisode recorded.
== END 2024-10-24 09:51 | disposition home or self-care (01) ==
LOC: HO.MAMMO 09:50
PROVIDERS: PCP Internal Medicine; Visit Provider Internal Medicine
DX: M81.0 Age-related osteoporosis without current pathological fracture (principal)
CPT/HCPCS: 77080

== ENCOUNTER → 2024-10-24 10:00 | Outpatient (BNV) | payer MEDICARE, OTHER, SELFPAY | PROVIDERS: PCP Internal Medicine; Visit Provider Radiology Diagnostic Radiology | DX: E28.39 Other primary ovarian failure (principal) | CPT/HCPCS: 77080 ==

== ENCOUNTER 2024-10-29 14:06 | Outpatient (AMB) | payer MEDICARE, OTHER, SELFPAY ==
--- NOTE | 2024-10-29 14:12 | HO.NEPHOV_ITS ---
Vital Signs 10/29/24 14:16 Height 5 ft 1 in Weight 163 lb 4 oz BMI 30.8 BP 150/62 H Blood Pressure Location Lt brachial Position Sitting Pulse 60 Pulse Source Pulse Oximeter Pulse Oximetry (%) 97 Oxygen Delivery Method Room Air Intake Visit Reasons: HTN- Conf Order Planner Required: No Accompanied by: Significant Other Allergies penicillin G [Penicillin G] Allergy (Mild, Verified 10/29/24 14:15) RASH penicillin V Allergy (Unknown, Verified 10/29/24 14:15) RASH meperidine [From Demerol] Adverse Reaction (Mild, Verified 10/29/24 14:15) ABDOMINAL CRAMPS HPI Comments Details: Tia who is a 79-year-old female was seen for management of her hypertension. She has a history of TIA. She has no H/O CAD, CHF, PAD, carotid disease or KIMBERLY. Her renal function is at baseline and has no significant CKD. She monitors her BP carefully but feels it had been fluctuant. She recently had a hospitalization during which her Spironolactone had been discontinued, reason for which is unclear( no H/O hyperkalemia or hypotension as per patient). Her weight has been stable and has no edema. She had no other specific complaints at the time of this office visit. [facility], [facility] Medical History (Updated 10/02/24 @ 07:48 by Walter William MD) TRIPLETT (dyspnea on exertion) Elevated troponin GERD (gastroesophageal reflux disease) Hypercholesterolemia Hypertension Surgical History History of tonsillectomy History of appendectomy History of hysterectomy Hx of cholecystectomy History of bladder suspension procedure History of section Family History Father Aneurysm Stroke Mother No problems noted. Maternal Aunt Ovarian cancer Maternal Aunt Uterine cancer Son Brain aneurysm Mental health disorder Daughter In good health Social History Household Members: None Housing: House Do you presently have visiting nurse or other home services: No Unable to assess alcohol history related to: Unknown Alcohol intake: current Alcohol intake frequency: holidays/special occasions only Alcohol type: wine Comment: 2 drinks once a month Patient Tobacco Use Status: Former Tobacco user Tobacco use type: Cigarette Years Smoked: 4 x a year 2 cigarettes e-Cigarette/Vaping Use: Never Used Second Hand Smoke Exposure: No service: No Current occupational status: retired Cognitive needs: No Hearing needs: No Vision needs: Yes Review of Systems Const All systems reviewed & are unremarkable except as noted in HPI and below Physical Exam Vital Signs: Last Vital Signs Pulse 60 10/29/24 14:16 BP 150/62 H 10/29/24 14:16 Pulse Ox 97 10/29/24 14:16 Oxygen Delivery Method Room Air 10/29/24 14:16 BMI result Body Mass Index 30.8 Const General: comfortable and no acute distress Orientation/consciousness: patient oriented x3 HEENT Head: Yes normocephalic Mouth: Normal oral and palatal mucosa present Eyes EOM: EOMs intact bilaterally Neck Neck: Yes supple Resp Auscultation: clear to auscultation bilaterally Cardio Jugular venous distension: no JVD Rate: regular rate GI Palpation (GI): Soft to palpation Auscultation: normal bowel sounds General: Yes no CVA tenderness Back/Spine/Pelvis Back: no CVA tenderness Skin General skin exam: no rashes or lesions noted Neuro General: patient oriented x3 and moves all extremities Extrem General: Yes no pedal edema Results Reviewed Nephrology Results: Hgb 13.1 g/dl (12.0-16.0) 09/16/24 WBC 7.4 X10*3/uL (4.8-10.8) 09/16/24 Plt Count 202 X10*3/uL (160-400) 09/16/24 Sodium 140 mmol/L (135-145) 09/16/24 Potassium 4.8 mmol/L (3.3-5.1) 09/16/24 Chloride 102 mmol/L (96-108) 09/16/24 Carbon Dioxide 25 mmol/L (22-29) 09/16/24 BUN 8 mg/dL (9-16) L 09/16/24 Creatinine 0.80 mg/dL (0.5-1.4) 09/16/24 Calcium 9.1 mg/dL (8.4-10.2) 09/16/24 Urine Protein Negative mg/dL (Neg-Trace) 09/16/24 Assessment & Plan Assessment & Plan (1) Essential hypertension: Comment: 2021 MRA negative Code(s): I10 - Essential (primary) hypertension Category: Medical Plan Low sodium diet and increase activity if possible C/W Amlodipine and Lisinopril @ current dose to AM May have to increase Amlodipine to 7.5 mg in the future if needed C/W Metoprolol to evening. Remain off Spironolactone for now Shall consider doing MRA renal arteries as well 24 hr BPM , if needed Renal function at baseline.No NSAID's. Maintain good hydration Answered all questions. Follow up given. Coding Level of Care Code Est Pt Level 4 (47046) Diagnoses Essential hypertension I10
[2024-10-29 14:16] VITALS: BP 150/62; PULSE 60; O2SAT 97; BMI 30.8
--- OUTSIDE RECORDS SUMMARY | 2024-10-29 16:27 | XMS_ITS | Data Portability ---
Author Organization [facility], [address] Address [address] [place] [address] Assessment No assessment recorded. Plan of Treatment Reminders Order Date Submit Date Provider Last Modified By Organization Details Last Modified Time Details Appointments None recorded. Lab rapid flu (A+B) 2022 023 [email or web address] _[facility], [address] [place] [address], [id number], 10:14:57 Referral None recorded. Procedures None recorded. Surgeries None recorded. Imaging XR, wrist, 3 or more view 2022 023 [facility], [address] [place], [address], 18:02:17 Medication Orders doxycycline monohydrate 100 mg capsule 2022 023 [id number], [address] [place], [address], 3 10:14:01 Patient TargetsNo targets recorded. Patient Instructions Encounter Date Encounter Id Patient Instructions Last Modified By Organization Details Last Modified Time 09/05/2022 [id number] Acute Sinusitis: Care Instructions Not available 09/05/2022 10:14:57 bronchitis: care instructions Not available 09/05/2022 10:15:36 10/22/2022 [id number] Your Care Instructions Your wrist hurts because [...] call your doctor or nurse advice line (403 in most provinces and territories) if you [...] your doctor if you can take an dugp-zdf-beybner medicine. Try not to use your injured [...] Normal = Negati ve Not Available [id number] [place], [address], 09/05/2022 09:36:52 09/05/19 23 09/05/2022 rapid flu (A+B) Unknown Analyte Normal = Negati ve Not Available [id number] [place], [address], 09/05/2022 09:36:52 09/05/19 23 09/05/2022 rapid flu (A+B) Unknown Analyte negati ve Not Available [address] [place] [address] [place], [address], 09/05/2022 09:36:52 09/05/1909/05/2022 rapid flu (A+B) Unknown Analyte negati ve Not Available [address] [place] [address] [place], [address], 09/05/2022 09:36:52 10/23/19 23 10/22/2022 XR, wrist , 3 or more view No observ ation record ed. [email or web address] [facility] [address] [facility] [place], [address], 10/25/2022 21:00:36 Result Notes None recorded. Problems Name Problem SNOMED Code Status Onset Date Resolution Date Notes Provider Name and Address Organization Details Recorded Time Hypertensive disorder 02781422 Active 2022 BRITNEY lopez PA - [facility] 3 09:35:03 Depressive disorder 44788816 Active 2022 BRITNEY lopez PA - [facility] 3 09:35:17 Gastroesophage al reflux disease 624772098 Active 2022 BRITNEY JODI lopez, PA - [facility] 3 09:35:27 Problem Notes None recorded. Procedures Surgical History Date Name Laterality Status Provider Name and Address Organization Details Recorded Time 10/23/19 23 WRIST SPLINT completed Jose Centeno NP [address], [place], [address], PA - [facility] 10/22/2022 17:16:55 10/23/19 23 Gautam Bandage completed Jose Centeno NP [address], [place], [address], PA - [facility] 10/22/2022 17:16:34 cholecystectomy completed BRITNEY Munroe A - [facility] 09/05/2022 09:36:24 section completed BRITNEY ZAPATA PA - [facility] 09/05/2022 09:36:40 Imaging Results Imaging Date Name Status LastModified by Organiz ation Details LastModified Time 10/22/2022 XR, wrist, 3 or more view completed [place] [id number] [facility] [address] [place], [address], 10/25/2022 21:00:36 Procedure Notes None recorded. Medical Equipment None Reported. Allergies Allergen ID Allergen Name Allergen Category Reaction Reaction Severity Criticality Documentation Date Start Date Code Code System Note Provider Name and Address Organization Details Recorded Time 656135 Product containin g penicilli n (product) medicatio n rash Not available Not available 09/05/2022 89353 8001 SNOMED BRITNEY lopez, PA - [facility] 3 09:30:22 294703 Demerol medicatio n nausea Not available Not available 09/05/2022 59243 1 RxNorm BRITNEYBRYNN lopez, [facility] - [facility] [...] Updated DateTime 3 156.21 cm 32 kg/m2 32661.8 9 g 97 [degF] 18 /min 98 % 98 % 60 /min 154 mm[Hg] 73 mm[Hg] ANN MORRIS NM [facility] [facility] 3 16:26:51 Date Recorded Body height Body mass index (BMI) Body weight Pain severity - 0-10 verbal numeric rating [Score] - Reported Respiratory rate Oxygen saturation Oxygen saturation in Arterial blood by Pulse oximetry Heart rate Body temperature Systolic blood pressure Diastolic blood pressure Provider Name and Address Organization Details Last Updated DateTime 3 156.21 cm 32 kg/m2 09780.8 9 g 8 18 /min 97 % 97 % 66 /min 97.9 [degF] 130 mm[Hg] 63 mm[Hg] BRITNEY ZAPATA NM [facility] 3 09:38:25 Social History Question Answer Notes LastModified by Organizat ion Details LastModified Time Tobacco Smoking Status Former Smoker RBITNEY lopez [employer] [facility] 09/05/2022 09:36:05 What Is Your Level Of Alcohol Consumption? Occasional [email or web address] Information not available 09/05/2022 How Many Times Per Week Do You Consume Alcohol? 1-2 Times Per Week [email or web address] Information not available 09/05/2022 Do You Use Any Illicit Or Recreational Drugs? No Information not available 09/05/2022 Have You Recently Traveled Abroad? No [email or web address] Information not available 09/05/2022 Do You Or Have You Ever Used Any Other Forms Of Tobacco Or Nicotine? No [email or web address] Information not available 09/05/2022 Sex: Unknown Functional Status None recorded. Mental Status None recorded. Family History Relationship Description Onset Age of this Age Resolved Age Notes LastModified by Organization Details LastModified Time Father No current problems or disability [email or web address] Not available 09/05 09:35:31 Mother No current problems or disability [email or web address] Not available 09/05 09:35:31 Medical History No medical history recorded. Gynecological HistoryNo gynecological history recorded. Obstetrics History GPAL:G 0 P 0 0 0 0 Past Encounters Encounter ID Performer Location Encounter Start Date Encounter Closed Date Diagnosis/Indication Diagnosis SNOMED-CT Code Diagnosis ICD10 Code Diagnosis Note [id number] [address] [place] [address] 05/13/2020 16:59:51 05/13/2020 18:09:52 [id number] [address] [place] [address] 05/10/2017 17:34:20 05/10/2017 18:36:40 [id number] [address] [place] [address] 09/30/2016 11:59:08 09/30/2016 12:29:05 [id number] [address] [place] [address] 07/08/2018 11:34:17 07/08/2018 13:05:47 [id number] [address] [place] [address] 02/14/2017 16:38:02 02/14/2017 17:10:37 [id number] Deep Griffin MD [address] [place] [address] 09/05/2022 09:11:09 09/05/2022 10:16:25 Acute sinusitis 04280581 J01.90 Please follow up with PCP or Urgent Care in 3-5 days if no improvemen t or if any new symptoms occur that are concerning .Call 911 or go to nearest ER if you develop any shortness of breath, chest pain, severe headache, dizziness, or other concerning symptoms Acute bronchitis 2078837 2 J20.9 [id number] Jose Moeaz, BOIE [address] [facility] [address] [place] [address] 10/22/2022 13:00:56 10/22/2022 17:17:22 Fall on same level from slipping, tripping or stumbling 114345018 W01.0XXA Pain of right wrist 3169 633094 26929 M25.531 Health Concerns Section Related Observation LastModified by Organization Detai ls LastModified Time None Recorded Concern Status LastModified by Organization Details LastModified Time None Recorded Advance Directives Directive None Recorded Payers Encounter Date Sequence Insurance Name Policy Number Policy Portillo Covered Member ID Portillo Member ID Guarantor Name 05/13/2020 1 [place] [employer] Lucas Bakari Adair [id number] [facility] 05/13/[address] [facility] 1 (MEDICARE SUPPLEMENT) [id number] Lucas Bakari Adair [id number] [facility] 09/05/2022 1 [place] [employer] Lucas Bakari Adair [id number] [facility] 09/05/[address] [facility] 1 (MEDICARE SUPPLEMENT) [id number] Lucas Bakari Adair [id number] [facility] 10/22/2022 1 [place] [employer] Lucas Bakari Adair [id number] [facility] 10/22/[address] [facility] 1 (MEDICARE SUPPLEMENT) [id number] 1 [facility] Giovany [id number] [facility] Notes Date Note Type Note Provider Name and Address Organization Details Recorded Time 3 text/html CoughReported bypatient.Associated Symptoms:no fever; no chills; no nausea; no vomiting Deep Griffin MD [address] [place], [address], [place] - [facility] 09/05/2022 10:16:27 3 [...] Centeno NP [address] [place], [address], PA - [facility] 10/22/2022 17:17:37 OBGyn Episode No OBEpisode recorded.
== END 2024-10-29 14:40 | disposition home or self-care (01) ==
LOC: HO.HKA 14:06
PROVIDERS: PCP Family Medicine; Visit Provider Internal Medicine Nephrology
DX: I10 Essential (primary) hypertension (principal)
CPT/HCPCS: 99214

== ENCOUNTER → 2024-10-29 14:06 | Outpatient (BNVA) | payer MEDICARE, OTHER, SELFPAY | PROVIDERS: PCP Family Medicine; Visit Provider Internal Medicine Nephrology | DX: I10 Essential (primary) hypertension (principal) | CPT/HCPCS: 99212 ==

== ENCOUNTER 2024-11-26 12:57 | Outpatient (AMB) | payer MEDICARE, OTHER, SELFPAY ==
--- NOTE | 2024-11-26 13:01 | A.OFFVIS_ITS ---
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 Required: No Accompanied by: Self / Same As Patient Allergies penicillin G [Penicillin G] Allergy (Mild, Verified 10/29/24 14:15) RASH penicillin V Allergy (Unknown, Verified 10/29/24 14:15) RASH meperidine [From Demerol] Adverse Reaction (Mild, Verified 10/29/24 14:15) ABDOMINAL CRAMPS Medication List - Last Reconciled 11/26/24 by Abhishek Castro MD amlodipine 5 mg PO DAILY carbamazepine 200 mg PO BID cetirizine 10 mg PO DAILY PRN citalopram 20 mg PO DAILY ergocalciferol (vitamin D2) 1,250 mcg PO QWEEK lisinopril 20 mg PO DAILY lorazepam 0.5 mg PO DAILY PRN metoprolol succinate ER 50 mg PO DAILY omeprazole 20 mg PO DAILY propylene glycol 0.6% (Systane Balance) 1 drp ophthalmic (eye) QID PRN rosuvastatin 40 mg PO BEDTIME HPI Comments Details: 79-year-old female who is here for follow-up. She was seen in the hospital which presented with elevated blood pressures and dizziness. She also had mildly abnormal troponin levels. She was thought to have type 2 injury due to high blood pressure. Her blood pressure medications were adjusted. Because she was on multiple medications she had a renal ultrasound which raise concern for renal artery stenosis. She was referred to Dr. Sutherland with vascular surgery underwent angiography which did not show any significant renal artery stenosis. She underwent Lexiscan which did not show any perfusion defects. She is back for follow-up. Her blood pressure has been high when she comes in the office. She was given a blood pressure monitor and she brought blood pressure readings from home which are normal. She is saying she is quite anxious when she comes for doctor visits and maybe that is why her blood pressure is elevated in the office. She is denying any other issues right now. No chest pain or shortness of breath. 11/14/23: She returns for follow-up. Blood pressure is well controlled. She has been experiencing some tingling and numbness in her thumb index finger and middle finger on the left hand. She has been dropping things out of this had also. She said she has been using this hand more frequently because the right hand had injury and she was recovering from that and had to do dishes etc. from left hand. 11/27/2023: She is here for follow-up after 1 year. She is doing fine. Blood pressure is well controlled. Occasionally gets palpitations. Sometimes get chest discomfort which improves with burping. She is saying this happens after eating. These symptoms appear to be GI related. [facility] Medical History (Updated 10/02/24 @ 07:48 by Walter William MD) TRIPLETT (dyspnea on exertion) Elevated troponin GERD (gastroesophageal reflux disease) Hypercholesterolemia Hypertension Surgical History History of tonsillectomy History of appendectomy History of hysterectomy Hx of cholecystectomy History of bladder suspension procedure History of section Family History Father Aneurysm Stroke Mother No problems noted. Maternal Aunt Ovarian cancer Maternal Aunt Uterine cancer Son Brain aneurysm Mental health disorder Daughter In good health Social History Household Members: None Housing: House Do you presently have visiting nurse or other home services: No Unable to assess alcohol history related to: Unknown Alcohol intake: current Alcohol intake frequency: holidays/special occasions only Alcohol type: wine Comment: 2 drinks once a month Patient Tobacco Use Status: Former Tobacco user Tobacco use type: Cigarette Years Smoked: 4 x a year 2 cigarettes e-Cigarette/Vaping Use: Never Used Second Hand Smoke Exposure: No service: No Current occupational status: retired Cognitive needs: No Hearing needs: No Vision needs: Yes Review of Systems Const Denies chills, Denies fatigue, Denies fever(s), Denies frequent falls, Denies weakness, Denies weight gain and Denies weight loss ENT Denies dizziness Card Denies chest pain, Denies leg edema, Denies lightheadedness, Denies palpitations, Denies dyspnea and Denies dyspnea on exertion Resp Denies cough, Denies dyspnea and Denies dyspnea on exertion GI Denies hematochezia Musc Denies abnormal gait, Denies muscle weakness, Denies numbness, Denies radiating pain into limb and Denies tingling Neuro Denies abnormal gait, Denies dizziness, Denies frequent falls, Denies numbness, Denies tingling and Denies weakness Endo Denies fatigue and Denies palpitations Physical Exam Vital Signs: Last Vital Signs Pulse 58 11/26/24 13:04 BP 132/64 11/26/24 13:04 BMI result Body Mass Index 30.7 GENERAL APPEARANCE: in no acute distress, pleasant. NECK: no carotid bruit, no jugular venous distention. SKIN: no suspicious lesions, warm and dry. HEART: no murmurs, regular rate and rhythm. LUNGS: clear to auscultation bilaterally. ABDOMEN: soft, nontender. EXTREMITIES: no edema. PERIPHERAL PULSES: equal. NEUROLOGIC: No gross deficits, AAO X 3 Office Procedures EKG Details: Sinus bradycardia 58 beats per minute, otherwise normal EKG, QTC 400 milliseconds. [id number], Complete Assessment & Plan Assessment & Plan (1) Essential hypertension: Comment: 2021 MRA negative Code(s): I10 - Essential (primary) hypertension Category: Medical Plan Very pleasant 79-year-old female who is here for follow-up. She has background history of hypertension. Blood pressure is well controlled currently. She had a Lexiscan in the past which was normal. Overall she has been doing well. She will follow up with us in 1 year. We will set her up with 1 of the nurse practitioners. Thank you for allowing me to participate in the care of your patient. Please feel free to contact me if you have any questions. Coding Level of Care Code Est Pt Level 3 (75825) Diagnoses Essential hypertension I10 CPT Codes EKG - CPT: 57608-Xzxehsttatmkbfnwo, Complete ([id number])
[2024-11-26 13:04] VITALS: BP 132/64; PULSE 58; BMI 30.7
== END 2024-11-26 13:24 | disposition home or self-care (01) ==
LOC: HO.HCS 12:58
PROVIDERS: PCP Family Medicine; Visit Provider Internal Medicine Cardiovascular Disease
DX: I10 Essential (primary) hypertension (principal)
CPT/HCPCS: 93010; 99213

== ENCOUNTER → 2024-11-26 12:57 | Outpatient (BNVA) | payer MEDICARE, OTHER, SELFPAY | PROVIDERS: PCP Family Medicine; Visit Provider Internal Medicine Cardiovascular Disease | DX: I10 Essential (primary) hypertension (principal) | CPT/HCPCS: 93005; 99212 ==

== ENCOUNTER 2024-12-30 13:28 | Outpatient (AMB) | payer MEDICARE, OTHER, SELFPAY ==
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
[2024-12-30 13:35] VITALS: BP 134/82; PULSE 70; O2SAT 96
--- OUTSIDE RECORDS SUMMARY | 2024-12-30 14:40 | XMS_ITS | Data Portability ---
Author Organization [facility], [address] Address [address] [place] [address] Assessment No assessment recorded. Plan of Treatment Reminders Order Date Submit Date Provider Last Modified By Organization Details Last Modified Time Details Appointments None recorded. Lab rapid flu (A+B) 2022 [email or web address], [address] [place] [address], [address], 10:14:57 Referral None recorded. Procedures None recorded. Surgeries None recorded. Imaging XR, wrist, 3 or more view 2022 023 [facility], [address] [place], [address], 18:02:17 Medication Orders doxycycline monohydrate 100 mg capsule 2022 023 [facility]/Pharmacy #[id number], [address] [place], [address], 10:14:01 Patient TargetsNo targets recorded. Patient Instructions Encounter Date Encounter Id Patient Instructions Last Modified By Organization Details Last Modified Time 09/05/2022 [id number] Acute Sinusitis: Care Instructions Not available 09/05/2022 10:14:57 bronchitis: care instructions Not available 09/05/2022 10:15:36 10/22/2022 [id number] Your Care Instructions Your wrist hurts because [...] call your doctor or nurse advice line (294 in most provinces and territories) if you [...] your doctor if you can take an pvcz-mdq-jjhujfn medicine. Try not to use your injured [...] Normal = Negati ve Not Available 2099hermann [address] [place], [address], 09/05/2022 09:36:52 09/05/19 23 09/05/2022 rapid flu (A+B) Unknown Analyte Normal = Negati ve Not Available [id number] [place], [address], 09/05/2022 09:36:52 09/05/19 23 09/05/2022 rapid flu (A+B) Unknown Analyte negati ve Not Available [address] [place] [address] [place], [address], 09/05/2022 09:36:52 09/05/1909/05/2022 rapid flu (A+B) Unknown Analyte negati ve Not Available [address] [place] [address] [place], [address], 09/05/2022 09:36:52 10/23/19 23 10/22/2022 XR, wrist , 3 or more view No observ ation record ed. [facility] [address] [facility] [place], [address], 10/25/2022 21:00:36 Result Notes None recorded. Problems Name Problem SNOMED Code Status Onset Date Resolution Date Notes Provider Name and Address Organization Details Recorded Time Hypertensive disorder 36644916 Active 2022 BRITNEY lopez PA - [facility] 3 09:35:03 Depressive disorder 40512706 Active 2022 BRITNEY lopez PA - [facility] 3 09:35:17 Gastroesophage al reflux disease 886441259 Active 2022 BRITNEY JODI lopez, PA - [facility] 3 09:35:27 Problem Notes None recorded. Procedures Surgical History Date Name Laterality Status Provider Name and Address Organization Details Recorded Time 10/23/19 23 WRIST SPLINT completed Jose Centeno NP [address], [address], PA - [facility] 10/22/2022 17:16:55 10/23/19 23 Gautam Bandage completed Jose Centeno NP [address], [place], [address], PA - [facility] 10/22/2022 17:16:34 cholecystectomy completed BRITNEY Munroe A - [facility] 09/05/2022 09:36:24 section completed BRITNEY ZAPATA PA - [facility] 09/05/2022 09:36:40 Imaging Results Imaging Date Name Status LastModified by Organiz ation Details LastModified Time 10/22/2022 XR, wrist, 3 or more view completed [place] [address] [facility] [address] [place], [address], 10/25/2022 21:00:36 Procedure Notes None recorded. Medical Equipment None Reported. Allergies Allergen ID Allergen Name Allergen Category Reaction Reaction Severity Criticality Documentation Date Start Date Code Code System Note Provider Name and Address Organization Details Recorded Time 275453 Product containin g penicilli n (product) medicatio n rash Not available Not available 09/05/2022 67818 8001 SNOMED BRITNEY lopez, PA - [facility] 3 09:30:22 283571 Demerol medicatio n nausea Not available Not available 09/05/2022 75300 1 RxNorm BRITNEYBRYNN lopez, [facility] - [facility] [...] Updated DateTime 3 156.21 cm 32 kg/m2 08286.8 9 g 97 [degF] 18 /min 98 % 98 % 60 /min 154 mm[Hg] 73 mm[Hg] ANN MORRIS [email or web address] 3 16:26:51 Date Recorded Body height Body mass index (BMI) Body weight Respiratory rate Oxygen saturation Oxygen saturation in Arterial blood by Pulse oximetry Heart rate Body temperature Systolic blood pressure Diastolic blood pressure Provider Name and Address Organization Details Last Updated DateTime 3 156.21 cm 32 kg/m2 48903.8 9 g 18 /min 97 % 97 % 66 /min 97.9 [degF] 130 mm[Hg] 63 mm[Hg] BRITNEY ZAPATA [email or web address] 3 09:38:25 Social History Question Answer Notes LastModified by [email or web address] Details LastModified Time Tobacco Smoking Status Former Smoker BRITNEY lopez [facility] 09/05/2022 09:36:05 Have You Recently Traveled Abroad? No [email or web address] Information not available 09/05/2022 Sex: Unknown Functional Status Question Answer Note LastModified by [email or web address] Details LastModified Time How many times per week do you consume alcohol? 1-2 times per week Information not available 09/05/2022 Do you use any illicit or recreational drugs? No [email or web address] Information not available 09/05/2022 Do you or have you ever used any other forms of tobacco or nicotine? No Information not available 09/05/2022 What is your level of alcohol consumption? Occasional [email or web address] Information not available 09/05/2022 Mental Status None recorded. Family History Relationship Description Onset Age of this Age Resolved Age Notes LastModified by Organization Details LastModified Time Father No current problems or disability [email or web address] Not available 09/05 09:35:31 Mother No current problems or disability [email or web address] Not available 09/05 09:35:31 Medical History No medical history recorded. Gynecological HistoryNo gynecological history recorded. Obstetrics History GPAL:G 0 P 0 0 0 0 Past Encounters Encounter ID Performer Location Encounter Start Date Encounter Closed Date Diagnosis/Indication Diagnosis SNOMED-CT Code Diagnosis ICD10 Code Diagnosis Note [id number] [address] [place] [address] 05/13/2020 16:59:51 05/13/2020 18:09:52 [id number] [address] [place] [address] 05/10/2017 17:34:20 05/10/2017 18:36:40 [id number] [address] [place] [address] 09/30/2016 11:59:08 09/30/2016 12:29:05 [id number] [address] [place] [address] 07/08/2018 11:34:17 07/08/2018 13:05:47 [id number] [address] [place] [address] 02/14/2017 16:38:02 02/14/2017 17:10:37 [id number] Deep Griffin MD [address] [place] [address] 09/05/2022 09:11:09 09/05/2022 10:16:25 Acute sinusitis 45226615 J01.90 Please follow up with PCP or Urgent Care in 3-5 days if no improvemen t or if any new symptoms occur that are concerning .Call 911 or go to nearest ER if you develop any shortness of breath, chest pain, severe headache, dizziness, or other concerning symptoms Acute bronchitis 7110634 2 J20.9 [id number] Jose Centeno NP [address] [place] [address] 10/22/2022 13:00:56 10/22/2022 17:17:22 Fall on same level from slipping, tripping or stumbling 372233088 W01.0XXA Pain of right wrist 3169 932115 36165 M25.531 Health Concerns Section Related Observation LastModified by Organization Detai ls LastModified Time None Recorded Concern Status LastModified by Organization Details LastModified Time None Recorded Advance Directives Directive None Recorded Payers Insurance Date Sequence Insurance Name Policy Number Policy Portillo Covered Member ID Portillo Member ID Guarantor Name 01/13/2023 NORIDIAN - SPECIALITY CLAIMS (MEDICARE DME REGION A) [facility] [id number] [facility] 10/22/2022 1 MEDIC[place] NATIONAL GOVERNMENT SERVICES [place] Bakari Giovany [id number] [facility] 01/13/2023 2 [facility] - PLAN 1 (MEDICARE SUPPLEMENT) [id number] 1 [facility] [id number] [facility] Notes Date Note Type Note Provider Name and Address Organization Details Recorded Time 3 text/html CoughReported bypatient.Associated Symptoms:no fever; no chills; no nausea; no vomiting Deep Griffin MD [facility] [place], [address], PA - [facility] 09/05/2022 10:16:27 3 [...] Centeno NP [address] [place], [address], PA - [facility] 10/22/2022 17:17:37 OBGyn Episode No OBEpisode recorded.
== END 2024-12-30 14:52 | disposition home or self-care (01) ==
LOC: HO.HMCH 13:29
PROVIDERS: PCP Internal Medicine; Visit Provider Internal Medicine
DX: Z00.00 Encounter for general adult medical examination without abnormal findings (principal); M85.80 Other specified disorders of bone density and structure, unspecified site; I10 Essential (primary) hypertension; K21.9 Gastro-esophageal reflux disease without esophagitis; E78.00 Pure hypercholesterolemia, unspecified; F41.1 Generalized anxiety disorder; N95.2 Postmenopausal atrophic vaginitis; R41.89 Other symptoms and signs involving cognitive functions and awareness

== ENCOUNTER → 2024-12-30 13:28 | Outpatient (BNVA) | payer MEDICARE, OTHER, SELFPAY | PROVIDERS: PCP Internal Medicine; Visit Provider Internal Medicine | DX: Z00.00 Encounter for general adult medical examination without abnormal findings (principal); M85.80 Other specified disorders of bone density and structure, unspecified site; I10 Essential (primary) hypertension; E78.00 Pure hypercholesterolemia, unspecified; K21.9 Gastro-esophageal reflux disease without esophagitis; F41.1 Generalized anxiety disorder; N95.2 Postmenopausal atrophic vaginitis; R41.89 Other symptoms and signs involving cognitive functions and awareness | CPT/HCPCS: 96127 ==

== ENCOUNTER 2024-12-31 10:58 | Outpatient (REF) | payer MEDICARE, OTHER, SELFPAY ==
[2024-12-31 11:44] LABS: Appearance Urine Cloudy; Color Urine Dark Yellow; Glucose Urine UA Negative (Negative); Leukocyte Esterase Urine Small (1+) (Negative); Nitrite Urine Negative (Negative); PH 5.5 (5.0-9.0); UMIC TRIGGER UACC YES; Urine Blood Negative (Negative); Urine Ketones Trace mg/dL (Negative); Urine Protein 30 (1+) mg/dL (Neg-Trace)
[2024-12-31 11:53] LABS: Bacteria Urine 3+ (None Seen); Hyaline Casts Urine 0-2 /LPF (0-2); RBC Urine 0-2 /HPF (0-2); UACC Culture Trigger YES
== END 2024-12-31 10:59 | disposition home or self-care (01) ==
LOC: HO.LAB 10:58
PROVIDERS: PCP Internal Medicine; Visit Provider Internal Medicine
DX: R30.0 Dysuria (principal); N95.2 Postmenopausal atrophic vaginitis; E78.00 Pure hypercholesterolemia, unspecified
CPT/HCPCS: 81001; 87086

== ENCOUNTER 2025-01-28 13:56 | Outpatient (AMB) | payer MEDICARE, OTHER, SELFPAY ==
--- NOTE | 2025-01-28 14:18 | HO.NEPHOV_ITS ---
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 She has a history of TIA. She has no H/O CAD, CHF, PAD, carotid disease or KIMBERLY. Her renal function is at baseline and has no significant CKD. She monitors her BP carefully but feels it had been fluctuant. She recently had a hospitalization during which her Spironolactone had been discontinued, reason for which is unclear( no H/O hyperkalemia or hypotension as per patient). Her weight has been stable and has no edema. She had no other specific complaints at the time of this office visit. [facility] Medical History (Updated 12/30/24 @ 14:40 by Prateek Campoverde MD) Osteoporosis TRIPLETT (dyspnea on exertion) Elevated troponin GERD (gastroesophageal reflux disease) Hypercholesterolemia Hypertension Surgical History History of tonsillectomy History of appendectomy History of hysterectomy Hx of cholecystectomy History of bladder suspension procedure History of section Family History Father Aneurysm Stroke Mother No problems noted. Maternal Aunt Ovarian cancer Maternal Aunt Uterine cancer Son Brain aneurysm Mental health disorder Daughter In good health Social History Household Members: None Housing: House Do you presently have visiting nurse or other home services: No Unable to assess alcohol history related to: Unknown Alcohol intake: current Alcohol intake frequency: holidays/special occasions only Alcohol type: wine Comment: 2 drinks once a month Patient Tobacco Use Status: Former Tobacco user Tobacco use type: Cigarette Years Smoked: 4 x a year 2 cigarettes e-Cigarette/Vaping Use: Never Used Second Hand Smoke Exposure: No service: No Current occupational status: retired Cognitive needs: No Hearing needs: No Vision needs: Yes Review of Systems Const All systems reviewed & are unremarkable except as noted in HPI and below Physical Exam Const General: comfortable and no acute distress Orientation/consciousness: patient oriented x3 HEENT Head: Yes normocephalic Mouth: Normal oral and palatal mucosa present Eyes EOM: EOMs intact bilaterally Neck Neck: Yes supple Resp Auscultation: clear to auscultation bilaterally Cardio Jugular venous distension: no JVD Rate: regular rate GI Palpation (GI): Soft to palpation Auscultation: normal bowel sounds General: Yes no CVA tenderness Back/Spine/Pelvis Back: no CVA tenderness Skin General skin exam: no rashes or lesions noted Neuro General: patient oriented x3 and moves all extremities Extrem General: Yes no pedal edema Results Reviewed Nephrology Results: Hgb, (12.0-16.0) 13.1 g/dl 09/16/24 WBC, (4.8-10.8) 7.4 X10*3/uL 09/16/24 Plt Count, (160-400) 202 X10*3/uL 09/16/24 Sodium, (135-145) 140 mmol/L 09/16/24 Potassium, (3.3-5.1) 4.8 mmol/L 09/16/24 Chloride, (96-108) 102 mmol/L 09/16/24 Carbon Dioxide, (22-29) 25 mmol/L 09/16/24 BUN, (9-16) 8 mg/dL L 09/16/24 Creatinine, (0.5-1.4) 0.80 mg/dL 09/16/24 Calcium, (8.4-10.2) 9.1 mg/dL 09/16/24 Urine Protein, (Neg-Trace) 30 (1+) mg/dL H 12/31/24 Renal US 01/04/22 Assessment & Plan Assessment & Plan (1) Essential hypertension: Comment: 2021 MRA negative Code(s): I10 - Essential (primary) hypertension Category: Medical Plan Low sodium diet and increase activity if possible C/W Amlodipine and Lisinopril @ current dose to AM May have to increase Amlodipine to 7.5 mg in the future if needed C/W Metoprolol to evening. Remain off Spironolactone for now Had MRA renal arteries in 2021( neg); May need 24 hr BPM if BP goes up Renal function at baseline.No NSAID's. Maintain good hydration Answered all questions. Follow up given. Coding Level of Care Code Est Pt Level 4 (31061) Diagnoses Essential hypertension I10
[2025-01-28 14:19] VITALS: BP 120/70; PULSE 61; O2SAT 95; BMI 29.9
--- OUTSIDE RECORDS SUMMARY | 2025-01-28 16:00 | XMS_ITS | Data Portability ---
Author Organization [facility], [address] Address [address] [place] [address] Assessment No assessment recorded. Plan of Treatment Reminders Order Date Submit Date Provider Last Modified By Organization Details Last Modified Time Details Appointments None recorded. Lab rapid flu (A+B) 2022 023 [email or web address] _[facility], [address] [place] [address], [address], 10:14:57 Referral None recorded. Procedures None recorded. Surgeries None recorded. Imaging XR, wrist, 3 or more view 2022 023 [facility], [address] [place], [address], 18:02:17 Medication Orders doxycycline monohydrate 100 mg capsule 2022 023 better. [facility]/Pharmacy #[id number], [address] [place], [address], 3 10:14:01 Patient TargetsNo targets recorded. Patient Instructions Encounter Date Encounter Id Patient Instructions Last Modified By Organization Details Last Modified Time 09/05/2022 [id number] Acute Sinusitis: Care Instructions Not available 09/05/2022 10:14:57 bronchitis: care instructions Not available 09/05/2022 10:15:36 10/22/2022 [id number] Your Care Instructions Your wrist hurts because [...] call your doctor or nurse advice line (928 in most provinces and territories) if you [...] your doctor if you can take an gfxx-bsb-pohxagb medicine. Try not to use your injured [...] Normal = Negati ve Not Available 2099hermann [address] [place], [address], 09/05/2022 09:36:52 09/05/19 23 09/05/2022 rapid flu (A+B) Unknown Analyte Normal = Negati ve Not Available [address] [place], [address], 09/05/2022 09:36:52 09/05/19 23 09/05/2022 rapid flu (A+B) Unknown Analyte negati ve Not Available [address] [place] [address] [place], [address], 09/05/2022 09:36:52 09/05/1909/05/2022 rapid flu (A+B) Unknown Analyte negati ve Not Available [address] [place] [address] [place], [address], 09/05/2022 09:36:52 10/23/19 23 10/22/2022 XR, wrist , 3 or more view No observ ation record ed. [email or web address] [facility] [address] [facility] [place], [address], 10/25/2022 21:00:36 Result Notes None recorded. Problems Name Problem SNOMED Code Status Onset Date Resolution Date Notes Provider Name and Address Organization Details Recorded Time Hypertensive disorder 06549491 Active 2022 BRITNEY lopez PA - [facility] 3 09:35:03 Depressive disorder 05266159 Active 2022 BRITNEY lopez PA - [facility] 3 09:35:17 Gastroesophage al reflux disease 735721362 Active 2022 BRITNEY lopez, PA - [facility] 3 09:35:27 Problem Notes None recorded. Procedures Surgical History Date Name Laterality Status Provider Name and Address Organization Details Recorded Time 10/23/19 23 WRIST SPLINT completed Jose Centeno NP [address] [facility] [place], [address], PA - [facility] 10/22/2022 17:16:55 10/23/19 23 Gautam Bandage completed Jose Centeno NP [address] [place], [address], PA - [facility] 10/22/2022 17:16:34 cholecystectomy completed BRITNEYBRYNN Munroe A - [facility] 09/05/2022 09:36:24 section completed BRITNEY ZAPATA PA - [facility] 09/05/2022 09:36:40 Imaging Results None recorded. Procedure Notes None recorded. Medical Equipment None Reported. Allergies Allergen ID Allergen Name Allergen Category Reaction Reaction Severity Criticality Documentation Date Start Date Code Code System Note Provider Name and Address Organization Details Recorded Time 329909 Product containin g penicilli n (product) medicatio n rash Not available Not available 09/05/2022 05607 8001 SNOMED BRITNEY lopez, PA - [facility] 3 09:30:22 460546 Demerol medicatio n nausea Not available Not available 09/05/2022 94116 1 RxNorm BRITNEYBRYNN lopez, [facility] - [facility] [...] Updated DateTime 3 156.21 cm 32 kg/m2 69033.8 9 g 18 /min 97 % 97 % 66 /min 97.9 [degF] 130 mm[Hg] 63 mm[Hg] BRITNEY ZAPATA PA - [facility] 3 09:38:25 Date Recorded Body height Body mass index (BMI) Body weight Body temperature Respiratory rate Oxygen saturation Oxygen saturation in Arterial blood by Pulse oximetry Heart rate Systolic blood pressure Diastolic blood pressure Provider Name and Address Organization Details Last Updated DateTime 3 156.21 cm 32 kg/m2 85659.8 9 g 97 [degF] 18 /min 98 % 98 % 60 /min 154 mm[Hg] 73 mm[Hg] ANN ALEXANDRA PA - [facility] 3 16:26:51 Social History Question Answer Notes LastModified by [employer] Details LastModified Time Tobacco Smoking Status Former Smoker BRITNEY lopez PA - [facility] 09/05/2022 09:36:05 Have You Recently Traveled Abroad? No [email or web address] Information not available 09/05/2022 Sex: Unknown Functional Status Question Answer Note LastModified by [employer] Details LastModified Time How many times per week do you consume alcohol? 1-2 times per week [email or web address] Information not available 09/05/2022 Do you use any illicit or recreational drugs? No Information not available 09/05/2022 Do you or have you ever used any other forms of tobacco or nicotine? No [email or web address] Information not available 09/05/2022 What is your level of alcohol consumption? Occasional Information not available 09/05/2022 Mental Status None recorded. Family History Relationship Description Onset Age of this Age Resolved Age Notes LastModified by Organization Details LastModified Time Father No current problems or disability [email or web address] Not available 09/05 09:35:31 Mother No current problems or disability [email or web address] Not available 09/05 09:35:31 Medical History No medical history recorded. Gynecological HistoryNo gynecological history recorded. Obstetrics History GPAL:G 0 P 0 0 0 0 Past Encounters Encounter ID Performer Location Encounter Start Date Encounter Closed Date Diagnosis/Indication Diagnosis SNOMED-CT Code Diagnosis ICD10 Code Diagnosis Note [id number] [address] [address] [place] [address] 05/13/2020 16:59:51 05/13/2020 18:09:52 [id number] [address] [address] [place] [address] 05/10/2017 17:34:20 05/10/2017 18:36:40 [id number] [address] [address] [place] [address] 09/30/2016 11:59:08 09/30/2016 12:29:05 [id number] [address] [facility] [place] [address] 07/08/2018 11:34:17 07/08/2018 13:05:47 [id number] [address] [facility] [address] [place] [address] 02/14/2017 16:38:02 02/14/2017 17:10:37 [id number] Deep Griffin MD [address] [place] [address] 09/05/2022 09:11:09 09/05/2022 10:16:25 Acute sinusitis 88824612 J01.90 Please follow up with PCP or Urgent Care in 3-5 days if no improvemen t or if any new symptoms occur that are concerning .Call 911 or go to nearest ER if you develop any shortness of breath, chest pain, severe headache, dizziness, or other concerning symptoms Acute bronchitis 7792493 2 J20.9 [id number] [place] Centeno [place] [address] [place] [address] 10/22/2022 13:00:56 10/22/2022 17:17:22 Fall on same level from slipping, tripping or stumbling 700701945 W01.0XXA Pain of right wrist 3169 224257 74304 M25.531 Health Concerns Section Related Observation LastModified by Organization Detai ls LastModified Time None Recorded Concern Status LastModified by Organization Details LastModified Time None Recorded Advance Directives Directive None Recorded Payers Insurance Date Sequence Insurance Name Policy Number Policy Portillo Covered Member ID Portillo Member ID Guarantor Name 01/13/2023 NORIDIAN - SPECIALITY CLAIMS (MEDICARE DME REGION A) [place] Bakari Giovany [id number] [facility] 10/22/2022 1 MEDICARE B-[place]: NATIONAL GOVERNMENT SERVICES [place] Bakari Adair [id number] [facility] 01/13/2023 2 [facility] - PLAN 1 (MEDICARE SUPPLEMENT) [id number] 1 Met[place] Bakari Giovany [id number] [facility] Notes Date Note Type Note Provider Name and Address Organization Details Recorded Time 3 text/html CoughReported bypatient.Associated Symptoms:no fever; no chills; no nausea; no vomiting Deep Griffin MD [address] [place], [address], [place] Aunt Bertha [facility] 09/05/2022 10:16:27 3 text/html FallReported bypatient.source [...] a blood thinner Jose Centeno NP [address] [place], [address], [place] PA - [facility] 10/22/2022 17:17:37 OBGyn Episode No OBEpisode recorded.
== END 2025-01-28 14:36 | disposition home or self-care (01) ==
LOC: HO.HKA 13:57
PROVIDERS: PCP Family Medicine; Visit Provider Internal Medicine Nephrology
DX: I10 Essential (primary) hypertension (principal)
CPT/HCPCS: 99214

== ENCOUNTER → 2025-01-28 13:56 | Outpatient (BNVA) | payer MEDICARE, OTHER, SELFPAY | PROVIDERS: PCP Family Medicine; Visit Provider Internal Medicine Nephrology | DX: I10 Essential (primary) hypertension (principal) | CPT/HCPCS: 99212 ==

== ENCOUNTER 2025-01-31 09:56 | Outpatient (REF) | payer MEDICARE, OTHER, SELFPAY ==
--- NOTE | ~2025-01-31 | CT_ITS ---
CLINICAL HISTORY: R41.89 - Other symptoms and signs involving cognitive functions and awar... CT head without contrast Comparison: None provided Findings: No intra-axial mass, midline shift, hydrocephalus, or acute hemorrhage. There are bilateral small low-attenuation foci in the basal ganglia, likely prominent perivascular spaces, less likely multiple small chronic lacunar infarcts. There is minimal cerebral atrophy. The visualized paranasal sinuses and mastoid air cells are normal. The orbits are unremarkable. There is no acute fracture. IMPRESSION: 1. No acute intracranial findings. 2. Bilateral small low-attenuation foci in the basal ganglia, which are likely prominent perivascular spaces, but could be small old lacunar infarcts. This document has been electronically signed by: Bello Mejia MD on 02/07/2025 13:03:05
== END 2025-01-31 09:57 | disposition home or self-care (01) ==
LOC: HO.CT 09:56
PROVIDERS: PCP Internal Medicine; Visit Provider Internal Medicine
DX: R41.89 Other symptoms and signs involving cognitive functions and awareness (principal)
CPT/HCPCS: 70450

== ENCOUNTER → 2025-01-31 09:58 | Outpatient (BNV) | payer MEDICARE, OTHER, SELFPAY | PROVIDERS: PCP Internal Medicine; Visit Provider Radiology Diagnostic Radiology | DX: G31.9 Degenerative disease of nervous system, unspecified (principal) | CPT/HCPCS: 70450 ==

== ENCOUNTER 2025-04-16 14:38 | Outpatient (REF) | payer MEDICARE, OTHER, SELFPAY ==
--- NOTE | ~2025-04-16 | MM_ITS ---
EXAMINATION: MM SCREENING DIGITAL BREAST TOMOSYNTHESIS, BILATERAL CLINICAL INFORMATION: Screening. Asymptomatic. COMPARISON: Mammography: Comparison is made with available priors TECHNIQUE: Digital breast mammography with tomosynthesis is performed in both the craniocaudal and mediolateral oblique views along with computer-aided detection (CAD). FINDINGS: There are scattered areas of fibroglandular density (ACR BI-RADS breast composition Category b). There are no significant masses, abnormal calcifications, or other abnormalities. MM/MM tomosynthesis screening BI IMPRESSION: No mammographic evidence of malignancy. ASSESSMENT: BI-RADS BI-RADS 1 - Negative RECOMMENDATION: Routine annual mammography screening. 1 year F/U This examination should not preclude the clinical evaluation of a suspicious palpable abnormality. This patient's information was entered into a reminder system with a target due date for their next mammogram. Electronically signed by: Meera Walker DO 04/20/2025 02:17 PM EDT
== END 2025-04-16 14:39 | disposition home or self-care (01) ==
LOC: HO.MAMMO 14:38
PROVIDERS: PCP Internal Medicine; Visit Provider Internal Medicine
DX: Z12.31 Encounter for screening mammogram for malignant neoplasm of breast (principal)
CPT/HCPCS: 77063; 77067

== ENCOUNTER → 2025-04-16 15:00 | Outpatient (BNV) | payer MEDICARE, OTHER, SELFPAY | PROVIDERS: PCP Internal Medicine; Visit Provider Internal Medicine | DX: Z12.31 Encounter for screening mammogram for malignant neoplasm of breast (principal) | CPT/HCPCS: 77063; 77067 ==

== ENCOUNTER 2025-04-21 12:50 | Outpatient (AMB) | payer MEDICARE, OTHER, SELFPAY ==
--- NOTE | 2025-04-21 13:03 | MHC.PC.OV ---
Vital Signs 04/21/25 13:05 Height 5 ft 1 in Weight 156 lb 8 oz BMI 29.6 BP 130/68 Blood Pressure Location Lt brachial Position Sitting Pulse 64 Pulse Source Pulse Oximeter Temp 97.3 F Temp Source Temporal Artery Scan Pulse Oximetry (%) 93 Oxygen Delivery Method Room Air Intake Visit Reasons: HTN, memory problem Intake Note: Patient is here to follow up on HTN, Memory Problem. 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 Accompanied by: Sister Allergies penicillin G (Penicillin G) Allergy (Mild, Verified 04/21/25 13:04) RASH penicillin V Allergy (Unknown, Verified 04/21/25 13:04) RASH meperidine (From Demerol) Adverse Reaction (Mild, Verified 04/21/25 13:04) ABDOMINAL CRAMPS Medication List - Last Reconciled 04/21/25 by Prateek Campoverde MD amlodipine 5 mg PO DAILY carbamazepine 200 mg PO BID cetirizine 10 mg PO DAILY PRN citalopram 20 mg PO DAILY ergocalciferol (vitamin D2) 1,250 mcg PO QWEEK estradiol 0.01%(0.1mg/gram) (Estrace) 1 g vaginal 2XW lisinopril 20 mg PO DAILY lorazepam 0.5 mg PO DAILY PRN metoprolol succinate ER 50 mg PO DAILY omeprazole 20 mg PO DAILY propylene glycol 0.6% (Systane Balance) 1 drp ophthalmic (eye) QID PRN rosuvastatin 40 mg PO BEDTIME Tobacco use date assessed: 04/21/25 Fall risk assessment: No Falls in past year Last assessed Fall Risk: 04/21/25 Dental Screening Dental Screen Date: 09/15/24 [facility] Medical History (Updated 12/30/24 @ 14:40 by Prateek Campoverde MD) Osteoporosis TRIPLETT (dyspnea on exertion) Elevated troponin GERD (gastroesophageal reflux disease) Hypercholesterolemia Hypertension Surgical History History of tonsillectomy History of appendectomy History of hysterectomy Hx of cholecystectomy History of bladder suspension procedure History of section Family History Father Aneurysm Stroke Mother No problems noted. Maternal Aunt Ovarian cancer Maternal Aunt Uterine cancer Son Brain aneurysm Mental health disorder Daughter In good health Social History Household Members: None Housing: House Do you presently have visiting nurse or other home services: No Unable to assess alcohol history related to: Unknown Alcohol intake: current Alcohol intake frequency: holidays/special occasions only Alcohol type: wine Comment: 2 drinks once a month Patient Tobacco Use Status: Former Tobacco user Tobacco use type: Cigarette Years Smoked: 4 x a year 2 cigarettes e-Cigarette/Vaping Use: Never Used Second Hand Smoke Exposure: No service: No Current occupational status: retired Cognitive needs: No Hearing needs: No Vision needs: Yes Questionnaire Thrive Questionnaire Date Thrive assessed: 09/15/24 ROBERT-7 AMB Questionnaire ROBERT-7 Date ROBERT - 7 assessed: 12/30/24 Source: Developed by Drs. Delbert Wu, Carmencita Esposito, Deuce Cheung and colleagues, with an educational yakov from [employer]. Physical exam (Primary Care) Vital Signs: Last Vital Signs Temp 97.3 F 04/21/25 13:05 Pulse 64 04/21/25 13:05 BP 130/68 04/21/25 13:05 Pulse Ox 93 04/21/25 13:05 Oxygen Delivery Method Room Air 04/21/25 13:05 BMI result Body Mass Index 29.6 Tobacco/Smoking Status: Tobacco use Status Tobacco use date assessed 04/21/25 04/21/25 13:12 Patient Tobacco Use Status Former Tobacco user 04/21/25 13:04 Tobacco use type Cigarette 04/21/25 13:04 e-Cigarette/Vaping Use Never Used 04/21/25 13:04 Thrive Assessment: Date of Thrive Assessment Date Thrive assessed 09/15/24 04/21/25 13:04 Const General: alert; No acute distress Eyes Conjunctivae: conjunctivae normal Resp Auscultation: clear to auscultation bilaterally Cardio Rate: regular rate Rhythm: regular rhythm GI Inspection: Yes normal to inspection Extrem General: Yes normal to inspection and No edema Coding Level of Care Code Est Pt Level 4 (62480) Diagnoses Essential hypertension I10 Hypercholesterolemia E78.00 GERD (gastroesophageal reflux disease) K21.9 Cognitive impairment R41.89 Generalized anxiety disorder F41.1 Assessment & Plan Assessment & Plan (1) Essential hypertension: Comment: 2021 MRA negative Code(s): I10 - Essential (primary) hypertension Category: Medical Plan: Continue with blood pressure medication. Decrease salt intake and exercise presently on amlodipine 5 mg once a day lisinopril 20 mg once a day and metoprolol 50 mg once a day patient follows up with Nephrology (2) Hypercholesterolemia: Code(s): E78.00 - Pure hypercholesterolemia, unspecified Category: Medical Plan: Avoid fried foods, chicken skin, eggs, butter margarine, pastries and meat. Be it pork or beef they have a lot of cholesterol on rosuvastatin 40 mg once a day September blood work (3) GERD (gastroesophageal reflux disease): Code(s): K21.9 - Gastro-esophageal reflux disease without esophagitis Category: Medical Plan: Avoid the foods that causes that usually spicy foods, tomato products, juices, coffee, soda and foods that your sensitive to. After eating do not lie down, allow 3-4 hours before in lie down. And keep the head of bed above 30 degrees to avoid the acid from going up. (4) Cognitive impairment: Code(s): R41.89 - Other symptoms and signs involving cognitive functions and awareness Category: Medical Plan: CT scan no acute findings patient has been referred to Neurology also. (5) Generalized anxiety disorder: Comment: Jeni CHD Code(s): F41.1 - Generalized anxiety disorder Category: Medical Plan: On lorazepam as needed citalopram 20 mg once a day Plan History of Present Illness The patient is an 80-year-old female presenting with a wellness examination and management of chronic conditions. The patient has a history of hypertension, which has been managed with medications including amlodipine, lisinopril, and metoprolol. Five years ago, she experienced a hypertensive crisis with a blood pressure of 220/90 mmHg, resulting in a seven-day hospitalization and subsequent medication adjustments. The patient also has hypercholesterolemia, currently managed with rosuvastatin, and recent blood work shows an LDL level of 72 mg/dL, indicating good control. She has generalized anxiety disorder, for which she takes lorazepam as needed and citalopram daily. Cognitive impairment has been noted, and a CT scan of the head showed no acute intracranial findings but did reveal bilateral small low attenuation foci in the basal ganglia, possibly indicating small old lacunar infarcts. The patient has a history of a mini stroke, as suspected by a previous physician, which resolved without significant residual effects. She reports disc degeneration, which affects her ability to exercise, and experiences leg pain when walking, attributed to lack of regular physical activity. Preventative care measures include vaccinations, with the patient having received the COVID-19 vaccine and planning for a flu shot in May. Health Maintenance - Vaccinations: COVID-19 vaccine received, flu shot planned for May - Exercise: Encouraged to increase physical activity despite disc degeneration Social History - Exercise: Limited due to disc degeneration and leg pain, advised to increase activity - Family: Lives with son who has bipolar disorder and paranoid schizophrenia Review of Systems - Neurological: Reports cognitive impairment, history of mini stroke - Musculoskeletal: Reports leg pain when walking, disc degeneration - Cardiovascular: Denies chest pain, reports history of hypertension - Psychiatric: Reports anxiety, managed with lorazepam and citalopram Physical Exam Results - CT Scan: No acute intracranial findings, bilateral small low attenuation foci in basal ganglia - Blood Work: Normal blood count, electrolytes, renal function, liver function, LDL 72 mg/dL Plan Patient was informed and verbally consented to the use of an ambient scribe for clinic note documentation during this visit. 1. Hypertension The patient's hypertension is managed with amlodipine, lisinopril, and metoprolol. She experienced a hypertensive crisis five years ago, leading to hospitalization and medication adjustments. 2. Hypercholesterolemia The patient's hypercholesterolemia is managed with rosuvastatin, and recent labs show good control with an LDL of 72 mg/dL. 3. Generalized Anxiety Disorder The patient manages her anxiety with lorazepam as needed and citalopram daily. 4. Cognitive Impairment Cognitive impairment is noted, with a CT scan showing no acute findings but possible old lacunar infarcts. 5. History Of Mini Stroke The patient has a history of a mini stroke, which resolved without significant residual effects. 6. Disc Degeneration The patient reports disc degeneration, which affects her ability to exercise and causes leg pain when walking. Discussion Notes I discussed the importance of managing hypertension and hypercholesterolemia with the patient, emphasizing adherence to prescribed medications. We reviewed her cognitive impairment and the CT scan results, and I recommended follow-up with neurology for further evaluation. I advised the patient to increase physical activity despite her disc degeneration and leg pain, as exercise is crucial for overall health. We also discussed the importance of vaccinations, including the flu shot planned for May. Patient Instructions - Continue taking prescribed medications for hypertension, hypercholesterolemia, and anxiety. - Follow up with neurology for cognitive impairment evaluation. - Increase physical activity gradually to improve overall health and manage leg pain. - Plan to receive the flu shot in May. Medications: New omeprazole 20 mg PO DAILY 90 caps 3RF Refilled lorazepam 0.5 mg PO DAILY PRN 30 tabs 0RF anxiety estradiol 0.01%(0.1mg/gram) (Estrace) 1 g vaginal 2XW 42.5 grams 0RF
[2025-04-21 13:05] VITALS: BP 130/68; PULSE 64; TEMP 36.3; O2SAT 93; BMI 29.6
== END 2025-04-21 15:38 | disposition home or self-care (01) ==
LOC: HO.HMCH 12:50
PROVIDERS: PCP Internal Medicine; Visit Provider Internal Medicine
DX: I10 Essential (primary) hypertension (principal); E78.00 Pure hypercholesterolemia, unspecified; K21.9 Gastro-esophageal reflux disease without esophagitis; R41.89 Other symptoms and signs involving cognitive functions and awareness; F41.1 Generalized anxiety disorder

== ENCOUNTER → 2025-04-21 12:50 | Outpatient (BNVA) | payer MEDICARE, OTHER, SELFPAY | PROVIDERS: PCP Internal Medicine; Visit Provider Internal Medicine | DX: I10 Essential (primary) hypertension (principal); E78.00 Pure hypercholesterolemia, unspecified; K21.9 Gastro-esophageal reflux disease without esophagitis; R41.89 Other symptoms and signs involving cognitive functions and awareness; F41.1 Generalized anxiety disorder | CPT/HCPCS: 99212 ==

== ENCOUNTER 2025-05-18 13:08 | Outpatient (AMB) | payer MEDICARE, OTHER, SELFPAY ==
--- NOTE | 2025-05-18 13:12 | MHC.OFFVIS ---
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 Accompanied by: Significant Other Allergies penicillin G (Penicillin G) Allergy (Mild, Verified 05/18/25 13:12) RASH penicillin V Allergy (Unknown, Verified 05/18/25 13:12) RASH meperidine (From Demerol) Adverse Reaction (Mild, Verified 05/18/25 13:12) ABDOMINAL CRAMPS Medication List - Last Reconciled 05/18/25 by Wendy Osorio MD amlodipine 5 mg PO DAILY carbamazepine 200 mg PO BID cetirizine 10 mg PO DAILY PRN citalopram 20 mg PO DAILY ergocalciferol (vitamin D2) 1,250 mcg PO QWEEK estradiol 0.01%(0.1mg/gram) (Estrace) 1 g vaginal 2XW lisinopril 20 mg PO DAILY lorazepam 0.5 mg PO DAILY PRN metoprolol succinate ER 50 mg PO DAILY omeprazole 20 mg PO DAILY propylene glycol 0.6% (Systane Balance) 1 drp ophthalmic (eye) QID PRN rosuvastatin 40 mg PO BEDTIME HPI Comments Details: 80y/o female comes here for cognitive evaluation. she has been having memory issues for 5 years and is progressing.Her cognitive issues are mainly short term recall, word finding difficulties , forgets appointments ,forgets names , forgets conversations. she has calenders where she writes all info. she does not drive now.she gave her car to her daughter in law. 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 she has depression and anxiety- feels she needs some more meds. Her 61y/o son moved with her and he has bipolar schizophrenia which is stressful.she also has R -trigeminal neuralgia and is on carbamazepine.she sees for Trigeminal neurlagia and has appt in 2 weeks with . [facility] [place] Medical History Osteoporosis TRIPLETT (dyspnea on exertion) Elevated troponin GERD (gastroesophageal reflux disease) Hypercholesterolemia Hypertension Surgical History History of tonsillectomy History of appendectomy History of hysterectomy Hx of cholecystectomy History of bladder suspension procedure History of section Family History Father Aneurysm Stroke Mother No problems noted. Maternal Aunt Ovarian cancer Maternal Aunt Uterine cancer Son Brain aneurysm Mental health disorder Daughter In good health Social History Household Members: None Housing: House Do you presently have visiting nurse or other home services: No Unable to assess alcohol history related to: Unknown Alcohol intake: current Alcohol intake frequency: holidays/special occasions only Alcohol type: wine Comment: 2 drinks once a month Patient Tobacco Use Status: Former Tobacco user Tobacco use type: Cigarette Years Smoked: 4 x a year 2 cigarettes e-Cigarette/Vaping Use: Never Used Second Hand Smoke Exposure: No service: No Current occupational status: retired Cognitive needs: No Hearing needs: No Vision needs: Yes Physical Exam Vital Signs: Last Vital Signs Pulse 68 05/18/25 13:13 BP 142/76 H 05/18/25 13:13 Pulse Ox 98 05/18/25 13:13 Oxygen Delivery Method Room Air 05/18/25 13:13 BMI result Body Mass Index 29.3 Const General: cooperative, comfortable and no acute distress Nutritional Appearance: average body habitus Orientation/consciousness: patient oriented x3 HEENT Head: Yes normal to inspection Eyes Pupils: Equal, round and reactive pupils present Neuro Other: gait- antalgic- used to pass out when she stands up quickly General: patient oriented x3, tone normal, moves all extremities and no focal motor deficits Cranial nerves: Yes Facial sensation intact/muscles of mastication intact, Yes Equal, round and reactive pupils present, Yes Normal facial strength present and Yes Symmetric palate elevation present Cognition (Neuro): normal cognition Gait exam (Neuro): Antalgic gait present Motor exam (neuro): 5/5 motor strength present throughout and Normal motor muscle tone present throughout Deep tendon reflexes (DTR's): Right triceps reflex intensity grade: 1+, Left triceps reflex intensity grade: 1+, Rt Biceps (C5, C6): 1+, Left biceps reflex intensity grade: 1+, Right brachioradialis reflex intensity grade: 1+, Left brachioradialis reflex intensity grade: 1+, Right patellar reflex intensity grade: 1+ and Left patellar reflex intensity grade: 1+ Coordination: [id number] test normal Orientation What is the (year) (season) (date) (day) (month)?: year, season, date, day and month Where are we (state) (county) (town or city) (hospital) (floor)?: state, county, town or city, hospital/clinic and floor Registration Name of 3 unrelated objects clearly and slowly, then ask patient to repeat all 3 of them. (1st repeat determines score. Make sure they can repeat all three): object 1, object 2 and object 3 Attention & Calculation (CHOOSE ONE) Spell WORLD backwards (DLROW): 5 letters Recall Ask patient to repeat the 3 items from question #3.: object 1 and object 3 Language Show patient a wristwatch & ask what it is. Repeat for pencil.: watch and pencil Ask the patient to 'take a piece of paper with their right hand' 'fold paper in half' 'place paper on floor': take paper in right hand, fold paper in half and place paper on floor Print the sentence 'CLOSE YOUR EYES' on a piece. If patient actually closes eyes then score.: followed written direction Give patient a blank piece of paper & ask to write a sentence. Score if it contains a noun & verb.: sentence contains subject and verb Score Score: 27 Assessment & Plan Assessment & Plan (1) Cognitive impairment: Comment: Mild cognitive impairment Code(s): R41.89 - Other symptoms and signs involving cognitive functions and awareness Category: Medical Plan Reviewed CT and labs I will trial her on memantine xr 7mg qd Cognitive therapy. Orders: Orders OT Evaluation and Treatment Today R29.898 - Other symptoms and signs involving the musculoskeletal system Referrals Speech and Hearing Referral R41.89 - Other symptoms and signs involving cognitive functions and awareness Medications: New memantine 7 mg PO DAILY 30 ea 4RF Coding Level of Care Code New Pt Level 4 (60006) Complex EM visit Add On G2211 Diagnoses Cognitive impairment R41.89
[2025-05-18 13:13] VITALS: BP 142/76; PULSE 68; O2SAT 98; BMI 29.3
== END 2025-05-18 14:01 | disposition home or self-care (01) ==
LOC: HO.HSMS 13:09
PROVIDERS: PCP Internal Medicine; Visit Provider Psychiatry & Neurology Neurology
DX: R41.89 Other symptoms and signs involving cognitive functions and awareness (principal)
CPT/HCPCS: 99204; G2211

== ENCOUNTER → 2025-05-18 13:08 | Outpatient (BNVA) | payer MEDICARE, OTHER, SELFPAY | PROVIDERS: PCP Internal Medicine; Visit Provider Psychiatry & Neurology Neurology | DX: R41.89 Other symptoms and signs involving cognitive functions and awareness (principal) | CPT/HCPCS: 99202 ==

== ENCOUNTER 2025-06-08 11:53 | Outpatient (AMB) | payer MEDICARE, OTHER, SELFPAY ==
--- NOTE | 2025-06-08 12:00 | A.OFFVIS_ITS ---
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 She is presenting with management concerns regarding trigeminal neuralgia and evaluation of cognitive decline. Her primary complaint is right-sided facial pain associated with trigeminal neuralgia, for which she takes carbamazepine at a dosage of 200 mg in the morning and 400 mg at night for better pain control. The patient reports episodic intense pain despite medication, although generally considers the pain tolerable. Additionally, she notes recent issues with word recall and other memory challenges, potentially indicative of Alzheimer's disease, for which a previous brain scan revealed mild cortical atrophy. The patient's historical care involves multiple neurology referrals, including confusion surrounding neurologist continuity post-transfer from Dr. Deng. The patient is currently apprehensive about initiating memantine therapy, which may alleviate memory issues. [facility] Medical History Osteoporosis TRIPLETT (dyspnea on exertion) Elevated troponin GERD (gastroesophageal reflux disease) Hypercholesterolemia Hypertension Surgical History History of tonsillectomy History of appendectomy History of hysterectomy Hx of cholecystectomy History of bladder suspension procedure History of section Family History Father Aneurysm Stroke Mother No problems noted. Maternal Aunt Ovarian cancer Maternal Aunt Uterine cancer Son Brain aneurysm Mental health disorder Daughter In good health Social History Household Members: None Housing: House Do you presently have visiting nurse or other home services: No Unable to assess alcohol history related to: Unknown Alcohol intake: current Alcohol intake frequency: holidays/special occasions only Alcohol type: wine Comment: 2 drinks once a month Patient Tobacco Use Status: Former Tobacco user Tobacco use type: Cigarette Years Smoked: 4 x a year 2 cigarettes e-Cigarette/Vaping Use: Never Used Second Hand Smoke Exposure: No service: No Current occupational status: retired Cognitive needs: No Hearing needs: No Vision needs: Yes Review of Systems Narrative Constitutional:?No fever, chills, fatigue, weight loss, or night sweats. HEENT:?No headache, vision changes, hearing loss, nasal congestion, sore throat. Neurological:? Mild forgetfulness. Psychiatric:? Mild anxiety Endocrine:?No heat/cold intolerance, polydipsia, polyuria, or hair/skin changes. Hematologic/Lymphatic:?No easy bruising, bleeding, or lymphadenopathy. Integumentary (Skin):?No rash, lesions, itching, or color changes. ? Physical Exam Neuro Other: Mental Status: Alert and oriented to person, place, and time. Normal attention. Normal spontaneous speech, fluency, and comprehension. Cranial Nerves: CN II: Visual cruz full to confrontation, visual acuity intact. CN III, IV, : Pupils equal, round, reactive to light and accommodation. Extraocular movements are normal. CN V: Facial sensation is normal. CN VII: Facial movements symmetrical. CN VIII: Hearing intact to bedside conversation is normal. CN IX, X: Palate elevates symmetrically. CN XI: Shoulder shrug and head turn symmetrical. CN XII: Tongue midline without atrophy or fasciculations. Coordination: [id number] and [id number] testing normal. No dysmetria. Gait and Station: No obvious gait abnormality. No ataxia or instability. Extrapyramidal: Full facial expressions and blinking. No rigidity. Movements are appropriate with no tremor or abnormality. Speech: Normal; no dysarthria or tremor. Assessment & Plan Assessment & Plan (1) Trigeminal neuralgia: Code(s): G50.0 - Trigeminal neuralgia Category: Medical (2) Alzheimer disease: Comment: CT brain WO at [facility] [place] 2025: Mild to mod b/l temp atrophy, mild cortical atrophy, mild MVD Code(s): G30.9 - Alzheimer's disease, unspecified; F02.80 - Dementia in other diseases classified elsewhere, unspecified severity, without behavioral disturbance, psychotic disturbance, mood disturbance, and anxiety Category: Medical Plan Impression: 1. Mild Alzheimer type dementia with brain CT revealing bitemporal and mild or cortical atrophy. 2. Right trigeminal neuralgia pain better with carbamazepine Recommendations: 1. Reassurance and education about both dementia and facial pain in its management 2. Carbamazepine 200 mg 1 in the morning and 1-2 at night based upon pain level 3. Memantine extended release 7 mg, which she already has, 1 in the morning 4. Stay socially and physically active a tried to walk every day for about a mild. Coding Level of Care Code Est Pt Level 4 (89501) Diagnoses Trigeminal neuralgia G50.0 Alzheimer disease G30.9; F02.80
== END 2025-06-08 12:16 | disposition home or self-care (01) ==
LOC: HO.HSM 11:54
PROVIDERS: PCP Internal Medicine; Referring Provider Internal Medicine; Visit Provider Psychiatry & Neurology Neurology
DX: G50.0 Trigeminal neuralgia (principal); G30.9 Alzheimer's disease, unspecified; F02.80 Dementia in other diseases classified elsewhere, unspecified severity, without behavioral disturbance, psychotic disturbance, mood disturbance, and anxiety
CPT/HCPCS: 99214

== ENCOUNTER → 2025-06-08 11:53 | Outpatient (BNVA) | payer MEDICARE, OTHER, SELFPAY | PROVIDERS: PCP Internal Medicine; Referring Provider Internal Medicine; Visit Provider Psychiatry & Neurology Neurology | DX: G50.0 Trigeminal neuralgia (principal); G30.9 Alzheimer's disease, unspecified; F02.80 Dementia in other diseases classified elsewhere, unspecified severity, without behavioral disturbance, psychotic disturbance, mood disturbance, and anxiety | CPT/HCPCS: 99212 ==

== ENCOUNTER 2025-07-01 10:14 | Outpatient (RCR) | payer MEDICARE, OTHER, SELFPAY ==
--- NOTE | 2025-07-02 14:42 | MHC.SP.ADU ---
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 Outpatient speech therapy is recommended for Tia for 1x/week 45 minute sessions for 6 weeks. Original Note: Referring provider: Wendy Osorio MD Reason for Referral: Cognitive Evaluation Type of Treatment: 71077 Standardized Cognitive Performance Testing, per hour Date of Plan of Treatment: 07/01/25 Onset of Symptoms/Illness: 05/18/25 Date Treatment Started: 07/01/25 Medical Diagnosis: R41.89 Other symptoms and signs involving cognitive functions and awareness Primary Speech Language Diagnosis: R41.841 Cognitive communication disorder History Tia is an 81 year old female who was referred to [facility] [place] by Wendy Osorio MD for further evaluation of cognitive functioning. Per referral note: ?She has been having memory issues for 5 years and is progressing. Her cognitive issues are mainly short term recall, word finding difficulties, forgets appointments, forgets names, forgets conversations.? Tia herself reports difficulties with memory, word-finding, and losing track of thoughts during conversations. Tia currently resides in a private residence with her adult son who does have mental health disorders (bipolar schizophrenia). She reports that her cognitive difficulties such as word-finding frustrates her son and make communication/conversations harder. Tia reports that her living situation is quite stressful at times. Tia has a significant other, Kerwin, who does not live with her but does frequently assist with financial and medication management for Tia. 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 She comes in today for a cognitive evaluation with goals of improving everyday cognitive functioning. Medical History: Acid Reflux Allergies Arthritis Cardiovascular Disease Emotional or Psychological Issues Hearing Loss High Blood Pressure Neurological Conditions e.g.: [place]'s, Parkinson's Pneumonia Sinusitis Anxiety/Depression Osteoporosis TRIPLETT (dyspnea on exertion) Elevated troponin GERD (gastroesophageal reflux disease) Hypercholesterolemia Hypertension Patient Orientation: Alert & Oriented x 4 Social History: Employment Status: Retired Highest level of education obtained: Completed Associate Deg. Current Living Situation: Tia resides in a private residence with her adult son Assistive Devices in use: Walker Other Therapies Seen in Current Calendar Year: Occupational Therapy, Physical Therapy Reported Speech, Language, Cognition difficulties: Memory, Cognition Comments: Tia herself reports difficulties with memory, word-finding, and losing track of thoughts during conversations. Quality of Life: Hermelindo reports a mild impact on quality of life due to cognitive difficulties; reports that she is an ?introvert? but finds conversations/social interactions more difficult due to memory and word-finding difficulties Patient Stated Goal of Speech-Language Therapy: Improve cognitive functioning Assessment Speech Production: Rapid Informal Voice Assessment: Voice Loudness: Mildly Soft/Quiet Voice Nasal Resonance: Normal Voice Oral Resonance: Normal Voice Phonatory-based Quality: Hoarse, Weak Voice Pitch: Mildly Low Voice Other Observations: Clinical Impression: Impaired Clinicial Observations: Tia reports that her voice has been dysphonic for quite awhile; has never seen specialist or Speech Therapy for this Tests of Cognition: RBANS Clinical Impression: Impaired Observations: IMMEDIATE MEMORY: This domain assesses the individual?s ?ability to remember information immediately after it is presented.? For the ?List Learning? task, Tia was read a list of 10 words and asked to repeat back as many words as she could. She then was read the same list four times. On the first trial, Tia was able to immediately recall 6/10 words. In the second trial, she was able to recall 6/10 words. On the third trial, she was able to recall 6/10 words. In the fourth and last trial, she was able to recall 6/10 words. Tia had some repetition of words and would ask, ?Did I say ___ already??. On the ?Story Memory? task, a brief story is read by the examiner two times, with the subject required to repeat back as much as they remember each time. Tia initially recalled 4/12 items. She greatly improved on the second trial and was able to recall 7/12 items. The scores on ?List Learning? fell into the Average range and the scores on the ?Story Memory? fell into the Low Average range. Both scores, cumulatively on the composite score for Immediate Memory were Average indicating an area of no difficulties. List Learning Scaled Score: 11 Interpretation: Average Story Memory Scaled Score: 6 Interpretation: Low Average Immediate Memory Index Score: 90 Interpretation: Average VISUOSPATIAL/CONSTRUCTIONAL: This domain assesses the individual?s ?ability to perceive spatial relations and to construct a spatially accurate copy of a drawing.? During the Figure Copy task, Tia was given an example of a specific figure to copy onto a piece of paper. Individuals are scored on both the drawing accuracy and placement of 10 different target items. After she was given verbal instructions, Tia commented ?artist I am not.? Tia?s drawing was fairly accurate to the example drawing; moderate distortions impacting score, demonstrating a Borderline score. Tia demonstrated some difficulties on the Line Orientation task, in which an individual is asked to transpose two line segments of an angle to a compass diagram above it, in order to label each segment. Tia pointed to the lines/numbers rather than verbally giving an answer; hovering over multiple lines and requiring prompts for a final answer. Her score fell into the Average range. Both scores, cumulatively on the composite score for Visuospatial/Constructional were Low Average, indicating possible area of difficulty. Figure Copy Scaled Score: 5 Interpretation: Borderline Line Orientation Percentile Group: 26-25 Interpretation: Average Visuospatial/Constructional Index Score: 81 Interpretation: Low Average LANGUAGE: This domain assesses the individual?s ?ability to respond verbally to either naming or retrieving learned material.? Tia was asked to label various line drawings in responsive naming tasks and then asked to name as many animals that you may find in the zoo as they could in one minute in a Semantic Fluency task. Tia accurately named 9 out of 10 drawings. She labeled a seahorse as a ?starfish.? Was able to correctly name when given moderate logical and phonemic cues by partner and CANDY MAKER HELPER; demonstrating an Average score. She labeled 9 animals in one minute. CANDY MAKER HELPER was going to prompt Tia to continue but her partner interrupted and stated ?we went to the zoo with (friend), think of what kind of animals we saw.? Tia demonstrated a Low Average on this subtest. Scores combined resulted in an Average score for the Language Domain. Picture Naming Percentile Group: 26-50 Interpretation: Average Semantic Fluency Scaled Score: 6 Interpretation: Low Average Language Index Score: 92 Interpretation: Average ATTENTION: This domain assesses the individual?s ?capacity to remember and manipulate both visually and orally presented information in short-term memory storage.? Tia was read aloud strings of numbers of varying lengths then asked to recall the numbers. Tia accurately recalled strings of numbers up to 5 digits with no difficulties, but then began to scramble with 6+ digits, resulting in a Low Average score. In the coding subtest, Tia was asked to write numbers to their matching symbols as quickly and efficiently as possible within 90 seconds. Tia worked semi-quickly and accurately through this test marking 22 symbols in allotted time. Tia did adriana 23 symbols but had one error resulting in reduced score; yielded a Borderline score. For the overall ?Attention? domain score, Tia fell in the Low Average range. Digit Span Scaled Score: 6 Interpretation: Low Average Coding Scaled Score: 5 Interpretation: Borderline Attention Index Score: 82 Interpretation: Low Average DELAYED MEMORY: This domain assesses the individual?s ?anterograde memory capacity.? ?Low scores indicate difficulties with recognition and retrieval of information from long-term memory stores.? Tia was initially able to recall 3 out of 10 words from the wordlist that was presented earlier in the test. When given a recognition task regarding words on the list (i.e. ?Was apple on the list??) Tia answered these yes/no questions with four errors resulting in a score of 16/20, indicating that she was able to recall items when given this level of prompt. She demonstrated within an Average range for List Recall and a Borderline range for List Recognition. On recalling the story that was read to Tia at the beginning of the assessment, she was able to recall 5 out of 12 items. Placing her in a Low Average range. Finally, when asked to recall the figure she talia at the beginning of the test, Tia attempted with great motivation. She had more accuracy in drawing than placement of items and was missing 4/12 items completely. This placed Tia in the Average range for Figure Recall. Overall for the Delayed Memory? domain, Tia fell in the Borderline range. List Recall Percentile Group: 26-50 Interpretation: Average List Recognition Percentile Group: 3-9 Interpretation: Borderline Story Recall Scaled Score: 7 Interpretation: Low Average Figure Recall Scaled Score: 9 Interpretation: Average Delayed Memory Index Score: 78 Interpretation: Borderline Summary/Conclusion Tia completed this test with some motivation. She required encouragement from both CANDY MAKER HELPER and her partner to increase risk taking during the test. Tia showed no difficulties in the areas of Immediate Memory and Language, for which she scored within the Average range. Tia may have difficulties with Visuospatial/Constructional and Attention areas as these were the domains Tia tested in the Low Average range. Most difficulties for Tia were noted in the Delayed Memory domain where she tested Borderline. 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 Outpatient speech therapy is recommended for Tia for 1x/week 45 minute sessions for 6 weeks. Recommendation for Speech Therapy: Outpatient Speech Therapy Frequency/Duration: 1x/week for 45 minutes Date Range for Service Requested: 6 weeks Time to Reassess: PRN Unemployment Inspector Goals: Tia will apply strategies, applications and accommodations to manage communication and functional tasks that require delayed recall and processing in four out of five contexts Short Term Goals: Goal # : 1.1 Tia will recall 4 or more items with 80% accuracy after a 10 minute delay given minimal verbal cues. Goal Status: New Goal Goal# : 1.2 Tia will use rehearsal techniques to recall a detail or specific information from visually or verbally presented informal with 80% accuracy given minimal cues Goal Status: New Goal Goal # : 1.3 Tia will identify and recall specific compensatory strategies that aid in her everyday functional tasks with 80% accuracy given minimal cues. Goal Status: New Goal Recommended Referrals to be Discussed with Primary Care Provider: Patient Education: Completed: Yes Patient/Caregiver Education: Described Results of Evaluation Patient expressed understanding of evaluation Patient agrees with goals and treatment plan Family/Caregivers expressed understanding of results Family/Caregivers expressed agreement with goals and treatment plan Comments/Barriers to Learning: Transportation Dispatcher Clinican/Clinical Fellow: No Supervisory Statement: No Speech Language Pathologist: Radha Castro M.A., CCC-CANDY MAKER HELPER
== END 2025-07-22 08:33 | disposition still patient (30) ==
LOC: HO.SH 10:14
PROVIDERS: PCP Internal Medicine; Visit Provider Psychiatry & Neurology Neurology
DX: R41.89 Other symptoms and signs involving cognitive functions and awareness (principal)
CPT/HCPCS: 96125

== ENCOUNTER 2025-07-05 10:32 | Emergency (ER) | payer MEDICARE, OTHER, SELFPAY ==
--- NOTE | ~2025-07-05 | XR_ITS ---
CLINICAL HISTORY: htn, cp 2 view chest x-ray. Comparison: CR/RI/SR - XR CHEST 2 VIEWS - 10/17/22 11:10 EST Findings: The lungs are adequately expanded. No focal consolidation. No effusion or pneumothorax. Cardiac and mediastinal contours are within normal limits. No acute osseous abnormality Impression: No acute process. This document has been electronically signed by: Marcellus Reed MD on 07/05/2025 12:42:50
[2025-07-05 10:35] VITALS: BP 196/90; BP 218/79; PULSE 64; PULSE 67; RESP 16; TEMP 36.9; O2SAT 96; O2SAT 97; BMI 24.9
--- NOTE | 2025-07-05 10:47 | ECG_ITS ---
Test Reason : CP Blood Pressure : */* mmHG Vent. Rate : 62 BPM Atrial Rate : 62 BPM P-R Int : 190 ms QRS Dur : 86 ms QT Int : 402 ms P-R-T Axes : 49 4 53 degrees QTcB Int : 408 ms Normal sinus rhythm Anterior infarct , age undetermined Abnormal ECG When compared with ECG of 29-Feb-2024 14:17, Anterior infarct is now Present Referred By: Generic ED Physician Electronically Signed By: Abhishek Castro
--- OUTSIDE RECORDS SUMMARY | 2025-07-05 11:05 | XMS_ITS | Data Portability ---
Author Organization TREMAYNE Daniels s, [facility] Address [address] [place] [address] Assessment No assessment recorded. Plan of Treatment Reminders Order Date Submit Date Provider Last Modified By Organization Details Last Modified Time Details Appointments None recorded. Lab rapid flu (A+B) 2022 023 [email or web address] _[facility], [address] [place] [address], [address], 10:14:57 Referral None recorded. Procedures None recorded. Surgeries None recorded. Imaging XR, wrist, 3 or more view 2022 023 [facility], [address] [place], [address], 18:02:17 Medication Orders doxycycline monohydrate 100 mg capsule 2022 023 [id number], [address] [place], [address], 10:14:01 Patient TargetsNo targets recorded. Patient Instructions Encounter Date Encounter Id Patient Instructions Last Modified By Organization Details Last Modified Time 09/05/2022 [id number] Acute Sinusitis: Care Instructions Not available 09/05/2022 10:14:57 bronchitis: care instructions Not available 09/05/2022 10:15:36 10/22/2022 [id number] Your Care Instructions Your wrist hurts because [...] call your doctor or nurse advice line (446 in most provinces and territories) if you [...] your doctor if you can take an ddlh-uqa-ndbuizv medicine. Try not to use your injured [...] wrist has not improved after 1 week. [email or web address] Not available 10/22/2022 17:00:39 Reason for Referral None Reported. Results Created Date Observation Date Name Description Value Unit Range Abnormal Flag Note LastModifiedBy Organization Detail LastModifiedTime 09/05/19 23 09/05/2022 rapid flu (A+B) Unknown Analyte Normal = Negati ve Not Available [address], [address], 09/05/2022 09:36:52 09/05/1909/05/2022 rapid flu (A+B) Unknown Analyte Normal = Negati ve Not Available [facility] [place], [address], 09/05/2022 09:36:52 09/05/1909/05/2022 rapid flu (A+B) Unknown Analyte negati ve Not Available [address] [place], [place] [address] [place], [address], 09/05/2022 09:36:52 09/05/1909/05/2022 rapid flu (A+B) Unknown Analyte negati ve Not Available [address] [place] [address], [address], 09/05/2022 09:36:52 10/23/19 23 10/22/2022 XR, wrist , 3 or more view No observ ation record ed. [email or web address] [facility] [address] [facility] [place], [address], 10/25/2022 21:00:36 Result Notes None recorded. Problems Name Problem SNOMED Code Status Onset Date Resolution Date Notes Provider Name and Address Organization Details Recorded Time Hypertensive disorder 19307512 Active 2022 TREMAYNE Johnson [facility] 09:35:03 Depressive disorder 06017989 Active 2022 TREMAYNE Johnson [facility] 3 09:35:17 Gastroesophage al reflux disease 256507158 Active 2022 BRITNEY lopez, PA - [facility] 3 09:35:27 Problem Notes None recorded. Procedures Surgical History Date Name Laterality Status Provider Name and Address Organization Details Recorded Time 10/23/19 23 WRIST SPLINT completed Jose Centeno NP [address] [facility] [place], [address], [place] - [facility] 10/22/2022 17:16:55 10/23/19 23 Gautam Bandage completed Jose Centeno NP [address] [place], [address], [place] - [facility] 10/22/2022 17:16:34 cholecystectomy completed BRITNEY ZAPATA Shaneka A - [facility] 09/05/2022 09:36:24 section completed BRITNEY ZAPATA PA - [facility] 09/05/2022 09:36:40 Imaging Results None recorded. Procedure Notes None recorded. Medical Equipment None Reported. Allergies Allergen ID Allergen Name Allergen Category Reaction Reaction Severity Criticality Documentation Date Start Date Code Code System Note Provider Name and Address Organization Details Recorded Time 662847 Product containin g penicilli n (product) medicatio n rash Not available Not available 09/05/2022 97112 8001 SNOMED BRITNEY lopez, PA - [facility] 3 09:30:22 287601 Demerol medicatio n nausea Not available Not available 09/05/2022 80713 1 RxNorm BRITNEY lopez, [facility] - [facility] [...] [Score] - Reported Respiratory rate Oxygen saturation Heart rate Body temperature Systolic And Diastolic Provider Name and Address Organization Details Last Updated DateTime 3 156.21 cm 32 kg/m2 88849.8 9 g 8 18 /min 97 % 66 /min 97.9 [degF] 130/63 mm[Hg] BRITNEY FRITZEY PA - [facility] 3 09:38:25 Date Recorded Body height Body mass index (BMI) Body weight Body temperature Respiratory rate Oxygen saturation Heart rate Systolic And Diastolic Provider Name and Address Organization Details Last Updated DateTime 3 156.21 cm 32 kg/m2 48393.8 9 g 97 [degF] 18 /min 98 % 60 /min 154/73 mm[Hg] ANN TURNERJAVIER PA - [facility] 3 16:26:51 Social History Question Answer Notes LastModified by Third Age Details LastModified Time Tobacco Smoking Status Former Smoker BRITNEY lopez [place] - [facility] 09/05/2022 09:36:05 Have You Recently Traveled Abroad? No [email or web address] Information not available 09/05/2022 Sex: Unknown Functional Status Question Answer Note LastModified by Third Age Details LastModified Time How many times per week do you consume alcohol? 1-2 times per week [email or web address] Information not available 09/05/2022 Do you use any illicit or recreational drugs? No [email or web address] Information not available 09/05/2022 Do you or have you ever used any other forms of tobacco or nicotine? No [email or web address] Information not available 09/05/2022 What is your level of alcohol consumption? Occasional [email or web address] Information not available 09/05/2022 Mental Status None recorded. Family History Relationship Description Onset Age of this Age Resolved Age Notes LastModified by Organization Details LastModified Time Father No current problems or disability [email or web address] Not available 09/05 09:35:31 Mother No current problems or disability [email or web address] Not available 09/05 09:35:31 Medical History No medical history recorded. Gynecological HistoryNo gynecological history recorded. Obstetrics History GPAL:G 0 P 0 0 0 0 Past Encounters Encounter ID Performer Location Encounter Start Date Encounter Closed Date Diagnosis/Indication Diagnosis SNOMED-CT Code Diagnosis ICD10 Code Diagnosis IMO Codes Diagnosis Note [id number] [facility] [address] [place] [phone] 05/13/2020 16:59:51 05/13/2020 18:09:52 [id number] [facility] [address] [place] [phone] 05/10/2017 17:34:20 05/10/2017 18:36:40 [id number] [facility] [address] [place] [address] 09/30/2016 11:59:08 09/30/2016 12:29:05 [id number] [facility] [address] [place] [address] 07/08/2018 11:34:17 07/08/2018 13:05:47 [id number] [facility] [address] [place] [phone] 02/14/2017 16:38:02 02/14/2017 17:10:37 [id number] Deep Griffin MD [facility] [address] [place] [phone] 09/05/2022 09:11:09 09/05/2022 10:16:25 Acute sinusitis 00905969 J01.90 Please follow up with PCP or Urgent Care in 3-5 days if no improvemen t or if any new symptoms occur that are concerning .Call 911 or go to nearest ER if you develop any shortness of breath, chest pain, severe headache, dizziness, or other concerning symptoms Acute bronchitis 5097075 2 J20.9 [id number] Jose Centeno [place] [address] [address] [place] [phone] 10/22/2022 13:00:56 10/22/2022 17:17:22 Fall on same level from slipping, tripping or stumbling 032781250 W01.0XXA Pain of right wrist 3169 242075 67739 M25.531 Health Concerns Section Related Observation LastModified by Organization Detai ls LastModified Time None Recorded Concern Status LastModified by Organization Details LastModified Time None Recorded Advance Directives Directive None Recorded Payers Insurance Date Sequence Insurance Name Policy Number Policy Oprtillo Covered Member ID Portillo Member ID Guarantor Name 01/13/2023 NORIDIAN - SPECIALITY CLAIMS (MEDICARE DME REGION A) [place] Bakari Adair [id number] [facility] 10/22/2022 1 MEDICARE [place]: NATIONAL GOVERNMENT SERVICES [place] Bakari Adair [id number] [facility] 01/13/2023 2 [facility] - PLAN 1 (MEDICARE SUPPLEMENT) [id number] 1 [place] Bakari Giovany [id number] [facility] Notes Date Note Type Note Provider Name and Address Organization Details Recorded Time 3 text/html CoughReported by PatientHPIFor associated symptoms, patient reportsno fever,no chills,no nausea, andno vomiting. Deep Griffin MD [address] [place], [place] [address], [address], [place] - [facility] 09/05/2022 10:16:27 3 text/html FallReported by PatientHPIFor source of patient information, patient reportsinformation obtained from patient,patient arrived at urgent care ambulatory, andlearning styles: auditory. For location of injuries, patient reportsface,wrist right, andknee right. For quality, patient reportsdullandaching. For severity, patient reportspain scale : 6. For duration, patient reportsconstant. 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 For context, patient reportsfell from standing position,tripped, andunknown. For aggravating factors, patient reportswalkingandbendin g. For alleviating factors, patient reportsnothing gives relief. For associated symptoms, patient reportsno dizziness. For location where injury occurred, patient reportshome. For reported medications, patient reportsnot currently taking a blood thinner. Jose Jacobo, PLANT CONTROL OPERATOR [address] [place], [address], [place] - [facility] 10/22/2022 17:17:37 OBGyn Episode No OBEpisode recorded.
[2025-07-05 11:12] LABS: MANUAL DIFF FLAG NO
[2025-07-05 11:14] LABS: Appearance Urine Clear; Glucose Urine UA Negative (Negative); PH 7.0 (5.0-9.0); Specific Gravity - Urine <= 1.005 (1.005-1.025); UMIC TRIGGER UACC YES
[2025-07-05 11:14] LABS: Hematocrit 40.2 % (37.0-47.0); Hemoglobin 13.6 g/dl (12.0-16.0); Imm Gran Abs Auto 0.03 X10*3/uL (0.00-0.03); Imm Gran Pct Auto 0.5 % (0.0-0.4); Lymphocytes Absolute Auto 2.0 X10*3/uL (1.2-4.9); Mean Corpuscular HGB Conc 33.8 g/dl (31.0-35.0); Mean Corpuscular Hemoglobin 32.6 pg (27.0-33.0); Mean Corpuscular Volume 96.4 fL (80.0-98.0); NRBC Abs Auto 0.000 X10*3/uL (0.0-0.012); NRBC Pct Auto 0.0 /100WBC (0.0-0.2); Platelet Count 179 X10*3/uL (160-400); Red Blood Count 4.17 X10*6/uL (4.20-5.50); White Blood Count 5.9 X10*3/uL (4.8-10.8)
[2025-07-05 11:17] LABS: INTERNATIONAL NORM RATIO 1.0 (0.9-1.1); Prothrombin Time 12.4 SEC (11.2-13.5)
[2025-07-05 11:26] LABS: Alanine Aminotransferase 18 U/L (0-31); Albumin Level 4.1 g/dL (3.5-5.0); Alkaline Phosphatase 97 U/L (39-117); Anion Gap 12 (12-20); Aspartate Amino Transferase 30 U/L (5-31); Blood Urea Nitrogen 7 mg/dL (9-16); Calcium 9.0 mg/dL (8.4-10.2); Carbon Dioxide 27 mmol/L (22-29); Chloride 106 mmol/L (96-108); Creatinine Clr Calc Pharmacy 54.1; Estimated Glomerular Filt Rate > 60; Potassium 3.8 mmol/L (3.3-5.1); Sodium 141 mmol/L (135-145); Total Protein 7.3 g/dL (6.5-8.0)
[2025-07-05 11:32] LABS: COVID-19 Test Negative (Negative); IDNOW Serial# 55D5AD1C
[2025-07-05 11:33] LABS: IDNOW Serial# 58CA691E; Influenza B2 Negative (Negative)
[2025-07-05 11:34] LABS: Troponin-I High Sensitivity < 2.7 ng/L (<3.5-17.0)
--- NOTE | 2025-07-05 12:14 | ED.CHESTPAIN ---
HPI - Chest Pain General Chief Complaint: Chest Pain Stated Complaint: CHEST PAIN Time Seen by Provider: 07/05/25 11:02 Source: patient, family and EMS Mode of arrival: EMS Limitations: no limitations History of Present Illness ED Provider: Rakel Beach APRN HPI narrative: 80-year-old female with a history of Alzheimer's disease, hypertension, trigeminal neuralgia, anxiety, GERD, high cholesterol presents to the ER with concern for elevated blood pressure and chest pain. Patient reports that she takes amlodipine 5 mg, lisinopril 20 mg and metoprolol 50 mg once daily. no recent changes in her medications. she has been taking them and they are given to her by her caregiver. she did not miss any doses. she has an appointment with her primary care doctor in 3 weeks and typically she started checking her blood pressure daily for a few weeks before her appointment. She just started checking her blood pressure yesterday and noted yesterday her blood pressure was 170 systolic. Today her blood pressure was 193/94 prompting her to call EMS. She received aspirin 324 mg prior to arrival. She reports that this morning after eating breakfast she did have some left-sided chest pressure which is relieved with burping. she reports is quite typical after she eats food. It was not associated with exertion, diaphoresis, vomiting or shortness of breath. She denies any recent illnesses. No leg swelling or leg pain. No recent travel. She has been quite anxious as she has been reducing her will and making plans for the future. This does affect her blood pressure typically Related Data Home Medications ?Medication ?Instructions ?Recorded ?Confirmed cetirizine 10 mg tablet 10 mg PO DAILY PRN 09/15/24 05/18/25 propylene glycol 0.6 % eye drops 1 drp ophthalmic (eye) QID PRN 09/15/24 05/18/25 (Systane Balance) Previous Rx's ?Medication ?Instructions ?Recorded amlodipine 5 mg tablet 5 mg PO DAILY #90 tabs 12/19/24 lisinopril 20 mg tablet 20 mg PO DAILY #90 tabs 03/06/25 metoprolol succinate 50 mg 50 mg PO DAILY #90 tabs 03/06/25 tablet,extended release 24 hr rosuvastatin 40 mg tablet 40 mg PO BEDTIME #90 tabs 04/17/25 estradiol 0.01% (0.1 mg/gram) 1 g vaginal 2XW #42.5 grams 04/21/25 vaginal cream (Estrace) omeprazole 20 mg capsule,delayed 20 mg PO DAILY #90 caps 04/21/25 release memantine 7 mg capsule 7 mg PO DAILY #30 ea 05/18/25 sprinkle,extended release 24hr ergocalciferol (vitamin D2) 1,250 1,250 mcg PO QWEEK #12 caps 05/28/25 mcg (50,000 unit) capsule citalopram 20 mg tablet 20 mg PO DAILY #90 tabs 06/02/25 lorazepam 0.5 mg tablet 0.5 mg PO DAILY PRN anxiety #30 06/18/25 tabs carbamazepine 200 mg tablet 200 mg PO BID #180 tabs 06/30/25 Allergies Allergy/AdvReac Type Severity Reaction Status Date / Time penicillin G (Penicillin G) Allergy Mild RASH Verified 07/05/25 10:36 penicillin V Allergy Unknown RASH Verified 07/05/25 10:36 meperidine (From Demerol) AdvReac Mild ABDOMINAL Verified 07/05/25 10:36 CRAMPS Review of Systems Review of Systems: Yes all other systems are reviewed and are negative Constitutional: Constitutional: Reports no additional constitutional complaints, Denies body ache(s), Denies chills, Denies fever(s), Denies headache(s) and Denies weakness Eyes: Eyes: Reports no additional eye complaints and Denies change in vision ENT: Reports system reviewed and no additional complaints, except as documented, Denies dizziness, Denies headache(s), Denies nasal congestion, Denies nasal discharge and Denies neck pain Cardiovascular: Cardiovascular: Reports no additional cardiovascular complaints, Reports chest pain, Denies leg edema and Denies dyspnea Respiratory: Respiratory: Reports no additional respiratory complaints, Denies cough and Denies dyspnea Gastrointestinal: Gastrointestinal: Reports no additional gastrointestinal complaints, Denies abdominal pain, Denies diarrhea, Denies nausea and Denies vomiting Genitourinary: Genitourinary: Reports no additional female genitourinary complaints and Denies urinary incontinence Musculoskeletal: Musculoskeletal: Reports no additional musculoskeletal complaints, Denies back pain, Denies arthralgias, Denies joint swelling, Denies neck pain, Denies numbness and Denies tingling Integumentary/Breasts: Skin/Breast: Reports system reviewed and no additional complaints, except as docu and Denies rash Neurologic: Reports system reviewed and no additional complaints, except as documented, Denies Abnormal speech present, Denies dizziness, Denies headache(s), Denies numbness, Denies tingling and Denies weakness PMFSH Past Medical History Attestation statement: The following information was validated with the patient. Source: old records reviewed and nursing notes reviewed Medical History Osteoporosis TRIPLETT (dyspnea on exertion) Elevated troponin GERD (gastroesophageal reflux disease) Hypercholesterolemia Hypertension Surgical History History of tonsillectomy History of appendectomy History of hysterectomy Hx of cholecystectomy History of bladder suspension procedure History of section Family History Family History Father Aneurysm Stroke Mother No problems noted. Maternal Aunt Ovarian cancer Maternal Aunt Uterine cancer Son Brain aneurysm Mental health disorder Daughter In good health Social History Social History Household Members: None Housing: House Do you presently have visiting nurse or other home services: No Alcohol intake: current Alcohol intake frequency: holidays/special occasions only Alcohol type: wine Comment: 2 drinks once a month Patient Tobacco Use Status: Former Tobacco user Tobacco use type: Cigarette Years Smoked: 4 x a year 2 cigarettes Smoked in Last 30 Days: No e-Cigarette/Vaping Use: Never Used Second Hand Smoke Exposure: No Use of substances other than those prescribed or required for medical reasons: No Advance Directives: Yes Advance Directives Information Provided: No Advance Directives on File: No Do you have a plan to hurt others: No Plan service: No Current occupational status: retired Cognitive needs: No Hearing needs: No Vision needs: Yes Physical Exam Vital Signs: Vital Signs: Last Vital Signs Temp 97.8 F 07/05/25 14:21 Pulse 55 07/05/25 14:21 Resp 15 07/05/25 14:21 BP 168/52 H 07/05/25 14:21 Pulse Ox 95 07/05/25 14:21 O2 Del Method Room Air 07/05/25 14:21 BMI result Body Mass Index 24.9 Const: General: cooperative, healthy appearing, comfortable and no acute distress Orientation/consciousness: patient oriented x3 Limitations: no limitations HEENT: Head: Yes normal to inspection Ears: hearing grossly normal bilaterally General nose exam: Normal external nose present Face and sinus: Yes normal facial exam Mouth: Normal oral and palatal mucosa present Throat: Yes posterior oropharynx normal Eyes: General: appearance normal, both eyes and all related structures Pupils: Equal, round and reactive pupils present Neck: Neck: Yes normal visual inspection Chest: Chest palpation & inspection: normal inspection of the chest Resp: Effort & Inspection: normal respiratory effort Auscultation: clear to auscultation bilaterally Cardio: Rate: regular rate Rhythm: regular rhythm Peripheral pulses: Peripheral pulses 2+ throughout GI: Inspection: Yes normal to inspection Palpation (GI): Soft to palpation and nontender Auscultation: normal bowel sounds Back/Spine/Pelvis: Thoracic/Lumbar Spine: thoracic and lumbar spine normal to inspection Skin: General skin exam: no rashes or lesions noted Neuro: General: patient oriented x3, no focal motor deficits and normal sensation to monofilament Cranial nerves: Yes Equal, round and reactive pupils present Cognition (Neuro): normal cognition Speech: No Abnormal speech present Gait exam (Neuro): Normal gait present Motor exam (neuro): 5/5 motor strength present throughout Extrem: General: Yes normal to inspection, Yes no calf tenderness and No edema Course Course Course Narrative: 1347-Manual BP 180/84. Patient is asymptomatic. No signs or symptoms of end-organ damage. EKG is nonischemic. Labs are normal. Her blood pressure is managed by both her primary care doctor Nephrology. I recommend that they monitor her blood pressure home and continue her medications and tomorrow morning follow up via the phone with either her primary care or transit worker for further instruction. We discussed that we do not aggressively manage asymptomatic HTN in the ER. Reviewed worrisome signs and symptoms of when to return to the emergency room. Comfortable plan for discharge home. Medical Decision Making Medical Decision Making MDM Narrative: 80-year-old female with a history of Alzheimer's disease, hypertension, trigeminal neuralgia, anxiety, GERD, high cholesterol presents to the ER with concern for elevated blood pressure and chest pain. Patient reports that she takes amlodipine 5 mg, lisinopril 20 mg and metoprolol 50 mg once daily. no recent changes in her medications. she has been taking them and they are given to her by her caregiver. she did not miss any doses. she has an appointment with her primary care doctor in 3 weeks and typically she started checking her blood pressure daily for a few weeks before her appointment. She just started checking her blood pressure yesterday and noted yesterday her blood pressure was 170 systolic. Today her blood pressure was 193/94 prompting her to call EMS. She received aspirin 324 mg prior to arrival. She reports that this morning after eating breakfast she did have some left-sided chest pressure which is relieved with burping. she reports is quite typical after she eats food. It was not associated with exertion, diaphoresis, vomiting or shortness of breath. She denies any recent illnesses. No leg swelling or leg pain. No recent travel. She has been quite anxious as she has been reducing her will and making plans for the future. This does affect her blood pressure typically Sounds like asymptomatic hypertension which may be affected by recent stress. Also patient has just resumed checking her blood pressure so it may have been elevated for longer. I will obtain labs, EKG, CXR Differential Diagnosis Differential Diagnoses: The differential diagnosis associated with the presentation includes asymptomatic hypertension which does not sound like hypertensive crisis or hypertensive urgency ACS- Admission/Observation Consideration of admission/observation: Escalation of care including admission/observation considered Lab Data MDM Lab Attestation statement: I reviewed the patient's lab results. 07/05/25 11:08 07/05/25 11:07 Labs: Lab Results 07/05/25 07/05/25 Range/Units 11:07 11:08 WBC 5.9 (4.8-10.8) X10*3/uL RBC 4.17 L (4.20-5.50) X10*6/uL Hgb 13.6 (12.0-16.0) g/dl Hct 40.2 (37.0-47.0) % MCV 96.4 (80.0-98.0) fL MCH 32.6 (27.0-33.0) pg MCHC 33.8 (31.0-35.0) g/dl RDW 12.7 (11.0-16.0) % Plt Count 179 (160-400) X10*3/uL MPV 9.8 (9.4-12.3) fL Immature Gran % (Auto) 0.5 H (0.0-0.4) % Neut % (Auto) 52.4 (45-73) % Lymph % (Auto) 34.0 (20-40) % [place] % (Auto) 10.7 (2-11) % Eos % (Auto) 1.9 (0-4) % Baso % (Auto) 0.5 (0-2) % Lymph # (Auto) 2.0 (1.2-4.9) X10*3/uL [place] # (Auto) 0.6 (0.1-1.2) X10*3/uL Eos # (Auto) 0.1 (0.0-0.4) X10*3/uL Baso # (Auto) 0.0 (0.0-0.2) X10*3/uL Abs Immat Gran (auto) 0.03 (0.00-0.03) X10*3/uL Absolute Neuts (auto) 3.1 (2.0-8.3) x10*3/uL Absolute Nucleated RBC 0.000 (0.0-0.012) X10*3/uL Nucleated RBC % (auto) 0.0 (0.0-0.2) /100WBC PT 12.4 (11.2-13.5) SEC INR 1.0 (0.9-1.1) Sodium 141 (135-145) mmol/L Potassium 3.8 D (3.3-5.1) mmol/L Chloride 106 (96-108) mmol/L Carbon Dioxide 27 (22-29) mmol/L Anion Gap 12 (12-20) BUN 7 L (9-16) mg/dL Creatinine 0.78 (0.5-1.4) mg/dL Estim Creat Clear Calc 54.1 Estimated GFR > 60 Random Glucose 108 (60-115) mg/dL Calcium 9.0 (8.4-10.2) mg/dL Total Bilirubin 0.5 (0.0-1.0) mg/dL AST 30 (5-31) U/L ALT 18 (0-31) U/L Alkaline Phosphatase 97 (39-117) U/L Troponin I High Sens < 2.7 (<3.5-17.0) ng/L Total Protein 7.3 (6.5-8.0) g/dL Albumin 4.1 (3.5-5.0) g/dL Urine Color Yellow Urine Appearance Clear Urine pH 7.0 (5.0-9.0) Ur Specific [place] <= 1.005 (1.005-1.025) Urine Protein 30 (1+) H (Neg-Trace) mg/dL Urine Glucose (UA) Negative (Negative) mg/dL Urine Ketones Negative (Negative) mg/dL Urine Blood Negative (Negative) Urine Nitrite Negative (Negative) Ur Leukocyte Esterase Negative (Negative) Urine RBC 0-2 (0-2) /HPF Urine WBC 0-5 (0-5) /HPF Ur Squamous Epith Cells 0-2 (0-2) /HPF Urine Bacteria None Seen (None Seen) Hyaline Casts 0-2 (0-2) /LPF COVID-19 (JAYE) Negative (Negative) COVID-19 Clin Com See Note Influenza Type A (JACK) Negative (Negative) Influenza Type B (JACK) Negative (Negative) Influenza A & B Note See Note Independent Interpretation I performed an independent interpretation of an: EKG and Plain X-Ray Interpretation: I independently viewed the EKG which shows sinus rhythm with a rate of 62. there is a Q-wave present but this is unchanged when compared to EKG from 02/29/24 I independently viewed the x-ray and agree with the radiology report Radiology Impression Discussion of test interpretation with radiology: I have reviewed the radiologist's reading. Radiologist Impression: [place] [id number] XRay Report Signed Patient: Tia Adair MR#: [id number] : 1945 Acct:[id number] Age/Sex: 80 / F ADM Date: 07/05/25 Loc: .ED Attending Dr: Ordering Physician: Rakel Beach NP Date of Service: 07/05/25 Procedure(s): XR chest 2V Accession Number(s): [id number] cc: Rakel Beach NP; Po,Prateek Cordova MD~ Reason for Exam: htn, cp CLINICAL HISTORY: htn, cp 2 view chest x-ray. Comparison: CR/OK/SR - XR CHEST 2 VIEWS - 10/17/22 11:10 EST Findings: The lungs are adequately expanded. No focal consolidation. No effusion or pneumothorax. Cardiac and mediastinal contours are within normal limits. No acute osseous abnormality Impression: No acute process. Independent Historian Clinical information obtained from an independent historian. History obtained from or confirmed by: Spouse and EMS Discharge Plan Discharge Clinical Impression: Essential hypertension Patient Disposition: Home, Self-Care Instructions: Heart Healthy Diet (ED), How to Take a Blood Pressure Reading (ED), Hypertension (ED) Additional Instructions: Continue your home medication Monitor blood pressure at home and document your blood pressure to show to your outpatient provider Call your primary care doctor or transit worker tomorrow for further instructions and follow-up Prescriptions: No Action amlodipine 5 mg tablet 5 mg PO DAILY Qty: 90 1RF lisinopril 20 mg tablet 20 mg PO DAILY Qty: 90 3RF metoprolol succinate 50 mg tablet extended release 24 hr 50 mg PO DAILY Qty: 90 3RF rosuvastatin 40 mg tablet 40 mg PO BEDTIME Qty: 90 1RF ergocalciferol (vitamin D2) 1,250 mcg (50,000 unit) capsule 1,250 mcg PO QWEEK Qty: 12 0RF citalopram 20 mg tablet 20 mg PO DAILY Qty: 90 0RF lorazepam 0.5 mg tablet 0.5 mg PO DAILY PRN (Reason: anxiety) Qty: 30 0RF carbamazepine 200 mg tablet 200 mg PO BID Qty: 180 0RF omeprazole 20 mg capsule,delayed release(DR/EC) 20 mg PO DAILY Qty: 90 3RF estradiol [Estrace] 0.01 % (0.1 mg/gram) cream 1 g vaginal 2XW Qty: 42.5 0RF cetirizine 10 mg tablet 10 mg PO DAILY PRN Systane Balance 0.6 % drops 1 drp ophthalmic (eye) QID PRN memantine 7 mg capsule,sprinkle,ER 24hr 7 mg PO DAILY Qty: 30 4RF Referrals: Po,Prateek Cordova MD [Primary Care Provider, Internal Medicine] Print Language: Syrian
[2025-07-05 13:35] VITALS: BP 218/79; PULSE 64; RESP 16; TEMP 36.9; O2SAT 96
[2025-07-05 13:36] VITALS: BP 184/84
[2025-07-05 14:21] VITALS: BP 168/52; PULSE 55; RESP 15; TEMP 36.6; O2SAT 95
== END 2025-07-05 14:56 | disposition home or self-care (01) ==
PROVIDERS: Emergency Provider Emergency Medicine Emergency Medical Services; PCP Internal Medicine
DX: R07.89 Other chest pain (principal); I10 Essential (primary) hypertension; Z79.899 Other long term (current) drug therapy; Z11.52 Encounter for screening for COVID-19
CPT/HCPCS: 36415; 71046; 80053; 81001; 84484; 85025; 85610; 87502; 87635; 93005; 99283; 99285

== ENCOUNTER → 2025-07-05 10:47 | Outpatient (BNV) | payer MEDICARE, OTHER, SELFPAY | PROVIDERS: Emergency Provider Emergency Medicine Emergency Medical Services; PCP Internal Medicine; Visit Provider Internal Medicine Cardiovascular Disease | DX: R94.31 Abnormal electrocardiogram [ECG] [EKG] (principal); R07.9 Chest pain, unspecified | CPT/HCPCS: 93010 ==

== ENCOUNTER → 2025-07-05 12:12 | Outpatient (BNV) | payer MEDICARE, OTHER, SELFPAY | PROVIDERS: Emergency Provider Emergency Medicine Emergency Medical Services; PCP Internal Medicine; Visit Provider Radiology Vascular & Interventional Radiology | DX: I10 Essential (primary) hypertension (principal); R07.9 Chest pain, unspecified | CPT/HCPCS: 71046 ==

== ENCOUNTER 2025-07-29 10:52 | Outpatient (AMB) | payer MEDICARE, OTHER, SELFPAY ==
--- NOTE | 2025-07-24 14:01 | HO.NEPHOV ---
Intake Visit Reasons: 6 MO FU Allergies penicillin G (Penicillin G) Allergy (Mild, Verified 07/05/25 10:36) RASH penicillin V Allergy (Unknown, Verified 07/05/25 10:36) RASH meperidine (From Demerol) Adverse Reaction (Mild, Verified 07/05/25 10:36) ABDOMINAL CRAMPS PFSH Medical History Osteoporosis TRIPLETT (dyspnea on exertion) Elevated troponin GERD (gastroesophageal reflux disease) Hypercholesterolemia Hypertension Surgical History History of tonsillectomy History of appendectomy History of hysterectomy Hx of cholecystectomy History of bladder suspension procedure History of section Family History Father Aneurysm Stroke Mother No problems noted. Maternal Aunt Ovarian cancer Maternal Aunt Uterine cancer Son Brain aneurysm Mental health disorder Daughter In good health Social History Household Members: None Housing: House Do you presently have visiting nurse or other home services: No Alcohol intake: current Alcohol intake frequency: holidays/special occasions only Alcohol type: wine Comment: 2 drinks once a month Patient Tobacco Use Status: Former Tobacco user Tobacco use type: Cigarette Years Smoked: 4 x a year 2 cigarettes e-Cigarette/Vaping Use: Never Used Second Hand Smoke Exposure: No service: No Current occupational status: retired Cognitive needs: No Hearing needs: No Vision needs: Yes Results Reviewed Nephrology Results: Hgb, (12.0-16.0) 13.6 g/dl 07/05/25 WBC, (4.8-10.8) 5.9 X10*3/uL 07/05/25 Plt Count, (160-400) 179 X10*3/uL 07/05/25 Sodium, (135-145) 141 mmol/L 07/05/25 Potassium, (3.3-5.1) 3.8 mmol/L Δ 07/05/25 Chloride, (96-108) 106 mmol/L 07/05/25 Carbon Dioxide, (22-29) 27 mmol/L 07/05/25 BUN, (9-16) 7 mg/dL L 07/05/25 Creatinine, (0.5-1.4) 0.78 mg/dL 07/05/25 Calcium, (8.4-10.2) 9.0 mg/dL 07/05/25 Urine Protein, (Neg-Trace) 30 (1+) mg/dL H 07/05/25 Renal US 01/04/22 Coding
--- NOTE | 2025-07-29 11:08 | HO.NEPHOV ---
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 She has a history of TIA. She has no H/O CAD, CHF, PAD, carotid disease or KIMBERLY. Her renal function is at baseline and has no significant CKD. She monitors her BP carefully but feels it had been fluctuant. She recently had a hospitalization during which her Spironolactone had been discontinued, reason for which is unclear( no H/O hyperkalemia or hypotension as per patient). Her weight has been stable and has no edema. She had no other specific complaints at the time of this office visit but has been having some spikes in BP readings. [facility] Medical History Osteoporosis TRIPLETT (dyspnea on exertion) Elevated troponin GERD (gastroesophageal reflux disease) Hypercholesterolemia Hypertension Surgical History History of tonsillectomy History of appendectomy History of hysterectomy Hx of cholecystectomy History of bladder suspension procedure History of section Family History Father Aneurysm Stroke Mother No problems noted. Maternal Aunt Ovarian cancer Maternal Aunt Uterine cancer Son Brain aneurysm Mental health disorder Daughter In good health Social History Household Members: None Housing: House Do you presently have visiting nurse or other home services: No Alcohol intake: current Alcohol intake frequency: holidays/special occasions only Alcohol type: wine Comment: 2 drinks once a month Patient Tobacco Use Status: Former Tobacco user Tobacco use type: Cigarette Years Smoked: 4 x a year 2 cigarettes e-Cigarette/Vaping Use: Never Used Second Hand Smoke Exposure: No service: No Current occupational status: retired Cognitive needs: No Hearing needs: No Vision needs: Yes Review of Systems Const All systems reviewed & are unremarkable except as noted in HPI and below Physical Exam Vital Signs: Last Vital Signs Pulse 60 07/29/25 11:10 BP 150/72 H 07/29/25 11:10 Pulse Ox 94 07/29/25 11:10 Oxygen Delivery Method Room Air 07/29/25 11:10 BMI result Body Mass Index 24.6 Const General: comfortable and no acute distress Orientation/consciousness: patient oriented x3 HEENT Head: Yes normocephalic Mouth: Normal oral and palatal mucosa present Eyes EOM: EOMs intact bilaterally Neck Neck: Yes supple Resp Auscultation: clear to auscultation bilaterally Cardio Jugular venous distension: no JVD Rate: regular rate GI Palpation (GI): Soft to palpation Auscultation: normal bowel sounds General: Yes no CVA tenderness Back/Spine/Pelvis Back: no CVA tenderness Skin General skin exam: no rashes or lesions noted Neuro General: patient oriented x3 and moves all extremities Extrem General: Yes no pedal edema Results Reviewed Nephrology Results: Hgb, (12.0-16.0) 13.6 g/dl 07/05/25 WBC, (4.8-10.8) 5.9 X10*3/uL 07/05/25 Plt Count, (160-400) 179 X10*3/uL 07/05/25 Sodium, (135-145) 141 mmol/L 07/05/25 Potassium, (3.3-5.1) 3.8 mmol/L Δ 07/05/25 Chloride, (96-108) 106 mmol/L 07/05/25 Carbon Dioxide, (22-29) 27 mmol/L 07/05/25 BUN, (9-16) 7 mg/dL L 07/05/25 Creatinine, (0.5-1.4) 0.78 mg/dL 07/05/25 Calcium, (8.4-10.2) 9.0 mg/dL 07/05/25 Urine Protein, (Neg-Trace) 30 (1+) mg/dL H 11/23/25 Renal US 01/04/22 Assessment & Plan Assessment & Plan (1) Essential hypertension: Comment: 2021 MRA negative Code(s): I10 - Essential (primary) hypertension Category: Medical Plan Low sodium diet and increase activity if possible C/W Lisinopril @ current dose Increased Amlodipine to 10 mg C/W Metoprolol to evening. Remain off Spironolactone for now Had MRA renal arteries in 2021( neg); May need 24 hr BPM if BP goes up Renal function at baseline.No NSAID's. Maintain good hydration Answered all questions. Follow up given. Medications: Changed From amlodipine 5 mg PO DAILY 90 tabs 1RF To amlodipine 10 mg PO DAILY 90 tabs 4RF Coding Level of Care Code Est Pt Level 4 (72855) Diagnoses Essential hypertension I10
[2025-07-29 11:10] VITALS: BP 150/72; PULSE 60; O2SAT 94; BMI 24.6
== END 2025-07-29 11:21 | disposition home or self-care (01) ==
LOC: HO.HKA 10:53
PROVIDERS: PCP Internal Medicine; Visit Provider Internal Medicine Nephrology
DX: I10 Essential (primary) hypertension (principal)
CPT/HCPCS: 99214

== ENCOUNTER → 2025-07-29 10:52 | Outpatient (BNVA) | payer MEDICARE, OTHER, SELFPAY | PROVIDERS: PCP Internal Medicine; Visit Provider Internal Medicine Nephrology | DX: I10 Essential (primary) hypertension (principal) | CPT/HCPCS: 99212 ==

== ENCOUNTER 2025-08-10 12:49 | Outpatient (AMB) | payer MEDICARE, OTHER, SELFPAY ==
[2025-08-10 12:56] VITALS: BP 142/78; PULSE 65; O2SAT 97; BMI 24.7
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
== END 2025-08-10 13:32 | disposition home or self-care (01) ==
LOC: HO.HMCH 12:49
PROVIDERS: PCP Internal Medicine; Visit Provider Internal Medicine
DX: I10 Essential (primary) hypertension (principal); E78.00 Pure hypercholesterolemia, unspecified; K21.9 Gastro-esophageal reflux disease without esophagitis; G30.9 Alzheimer's disease, unspecified; F02.80 Dementia in other diseases classified elsewhere, unspecified severity, without behavioral disturbance, psychotic disturbance, mood disturbance, and anxiety; G50.0 Trigeminal neuralgia; F41.1 Generalized anxiety disorder; R29.6 Repeated falls; Z23 Encounter for immunization

== ENCOUNTER → 2025-08-10 12:49 | Outpatient (BNVA) | payer MEDICARE, OTHER, SELFPAY | PROVIDERS: PCP Internal Medicine; Visit Provider Internal Medicine | DX: I10 Essential (primary) hypertension (principal); E78.00 Pure hypercholesterolemia, unspecified; K21.9 Gastro-esophageal reflux disease without esophagitis; G30.9 Alzheimer's disease, unspecified; F02.84 Dementia in other diseases classified elsewhere, unspecified severity, with anxiety; F41.1 Generalized anxiety disorder; G50.0 Trigeminal neuralgia; J32.9 Chronic sinusitis, unspecified; R29.6 Repeated falls; Z83.3 Family history of diabetes mellitus; Z86.73 Personal history of transient ischemic attack (TIA), and cerebral infarction without residual deficits; Z87.891 Personal history of nicotine dependence; Z23 Encounter for immunization | CPT/HCPCS: 90471; 90656; 99212 ==